=== PATIENT | female | born 1960 | race Caucasian/White ===

== ENCOUNTER 2017-08-18 10:23 | Emergency (ER) | payer OTHER ==
[2017-08-18 14:01] LABS: Urine Blood 2+ (NEG); Urine Glucose NEGATIVE (NEG); Urine Protein TRACE (NEG)
--- NOTE | 2017-08-18 14:28 | EDPHYS ---
Physician Documentation [facility] Name: Stefanie Capellan Age: 56 yrs Sex: Female : 1960 Arrival Date: 08/18/2017 Time: 10:25 Bed 23 Private MD: ED Physician Stephan Harvey HPI: 08/18 14:24 This 56 yrs old Female presents to ER via Ambulatory with complaints of dania Urinary Problem, Upper Respiratory, Nausea/Vomiting. 14:24 The patient presents to the emergency department with nausea, vomiting, abdominal pain, dania of the suprapubic area. Onset: The symptoms/episode began/occurred 2 day(s) ago. Possible causes: unknown. The symptoms are aggravated by nothing. The symptoms are alleviated by nothing. Associated signs and symptoms: Pertinent positives:. Severity of symptoms: At their worst the symptoms were mild moderate in the emergency department the symptoms have improved moderately. The patient has experienced similar episodes in the past, a few times. Historical: - Allergies: 11:21 Codeine; sv 11:21 Latex, Natural Rubber; sv 11:21 Morphine; sv 11:21 PENICILLINS; sv 11:21 Prozac; sv 11:21 Sulfa (Sulfonamide Antibiotics); sv - PSHx: 11:21 None; sv - Immunization history:: Adult Immunizations up to date. - Social history:: Smoking status: Patient/guardian denies using tobacco. - Ebola Screening: : No symptoms or risks identified at this time. - Family history:: not pertinent. ROS: 14:24 Constitutional: Negative for fever, chills, and weight loss, Eyes: Negative for injury, dania pain, redness, and discharge, ENT: Negative for injury, pain, and discharge, Neck: Negative for injury, pain, and swelling, Cardiovascular: Negative for chest pain, palpitations, and edema, Abdomen/GI: Negative for abdominal pain, nausea, vomiting, diarrhea, and constipation, Back: Negative for injury and pain, MS/Extremity: Negative for injury and deformity, Skin: Negative for injury, rash, and discoloration, Neuro: Negative for headache, weakness, numbness, tingling, and seizure. 14:24 Respiratory: Positive for cough. 14:24 Abdomen/GI: Positive for nausea, vomiting, and diarrhea. 14:24 : Positive for urinary frequency, small amounts, burning with urination, difficulty urinating. Exam: 14:24 Constitutional: This is a well developed, well nourished patient who is awake, alert, dania and in no acute distress. Head/Face: Normocephalic, atraumatic. Eyes: Pupils equal round and reactive to light, extra-ocular motions intact. Lids and lashes normal. Conjunctiva and sclera are non-icteric and not injected. Cornea within normal limits. Periorbital areas with no swelling, redness, or edema. ENT: Nares patent. No nasal discharge, no septal abnormalities noted. Tympanic membranes are normal and external auditory canals are clear. Oropharynx with no redness, swelling, or masses, exudates, or evidence of obstruction, uvula midline. Mucous membranes moist. Neck: Trachea midline, no thyromegaly or masses palpated, and no cervical lymphadenopathy. Supple, full range of motion without nuchal rigidity, or vertebral point tenderness. No Meningismus. Chest/axilla: Normal chest wall appearance and motion. Nontender with no deformity. No lesions are appreciated. Cardiovascular: Regular rate and rhythm with a normal S1 and S2. No gallops, murmurs, or rubs. Normal PMI, no JVD. No pulse deficits. Respiratory: Lungs have equal breath sounds bilaterally, clear to auscultation and percussion. No rales, rhonchi or wheezes noted. No increased work of breathing, no retractions or nasal flaring. Back: No spinal tenderness. No costovertebral tenderness. Full range of motion. Female : Normal external genitalia. Skin: Warm, dry with normal turgor. Normal color with no rashes, no lesions, and no evidence of cellulitis. 14:24 Abdomen/GI: Inspection: abdomen appears normal, Bowel sounds: normal, Palpation: mild abdominal tenderness, in the suprapubic area. Vital Signs: 11:21 BP 130 / 71; Pulse 94; Resp 18; Temp 98.6(O); Pulse Ox 100% ; Weight 70.76 kg; Height 5 sv ft. 6 in. (167.64 cm); Pain 8/10; 13:33 BP 109 / 63; Pulse 79; Resp 18; Pulse Ox 97% on R/A; tw2 14:35 BP 110 / 72; Pulse 88; Resp 17; Pulse Ox 100% on R/A; tw2 11:21 Body Mass Index 25.18 (70.76 kg, 167.64 cm) MDM: 12:46 Patient medically screened. [facility] 14:24 Data reviewed: vital signs, nurses notes, lab test result(s). [facility] 08/18 13:28 Order name: Urine Culture 08/18 13:30 Order name: Urine Dipstick--Ancillary (enter results); Complete Time: 14:23 08/18 13:28 Order name: Urine Dipstick-Ancillary (obtain specimen); Complete Time: 13:28 Administered Medications: 14:34 Drug: LevOfloxacin 500 mg Route: PO; tw2 14:36 Follow up: Response: No adverse reaction tw2 Disposition: 08/18/17 14:28 Discharged to Home. Impression: Acute upper respiratory infection, unspecified, Dysuria - / UTI. - Condition is Stable. - Discharge Instructions: Dysuria, Upper Respiratory Infection, Adult, Cool Mist Vaporizers, Upper Respiratory Infection, Adult, [id number], Cough, Adult. - Prescriptions for Levaquin 500 mg Oral Tablet - take 1 tablet by ORAL route once daily for 7 days; 7 tablet. - Medication Reconciliation Form, Thank You Letter, Antibiotic Education, Prescription Opioid Use, Work release form form. - Follow up: Private Physician; When: 2 - 3 days; Reason: Recheck today's complaints, Continuance of care, Re-evaluation by your physician. - Problem is new. - Symptoms have improved. Signatures: Dispatcher [employer] Chayo Cruz RN RN Stephan Harvey MD MD cha Smirch, Shelby, RN RN Tennille Davis RN RN tw2 Corrections: (The following items were deleted from the chart) 14:36 14:28 08/18/2017 14:28 Discharged to Home. Impression: Acute upper respiratory tw2 infection, unspecified; Dysuria - / UTI. Condition is Stable. Forms are Medication Reconciliation Form, Thank You Letter, Antibiotic Education, Prescription Opioid Use. Follow up: Private Physician; When: 2 - 3 days; Reason: Recheck today's complaints, Continuance of care, Re-evaluation by your physician. Problem is new. Symptoms have improved. [facility]
--- NOTE | 2017-08-18 14:28 | ER ---
Nurse's Notes [facility] Name: Stefanie Capellan Age: 56 yrs Sex: Female : 1960 Arrival Date: 08/18/2017 Time: 10:25 Bed 23 Private MD: Diagnosis: Acute upper respiratory infection, unspecified;Dysuria-/ UTI Presentation: 08/18 11:20 Presenting complaint: Patient states: head congestion, dental issues, sneezing, abd sv cramping, dizziness, headache, urinary symptoms. Transition of care: patient was not received from another setting of care. Onset of symptoms was July 2017. Care prior to arrival: None. 11:20 Method Of Arrival: Ambulatory sv 11:20 Acuity: RAMIN 3 sv 13:36 Risk Assessment: Do you want to hurt yourself or someone else? Patient reports no tw2 desire to harm self or others. Initial Sepsis Screen: Does the patient meet any 2 criteria? No. Patient's initial sepsis screen is negative. Does the patient have a suspected source of infection? No. Patient's initial sepsis screen is negative. Historical: - Allergies: 11:21 Codeine; sv 11:21 Latex, Natural Rubber; sv 11:21 Morphine; sv 11:21 PENICILLINS; sv 11:21 Prozac; sv 11:21 Sulfa (Sulfonamide Antibiotics); sv - PSHx: 11:21 None; sv - Immunization history:: Adult Immunizations up to date. - Social history:: Smoking status: Patient/guardian denies using tobacco. - Ebola Screening: : No symptoms or risks identified at this time. - Family history:: not pertinent. Screenin:35 Abuse screen: Denies threats or abuse. Nutritional screening: No deficits noted. tw2 Tuberculosis screening: No symptoms or risk factors identified. Fall Risk None identified. Assessment: 12:30 General: Appears in no apparent distress. Behavior is calm, cooperative, appropriate tw2 for age. Pain: Complains of pain in "headache and my sinuses". Neuro: Level of Consciousness is awake, alert, obeys commands, Oriented to person, place, time, situation. Cardiovascular: Denies chest pain, shortness of breath, Heart tones S1 S2 Capillary refill < 3 seconds Patient's skin is warm and dry. Respiratory: Airway is patent Respiratory effort is even, unlabored, Respiratory pattern is regular, symmetrical, Breath sounds are clear bilaterally. GI: No signs and/or symptoms were reported involving the gastrointestinal system. Abdomen is round non-distended, Bowel sounds present X 4 quads. : No signs and/or symptoms were reported regarding the genitourinary system. EENT: Reports nasal congestion and headache. Derm: Skin is intact, is healthy with good turgor, Skin temperature is warm. Musculoskeletal: Range of motion: intact in all extremities. 13:33 Reassessment: Patient appears in no apparent distress at this time. No changes from tw2 previously documented assessment. Patient and/or family updated on plan of care and expected duration. Pain level reassessed. Patient is alert, oriented x 3, equal unlabored respirations, skin warm/dry/pink. 14:35 Reassessment: Patient appears in no apparent distress at this time. No changes from tw2 previously documented assessment. Patient and/or family updated on plan of care and expected duration. Pain level reassessed. Patient is alert, oriented x 3, equal unlabored respirations, skin warm/dry/pink. Vital Signs: 11:21 BP 130 / 71; Pulse 94; Resp 18; Temp 98.6(O); Pulse Ox 100% ; Weight 70.76 kg; Height 5 sv ft. 6 in. (167.64 cm); Pain 8/10; 13:33 BP 109 / 63; Pulse 79; Resp 18; Pulse Ox 97% on R/A; tw2 14:35 BP 110 / 72; Pulse 88; Resp 17; Pulse Ox 100% on R/A; tw2 11:21 Body Mass Index 25.18 (70.76 kg, 167.64 cm) sv ED Course: 10:25 Patient arrived in ED. as 11:21 Triage completed. sv 11:23 Arm band placed on right wrist. Patient placed in waiting room, Patient notified of sv wait time. 12:23 Tennille Davis RN is Primary Nurse. tw2 12:46 Stephan Harvey MD is Attending Physician. [facility] 13:36 Bed in low position. Call light in reach. Pulse ox on. NIBP on. Warm blanket given. tw2 13:59 Urine Culture Sent. tw2 14:35 No provider procedures requiring assistance completed. Patient did not have IV access tw2 during this emergency room visit. Administered Medications: 14:34 Drug: LevOfloxacin 500 mg Route: PO; tw2 14:36 Follow up: Response: No adverse reaction tw2 Outcome: 14:28 Discharge ordered by . dania 14:35 Discharged to home ambulatory. tw2 14:35 Condition: stable 14:35 Discharge instructions given to patient, Instructed on discharge instructions, follow up and referral plans. medication usage, Demonstrated understanding of instructions, follow-up care, medications, Prescriptions given X 1. 14:36 Patient left the ED. tw2 Addendum: 08/21/2017 15:34 Addendum: Culture Results: Positive urine culture. Bacteria is resistant to, has i w intermediate sensitivity, or is not tested against prescribed antibiotics. Report given to NETTIE for further evaluation and then to wire rope sling maker for follow up with patient. Phone call Attempt #1 pt still having pain with urination Prescription called-in to pharmacy of choice. Macrobid 100 mg PO BID X 10 days, Qty 20, no refills. Signatures: Chayo Escudero RN RN Stephan Sarmiento MD MD cha Martinez, Amelia as Williams, Irene, RN RN iw Wise, Tara, RN RN tw2
[2017-08-18] MEDS ORDERED: levoFLOXacin 500 MG TAB ONE (14:35)
== END 2017-08-18 14:36 | disposition home or self-care (01) ==
LOC: ER 10:23
DX: J06.9 Acute upper respiratory infection, unspecified (principal); Z88.5 Allergy status to narcotic agent; Z88.0 Allergy status to penicillin; Z88.2 Allergy status to sulfonamides; Z88.8 Allergy status to other drugs, medicaments and biological substances; Z91.040 Latex allergy status; N39.0 Urinary tract infection, site not specified; R30.0 Dysuria
CPT/HCPCS: 81003; 87077; 87086; 87088; 87186; 99284

== ENCOUNTER 2018-04-30 09:36 | Emergency (ER) | payer OTHER ==
[2018-04-30] MEDS ORDERED: ALBUTEROL 2.5 MG/3 ML NEB SOL ONE (11:17)
[2018-04-30] MEDS ORDERED: ACETAMINOPHEN 500 MG TAB ONE (11:18)
[2018-04-30 11:31] LABS: Urine Bacteria 20-50 /HPF (<20); Urine Culture Reflex Order REFLEXED; Urine Mucus 2+ /HPF (NONE SEEN); Urine RBC 20-50 /HPF (NONE SEEN)
--- NOTE | 2018-04-30 11:34 | RAD REPORT ---
EXAM DESCRIPTION: RAD - Chest Pa And Lat (2 Views) - 04/30/2018 11:23 am CLINICAL HISTORY: COUGH Chest pain. COMPARISON: Chest Pa And Lat (2 Views) dated 09/08/2015; Chest Single View dated 05/29/2015; CHEST PA A ND LAT 2 VIEW dated 03/04/2015; CHEST PA AND LAT 2 VIEW dated 01/31/2011 FINDINGS: The lungs are clear. The heart is normal in size. No displaced fractures. IMPRESSION: No acute or concerning finding suspected.
[2018-04-30 11:58] LABS: Absolute Monocytes 0.8 K/uL (0.1-1.3); Absolute Neutrophil 8.3 K/uL (1.8-8.0); Basophils % 0.7 % (0-1.3); Eosinophils % 3.4 % (0-4.4); Lymphocytes % 23.7 % (15.3-44.8); MPV 8.5 fL (7.6-11.3); Monocytes % 6.1 % (3.3-12.3); RBC Red Blood Cell Count 4.41 M/uL (3.86-4.86)
[2018-04-30 12:07] LABS: BUN Blood Urea Nitrogen 11 mg/dL (7-18); Bicarbonate 29 mmol/L (21-32); Glucose Level 94 mg/dL (74-106); Potassium 3.7 mmol/L (3.5-5.1); Sodium Level 145 mmol/L (136-145)
[2018-04-30 12:15] LABS: Urine Blood 2+ (NEG); Urine Glucose NEGATIVE (NEG); Urine Protein NEGATIVE (NEG); Urine Specific Gravity 1.015 (1.005-1.030)
--- NOTE | 2018-04-30 15:13 | EDPHYS ---
Physician Documentation [facility] Name: Stefanie Capellan Age: 57 yrs Sex: Female : 1960 Arrival Date: 04/30/2018 Time: 09:40 Bed 25 Private MD: ED Physician Kelvin Stroud HPI: 04/30 17:36 This 57 yrs old Female presents to ER via Ambulatory with complaints of Cold wa Symptoms, Urinary Problem. 17:36 The patient presents with vaginal discharge, that is a moderate amount of malodorous wa yellow discharge. Onset: The symptoms/episode began/occurred 2 month(s) ago. Modifying factors: The symptoms are alleviated by nothing, the symptoms are aggravated by nothing. Associated signs and symptoms: Pertinent positives: vaginal discharge, Pertinent negatives: dysuria, fever, hematuria, urinary frequency, vomiting. Severity of symptoms: At their worst the symptoms were moderate, in the emergency department the symptoms are actually worse, moderately. The patient is not sexually active. The patient has not experienced similar symptoms in the past. The patient has not recently seen a physician. Historical: - Allergies: 09:59 Codeine; hj 09:59 Latex, Natural Rubber; hj 09:59 Morphine; hj 09:59 PENICILLINS; hj 09:59 Prozac; hj 09:59 Sulfa (Sulfonamide Antibiotics); hj - Home Meds: 09:59 None [Active]; hj - PMHx: 09:59 Hypertension; hj - PSHx: 09:59 None; hj - Immunization history:: Adult Immunizations up to date. - Social history:: Smoking status: Patient/guardian denies using tobacco, Patient/guardian denies using alcohol. - Ebola Screening: : Patient negative for fever greater than or equal to 101.5 degrees Fahrenheit, and additional compatible Ebola Virus Disease symptoms Patient denies exposure to infectious person Patient denies travel to an Ebola-affected area in the 21 days before illness onset. - Family history:: not pertinent. - Hospitalizations: : No recent hospitalization is reported. ROS: 17:40 Positive for urinary symptoms, vaginal discharge, Negative for pelvic pain. wa 17:40 Constitutional: Negative for fever, chills, and weight loss, Eyes: Negative for injury, pain, redness, and discharge, Neck: Negative for injury, pain, and swelling, Cardiovascular: Negative for chest pain, palpitations, and edema, Respiratory: Negative for shortness of breath, cough, wheezing, and pleuritic chest pain, Abdomen/GI: Negative for abdominal pain, nausea, vomiting, diarrhea, and constipation, Back: Negative for injury and pain, MS/Extremity: Negative for injury and deformity, Skin: Negative for injury, rash, and discoloration, Neuro: Negative for headache, weakness, numbness, tingling, and seizure, Psych: Negative for depression, anxiety, suicide ideation, homicidal ideation, and hallucinations. 17:40 ENT: Positive for sinus congestion, left facial pain. 17:40 : Positive for vaginal discharge. 17:40 All other systems are negative. Exam: 17:41 Constitutional: This is a well developed, well nourished patient who is awake, alert, wa and in no acute distress. Head/Face: Normocephalic, atraumatic. Eyes: Pupils equal round and reactive to light, extra-ocular motions intact. Lids and lashes normal. Conjunctiva and sclera are non-icteric and not injected. Cornea within normal limits. Periorbital areas with no swelling, redness, or edema. Neck: Trachea midline, no thyromegaly or masses palpated, and no cervical lymphadenopathy. Supple, full range of motion without nuchal rigidity, or vertebral point tenderness. No Meningismus. Chest/axilla: Normal chest wall appearance and motion. Nontender with no deformity. No lesions are appreciated. Cardiovascular: Regular rate and rhythm with a normal S1 and S2. No gallops, murmurs, or rubs. Normal PMI, no JVD. No pulse deficits. Respiratory: Lungs have equal breath sounds bilaterally, clear to auscultation and percussion. No rales, rhonchi or wheezes noted. No increased work of breathing, no retractions or nasal flaring. Abdomen/GI: Soft, non-tender, with normal bowel sounds. No distension or tympany. No guarding or rebound. No evidence of tenderness throughout. Back: No spinal tenderness. No costovertebral tenderness. Full range of motion. Skin: Warm, dry with normal turgor. Normal color with no rashes, no lesions, and no evidence of cellulitis. MS/ Extremity: Pulses equal, no cyanosis. Neurovascular intact. Full, normal range of motion. Neuro: Awake and alert, GCS 15, oriented to person, place, time, and situation. Cranial nerves II-XII grossly intact. Motor strength 5/5 in all extremities. Sensory grossly intact. Cerebellar exam normal. Normal gait. Psych: Awake, alert, with orientation to person, place and time. Behavior, mood, and affect are within normal limits. 17:41 ENT: TM's: are normal, noted L frontal and maxillary sinus tenderness. 17:42 : CVA tenderness, is absent, Pelvic Exam: External exam: is normal, Speculum exam: wa yellowish discharge on vag vault. friable cervix. Vital Signs: 10:00 BP 142 / 84; Pulse 85; Resp 18; Temp 97.4(O); Pulse Ox 100% on R/A; Weight 61.23 kg; Height 5 ft. 6 in. (167.64 cm); Pain 8/10; 11:45 BP 147 / 71; Pulse 83; Resp 18; Pulse Ox 100% on Nebulizer Mask; aj1 12:45 BP 142 / 75; Pulse 82; Resp 18; Pulse Ox 99% ; aj1 13:45 BP 145 / 88; Pulse 90; Resp 20; Pulse Ox 97% on R/A; aj1 10:00 Body Mass Index 21.79 (61.23 kg, 167.64 cm) MDM: 10:38 Patient medically screened. ny 17:43 Differential diagnosis: cervicitis, pelvic inflammatory disease, urinary tract wa infection, vaginosis. 17:44 Data reviewed: vital signs, nurses notes. Test interpretation: by ED physician or ny midlevel provider: UA noted for UTI. wet prep negative. GC/Chlam pending. Response to treatment: the patient's symptoms have mildly improved after treatment. 04/30 10:03 Order name: Urine Microscopic Only; Complete Time: 14:53 04/30 10:32 Order name: Urine Dipstick--Ancillary (enter results); Complete Time: 14:53 04/30 11:03 Order name: Wet Prep; Complete Time: 14:53 ny 04/30 11:03 Order name: GC (GONORR/CHLAMYDIA) Probe ny 04/30 11:03 Order name: CBC with Diff; Complete Time: 14:53 ny 04/30 11:03 Order name: BMP; Complete Time: 14:53 ny 04/30 10:03 Order name: Urine Dipstick-Ancillary (obtain specimen); Complete Time: 10:33 04/30 11:03 Order name: Pelvic Exam Setup; Complete Time: 11:45 ny 04/30 11:04 Order name: Chest Pa And Lat (2 Views) XRAY; Complete Time: 11:50 ny 04/30 11:32 Order name: Urine Culture [facility] 04/30 12:06 Order name: Labs - recollect needed; Complete Time: 12:58 bd Administered Medications: 11:10 Drug: Tylenol 1000 mg Route: PO; aj1 15:33 Follow up: Response: No adverse reaction aj1 11:36 Drug: Albuterol 2.5 mg Route: Inhalation; aj1 15:33 Follow up: Response: No adverse reaction aj1 15:33 Drug: LevaQUIN 750 mg Route: PO; aj1 15:33 Follow up: Response: No adverse reaction aj1 Disposition: 04/30/18 15:11 Discharged to Home. Impression: Acute UTI, Vaginal Discharge, Chronic Sinusitis. - Condition is Stable. - Discharge Instructions: Urinary Tract Infection, Adult, Kgfz-[id number], Vaginitis, Qznf-[id number]. - Prescriptions for Cipro 500 mg Oral Tablet - take 1 tablet by ORAL route every 12 hours for 7 days; 14 tablet. Zofran 4 mg Oral Tablet - take 1 tablet by ORAL route every 12 hours As needed; 20 tablet. Levaquin 500 mg Oral Tablet - take 1 tablet by ORAL route once daily for 7 days; 7 tablet. - Work release form, Medication Reconciliation Form, Thank You Letter, Antibiotic Education, Prescription Opioid Use form. - Follow up: Ruben Tinoco DO; When: 2 - 3 days; Reason: Recheck today's complaints. - Problem is new. - Symptoms have improved. - Notes: tqke antibiotics as prescribed. see your doctor for check up within 2-3 days Signatures: Dispatcher [employer] [facility] Riri Pererya Angela, RN RN aj1 Jarrett Santamaria RN RN hj Kelvin Stroud MD MD wa Corrections: (The following items were deleted from the chart) 15:35 15:11 04/30/2018 15:11 Discharged to Home. Impression: Acute UTI; Vaginal Discharge; aj1 Chronic Sinusitis. Condition is Stable. Forms are Medication Reconciliation Form, Thank You Letter, Antibiotic Education, Prescription Opioid Use. Follow up: Ruben Tinoco; When: 2 - 3 days; Reason: Recheck today's complaints. Problem is new. Symptoms have improved. wa
--- NOTE | 2018-04-30 15:13 | ER ---
Nurse's Notes [facility] Name: Stefanie Capellan Age: 57 yrs Sex: Female : 1960 Arrival Date: 04/30/2018 Time: 09:40 Bed 25 Private MD: Diagnosis: Acute UTI;Vaginal Discharge;Chronic Sinusitis Presentation: 04/30 09:56 Presenting complaint: Patient states: i have bad vaginal discharge like a yeast hj infection for like a 3 or 4 months; now i feel like i have urine infection too; reports abdominal pain; reports sinus congestion and headache;. Transition of care: patient was not received from another setting of care. Onset of symptoms was April 30, 2018. Risk Assessment: Do you want to hurt yourself or someone else? Patient reports no desire to harm self or others. Initial Sepsis Screen: Does the patient meet any 2 criteria? No. Patient's initial sepsis screen is negative. Does the patient have a suspected source of infection? No. Patient's initial sepsis screen is negative. Care prior to arrival: None. 09:56 Method Of Arrival: Ambulatory 09:56 Acuity: RAMIN 4 hj Triage Assessment: 10:00 General: Appears in no apparent distress. uncomfortable, Behavior is calm, cooperative, hj appropriate for age. Pain: Complains of pain in head, abdomen. Historical: - Allergies: 09:59 Codeine; hj 09:59 Latex, Natural Rubber; hj 09:59 Morphine; hj 09:59 PENICILLINS; hj 09:59 Prozac; hj 09:59 Sulfa (Sulfonamide Antibiotics); hj - Home Meds: 09:59 None [Active]; hj - PMHx: 09:59 Hypertension; - PSHx: 09:59 None; hj - Immunization history:: Adult Immunizations up to date. - Social history:: Smoking status: Patient/guardian denies using tobacco, Patient/guardian denies using alcohol. - Ebola Screening: : Patient negative for fever greater than or equal to 101.5 degrees Fahrenheit, and additional compatible Ebola Virus Disease symptoms Patient denies exposure to infectious person Patient denies travel to an Ebola-affected area in the 21 days before illness onset. - Family history:: not pertinent. - Hospitalizations: : No recent hospitalization is reported. Screenin:00 Abuse screen: Denies threats or abuse. Denies injuries from another. Nutritional hj screening: No deficits noted. Tuberculosis screening: No symptoms or risk factors identified. Fall Risk None identified. Assessment: 10:31 General: Appears in no apparent distress. comfortable, Behavior is calm, cooperative, aj1 appropriate for age. Pain: Complains of pain in body aches. Neuro: Level of Consciousness is awake, alert, obeys commands, Oriented to person, place, time, situation, Gait is steady, Speech is normal, Facial symmetry appears normal. Cardiovascular: Patient's skin is warm and dry. Respiratory: Airway is patent Respiratory effort is even, unlabored, Respiratory pattern is regular, symmetrical. GI: No signs and/or symptoms were reported involving the gastrointestinal system. : Reports burning with urination. EENT: Reports nasal congestion nasal discharge. Derm: No signs and/or symptoms reported regarding the dermatologic system. Skin is pink, warm \T\ dry. normal. Musculoskeletal: No signs and/or symptoms reported regarding the musculoskeletal system. Circulation, motion, and sensation intact. 11:45 Reassessment: Patient appears in no apparent distress at this time. No changes from aj1 previously documented assessment. Patient and/or family updated on plan of care and expected duration. Pain level reassessed. Patient is alert, oriented x 3, equal unlabored respirations, skin warm/dry/pink. 12:30 Reassessment: Patient appears in no apparent distress at this time. No changes from aj1 previously documented assessment. Patient and/or family updated on plan of care and expected duration. Pain level reassessed. Patient is alert, oriented x 3, equal unlabored respirations, skin warm/dry/pink. 13:31 Reassessment: Patient appears in no apparent distress at this time. No changes from aj1 previously documented assessment. Patient and/or family updated on plan of care and expected duration. Pain level reassessed. Patient is alert, oriented x 3, equal unlabored respirations, skin warm/dry/pink. 14:30 Reassessment: Patient appears in no apparent distress at this time. No changes from aj1 previously documented assessment. Patient and/or family updated on plan of care and expected duration. Pain level reassessed. Patient is alert, oriented x 3, equal unlabored respirations, skin warm/dry/pink. 15:34 Reassessment: Patient appears in no apparent distress at this time. No changes from aj1 previously documented assessment. Patient and/or family updated on plan of care and expected duration. Pain level reassessed. Patient is alert, oriented x 3, equal unlabored respirations, skin warm/dry/pink. Vital Signs: 10:00 BP 142 / 84; Pulse 85; Resp 18; Temp 97.4(O); Pulse Ox 100% on R/A; Weight 61.23 kg; hj Height 5 ft. 6 in. (167.64 cm); Pain 8/10; 11:45 BP 147 / 71; Pulse 83; Resp 18; Pulse Ox 100% on Nebulizer Mask; aj1 12:45 BP 142 / 75; Pulse 82; Resp 18; Pulse Ox 99% ; aj1 13:45 BP 145 / 88; Pulse 90; Resp 20; Pulse Ox 97% on R/A; aj1 10:00 Body Mass Index 21.79 (61.23 kg, 167.64 cm) ED Course: 09:40 Patient arrived in ED. as 09:58 Triage completed. hj 10:00 Arm band placed on left wrist. hj 10:00 Patient has correct armband on for positive identification. Bed in low position. Call light in reach. Side rails up X 1. 10:31 Geetha Ochoa, RN is Primary Nurse. aj1 10:31 No provider procedures requiring assistance completed. aj1 10:31 Urine collected: clean catch specimen, clear. aj1 10:38 Kelvin Stroud MD is Attending Physician. wa 11:21 Chest Pa And Lat (2 Views) XRAY In Process Unspecified. EDMS 11:55 Initial lab(s) drawn, by me, sent to lab. aj1 12:01 Assist provider with pelvic exam: Set up pelvic tray. Performed by Kelvin Stroud MD aj1 Specimens sent to lab. 15:11 Ruben Tinoco DO is Referral Physician. wa 15:34 Patient did not have IV access during this emergency room visit. aj1 Administered Medications: 11:10 Drug: Tylenol 1000 mg Route: PO; aj1 15:33 Follow up: Response: No adverse reaction aj1 11:36 Drug: Albuterol 2.5 mg Route: Inhalation; aj1 15:33 Follow up: Response: No adverse reaction aj1 15:33 Drug: LevaQUIN 750 mg Route: PO; aj1 15:33 Follow up: Response: No adverse reaction aj1 Outcome: 15:11 Discharge ordered by . wa 15:34 Discharged to home ambulatory. aj1 15:34 Condition: good 15:34 Discharge instructions given to patient, Instructed on discharge instructions, follow up and referral plans. medication usage, Demonstrated understanding of instructions, follow-up care, medications, Prescriptions given X 3. 15:35 Patient left the ED. aj1 Signatures: Dispatcher [employer] EDGeetha Bo RN RN aj Sada James Henry, RN RN Kelvin Stroud MD MD wa Corrections: (The following items were deleted from the chart) 10:02 09:56 Presenting complaint: Patient states: i have bad vaginal discharge like a yeast hj infection for like a 3 or 4 months; now i feel like i have urine infection too; reports abdominal pain; hj 10:02 10:00 Pulse 85bpm; Resp 18bpm; Pulse Ox 100% RA; Temp 97.4F Oral; 61.23 kg; Height 5 hj ft. 6 in.; BMI: 21.7; Pain 8/10; hj
[2018-04-30] MEDS ORDERED: levoFLOXacin 750 MG TAB ONE (15:35)
[2018-05-02 21:24] LABS: C.trachomatis RNA,TMA Not Detected (Not Detected)
== END 2018-04-30 15:35 | disposition home or self-care (01) ==
LOC: ER 09:36
DX: N39.0 Urinary tract infection, site not specified (principal); J32.9 Chronic sinusitis, unspecified; I10 Essential (primary) hypertension; Z88.5 Allergy status to narcotic agent; Z88.0 Allergy status to penicillin; Z88.2 Allergy status to sulfonamides; Z88.8 Allergy status to other drugs, medicaments and biological substances; Z91.040 Latex allergy status
CPT/HCPCS: 36415; 71046; 80048; 81003; 81015; 85025; 87086; 87088; 87210; 87490; 87590; 99284

== ENCOUNTER 2018-06-17 11:33 | Emergency (ER) | payer OTHER ==
[2018-06-17 13:09] LABS: Urine Blood 1+ (NEG); Urine Glucose NEGATIVE (NEG); Urine Protein NEGATIVE (NEG); Urine Specific Gravity 1.015 (1.005-1.030); Urine pH 7.5 (5.0-7.0)
[2018-06-17 13:49] LABS: Urine Bacteria <20 /HPF (<20)
[2018-06-17 13:50] LABS: Urine Culture Reflex Order NOT NEEDED
--- NOTE | 2018-06-17 14:01 | EDPHYS ---
Physician Documentation [facility] Name: Stefanie Capellan Age: 57 yrs Sex: Female : 1960 Arrival Date: 06/17/2018 Time: 11:37 Bed 24 Private MD: ED Physician Willy Rodríguez HPI: 06/17 13:55 This 57 yrs old Female presents to ER via Ambulatory with complaints of kb Urinary Problem, Rash, Sinus Congestion. 13:56 The patient's rash thought to be caused by insect bites. The rash is located on the kb right leg and left leg. The rash can be described as erythematous. Onset: The symptoms/episode began/occurred 3 day(s) ago. Associated signs and symptoms: Pertinent positives: itching. Severity of symptoms: At their worst the symptoms were moderate in the emergency department the symptoms are unchanged. The patient has not experienced similar symptoms in the past. The patient has not recently seen a physician. Pt reports a rash to bilateral legs that she thinks might be bed bugs. States she has been staying at a hotel and just moved to a different room when the spots started. Reports itching. Also reports chronic sinusitis and two months of dysuria and discharge. . Historical: - Allergies: 12:11 Codeine; rb1 12:11 Morphine; rb1 12:11 Latex, Natural Rubber; rb1 12:11 PENICILLINS; rb1 12:11 Prozac; rb1 12:11 Sulfa (Sulfonamide Antibiotics); rb1 - PMHx: 12:11 Hypertension; Diabetes - NIDDM; rb1 - PSHx: 12:11 None; rb1 - Immunization history:: Adult Immunizations up to date. - Social history:: Smoking status: Patient/guardian denies using tobacco. ROS: 13:53 Constitutional: Negative for fever, chills, and weight loss, ENT: Negative for injury, kb pain, and discharge, Neck: Negative for injury, pain, and swelling, Cardiovascular: Negative for chest pain, palpitations, and edema, Respiratory: Negative for shortness of breath, cough, wheezing, and pleuritic chest pain, Abdomen/GI: Negative for abdominal pain, nausea, vomiting, diarrhea, and constipation, MS/Extremity: Negative for injury and deformity, Neuro: Negative for headache, weakness, numbness, tingling, and seizure. 13:53 : Positive for burning with urination, foul smelling urine. 13:53 Skin: Positive for rash. Exam: 13:53 Constitutional: This is a well developed, well nourished patient who is awake, alert, kb and in no acute distress. Head/Face: Normocephalic, atraumatic. Chest/axilla: Normal chest wall appearance and motion. Nontender with no deformity. No lesions are appreciated. Cardiovascular: Regular rate and rhythm with a normal S1 and S2. No gallops, murmurs, or rubs. Normal PMI, no JVD. No pulse deficits. Respiratory: Lungs have equal breath sounds bilaterally, clear to auscultation and percussion. No rales, rhonchi or wheezes noted. No increased work of breathing, no retractions or nasal flaring. Abdomen/GI: Soft, non-tender, with normal bowel sounds. No distension or tympany. No guarding or rebound. No evidence of tenderness throughout. Back: No spinal tenderness. No costovertebral tenderness. Full range of motion. MS/ Extremity: Pulses equal, no cyanosis. Neurovascular intact. Full, normal range of motion. Neuro: Awake and alert, GCS 15, oriented to person, place, time, and situation. Cranial nerves II-XII grossly intact. Motor strength 5/5 in all extremities. Sensory grossly intact. Cerebellar exam normal. Normal gait. 13:53 Skin: rash a mild rash is noted, rash can be described as erythematous, on the right leg and left leg. Vital Signs: 12:11 BP 154 / 82; Pulse 95; Resp 17; Temp 98.4(O); Pulse Ox 99% on R/A; Weight 65.77 kg; rb1 Height 5 ft. 6 in. (167.64 cm); Pain 4/10; 12:11 Body Mass Index 23.40 (65.77 kg, 167.64 cm) rb1 MDM: 13:13 Patient medically screened. kb 13:52 Data reviewed: vital signs, nurses notes. Data interpreted: Pulse oximetry: on room air kb is 99 %. Interpretation: normal. Counseling: I had a detailed discussion with the patient and/or guardian regarding: the historical points, exam findings, and any diagnostic results supporting the discharge/admit diagnosis, lab results, the need for outpatient follow up, a family practitioner, to return to the emergency department if symptoms worsen or persist or if there are any questions or concerns that arise at home. 06/17 12:31 Order name: Urine Microscopic Only; Complete Time: 13:52 hb 06/17 12:43 Order name: Urine Dipstick--Ancillary (enter results); Complete Time: 13:13 bd 06/17 13:18 Order name: Urine Culture aj Administered Medications: No medications were administered Disposition: 06/17/18 14:00 Discharged to Home. Impression: Urinary tract infection, site not specified, Bitten or stung by nonvenomous insect and other nonvenomous arthropods. - Condition is Stable. - Discharge Instructions: Insect Bite, [id number], Urinary Tract Infection, Adult, [id number]. - Prescriptions for Macrobid 100 mg Oral Capsule - take 1 capsule by ORAL route every 12 hours for 7 days; 14 capsule. - Medication Reconciliation Form, Thank You Letter, Antibiotic Education, Prescription Opioid Use, Work release form form. - Follow up: Emergency Department; When: As needed; Reason: Worsening of condition. Follow up: Private Physician; When: 2 - 3 days; Reason: Recheck today's complaints, Continuance of care, Re-evaluation by your physician. Addendum: 06/19/2018 07:04 Co-signature as Attending Physician, Willy Rodríguez MD. r n Signatures: Dispatcher [employer] EDVania Sawyer, BULLDOZER OPERATOR-C BULLDOZER OPERATOR-Ckb Leigh Peña RN RN aj Nieto, Roman, MD MD rn Smirch, Shelby, RN RN ss Barber, Rebecca, RN RN rb1 Corrections: (The following items were deleted from the chart) 06/17 14:19 14:00 06/17/2018 14:00 Discharged to Home. Impression: Urinary tract infection, site ss not specified; Bitten or stung by nonvenomous insect and other nonvenomous arthropods. Condition is Stable. Forms are Medication Reconciliation Form, Thank You Letter, Antibiotic Education, Prescription Opioid Use. Follow up: Emergency Department; When: As needed; Reason: Worsening of condition. Follow up: Private Physician; When: 2 - 3 days; Reason: Recheck today's complaints, Continuance of care, Re-evaluation by your physician. kb
--- NOTE | 2018-06-17 14:01 | ER ---
Nurse's Notes [facility] Name: Stefanie Capellan Age: 57 yrs Sex: Female : 1960 Arrival Date: 06/17/2018 Time: 11:37 Bed 24 Private MD: Diagnosis: Urinary tract infection, site not specified;Bitten or stung by nonvenomous insect and other nonvenomous arthropods Presentation: 06/17 12:07 Presenting complaint: Patient states: Rash on legs, sinus congestion, and urinary rb1 problem. Started a couple months ago. Rash x couple days. Transition of care: patient was not received from another setting of care. Onset of symptoms is unknown. Risk Assessment: Do you want to hurt yourself or someone else? Patient reports no desire to harm self or others. Initial Sepsis Screen: Does the patient meet any 2 criteria? No. Patient's initial sepsis screen is negative. Does the patient have a suspected source of infection? No. Patient's initial sepsis screen is negative. 12:07 Method Of Arrival: Ambulatory rb1 12:07 Acuity: RAMIN 4 rb1 Triage Assessment: 12:11 General: Appears in no apparent distress. comfortable, Behavior is calm, cooperative, rb1 Denies fever. Pain: Complains of pain in headache Pain currently is 4 out of 10 on a pain scale. EENT: Reports nasal congestion. Neuro: Level of Consciousness is awake, alert, obeys commands, Oriented to person, place, time, situation. Cardiovascular: Capillary refill < 3 seconds is brisk in bilateral fingers. Respiratory: Airway is patent Respiratory effort is even, unlabored, Respiratory pattern is regular, symmetrical. Respiratory: Reports cough that is productive, green sputum. : Reports burning with urination, since unknown. Derm: Skin is pink, warm \\T\\ dry. Historical: - Allergies: 12:11 Codeine; rb1 12:11 Morphine; rb1 12:11 Latex, Natural Rubber; rb1 12:11 PENICILLINS; rb1 12:11 Prozac; rb1 12:11 Sulfa (Sulfonamide Antibiotics); rb1 - PMHx: 12:11 Hypertension; Diabetes - NIDDM; rb1 - PSHx: 12:11 None; rb1 - Immunization history:: Adult Immunizations up to date. - Social history:: Smoking status: Patient/guardian denies using tobacco. Screenin:13 Abuse screen: Denies threats or abuse. Denies injuries from another. Nutritional aj screening: No deficits noted. Tuberculosis screening: No symptoms or risk factors identified. Fall Risk None identified. Assessment: 13:13 Reassessment: Patient stated, "I think I may have been bitten by bedbugs. I am staying at the [facility] and it is older, I just switched room and woke up with bites all over me. I didn't check the mattress but that's what I think it may be." Patient noted to have small red spots all over legs, trunk, and chest. General: Appears in no apparent distress. comfortable, Behavior is calm, cooperative, appropriate for age. General: Appears in no apparent distress. comfortable, Behavior is calm, cooperative, appropriate for age. Neuro: Level of Consciousness is awake, alert, obeys commands, Oriented to person, place, time, situation, Appropriate for age. Respiratory: Airway is patent Respiratory effort is even, unlabored, Respiratory pattern is regular, symmetrical. Derm: Skin is intact, is healthy with good turgor, Skin is pink, warm \\T\\ dry. normal. 13:13 EENT: Reports nasal congestion nasal discharge. aj Vital Signs: 12:11 BP 154 / 82; Pulse 95; Resp 17; Temp 98.4(O); Pulse Ox 99% on R/A; Weight 65.77 kg; rb1 Height 5 ft. 6 in. (167.64 cm); Pain 4/10; 12:11 Body Mass Index 23.40 (65.77 kg, 167.64 cm) rb1 ED Course: 11:37 Patient arrived in ED. mr 12:10 Triage completed. rb1 12:11 Arm band placed on left wrist. rb1 12:43 Leigh Peña, YVONNE is Primary Nurse. aj 13:13 Vania Sparks FNP-C is PHCP. kb 13:13 Willy Rodríguez MD is Attending Physician. kb 13:13 Patient has correct armband on for positive identification. aj 13:13 No provider procedures requiring assistance completed. aj 14:18 Patient did not have IV access during this emergency room visit. ss Administered Medications: No medications were administered Outcome: 14:00 Discharge ordered by MD. kb 14:18 Discharged to home ambulatory. ss 14:18 Condition: good 14:18 Discharge instructions given to patient, family, Instructed on discharge instructions, follow up and referral plans. medication usage, Demonstrated understanding of instructions, follow-up care, medications. 14:19 Patient left the ED. ss Signatures: Vania Sparks, CIVIL ENGINEERING TECHNICIAN-C CIVIL ENGINEERING TECHNICIAN-Leigh Lara, RN Dyan Mcmillan mr Hermila Diane RN RN ss Alejandra De La Rosa RN RN rb1
== END 2018-06-17 14:19 | disposition home or self-care (01) ==
LOC: ER 11:33
DX: S80.862A Insect bite (nonvenomous), left lower leg, initial encounter (principal); S80.861A Insect bite (nonvenomous), right lower leg, initial encounter; N39.0 Urinary tract infection, site not specified; I10 Essential (primary) hypertension; E11.9 Type 2 diabetes mellitus without complications; Z88.5 Allergy status to narcotic agent; Z88.2 Allergy status to sulfonamides; Z88.8 Allergy status to other drugs, medicaments and biological substances; Z91.040 Latex allergy status
CPT/HCPCS: 81003; 81015; 87086; 87088; 99281

== ENCOUNTER 2019-03-02 08:58 | Emergency (ER) | payer OTHER ==
[2019-03-02] MEDS ORDERED: IBUPROFEN 200 MG TAB PO ONE (09:26)
[2019-03-02] MEDS ORDERED: IBUPROFEN 400 MG TAB ONE (09:26)
--- NOTE | 2019-03-02 10:12 | EDPHYS ---
Physician Documentation [facility] Name: Stefanie Capellan Age: 58 yrs Sex: Female : 1960 Arrival Date: 03/02/2019 Time: 09:02 Bed 18 Private MD: ED Physician Trey Garcia HPI: 03/02 09:14 This 58 yrs old Female presents to ER via Ambulatory with complaints of kdr Swollen Glands, Fever, Gum Pain. 09:14 The patient has been feeling poorly for the last 24-48 hours. General malaise, kdr subjective fever, cough and congestion. She also has very poor dentition and now has an anterior tooth with a sharp edge that is abrading her buccal surface. . Onset: The symptoms/episode began/occurred yesterday. Severity of symptoms: At their worst the symptoms were mild in the emergency department the symptoms are unchanged. The patient has not experienced similar symptoms in the past. The patient has not recently seen a physician. Historical: - Allergies: 09:17 Codeine; ph 09:17 Latex, Natural Rubber; ph 09:17 Morphine; ph 09:17 PENICILLINS; ph 09:17 Prozac; ph 09:17 Sulfa (Sulfonamide Antibiotics); ph - PMHx: 09:17 Diabetes - NIDDM; Hypertension; ph - PSHx: 09:17 None; ph - Immunization history:: Adult Immunizations unknown. - Coronavirus screen:: The patient has NOT traveled to [place], [place], or [place] in the past 14 days. The patient has NOT had contact with known/suspected case of Coronavirus?. - Social history:: Smoking status: Patient denies any tobacco usage or history of. - Ebola Screening: : No symptoms or risks identified at this time. ROS: 09:14 Constitutional: Negative for fever, chills, and weight loss, Eyes: Negative for injury, kdr pain, redness, and discharge, Neck: Negative for injury, pain, and swelling, Cardiovascular: Negative for chest pain, palpitations, and edema, Abdomen/GI: Negative for abdominal pain, nausea, vomiting, diarrhea, and constipation, Back: Negative for injury and pain, : Negative for injury, bleeding, discharge, and swelling, MS/Extremity: Negative for injury and deformity, Skin: Negative for injury, rash, and discoloration, Neuro: Negative for headache, weakness, numbness, tingling, and seizure activity. Psych: Negative for depression, anxiety, suicide ideation, homicidal ideation, and hallucinations, Allergy/Immunology: Negative for hives, rash, and allergies, Endocrine: Negative for neck swelling, polydipsia, polyuria, polyphagia, and marked weight changes, Hematologic/Lymphatic: Negative for swollen nodes, abnormal bleeding, and unusual bruising. 09:14 Respiratory: Positive for cough, with no reported sputum, Negative for dyspnea on exertion, hemoptysis, orthopnea, pleurisy, shortness of breath, sputum production, wheezing. Exam: 09:14 Constitutional: This is a well developed, well nourished patient who is awake, alert, kdr and in no acute distress. Head/Face: Normocephalic, atraumatic. Eyes: Pupils equal round and reactive to light, extra-ocular motions intact. Lids and lashes normal. Conjunctiva and sclera are non-icteric and not injected. Cornea within normal limits. Periorbital areas with no swelling, redness, or edema. Neck: Trachea midline, no thyromegaly or masses palpated, and no cervical lymphadenopathy. Supple, full range of motion without nuchal rigidity, or vertebral point tenderness. No Meningismus. Chest/axilla: Normal chest wall appearance and motion. Nontender with no deformity. No lesions are appreciated. Cardiovascular: Regular rate and rhythm with a normal S1 and S2. No gallops, murmurs, or rubs. Normal PMI, no JVD. No pulse deficits. Respiratory: Lungs have equal breath sounds bilaterally, clear to auscultation and percussion. No rales, rhonchi or wheezes noted. No increased work of breathing, no retractions or nasal flaring. Abdomen/GI: Soft, non-tender, with normal bowel sounds. No distension or tympany. No guarding or rebound. No evidence of tenderness throughout. Back: No spinal tenderness. No costovertebral tenderness. Full range of motion. Skin: Warm, dry with normal turgor. Normal color with no rashes, no lesions, and no evidence of cellulitis. MS/ Extremity: Pulses equal, no cyanosis. Neurovascular intact. Full, normal range of motion. Neuro: Awake and alert, GCS 15, oriented to person, place, time, and situation. Cranial nerves II-XII grossly intact. Motor strength 5/5 in all extremities. Sensory grossly intact. Cerebellar exam normal. Normal gait. Psych: Awake, alert, with orientation to person, place and time. Behavior, mood, and affect are within normal limits. 09:14 ENT: Mouth: Gums: reddened, swollen, The patient has extremely poor dentition and her teeth are nearly all in an advanced state of decline. Vital Signs: 09:16 BP 132 / 90; Pulse 82; Resp 18; Temp 99.2; Pulse Ox 98% on R/A; Weight 65.77 kg; ph 10:00 BP 118 / 67; Pulse 84; Resp 17; Pulse Ox 96% on R/A; rb1 10:49 BP 120 / 70; Pulse 78; Resp 16; Temp 98.9(O); Pulse Ox 96% on R/A; rb1 MDM: 09:14 Data reviewed: vital signs, nurses notes, lab test result(s). Counseling: I had a kdr detailed discussion with the patient and/or guardian regarding: the historical points, exam findings, and any diagnostic results supporting the discharge/admit diagnosis, lab results, radiology results, the need for outpatient follow up. 10:11 Patient medically screened. kdr 03/02 09:13 Order name: Flu; Complete Time: 10:04 kdr Administered Medications: 09:25 Drug: Ibuprofen 600 mg Route: PO; ph 10:20 Follow up: Response: No adverse reaction; Temperature is decreased rb1 Disposition: 03/02/19 10:11 Discharged to Home. Impression: Viral infection, unspecified, Viral infection of unspecified site, Dental caries. - Condition is Stable. - Discharge Instructions: Dental Pain, Ibuprofen Dosage Chart, Pediatric, Dental Pain, [id number], Viral Respiratory Infection, [id number]. - Prescriptions for Tamiflu 75 mg Oral Capsule - take 1 tablet by ORAL route every 12 hours for 5 days; 10 tablet. - Medication Reconciliation Form, Thank You Letter form. - Follow up: Private Physician; When: 2 - 3 days; Reason: If symptoms return, Further diagnostic work-up, Recheck today's complaints, Continuance of care, Re-evaluation by your physician. - Problem is new. - Symptoms have improved. Signatures: Dispatcher [employer] EDTrey Mukherjee MD MD kdr Chelsey Barrera RN RN ph Alejandra De La Rosa RN RN rb1 Corrections: (The following items were deleted from the chart) 10:50 10:11 03/02/2019 10:11 Discharged to Home. Impression: Viral infection, unspecified; rb1 Viral infection of unspecified site; Dental caries. Condition is Stable. Forms are Medication Reconciliation Form, Thank You Letter, Antibiotic Education, Prescription Opioid Use. Follow up: Private Physician; When: 2 - 3 days; Reason: If symptoms return, Further diagnostic work-up, Recheck today's complaints, Continuance of care, Re-evaluation by your physician. Problem is new. Symptoms have improved. kdr
--- NOTE | 2019-03-02 10:12 | ER ---
Nurse's Notes [facility] Name: Stefanie Capellan Age: 58 yrs Sex: Female : 1960 Arrival Date: 03/02/2019 Time: 09:02 Bed 18 Private MD: Diagnosis: Viral infection, unspecified;Viral infection of unspecified site;Dental caries Presentation: 03/02 09:11 Presenting complaint: Patient states: Swollen/inflamed gums, fever, chills, body aches, ph fatigue and nausea. Transition of care: patient was not received from another setting of care. Onset of symptoms was March 02, 2019. Risk Assessment: Do you want to hurt yourself or someone else? Patient reports no desire to harm self or others. Initial Sepsis Screen: Does the patient meet any 2 criteria? No. Patient's initial sepsis screen is negative. Does the patient have a suspected source of infection? No. Patient's initial sepsis screen is negative. 09:11 Method Of Arrival: Ambulatory ph 09:11 Acuity: RAMIN 4 ph 09:17 Care prior to arrival: None. ph Historical: - Allergies: 09:17 Codeine; ph 09:17 Latex, Natural Rubber; ph 09:17 Morphine; ph 09:17 PENICILLINS; ph 09:17 Prozac; ph 09:17 Sulfa (Sulfonamide Antibiotics); ph - PMHx: 09:17 Diabetes - NIDDM; Hypertension; ph - PSHx: 09:17 None; ph - Immunization history:: Adult Immunizations unknown. - Coronavirus screen:: The patient has NOT traveled to [place], [place], or [place] in the past 14 days. The patient has NOT had contact with known/suspected case of Coronavirus?. - Social history:: Smoking status: Patient denies any tobacco usage or history of. - Ebola Screening: : No symptoms or risks identified at this time. Screenin:17 Abuse screen: Denies threats or abuse. Denies injuries from another. Nutritional ph screening: No deficits noted. Tuberculosis screening: No symptoms or risk factors identified. Fall Risk None identified. Assessment: 09:25 General: Appears in no apparent distress. comfortable, well groomed, Behavior is calm, ph cooperative, appropriate for age, Reports chills for fever for. Pain: Complains of pain in mouth and neck and body aches. Neuro: Level of Consciousness is awake, alert, obeys commands, Oriented to person, place, time, situation. Cardiovascular: Capillary refill < 3 seconds in bilateral fingers Patient's skin is warm and dry. Respiratory: Airway is patent Respiratory effort is even, unlabored, Respiratory pattern is regular, symmetrical. GI: Reports nausea, Patient currently denies abdominal pain, diarrhea, vomiting. EENT: Oral mucosa is moist. Poor dentition noted. Derm: Skin is intact, Skin is pink, warm \T\ dry. Musculoskeletal: Circulation, motion, and sensation intact. Range of motion: intact in all extremities. 10:25 Reassessment: Patient appears in no apparent distress at this time. No changes from rb1 previously documented assessment. Vital Signs: 09:16 BP 132 / 90; Pulse 82; Resp 18; Temp 99.2; Pulse Ox 98% on R/A; Weight 65.77 kg; ph 10:00 BP 118 / 67; Pulse 84; Resp 17; Pulse Ox 96% on R/A; rb1 10:49 BP 120 / 70; Pulse 78; Resp 16; Temp 98.9(O); Pulse Ox 96% on R/A; rb1 ED Course: 09:02 Patient arrived in ED. as 09:05 Trey Garcia MD is Attending Physician. kdr 09:05 Chelsey Barrera, RN is Primary Nurse. ph 09:13 Triage completed. ph 09:17 Arm band placed on Patient placed in an exam room. ph 09:18 Patient has correct armband on for positive identification. Bed in low position. Call ph light in reach. Door closed. Noise minimized. Warm blanket given. 09:27 No provider procedures requiring assistance completed. Flu and/or RSV swab sent to lab. ph Patient did not have IV access during this emergency room visit. Administered Medications: 09:25 Drug: Ibuprofen 600 mg Route: PO; ph 10:20 Follow up: Response: No adverse reaction; Temperature is decreased rb1 Outcome: 10:11 Discharge ordered by . kdr 10:49 Discharged to home ambulatory. rb1 10:49 Condition: stable 10:49 Discharge instructions given to patient, Instructed on discharge instructions, follow up and referral plans. medication usage, Demonstrated understanding of instructions, follow-up care, medications, Prescriptions given X 1. 10:50 Patient left the ED. rb1 Signatures: Rittger, MD MD vidhya Yang Amelia as Hall, Patricia, RN RN ph Alejandra De La Rosa RN RN rb1
[2019-03-02 10:56] VITALS: O2SAT 96
[2019-03-02 10:57] VITALS: BP 120/70; TEMP 98.9
== END 2019-03-02 10:50 | disposition home or self-care (01) ==
LOC: ER 08:58
DX: B34.9 Viral infection, unspecified (principal); K02.9 Dental caries, unspecified; Z88.6 Allergy status to analgesic agent; Z88.0 Allergy status to penicillin; Z91.040 Latex allergy status; Z88.2 Allergy status to sulfonamides
CPT/HCPCS: 87804; 99283

== ENCOUNTER 2019-03-06 14:13 | Emergency (ER) | payer OTHER ==
--- NOTE | 2019-03-06 16:01 | RAD REPORT ---
EXAM DESCRIPTION: RAD - Chest Pa And Lat (2 Views) - 03/06/2019 3:36 pm CLINICAL HISTORY: Cough;Congestion COMPARISON: Chest Pa And Lat (2 Views) dated 04/30/2018; Chest Pa And Lat (2 Views) dated 09/08/2015 TECHNIQUE: Frontal and lateral views of the chest were obtained. FINDINGS: The lungs are clear of a peripheral mass or consolidation. Chronic interstitial lung disea se is present not substantially different from comparison studies. Heart size is normal and central vasculature is within normal limits. No pleural effusion or pneumothorax seen. No acute bony findi ng noted. No aortic abnormality. IMPRESSION: Chronic interstitial lung pattern similar to comparison studies.
--- NOTE | 2019-03-06 16:08 | EDPHYS ---
Physician Documentation [facility] Name: Stefanie Capellan Age: 58 yrs Sex: Female : 1960 Arrival Date: 03/06/2019 Time: 14:14 Bed 13 Private MD: ED Physician Willy Rodríguez HPI: 03/06 16:10 This 58 yrs old Female presents to ER via Ambulatory with complaints of Flu kb Symptoms. 16:10 The patient or guardian reports cough, that is intermittent, described as moderate, kb with no sputum, flu symptoms. Onset: The symptoms/episode began/occurred 5 day(s) ago. Severity of symptoms: At their worst the symptoms were moderate, in the emergency department the symptoms are unchanged. Modifying factors: The symptoms are alleviated by nothing, the symptoms are aggravated by nothing. Associated signs and symptoms: Pertinent positives: sore throat. The patient has not experienced similar symptoms in the past. The patient has been recently seen by a physician:. Pt reports she was here and tested positive for flu on Sunday. Has been taking tamiflu, but symptoms have not gotten better. Historical: - Allergies: 14:39 Codeine; ca1 14:39 Latex, Natural Rubber; ca1 14:39 Morphine; ca1 14:39 PENICILLINS; ca1 14:39 Prozac; ca1 14:39 Sulfa (Sulfonamide Antibiotics); ca1 - PMHx: 14:39 Diabetes - NIDDM; Hypertension; ca1 - PSHx: 14:39 None; ca1 - Immunization history:: Adult Immunizations not up to date, Flu vaccine is not up to date. - Coronavirus screen:: The patient has NOT traveled to [place], [place], or [place] in the past 14 days. The patient has NOT had contact with known/suspected case of Coronavirus?. - Social history:: Smoking status: Patient denies any tobacco usage or history of. - Ebola Screening: : Patient negative for fever greater than or equal to 101.5 degrees Fahrenheit, and additional compatible Ebola Virus Disease symptoms Patient denies exposure to infectious person Patient denies travel to an Ebola-affected area in the 21 days before illness onset No symptoms or risks identified at this time. ROS: 16:10 Neck: Negative for injury, pain, and swelling, Cardiovascular: Negative for chest pain, kb palpitations, and edema, Abdomen/GI: Negative for abdominal pain, nausea, vomiting, diarrhea, and constipation, Back: Negative for injury and pain, MS/Extremity: Negative for injury and deformity, Skin: Negative for injury, rash, and discoloration, Neuro: Negative for headache, weakness, numbness, tingling, and seizure. 16:10 Constitutional: Positive for chills, fatigue, malaise. 16:10 ENT: Positive for sinus congestion, sinus pain. 16:10 Respiratory: Positive for cough. Exam: 16:09 Constitutional: This is a well developed, well nourished patient who is awake, alert, kb and in no acute distress. Head/Face: Normocephalic, atraumatic. ENT: Nares patent. No nasal discharge, no septal abnormalities noted. Tympanic membranes are normal and external auditory canals are clear. Oropharynx with no redness, swelling, or masses, exudates, or evidence of obstruction, uvula midline. Mucous membranes moist. Neck: Trachea midline, no thyromegaly or masses palpated, and no cervical lymphadenopathy. Supple, full range of motion without nuchal rigidity, or vertebral point tenderness. No Meningismus. Chest/axilla: Normal chest wall appearance and motion. Nontender with no deformity. No lesions are appreciated. Cardiovascular: Regular rate and rhythm with a normal S1 and S2. No gallops, murmurs, or rubs. Normal PMI, no JVD. No pulse deficits. Respiratory: Lungs have equal breath sounds bilaterally, clear to auscultation and percussion. No rales, rhonchi or wheezes noted. No increased work of breathing, no retractions or nasal flaring. Abdomen/GI: Soft, non-tender, with normal bowel sounds. No distension or tympany. No guarding or rebound. No evidence of tenderness throughout. Skin: Warm, dry with normal turgor. Normal color with no rashes, no lesions, and no evidence of cellulitis. MS/ Extremity: Pulses equal, no cyanosis. Neurovascular intact. Full, normal range of motion. Neuro: Awake and alert, GCS 15, oriented to person, place, time, and situation. Cranial nerves II-XII grossly intact. Motor strength 5/5 in all extremities. Sensory grossly intact. Cerebellar exam normal. Normal gait. Vital Signs: 14:39 BP 150 / 104; Pulse 87; Resp 17 S; Temp 98.6(O); Pulse Ox 98% on R/A; Weight 66.22 kg ca1 (R); Height 5 ft. 6 in. (167.64 cm) (R); 15:51 BP 149 / 90; Pulse 81; Resp 17; Pulse Ox 100% on R/A; tw2 16:13 BP 139 / 84; Pulse 76; Resp 17; Pulse Ox 97% on R/A; tw2 14:39 Body Mass Index 23.56 (66.22 kg, 167.64 cm) ca1 MDM: 14:44 Patient medically screened. kb 16:04 Data reviewed: vital signs, nurses notes. Data interpreted: Pulse oximetry: on room air kb is 100 %. Interpretation: normal. Counseling: I had a detailed discussion with the patient and/or guardian regarding: the historical points, exam findings, and any diagnostic results supporting the discharge/admit diagnosis, lab results, radiology results, the need for outpatient follow up, a dentist, a family practitioner, to return to the emergency department if symptoms worsen or persist or if there are any questions or concerns that arise at home. 16:11 Differential Diagnosis: Bronchitis Influenza Upper Respiratory Infection Sinusitis kb Pneumonia. Data reviewed: old medical records, tested negative for flu during last ER visit lab test result(s), radiologic studies. Test interpretation: by ED physician or midlevel provider: plain radiologic studies. 03/06 15:08 Order name: Flu; Complete Time: 15:43 kb 03/06 15:08 Order name: Strep; Complete Time: 15:43 kb 03/06 15:08 Order name: Chest Pa And Lat (2 Views) XRAY; Complete Time: 16:11 kb 03/06 15:39 Order name: Throat Culture EDMS Administered Medications: No medications were administered Disposition: 17:09 Co-signature as Attending Physician, Willy Rodríguze MD. rn Disposition: 03/06/19 16:07 Discharged to Home. Impression: Acute sinusitis. - Condition is Stable. - Discharge Instructions: Sinusitis, Adult, [id number]. - Medication Reconciliation Form, Thank You Letter, Antibiotic Education, Prescription Opioid Use, Work release form form. - Follow up: Emergency Department; When: As needed; Reason: Worsening of condition. Follow up: Private Physician; When: 2 - 3 days; Reason: Recheck today's complaints, Continuance of care, Re-evaluation by your physician. Signatures: Dispatcher [employer] EDVania Sawyer, TRUCK MANAGER-C TRUCK MANAGER-Ckb Willy Rodríguez MD MD rn Wise, Tara, RN RN tw2 Reyna Bautista RN RN ca1 Corrections: (The following items were deleted from the chart) 16:14 16:07 03/06/2019 16:07 Discharged to Home. Impression: Acute sinusitis. Condition is tw2 Stable. Forms are Work release form, Medication Reconciliation Form, Thank You Letter, Antibiotic Education, Prescription Opioid Use. Follow up: Emergency Department; When: As needed; Reason: Worsening of condition. Follow up: Private Physician; When: 2 - 3 days; Reason: Recheck today's complaints, Continuance of care, Re-evaluation by your physician. kb
--- NOTE | 2019-03-06 16:08 | ER ---
Nurse's Notes [facility] Name: Stefanie Capellan Age: 58 yrs Sex: Female : 1960 Arrival Date: 03/06/2019 Time: 14:14 Bed 13 Private MD: Diagnosis: Acute sinusitis Presentation: 03/06 14:36 Presenting complaint: Patient states: I was here Sunday and diagnosed with the flu and ca1 was prescribed with Tamiflu. But I am not feeling better. I got more sneezing, congestion and dizziness. Transition of care: patient was not received from another setting of care. Onset of symptoms was March 06, 2019. Risk Assessment: Do you want to hurt yourself or someone else? Patient reports no desire to harm self or others. Initial Sepsis Screen: Does the patient meet any 2 criteria? No. Patient's initial sepsis screen is negative. Does the patient have a suspected source of infection? No. Patient's initial sepsis screen is negative. Care prior to arrival: None. 14:36 Method Of Arrival: Ambulatory ca1 14:36 Acuity: RAMIN 3 ca1 Historical: - Allergies: 14:39 Codeine; ca1 14:39 Latex, Natural Rubber; ca1 14:39 Morphine; ca1 14:39 PENICILLINS; ca1 14:39 Prozac; ca1 14:39 Sulfa (Sulfonamide Antibiotics); ca1 - PMHx: 14:39 Diabetes - NIDDM; Hypertension; ca1 - PSHx: 14:39 None; ca1 - Immunization history:: Adult Immunizations not up to date, Flu vaccine is not up to date. - Coronavirus screen:: The patient has NOT traveled to [place], [place], or [place] in the past 14 days. The patient has NOT had contact with known/suspected case of Coronavirus?. - Social history:: Smoking status: Patient denies any tobacco usage or history of. - Ebola Screening: : Patient negative for fever greater than or equal to 101.5 degrees Fahrenheit, and additional compatible Ebola Virus Disease symptoms Patient denies exposure to infectious person Patient denies travel to an Ebola-affected area in the 21 days before illness onset No symptoms or risks identified at this time. Screenin:41 Abuse screen: Denies threats or abuse. Nutritional screening: No deficits noted. tw2 Tuberculosis screening: No symptoms or risk factors identified. Fall Risk None identified. Assessment: 14:45 General: Appears in no apparent distress. Behavior is calm, cooperative, appropriate tw2 for age. Pain: Denies pain. Neuro: Level of Consciousness is awake, alert, obeys commands, Oriented to person, place, time, situation. Cardiovascular: Heart tones S1 S2 Patient's skin is warm and dry. Respiratory: Reports cough that is dry, hacking, Airway is patent Respiratory effort is even, unlabored, Respiratory pattern is regular, symmetrical, Breath sounds are clear bilaterally. GI: No signs and/or symptoms were reported involving the gastrointestinal system. Abdomen is flat, Bowel sounds present X 4 quads. : No signs and/or symptoms were reported regarding the genitourinary system. EENT: Reports nasal congestion nasal discharge. Derm: No signs and/or symptoms reported regarding the dermatologic system. Musculoskeletal: Range of motion: intact in all extremities. 15:46 Reassessment: Patient appears in no apparent distress at this time. No changes from tw2 previously documented assessment. Patient and/or family updated on plan of care and expected duration. Pain level reassessed. Patient is alert, oriented x 3, equal unlabored respirations, skin warm/dry/pink. Vital Signs: 14:39 BP 150 / 104; Pulse 87; Resp 17 S; Temp 98.6(O); Pulse Ox 98% on R/A; Weight 66.22 kg ca1 (R); Height 5 ft. 6 in. (167.64 cm) (R); 15:51 BP 149 / 90; Pulse 81; Resp 17; Pulse Ox 100% on R/A; tw2 16:13 BP 139 / 84; Pulse 76; Resp 17; Pulse Ox 97% on R/A; tw2 14:39 Body Mass Index 23.56 (66.22 kg, 167.64 cm) ca1 ED Course: 14:14 Patient arrived in ED. as 14:23 [facility]C [facility] kb 14:23 Willy Rodríguez MD is Attending Physician. kb 14:38 Triage completed. ca1 14:39 Arm band placed on right wrist. ca1 14:41 Tennille Davis, YVONNE is Primary Nurse. tw2 14:41 Bed in low position. Call light in reach. tw2 15:16 Strep Sent. rb1 15:17 Flu Sent. rb1 15:36 Chest Pa And Lat (2 Views) XRAY In Process Unspecified. EDMS 16:13 No provider procedures requiring assistance completed. Patient did not have IV access tw2 during this emergency room visit. Administered Medications: No medications were administered Outcome: 16:07 Discharge ordered by . ivania 16:13 Discharged to home ambulatory. tw2 16:13 Condition: stable 16:13 Discharge instructions given to patient, Instructed on discharge instructions, follow up and referral plans. Demonstrated understanding of instructions, follow-up care. 16:14 Patient left the ED. tw2 Signatures: Dispatcher [employer] EDMS Vania Sparks, DRAWER HARDWARE WORKER-C DRAWER HARDWARE WORKER-Sada Guerrier Rebecca, RN RN rb1 Tennille Davis RN RN tw2 Reyna Bautista RN RN ca1
[2019-03-06 20:08] VITALS: TEMP 98.6
[2019-03-06 20:11] VITALS: BP 139/84; O2SAT 97
== END 2019-03-06 16:14 | disposition home or self-care (01) ==
LOC: ER 14:13
DX: J01.90 Acute sinusitis, unspecified (principal); Z88.6 Allergy status to analgesic agent; Z88.0 Allergy status to penicillin; Z91.040 Latex allergy status; Z88.2 Allergy status to sulfonamides
CPT/HCPCS: 71046; 87070; 87081; 87804; 99283

== ENCOUNTER 2020-02-25 19:28 | Emergency (ER) | payer OTHER ==
[2020-02-25] MEDS ORDERED: AZITHROMYCIN 250 MG TAB ONE (22:52)
[2020-02-25] MEDS ORDERED: ACETAMINOPHEN 325 MG TABLET ONE (22:52)
[2020-02-25] MEDS ORDERED: CEFTRIAXONE 1000 MG/VIAL ONE (22:53)
[2020-02-25] MEDS ORDERED: predniSONE 20 MG TAB ONE (22:53)
[2020-02-25 22:56] LABS: SARS-COV-2 RT PCR NEGATIVE (NEGATIVE)
--- NOTE | 2020-02-25 23:24 | EDPHYS ---
Physician Documentation [facility] Name: Stefanie Capellan Age: 59 yrs Sex: Female : 1960 Arrival Date: 02/25/2020 Time: 19:34 Bed 26 Private MD: ZAFAR Physician Stephan Harvey HPI: 02/24 22:12 This 59 yrs old Female presents to ER via Ambulatory with complaints of Sinus dania Congestion. 22:12 The patient or guardian reports cough, difficulty breathing, flu symptoms, arthralgias, dania low-grade fever. Onset: The symptoms/episode began/occurred 2 day(s) ago. Severity of symptoms: At their worst the symptoms were mild, moderate, in the emergency department the symptoms are unchanged. Modifying factors: The symptoms are alleviated by nothing. Associated signs and symptoms: The patient has no apparent associated signs or symptoms. The patient has not experienced similar symptoms in the past. Historical: - Allergies: 19:40 Codeine; ll1 19:40 Latex, Natural Rubber; ll1 19:40 Morphine; ll1 19:40 PENICILLINS; ll1 19:40 Prozac; ll1 19:40 Sulfa (Sulfonamide Antibiotics); ll1 - PMHx: 19:40 Diabetes - NIDDM; Hypertension; ll1 - PSHx: 19:40 None; ll1 - Immunization history:: Flu vaccine is not up to date. - Social history:: Smoking status: Patient denies any tobacco usage or history of. Patient/guardian denies using tobacco, the patient reports quitting approximately 21 years ago. - Family history:: not pertinent. ROS: 22:12 Eyes: Negative for injury, pain, redness, and discharge, ENT: Negative for injury, dania pain, and discharge, Neck: Negative for injury, pain, and swelling, Cardiovascular: Negative for chest pain, palpitations, and edema, Abdomen/GI: Negative for abdominal pain, nausea, vomiting, diarrhea, and constipation, Back: Negative for injury and pain, : Negative for injury, bleeding, discharge, and swelling, MS/Extremity: Negative for injury and deformity, Skin: Negative for injury, rash, and discoloration, Neuro: Negative for headache, weakness, numbness, tingling, and seizure, Psych: Negative for depression, anxiety, suicide ideation, homicidal ideation, and hallucinations, Allergy/Immunology: Negative for hives, rash, and allergies, Endocrine: Negative for neck swelling, polydipsia, polyuria, polyphagia, and marked weight changes, Hematologic/Lymphatic: Negative for swollen nodes, abnormal bleeding, and unusual bruising. 22:12 Constitutional: Positive for body aches, chills, fatigue, fever. 22:12 Respiratory: Positive for cough, with green sputum. Exam: 22:12 Constitutional: This is a well developed, well nourished patient who is awake, alert, dania and in no acute distress. Head/Face: Normocephalic, atraumatic. Eyes: Pupils equal round and reactive to light, extra-ocular motions intact. Lids and lashes normal. Conjunctiva and sclera are non-icteric and not injected. Cornea within normal limits. Periorbital areas with no swelling, redness, or edema. ENT: Nares patent. No nasal discharge, no septal abnormalities noted. Tympanic membranes are normal and external auditory canals are clear. Oropharynx with no redness, swelling, or masses, exudates, or evidence of obstruction, uvula midline. Mucous membranes moist. Neck: Trachea midline, no thyromegaly or masses palpated, and no cervical lymphadenopathy. Supple, full range of motion without nuchal rigidity, or vertebral point tenderness. No Meningismus. Chest/axilla: Normal chest wall appearance and motion. Nontender with no deformity. No lesions are appreciated. Cardiovascular: Regular rate and rhythm with a normal S1 and S2. No gallops, murmurs, or rubs. Normal PMI, no JVD. No pulse deficits. Abdomen/GI: Soft, non-tender, with normal bowel sounds. No distension or tympany. No guarding or rebound. No evidence of tenderness throughout. Back: No spinal tenderness. No costovertebral tenderness. Full range of motion. Female : Normal external genitalia. Skin: Warm, dry with normal turgor. Normal color with no rashes, no lesions, and no evidence of cellulitis. MS/ Extremity: Pulses equal, no cyanosis. Neurovascular intact. Full, normal range of motion. Neuro: Awake and alert, GCS 15, oriented to person, place, time, and situation. Cranial nerves II-XII grossly intact. Motor strength 5/5 in all extremities. Sensory grossly intact. Cerebellar exam normal. Normal gait. Psych: Awake, alert, with orientation to person, place and time. Behavior, mood, and affect are within normal limits. 22:12 Respiratory: mild respiratory distress is noted, Respirations: normal, no acute changes, labored breathing, is not present, Breath sounds: decreased breath sounds, are not appreciated, rhonchi, that are mild, are scattered, Respiratory rate: 17 22:46 Musculoskeletal/extremity: DVT Exam: No signs of deep vein thrombosis. no pain, no dania swelling, no tenderness, negative Homans' sign noted on exam, no appreciated bluish discoloration, no erythema, no increased warmth. Vital Signs: 19:40 BP 152 / 98; Pulse 85; Resp 17; Temp 99.3; Pulse Ox 98% ; Weight 69.4 kg; Height 5 ft. ll1 5 in. (165.10 cm); Pain 6/10; 22:00 BP 133 / 78; Pulse 74; Resp 18; Pulse Ox 100% on R/A; Pain 4/10; fu 22:14 BP 156 / 94; Pulse 83; Resp 18; Pulse Ox 100% on R/A; Pain 5/10; fu 23:00 BP 135 / 87; Pulse 71; Resp 18; Temp 98.5(O); Pulse Ox 100% on R/A; Pain 0/10; fu 19:40 Body Mass Index 25.46 (69.40 kg, 165.10 cm) ll1 MDM: 21:30 Patient medically screened. [facility] 22:17 Differential Diagnosis: Bronchitis Influenza Upper Respiratory Infection Sinusitis dania Viral Syndrome Pneumonia. Data reviewed: vital signs, nurses notes, lab test result(s), radiologic studies, plain films. Data interpreted: color television console monitor: rate is 85 beats/min, rhythm is regular, Pulse oximetry: on room air is 98 %. Interpretation: normal. Test interpretation: by ED physician or midlevel provider: plain radiologic studies. Counseling: I had a detailed discussion with the patient and/or guardian regarding: the historical points, exam findings, and any diagnostic results supporting the discharge/admit diagnosis, lab results, radiology results, the need for outpatient follow up, for definitive care, a family practitioner, a char filter operator helper. 02/24 21:32 Order name: Chest Single View XRAY [facility] 02/24 22:57 Order name: COVID-19/FLU A+B; Complete Time: 23:23 EDMS Administered Medications: 22:51 Drug: Rocephin (cefTRIAXone) 1 grams Route: IM; Site: right gluteus; fu 23:12 Follow up: Response: No adverse reaction fu :51 Drug: Zithromax 500 mg Route: PO; fu :51 Follow up: Response: No adverse reaction fu :51 Drug: predniSONE 60 mg Route: PO; fu 23:51 Follow up: Response: No adverse reaction fu :51 Drug: Tylenol 650 mg Route: PO; fu 23:12 Follow up: Response: Pain is decreased fu Disposition: 02/25/20 23:23 Discharged to Home. Impression: Bronchitis, not specified as acute or chronic, Chronic obstructive pulmonary disease, unspecified, Type 2 diabetes mellitus, Fever, unspecified. - Condition is Stable. - Discharge Instructions: Acute Bronchitis, Adult, Chronic Bronchitis, Fever, Adult, Upper Respiratory Infection, Adult, Chronic Obstructive Pulmonary Disease Exacerbation, Upper Respiratory Infection, Adult, [id number], Cough, Adult, Qxjw-[id number], Cough, Adult. - Prescriptions for Prednisone 20 mg Oral Tablet - take 2 tablet by ORAL route once daily for 5 days; 10 tablet. Albuterol Sulfate 90 mcg/actuation - inhale 1-2 puff by INHALATION route every 4-6 hours; 1 Inhaler. Zithromax 500 mg Oral Tablet - take 1 tablet by ORAL route once daily for 4 days; 4 tablet. - Medication Reconciliation Form, Thank You Letter, Antibiotic Education, Prescription Opioid Use, Work release form form. - Follow up: Private Physician; When: 2 - 3 days; Reason: Recheck today's complaints, Continuance of care, Re-evaluation by your physician. Follow up: Neil Lindsey; When: 2 - 3 days; Reason: Recheck today's complaints, Re-evaluation by your physician. - Problem is new. - Symptoms have improved. Signatures: Dispatcher [employer] EDMS Stephan Harvey MD MD cha Umadhay, Felix, RN RN Jayde Langston RN RN ll1 Corrections: (The following items were deleted from the chart) 21:45 21:32 Influenza Screen (A \T\ B)+BA.LAB.BRZ ordered. EDMS EDMS 21:45 21:32 CORONAVIRUS+MR.LAB.BRZ ordered. EDMS EDMS 02/25 00:18 02/24 23:23 02/25/2020 23:23 Discharged to Home. Impression: Bronchitis, not specified fu as acute or chronic; Chronic obstructive pulmonary disease, unspecified; Type 2 diabetes mellitus; Fever, unspecified. Condition is Stable. Discharge Instructions: Acute Bronchitis, Adult, Chronic Bronchitis, Upper Respiratory Infection, Adult, Chronic Obstructive Pulmonary Disease Exacerbation, Upper Respiratory Infection, Adult, Pxab-qi-[id number], Cough, Adult, Wbls-vb-Pitr, Cough, Adult, Fever, Adult. Prescriptions for Prednisone 20 mg Oral Tablet - take 2 tablet by ORAL route once daily for 5 days; 10 tablet, Albuterol Sulfate 90 mcg/actuation - inhale 1-2 puff by INHALATION route every 4-6 hours; 1 Inhaler, Zithromax 500 mg Oral Tablet - take 1 tablet by ORAL route once daily for 4 days; 4 tablet. and Forms are Medication Reconciliation Form, Thank You Letter, Antibiotic Education, Prescription Opioid Use. Follow up: Private Physician; When: 2 - 3 days; Reason: Recheck today's complaints, Continuance of care, Re-evaluation by your physician. Follow up: Neil Lindsey; When: 2 - 3 days; Reason: Recheck today's complaints, Re-evaluation by your physician. Problem is new. Symptoms have improved. dania
--- NOTE | 2020-02-25 23:24 | ER ---
Nurse's Notes [facility] Name: Stefanie Capellan Age: 59 yrs Sex: Female : 1960 Arrival Date: 02/25/2020 Time: 19:34 Bed 26 Private MD: Diagnosis: Bronchitis, not specified as acute or chronic;Chronic obstructive pulmonary disease, unspecified;Type 2 diabetes mellitus;Fever, unspecified Presentation: 02/24 19:40 Chief complaint: Patient states: Congestion with green thick sputum, sneezing, LAM for 2 ll1 weeks. No fever. Coronavirus screen: Client denies travel out of the [place] in the last 14 days. congestion, fatigue, headache, Client presents with at least one sign or symptom that may indicate coronavirus-19. Standard/surgical mask placed on the client. Ebola Screen: Patient denies travel to an Ebola-affected area in the 21 days before illness onset. Initial Sepsis Screen: Does the patient meet any 2 criteria? No. Patient's initial sepsis screen is negative. Does the patient have a suspected source of infection? Yes: Other: congestion. r/o sinus infection. Risk Assessment: Do you want to hurt yourself or someone else? Patient reports no desire to harm self or others. Onset of symptoms was February 12, 2020. 19:40 Method Of Arrival: Ambulatory ll1 19:40 Acuity: RAMIN 3 ll1 Historical: - Allergies: 19:40 Codeine; ll1 19:40 Latex, Natural Rubber; ll1 19:40 Morphine; ll1 19:40 PENICILLINS; ll1 19:40 Prozac; ll1 19:40 Sulfa (Sulfonamide Antibiotics); ll1 - PMHx: 19:40 Diabetes - NIDDM; Hypertension; ll1 - PSHx: 19:40 None; ll1 - Immunization history:: Flu vaccine is not up to date. - Social history:: Smoking status: Patient denies any tobacco usage or history of. Patient/guardian denies using tobacco, the patient reports quitting approximately 21 years ago. - Family history:: not pertinent. Screenin:15 Abuse screen: Denies threats or abuse. Nutritional screening: No deficits noted. fu Tuberculosis screening: No symptoms or risk factors identified. Fall Risk None identified. Assessment: 21:40 General: Appears in no apparent distress. comfortable, Behavior is calm, cooperative, fu appropriate for age, Reports fatigue for 2 weeks. Pain: Complains of pain in headache Pain does not radiate. Pain currently is 6 out of 10 on a pain scale. Quality of pain is described as aching, Pain began 1 week ago. Neuro: Level of Consciousness is awake, alert, obeys commands, Oriented to person, place, time, situation, Structural Architect are equal bilaterally Moves all extremities. Gait is steady, Speech is normal, Facial symmetry appears normal. Cardiovascular: Denies chest pain, nausea, vomiting. Respiratory: Reports sneezing, was coughing with thick greenish secretions. GI: Patient currently denies abdominal pain, diarrhea, nausea, vomiting. EENT: Reports nasal congestion since 2 weeks ago. Derm: No signs and/or symptoms reported regarding the dermatologic system. Musculoskeletal: No signs and/or symptoms reported regarding the musculoskeletal system. 22:30 Reassessment: Patient appears in no apparent distress at this time. Patient and/or fu family updated on plan of care and expected duration. Pain level reassessed. Patient is alert, oriented x 3, equal unlabored respirations, skin warm/dry/pink. 02/25 00:00 Reassessment: Patient appears in no apparent distress at this time. Patient and/or fu family updated on plan of care and expected duration. Pain level reassessed. Patient is alert, oriented x 3, equal unlabored respirations, skin warm/dry/pink. Vital Signs: 02/24 19:40 BP 152 / 98; Pulse 85; Resp 17; Temp 99.3; Pulse Ox 98% ; Weight 69.4 kg; Height 5 ft. ll1 5 in. (165.10 cm); Pain 6/10; 22:00 BP 133 / 78; Pulse 74; Resp 18; Pulse Ox 100% on R/A; Pain 4/10; fu 22:14 BP 156 / 94; Pulse 83; Resp 18; Pulse Ox 100% on R/A; Pain 5/10; fu 23:00 BP 135 / 87; Pulse 71; Resp 18; Temp 98.5(O); Pulse Ox 100% on R/A; Pain 0/10; fu 19:40 Body Mass Index 25.46 (69.40 kg, 165.10 cm) ll1 ED Course: 19:34 Patient arrived in ED. mr 19:39 Arm band placed on. ll1 19:42 Triage completed. ll1 21:30 Stephan Harvey MD is Attending Physician. [facility] 21:38 COVID swab sent to lab. Flu and/or RSV swab sent to lab. jp3 21:38 Patient maintains SpO2 saturation greater than 95% on room air. jp3 21:42 Landon Cazares, RN is Primary Nurse. fu 21:48 Bed in low position. Call light in reach. Side rails up X 1. Verbal reassurance given. jp3 Pulse ox on. NIBP on. 21:57 Chest Single View XRAY In Process Unspecified. EDMA 23:15 No provider procedures requiring assistance completed. fu 23:17 Diet: Patient given snack. Patient given water. Tolerated well. fu 23:23 Neil Lindsey MD is Referral Physician. [facility] 23:55 Patient did not have IV access during this emergency room visit. fu Administered Medications: 22:51 Drug: Rocephin (cefTRIAXone) 1 grams Route: IM; Site: right gluteus; fu 23:12 Follow up: Response: No adverse reaction fu 22:51 Drug: Zithromax 500 mg Route: PO; fu 23:51 Follow up: Response: No adverse reaction fu 22:51 Drug: predniSONE 60 mg Route: PO; fu 23:51 Follow up: Response: No adverse reaction fu 22:51 Drug: Tylenol 650 mg Route: PO; fu 23:12 Follow up: Response: Pain is decreased fu Outcome: 23:23 Discharge ordered by . [facility] 23:54 Discharged to home ambulatory. fu 23:54 Condition: stable 23:54 Discharge instructions given to patient, Instructed on discharge instructions, follow up and referral plans. Demonstrated understanding of instructions, follow-up care, Prescriptions given X 3. 02/25 00:18 Patient left the ED. fu Signatures: Dispatcher [employer] EDMA Stephan Harvey MD MD cha Rivera, Mary mr Landon Cazares, RN Alexandre Gallego 3 Jayde Llamas RN RN ll1
[2020-02-26 00:33] VITALS: O2SAT 100
[2020-02-26 00:36] VITALS: BP 135/87; TEMP 98.5
--- NOTE | 2020-02-26 07:56 | RAD REPORT ---
EXAM DESCRIPTION: RAD - Chest Single View - 02/25/2020 9:56 pm CLINICAL HISTORY: COUGH, congestion, hypertension COMPARISON: July 2019 TECHNIQUE: AP portable chest image was obtained 02/25/2020 9:56 pm . FINDINGS: Chronic interstitial pattern is similar to comparison. Lung volumes are low. No failure, m ass or infiltrate seen. Heart and vasculature are normal. No measurable pleural effusion and no pneum othorax. No acute bony abnormality seen. No acute aortic findings suspected. IMPRESSION: Chronic interstitial pattern without acute cardiopulmonary finding. No significant change from comparison study.
== END 2020-02-26 00:18 | disposition home or self-care (01) ==
LOC: ER 19:28
DX: J40 Bronchitis, not specified as acute or chronic (principal); J44.9 Chronic obstructive pulmonary disease, unspecified; Z20.822 Contact with and (suspected) exposure to COVID-19; E11.9 Type 2 diabetes mellitus without complications; I10 Essential (primary) hypertension; Z88.0 Allergy status to penicillin; Z88.2 Allergy status to sulfonamides; Z88.5 Allergy status to narcotic agent; Z91.040 Latex allergy status; Z91.048 Other nonmedicinal substance allergy status
CPT/HCPCS: 0240U; 71045; 96372; 99284; J7512

== ENCOUNTER 2020-03-30 12:33 | Emergency (ER) | payer OTHER ==
--- NOTE | 2020-03-30 14:22 | RAD REPORT ---
EXAM DESCRIPTION: RAD - Knee Right 3 View - 03/30/2020 1:55 pm CLINICAL HISTORY: PAIN COMPARISON: Knee Right 3 View dated 03/29/2015 FINDINGS: No fracture, dislocation or periosteal reaction.No joint effusion seen. Slight narrowing o f the medial compartment noted. No foreign body or other soft tissue abnormality. IMPRESSION: Negative right knee for acute bone or joint finding. Patient has mild degenerative change not substantially different from 2016. Clinical concerns for internal derangement or occult bony injury could be further assessed with MR im aging.
--- NOTE | 2020-03-30 14:23 | RAD REPORT ---
EXAM DESCRIPTION: Shoulder Right 2 View - 03/30/2020 1:55 pm CLINICAL HISTORY: PAIN COMPARISON: <Comparisons> TECHNIQUE: Internal and external rotation views of the right shoulder were obtained. FINDINGS: There is no fracture or dislocation. No significant degenerative change at the AC joint. The patient has significant lateral downward tilting of the acromion and narrowed acromial humeral rain int space. This can be seen with shoulder impingement as well as possibly indicating chronic rotator cuff tear. No pathologic bone process. No suspicious soft tissue finding. IMPRESSION: No acute right shoulder joint or bone abnormality. Lateral downward tilting of the acromion can result in shoulder impingement the narrowed joint space could indicate chronic rotator cuff tear.
--- NOTE | 2020-03-30 14:42 | EDPHYS ---
Physician Documentation [facility] Name: Stefanie Capellan Age: 59 yrs Sex: Female : 1960 Arrival Date: 03/30/2020 Time: 12:36 Bed 5 Private MD: ZAFAR Physician Stephan Harvey HPI: 03/30 14:32 This 59 yrs old Female presents to ER via Ambulatory with complaints of Fall pm1 Injury, Knee Pain. 14:32 Details of fall: The patient fell from an upright position, while standing. Onset: The pm1 symptoms/episode began/occurred 3 day(s) ago. Associated injuries: The patient sustained right knee, painful injury, anterior aspect of right shoulder. Severity of symptoms: in the emergency department the symptoms improvement to right shoulder but pain unchanged to right knee. The patient has not experienced similar symptoms in the past. The patient has not recently seen a physician. Patient lost her balance on Sunday and then she fell on her right shoulder and right knee. Pain improved to right shoulder, is able to move it without much pain at all but has occasional crepitus. Right knee pain is unchanged and has been using a knee brace. Pain with weight bearing and bending. Historical: - Allergies: 12:46 Codeine; hb 12:46 Latex, Natural Rubber; hb 12:46 Morphine; hb 12:46 PENICILLINS; hb 12:46 Prozac; hb 12:46 Sulfa (Sulfonamide Antibiotics); hb 12:46 Codeine; ll1 12:46 Latex, Natural Rubber; ll1 12:46 Morphine; ll1 12:46 PENICILLINS; ll1 12:46 Prozac; ll1 12:46 Sulfa (Sulfonamide Antibiotics); ll1 - PMHx: 12:46 Diabetes - NIDDM; Hypertension; hb 12:46 Hypertension; Diabetes - NIDDM; COPD; Asthma; ll1 - PSHx: 12:46 None; hb 12:46 None; ll1 - Immunization history:: Adult Immunizations not up to date, Flu vaccine is not up to date. - Social history:: Smoking status: Patient/guardian denies using tobacco, the patient reports quitting approximately 22 years ago, Smoking status: Patient denies any tobacco usage or history of. ROS: 14:32 Constitutional: Negative for fever, chills, and weight loss, Neck: Negative for injury, pm1 pain, and swelling, Cardiovascular: Negative for chest pain, palpitations, and edema, Respiratory: Negative for shortness of breath, cough, wheezing, and pleuritic chest pain, Back: Negative for injury and pain. 14:32 Skin: Negative for injury, rash, and discoloration, Neuro: Negative for headache, weakness, numbness, tingling, and seizure. 14:32 MS/extremity: Positive for pain, of the anterior aspect of right shoulder and right knee. Exam: 14:32 Constitutional: This is a well developed, well nourished patient who is awake, alert, pm1 and in no acute distress. Head/Face: Normocephalic, atraumatic. Neck: Trachea midline, no thyromegaly or masses palpated, and no cervical lymphadenopathy. Supple, full range of motion without nuchal rigidity, or vertebral point tenderness. No Meningismus. Vital Signs: 12:44 BP 155 / 89; Pulse 82; Resp 17; Temp 98.9; Pulse Ox 99% ; Weight 71.67 kg; Height 5 ft. ll1 5 in. (165.10 cm); Pain 6/10; 15:00 BP 146 / 86; Pulse 80; Resp 16; Pulse Ox 99% on R/A; hb 12:44 Body Mass Index 26.29 (71.67 kg, 165.10 cm) ll1 MDM: 13:07 Patient medically screened. pm1 14:38 Data reviewed: vital signs. Counseling: I had a detailed discussion with the patient pm1 and/or guardian regarding: the historical points, exam findings, and any diagnostic results supporting the discharge/admit diagnosis, radiology results, the need for outpatient follow up, for definitive care, a orthopedic surgeon, MRI, to return to the emergency department if symptoms worsen or persist or if there are any questions or concerns that arise at home. 03/30 13:08 Order name: Knee Right 3 View XRAY; Complete Time: 14:32 pm1 03/30 13:15 Order name: Shoulder Right (2 View) XRAY; Complete Time: 14:32 pm1 03/30 14:34 Order name: Knee Immobilizer; Complete Time: 15:46 pm1 03/30 14:38 Order name: Misc. Order: walker; Complete Time: 15:46 pm1 Administered Medications: No medications were administered Disposition: 03/31 07:56 Co-signature as Attending Physician, Stephan Harvey MD I agree with the assessment and dania plan of care. Disposition: 03/30/20 14:41 Discharged to Home. Impression: Unspecified internal derangement of right knee, Pain in right shoulder. - Condition is Stable. - Discharge Instructions: Knee Immobilizer, Shoulder Pain, How to Use a Walker, Knee Pain. - Work release form, Medication Reconciliation Form, Thank You Letter, Antibiotic Education, Prescription Opioid Use form. - Follow up: Emergency Department; When: As needed; Reason: Worsening of condition. Follow up: Private Physician; When: 2 - 3 days; Reason: Recheck today's complaints, Continuance of care, Re-evaluation by your physician. - Problem is new. - Symptoms have improved. Signatures: Dispatcher [employer] EDStephan Lopez MD MD cha Marinas, Patrick, SUBWAY REPAIR SUPERVISOR SUBWAY REPAIR SUPERVISOR pm1 Key Riddle RN RN Jayde Llamas RN RN ll1 Corrections: (The following items were deleted from the chart) 03/30 15:58 14:41 03/30/2020 14:41 Discharged to Home. Impression: Unspecified internal derangement hb of right knee; Pain in right shoulder. Condition is Stable. Forms are Medication Reconciliation Form, Thank You Letter, Antibiotic Education, Prescription Opioid Use. Follow up: Emergency Department; When: As needed; Reason: Worsening of condition. Follow up: Private Physician; When: 2 - 3 days; Reason: Recheck today's complaints, Continuance of care, Re-evaluation by your physician. Problem is new. Symptoms have improved. pm1
--- NOTE | 2020-03-30 14:42 | ER ---
Nurse's Notes [facility] Name: Stefanie Capellan Age: 59 yrs Sex: Female : 1960 Arrival Date: 03/30/2020 Time: 12:36 Bed 5 Private MD: Diagnosis: Unspecified internal derangement of right knee;Pain in right shoulder Presentation: 03/30 12:44 Chief complaint: Patient states: Lost her balance Sunday night and fell onto her R arm ll1 and R knee. No LOC. R knee pain since, brace on. Coronavirus screen: Client denies travel out of the [place] in the last 14 days. At this time, the client does not indicate any symptoms associated with coronavirus-19. Ebola Screen: Patient denies travel to an Ebola-affected area in the 21 days before illness onset. Initial Sepsis Screen: Does the patient meet any 2 criteria? No. Patient's initial sepsis screen is negative. Does the patient have a suspected source of infection? Yes: Bone or joint infection. Risk Assessment: Do you want to hurt yourself or someone else? Patient reports no desire to harm self or others. Onset of symptoms was March 28, 2020. 12:44 Method Of Arrival: Ambulatory ll1 12:44 Acuity: RAMIN 4 ll1 Historical: - Allergies: 12:46 Codeine; hb 12:46 Latex, Natural Rubber; hb 12:46 Morphine; hb 12:46 PENICILLINS; hb 12:46 Prozac; hb 12:46 Sulfa (Sulfonamide Antibiotics); hb 12:46 Codeine; ll1 12:46 Latex, Natural Rubber; ll1 12:46 Morphine; ll1 12:46 PENICILLINS; ll1 12:46 Prozac; ll1 12:46 Sulfa (Sulfonamide Antibiotics); ll1 - PMHx: 12:46 Diabetes - NIDDM; Hypertension; hb 12:46 Hypertension; Diabetes - NIDDM; COPD; Asthma; ll1 - PSHx: 12:46 None; hb 12:46 None; ll1 - Immunization history:: Adult Immunizations not up to date, Flu vaccine is not up to date. - Social history:: Smoking status: Patient/guardian denies using tobacco, the patient reports quitting approximately 22 years ago, Smoking status: Patient denies any tobacco usage or history of. Screenin:46 Abuse screen: Denies threats or abuse. Denies injuries from another. Nutritional hb screening: No deficits noted. Tuberculosis screening: No symptoms or risk factors identified. Fall Risk None identified. Assessment: 12:55 General: Appears in no apparent distress. Behavior is calm, cooperative. Pain: Pain hb currently is 6 out of 10 on a pain scale. Neuro: Level of Consciousness is awake, alert, obeys commands, Oriented to person, place, time, situation. Cardiovascular: Capillary refill < 3 seconds Patient's skin is warm and dry. Respiratory: Respiratory effort is even, unlabored, Respiratory pattern is regular, symmetrical. GI: No signs and/or symptoms were reported involving the gastrointestinal system. : No signs and/or symptoms were reported regarding the genitourinary system. EENT: No signs and/or symptoms were reported regarding the EENT system. Derm: Skin is pink, warm \T\ dry. Musculoskeletal: Reports right knee pain. 13:45 Reassessment: Patient appears in no apparent distress at this time. Patient and/or hb family updated on plan of care and expected duration. Pain level reassessed. Patient is alert, oriented x 3, equal unlabored respirations, skin warm/dry/pink. Vital Signs: 12:44 BP 155 / 89; Pulse 82; Resp 17; Temp 98.9; Pulse Ox 99% ; Weight 71.67 kg; Height 5 ft. ll1 5 in. (165.10 cm); Pain 6/10; 15:00 BP 146 / 86; Pulse 80; Resp 16; Pulse Ox 99% on R/A; hb 12:44 Body Mass Index 26.29 (71.67 kg, 165.10 cm) ll1 ED Course: 12:36 Patient arrived in ED. mr 12:45 Key Riddle, YVONNE is Primary Nurse. hb 12:45 Arm band placed on. hb 12:46 Triage completed. ll1 12:47 Patient placed in an exam room, on a stretcher. ll1 13:07 Jay Kingsley NP is PHCP. pm1 13:07 Stephan Harvey MD is Attending Physician. pm1 13:30 Patient has correct armband on for positive identification. Bed in low position. Call hb light in reach. Side rails up X 1. 13:55 Knee Right 3 View XRAY In Process Unspecified. EDMS 13:55 Shoulder Right (2 View) XRAY In Process Unspecified. EDMS 15:44 Knee immobilizer applied on right knee. mt 15:44 Walker given to patient; training done. mt 15:57 No provider procedures requiring assistance completed. Patient did not have IV access hb during this emergency room visit. Administered Medications: No medications were administered Outcome: 14:41 Discharge ordered by MD. pm1 15:57 Discharged to home ambulatory. 15:57 Condition: stable 15:57 Discharge instructions given to patient, Instructed on discharge instructions, follow up and referral plans. medication usage, Demonstrated understanding of instructions, follow-up care, medications. 15:58 Patient left the ED. Signatures: Dispatcher [employer] EDVT Leonardo Dyan SanchoJay, MICHAEL FURNACE WORKER pm1 Key Riddle, RN RN Celi Serrano mt, Lynsay, RN RN ll1
[2020-03-30 16:06] VITALS: TEMP 98.9; O2SAT 99
[2020-03-30 16:07] VITALS: BP 146/86
== END 2020-03-30 15:58 | disposition home or self-care (01) ==
LOC: ER 12:33
DX: M23.91 Unspecified internal derangement of right knee (principal); M25.511 Pain in right shoulder; W18.30XA Fall on same level, unspecified, initial encounter; Y93.9 Activity, unspecified; Y92.9 Unspecified place or not applicable; Z88.0 Allergy status to penicillin; Z88.2 Allergy status to sulfonamides; Z88.5 Allergy status to narcotic agent; Z91.040 Latex allergy status; Z91.048 Other nonmedicinal substance allergy status
CPT/HCPCS: 99283

== ENCOUNTER 2020-06-12 14:21 | Emergency (ER) | payer OTHER ==
--- NOTE | 2020-06-12 15:28 | RAD REPORT ---
EXAM DESCRIPTION: RAD - Chest Single View - 06/12/2020 3:17 pm CLINICAL HISTORY: COUGH Chest pain. COMPARISON: Chest Single View dated 02/25/2020; Chest Pa And Lat (2 Views) dated 07/16/2019; Chest Pa And Lat (2 Views) dated 03/06/2019; Chest Pa And Lat (2 Views) dated 04/30/2018 FINDINGS: Portable technique limits examination quality. The lungs are grossly clear. The heart is normal in size. No displaced fractures. IMPRESSION: No acute intrathoracic process suspected.
--- NOTE | 2020-06-12 15:30 | RAD REPORT ---
EXAM DESCRIPTION: CT - Head Brain Wo Cont - 06/12/2020 3:24 pm CLINICAL HISTORY: DIZZINESS Headache, drowsiness COMPARISON: Head Brain Wo Cont dated 05/30/2015 TECHNIQUE: All CT scans are performed using dose optimization technique as appropriate and may inclu de automated exposure control or mA/KV adjustment according to patient size. FINDINGS: No intracranial hemorrhage, hydrocephalus or extra-axial fluid collection.Mild brain atrop hy.No areas of brain edema or evidence of midline shift. Air-fluid level in the right maxillary sinus may indicate sinusitis. The calvarium is intact. IMPRESSION: No acute intracranial abnormality. Right maxillary sinusitis is possible.
[2020-06-12] MEDS ORDERED: NA CHLORIDE 0.9% 500 ML ONE (15:41)
[2020-06-12] MEDS ORDERED: NA CHLORIDE 0.9% 1,000 ML ONE (15:41)
[2020-06-12] MEDS ORDERED: MECLIZINE HCL 12.5 MG TAB ONE (15:41)
[2020-06-12 16:18] LABS: Urine Blood 2+ (Negative); Urine Glucose Negative (Negative); Urine Protein Negative (Negative); Urine pH 5.5 (5.0-7.0)
[2020-06-12 16:23] LABS: Absolute Lymphocytes (CBC) 2.1 K/uL (0.7-4.9); Basophils % 1.2 % (0-1.3); Hematocrit 42.1 % (36.0-45.0); Lymphocytes % 20.5 % (15.3-44.8); MPV 8.4 fL (7.6-11.3); RBC Red Blood Cell Count 4.64 M/uL (3.86-4.86)
[2020-06-12] MEDS ORDERED: CEFTRIAXONE/SWI 1gm 1 GM/10 ML SYR ONE (16:24)
[2020-06-12 16:34] LABS: Protime INR 0.97
[2020-06-12 16:47] LABS: ALT/SGPT 34 U/L (12-78); AST/SGOT 21 U/L (15-37); Albumin 4.1 g/dL (3.4-5.0); Alkaline Phosphatase 67 U/L (45-117); BUN Blood Urea Nitrogen 7 mg/dL (7-18); Bicarbonate 28 mmol/L (21-32); Bilirubin Direct 0.1 mg/dL (0-0.2); Bilirubin Total 0.4 mg/dL (0.2-1.0); Glucose Level 91 mg/dL (74-106); NT PRO-BNP 92 pg/mL (<125); Potassium 3.5 mmol/L (3.5-5.1); Protein, Total 8.1 g/dL (6.4-8.2); Sodium Level 142 mmol/L (136-145); Troponin (Emerg Dept Use Only) < 0.02 ng/mL (0.0-0.045)
--- NOTE | 2020-06-12 17:07 | RAD REPORT ---
EXAM DESCRIPTION: US - CP - 06/12/2020 3:59 pm CLINICAL HISTORY: DIZZINESS Headache, drowsiness COMPARISON: Thyroid Para Parotid Gland dated 07/24/2019 TECHNIQUE: Real-time sonographic evaluation of both carotid systems was performed. Doppler interroga tion was performed with waveform tracing bilaterally. FINDINGS: Normal high resistance waveforms are noted in both external carotid arteries. The common c arotid arteries and internal carotid arteries show normal low resistance waveforms. No significant plaque formation is seen. Peak systolic and end diastolic velocity values and the ICA/ CCA ratios are in the non-hemodynamically significant range. Antegrade flow seen in both vertebral arteries. IMPRESSION: No significant atherosclerotic changes noted. No evidence of a hemodynamically significant stenosis.
--- NOTE | 2020-06-12 17:17 | RAD REPORT ---
EXAM DESCRIPTION: CT - Chest For Pe Angio - 06/12/2020 5:03 pm CLINICAL HISTORY: Chest pain. DYSPNEA COMPARISON: No comparisons TECHNIQUE: CT angiogram of the pulmonary arteries was performed with MIP. All CT scans are performed using dose optimization technique as appropriate and may include automated exposure control or mA/KV adjustment according to patient size. FINDINGS: No evidence of pulmonary thromboembolism. No acute aortic finding demonstrated. Mild interstitial opacities are present bilaterally suggesting mild interstitial pulmonary edema. No significant pericardial or pleural fluid. No concerning bony finding. Small hiatal hernia. IMPRESSION: No evidence of pulmonary thromboembolism. Mild interstitial pulmonary edema.
--- NOTE | 2020-06-12 17:29 | ER ---
Nurse's Notes [facility] Name: Stefanie Capellan Age: 59 yrs Sex: Female : 1960 Arrival Date: 06/12/2020 Time: 14:28 Bed 20 Private MD: Diagnosis: Dizziness and giddiness;Type 2 diabetes mellitus;Essential (primary) hypertension;Acute maxillary sinusitis;Urinary tract infection, site not specified Presentation: 06/12 14:32 Chief complaint: Patient states: Diagnosed with COVID 3 weeks ago, been feeling dizzy jl7 since then. Suppose to return to work but need a negative COVID test to return. Coronavirus screen: At this time, the client does not indicate any symptoms associated with coronavirus-19. Client reports previous positive COVID test result. Date of collection: May 26, 2020. Ebola Screen: No symptoms or risks identified at this time. Initial Sepsis Screen: Does the patient meet any 2 criteria? No. Patient's initial sepsis screen is negative. Does the patient have a suspected source of infection? No. Patient's initial sepsis screen is negative. Risk Assessment: Do you want to hurt yourself or someone else? Patient reports no desire to harm self or others. Onset of symptoms was May 26, 2020. Care prior to arrival: None. 14:32 Method Of Arrival: Ambulatory [facility] 14:32 Acuity: RAMIN 4 jl7 Triage Assessment: 14:37 General: Appears in no apparent distress. uncomfortable, Behavior is cooperative, jl7 anxious. Pain: Denies pain. Historical: - Allergies: 14:37 Codeine; jl7 14:37 Latex, Natural Rubber; jl7 14:37 Morphine; jl7 14:37 PENICILLINS; jl7 14:37 Prozac; jl7 14:37 Sulfa (Sulfonamide Antibiotics); jl7 - PMHx: 14:37 Asthma; COPD; Diabetes - NIDDM; Hypertension; jl7 - PSHx: 14:37 None; jl7 - Immunization history:: Adult Immunizations up to date. - Social history:: Smoking status: Patient denies any tobacco usage or history of. - Family history:: not pertinent. Screenin:45 Abuse screen: Denies threats or abuse. Denies injuries from another. Nutritional bp screening: No deficits noted. Tuberculosis screening: No symptoms or risk factors identified. Fall Risk None identified. Assessment: 14:45 General: Appears in no apparent distress. comfortable, Behavior is cooperative, bp appropriate for age, anxious. Pain: Denies pain. Neuro: Reports dizziness. Cardiovascular: No deficits noted. Respiratory: No deficits noted. GI: No signs and/or symptoms were reported involving the gastrointestinal system. : No signs and/or symptoms were reported regarding the genitourinary system. EENT: No deficits noted. Derm: No deficits noted. Musculoskeletal: No deficits noted. 16:00 Reassessment: Patient appears in no apparent distress at this time. Patient and/or bp family updated on plan of care and expected duration. Pain level reassessed. Patient is alert, oriented x 3, equal unlabored respirations, skin warm/dry/pink. Neuro: Level of Consciousness is awake, alert, obeys commands, Oriented to Appropriate for age Gait is steady. 17:30 Reassessment: D/C ON HOLD FOR U/S DOPPLER. bp 17:52 Reassessment: U/S AT B/S. bp Vital Signs: 14:32 BP 148 / 99; Pulse 110; Resp 17; Temp 97.9; Pulse Ox 99% ; Weight 72.57 kg; Height 5 jl7 ft. 5 in. (165.10 cm); 16:00 BP 144 / 85; Pulse 77; Resp 16; Pulse Ox 99% ; bp 17:00 BP 151 / 85; Pulse 75; Resp 17; Pulse Ox 99% ; bp 18:24 BP 144 / 75; Pulse 85; Resp 16; Pulse Ox 99% ; bp 14:32 Body Mass Index 26.63 (72.57 kg, 165.10 cm) jl7 ED Course: 14:28 Patient arrived in ED. cl3 14:37 Triage completed. jl7 14:37 Arm band placed on right wrist. jl7 14:40 Stephan Harvey MD is Attending Physician. [facility] 14:45 Patient has correct armband on for positive identification. Bed in low position. Call bp light in reach. Side rails up X2. 14:53 Morro Panda, YVONNE is Primary Nurse. bp 15:17 XRAY Chest (1 view) In Process Unspecified. EDMS 15:24 CT Head Brain wo Cont In Process Unspecified. EDMS 15:50 Inserted saline lock: 20 gauge in right antecubital area, using aseptic technique. bp Blood collected. 15:59 US Carotid Artery Bilateral In Process Unspecified. EDMS 17:03 CT Chest For PE Angio In Process Unspecified. EDMS 17:29 Markel Fontenot MD is Referral Physician. [facility] 17:29 Vince Love MD is Referral Physician. [facility] 17:43 Urine Culture Sent. bp 18:25 No provider procedures requiring assistance completed. IV discontinued, intact, bp bleeding controlled, No redness/swelling at site. Pressure dressing applied. 18:26 US Extremity Venous W Compression Horacio In Process Unspecified. EDMS Administered Medications: 16:10 Drug: NS 0.9% 500 ml Route: IV; Rate: bolus; Site: right antecubital; bp 18:26 Follow up: IV Status: Completed infusion; IV Intake: 500ml bp 16:10 Drug: NS 0.9% 1000 ml Route: IV; Rate: 125 ml/hr; Site: right antecubital; bp 18:26 Follow up: IV Status: Completed infusion; IV Intake: 250ml bp 16:10 Drug: Meclizine 25 mg Route: PO; bp 18:24 Follow up: Response: No adverse reaction bp 16:10 Drug: Rocephin (cefTRIAXone) 1 grams Route: IV; Rate: per protocol; Site: right bp antecubital; 18:26 Follow up: IV Status: Completed infusion bp Intake: 18:26 IV: 250ml; Total: 250ml. bp 18:26 IV: 500ml; Total: 750ml. bp Outcome: 17:29 Discharge ordered by . dania 18:25 Discharged to home ambulatory. bp 18:25 Condition: stable 18:25 Discharge instructions given to patient, Instructed on discharge instructions, follow up and referral plans. medication usage, Demonstrated understanding of instructions, follow-up care, medications, Prescriptions given X 3. 18:27 Patient left the ED. bp Signatures: Dispatcher [employer] EDMS Stephan Harvey MD MD cha Leal, Jahala RN RN jl7 Morro Panda RN RN Venice Garcia cl3
--- NOTE | 2020-06-12 17:29 | EDPHYS ---
Physician Documentation [facility] Name: Stefanie Capellan Age: 59 yrs Sex: Female : 1960 Arrival Date: 06/12/2020 Time: 14:28 Bed 20 Private MD: ZAFAR Physician Stephan Harvey HPI: 06/12 14:50 This 59 yrs old Female presents to ER via Ambulatory with complaints of dania Dizziness. 14:50 The patient presents with dizziness, sense of spinning. Onset: The symptoms/episode dania began/occurred 2 day(s) ago. Context: occurred at home, occurred while the patient was light activity, throughout the day. Modifying factors: The symptoms are alleviated by nothing, the symptoms are aggravated by nothing. Associated signs and symptoms: The patient has no apparent associated signs or symptoms. Severity of symptoms: At their worst the symptoms were mild moderate in the emergency department the symptoms are unchanged. Patient's baseline: Neuro:. Historical: - Allergies: 14:37 Codeine; jl7 14:37 Latex, Natural Rubber; jl7 14:37 Morphine; jl7 14:37 PENICILLINS; jl7 14:37 Prozac; jl7 14:37 Sulfa (Sulfonamide Antibiotics); jl7 - PMHx: 14:37 Asthma; COPD; Diabetes - NIDDM; Hypertension; jl7 - PSHx: 14:37 None; jl7 - Immunization history:: Adult Immunizations up to date. - Social history:: Smoking status: Patient denies any tobacco usage or history of. - Family history:: not pertinent. ROS: 14:50 Constitutional: Negative for fever, chills, and weight loss, Eyes: Negative for injury, dania pain, redness, and discharge, ENT: Negative for injury, pain, and discharge, Neck: Negative for injury, pain, and swelling, Cardiovascular: Negative for chest pain, palpitations, and edema, Respiratory: Negative for shortness of breath, cough, wheezing, and pleuritic chest pain, Abdomen/GI: Negative for abdominal pain, nausea, vomiting, diarrhea, and constipation, Back: Negative for injury and pain, : Negative for injury, bleeding, discharge, and swelling, MS/Extremity: Negative for injury and deformity, Skin: Negative for injury, rash, and discoloration, Psych: Negative for depression, anxiety, suicide ideation, homicidal ideation, and hallucinations, Allergy/Immunology: Negative for hives, rash, and allergies, Endocrine: Negative for neck swelling, polydipsia, polyuria, polyphagia, and marked weight changes, Hematologic/Lymphatic: Negative for swollen nodes, abnormal bleeding, and unusual bruising. 14:50 Neuro: Positive for dizziness, weakness. Exam: 14:50 Constitutional: This is a well developed, well nourished patient who is awake, alert, dania and in no acute distress. Head/Face: Normocephalic, atraumatic. Eyes: Pupils equal round and reactive to light, extra-ocular motions intact. Lids and lashes normal. Conjunctiva and sclera are non-icteric and not injected. Cornea within normal limits. Periorbital areas with no swelling, redness, or edema. ENT: Nares patent. No nasal discharge, no septal abnormalities noted. Tympanic membranes are normal and external auditory canals are clear. Oropharynx with no redness, swelling, or masses, exudates, or evidence of obstruction, uvula midline. Mucous membranes moist. Neck: Trachea midline, no thyromegaly or masses palpated, and no cervical lymphadenopathy. Supple, full range of motion without nuchal rigidity, or vertebral point tenderness. No Meningismus. Chest/axilla: Normal chest wall appearance and motion. Nontender with no deformity. No lesions are appreciated. Cardiovascular: Regular rate and rhythm with a normal S1 and S2. No gallops, murmurs, or rubs. Normal PMI, no JVD. No pulse deficits. Respiratory: Lungs have equal breath sounds bilaterally, clear to auscultation and percussion. No rales, rhonchi or wheezes noted. No increased work of breathing, no retractions or nasal flaring. Abdomen/GI: Soft, non-tender, with normal bowel sounds. No distension or tympany. No guarding or rebound. No evidence of tenderness throughout. Back: No spinal tenderness. No costovertebral tenderness. Full range of motion. Skin: Warm, dry with normal turgor. Normal color with no rashes, no lesions, and no evidence of cellulitis. MS/ Extremity: Pulses equal, no cyanosis. Neurovascular intact. Full, normal range of motion. Neuro: Awake and alert, GCS 15, oriented to person, place, time, and situation. Cranial nerves II-XII grossly intact. Motor strength 5/5 in all extremities. Sensory grossly intact. Cerebellar exam normal. Normal gait. Psych: Awake, alert, with orientation to person, place and time. Behavior, mood, and affect are within normal limits. 15:56 ECG was reviewed by the Attending Physician. [facility] Vital Signs: 14:32 BP 148 / 99; Pulse 110; Resp 17; Temp 97.9; Pulse Ox 99% ; Weight 72.57 kg; Height 5 jl7 ft. 5 in. (165.10 cm); 16:00 BP 144 / 85; Pulse 77; Resp 16; Pulse Ox 99% ; bp 17:00 BP 151 / 85; Pulse 75; Resp 17; Pulse Ox 99% ; bp 18:24 BP 144 / 75; Pulse 85; Resp 16; Pulse Ox 99% ; bp 14:32 Body Mass Index 26.63 (72.57 kg, 165.10 cm) jl7 MDM: 14:40 Patient medically screened. dania 14:54 Differential diagnosis: cardiac arrhythmia, CVA, generalized weakness, idiopathic dania dizziness, near-syncope, sepsis, syncope, TIA. Data reviewed: vital signs, nurses notes, lab test result(s), EKG, radiologic studies, CT scan, doppler, plain films. Data interpreted: quality assurance monitor final: rate is 110 beats/min, rhythm is regular, Pulse oximetry: on room air is 99 %. Test interpretation: by ED physician or midlevel provider: ECG, plain radiologic studies. Counseling: I had a detailed discussion with the patient and/or guardian regarding: the historical points, exam findings, and any diagnostic results supporting the discharge/admit diagnosis, lab results, radiology results. 06/12 14:50 Order name: Basic Metabolic Panel; Complete Time: 17:26 [facility] 06/12 14:50 Order name: CBC with Diff; Complete Time: 16:39 [facility] 06/12 14:50 Order name: LFT's; Complete Time: 17:26 [facility] 06/12 14:50 Order name: Magnesium; Complete Time: 17:26 [facility] 06/12 14:50 Order name: NT PRO-BNP; Complete Time: 17:26 [facility] 06/12 14:50 Order name: PT-INR; Complete Time: 16:39 [facility] 06/12 14:50 Order name: Troponin (emerg Dept Use Only); Complete Time: 17:26 [facility] 06/12 14:50 Order name: XRAY Chest (1 view); Complete Time: 15:49 [facility] 06/12 14:50 Order name: D-Dimer; Complete Time: 16:39 [facility] 06/12 16:18 Order name: Urine Dipstick-Ancillary; Complete Time: 16:20 [facility] 06/12 16:19 Order name: Urine Culture [facility] 06/12 16:20 Order name: Urine Culture [facility] 06/12 16:56 Order name: SARS-COV-2 RT PCR; Complete Time: 17:26 [facility] 06/12 14:50 Order name: EKG; Complete Time: 14:51 [facility] 06/12 14:50 Order name: Cardiac monitoring; Complete Time: 16:11 [facility] 06/12 14:50 Order name: EKG - Nurse/Tech; Complete Time: 14:58 [facility] 06/12 14:50 Order name: IV Saline Lock; Complete Time: 16:26 [facility] 06/12 14:50 Order name: Labs collected and sent; Complete Time: 16:26 [facility] 06/12 14:50 Order name: O2 Per Protocol; Complete Time: 14:58 [facility] 06/12 14:50 Order name: O2 Sat Monitoring; Complete Time: 14:57 [facility] 06/12 14:50 Order name: Urine Dipstick-Ancillary (obtain specimen); Complete Time: 16:25 [facility] 06/12 14:50 Order name: CT Head Brain wo Cont; Complete Time: 15:49 [facility] 06/12 14:50 Order name: US Carotid Artery Bilateral; Complete Time: 17:26 [facility] 06/12 16:40 Order name: US Extremity Venous W Compression Horacio [facility] 06/12 16:40 Order name: CT Chest For PE Angio; Complete Time: 17:26 [facility] EC:56 Rate is 91 beats/min. Rhythm is regular. QRS [place] is Normal. WA interval is normal. QRS dania interval is normal. QT interval is normal. No Q waves. T waves are Normal. No ST changes noted. Clinical impression: Normal ECG and No evidence of ischemia. Interpreted by me. Reviewed by me. Administered Medications: 16:10 Drug: NS 0.9% 500 ml Route: IV; Rate: bolus; Site: right antecubital; bp 18:26 Follow up: IV Status: Completed infusion; IV Intake: 500ml bp 16:10 Drug: NS 0.9% 1000 ml Route: IV; Rate: 125 ml/hr; Site: right antecubital; bp 18:26 Follow up: IV Status: Completed infusion; IV Intake: 250ml bp 16:10 Drug: Meclizine 25 mg Route: PO; bp 18:24 Follow up: Response: No adverse reaction bp 16:10 Drug: Rocephin (cefTRIAXone) 1 grams Route: IV; Rate: per protocol; Site: right bp antecubital; 18:26 Follow up: IV Status: Completed infusion bp Disposition: 06/12/20 17:29 Discharged to Home. Impression: Dizziness and giddiness, Type 2 diabetes mellitus, Essential (primary) hypertension, Acute maxillary sinusitis, Urinary tract infection, site not specified. - Condition is Stable. - Discharge Instructions: Dizziness, Hypertension, Urinary Tract Infection, Adult, Vertigo, Hypertension, Rcis-ji-[id number], Aspirin and Your Heart, Dizziness, Lite-vx-[id number], Managing Your Hypertension, Type 2 Diabetes Mellitus, Self Care, Adult, Uset-jv-Lhcv. - Prescriptions for Meclizine 25 mg Oral Tablet - take 1 tablet by ORAL route every 8 hours As needed; 30 tablet. Zofran 4 mg Oral Tablet - take 1 tablet by ORAL route every 12 hours As needed; 20 tablet. Keflex 500 mg Oral Capsule - take 1 capsule by ORAL route every 8 hours for 7 days; 21 capsule. - Medication Reconciliation Form, Thank You Letter, Antibiotic Education, Prescription Opioid Use, Work release form form. - Follow up: Private Physician; When: 2 - 3 days; Reason: Recheck today's complaints, Continuance of care, Re-evaluation by your physician. Follow up: Markel Fontenot; When: 2 - 3 days; Reason: Recheck today's complaints, Continuance of care, Re-evaluation by your physician. Follow up: Vince Love; When: 2 - 3 days; Reason: Recheck today's complaints, Re-evaluation by your physician. - Problem is new. - Symptoms have improved. Signatures: Dispatcher [employer] Stephan Jay MD MD cha Leal, Jahala, RN RN jl7 Morro Panda, YVONNE RN bp Corrections: (The following items were deleted from the chart) 16:08 15:02 CORONAVIRUS+MR.LAB.BRZ ordered. [facility] 18:27 17:29 06/12/2020 17:29 Discharged to Home. Impression: Dizziness and giddiness; Type 2 bp diabetes mellitus; Essential (primary) hypertension; Acute maxillary sinusitis; Urinary tract infection, site not specified. Condition is Stable. Discharge Instructions: Dizziness, Hypertension, Vertigo, Hypertension, Ydba-du-Mslj, Aspirin and Your Heart, Dizziness, Wmdz-xq-Mroh, Managing Your Hypertension, Type 2 Diabetes Mellitus, Self Care, Adult, Izrs-dh-Qqri, Urinary Tract Infection, Adult. Prescriptions for Meclizine 25 mg Oral Tablet - take 1 tablet by ORAL route every 8 hours As needed; 30 tablet, Zofran 4 mg Oral Tablet - take 1 tablet by ORAL route every 12 hours As needed; 20 tablet, Keflex 500 mg Oral Capsule - take 1 capsule by ORAL route every 8 hours for 7 days; 21 capsule. and Forms are Medication Reconciliation Form, Thank You Letter, Antibiotic Education, Prescription Opioid Use. Follow up: Private Physician; When: 2 - 3 days; Reason: Recheck today's complaints, Continuance of care, Re-evaluation by your physician. Follow up: Markel Fontenot; When: 2 - 3 days; Reason: Recheck today's complaints, Continuance of care, Re-evaluation by your physician. Follow up: Vince Love; When: 2 - 3 days; Reason: Recheck today's complaints, Re-evaluation by your physician. Problem is new. Symptoms have improved. dania
[2020-06-12 18:32] VITALS: TEMP 97.9; O2SAT 99
[2020-06-12 18:37] VITALS: BP 144/75
--- NOTE | 2020-06-12 18:41 | RAD REPORT ---
EXAM DESCRIPTION: US - Extrem Venous W Compress Horacio - 06/12/2020 6:26 pm CLINICAL HISTORY: Pain;Swelling Bilateral leg edema and swelling. COMPARISON: No comparisons TECHNIQUE: Real-time sonographic interrogation of the left and right lower extremity deep venous sys tems was performed. FINDINGS: Normal compressibility, flow augmentation, phasic flow and spontaneous flow is identified in both the left and right lower extremity deep venous systems. IMPRESSION: No sonographic evidence of left or right lower extremity deep venous thrombosis.
--- NOTE | 2020-06-13 12:13 | EKG ---
Test Date: 2020-06-12 Test Time: 15:00:12 Tank Cooper: FOX MEASUREMENT RESULTS: Intervals: Rate: 91 MO: 160 QRSD: 110 QT: 380 QTc: 467 Crawford: P: 70 MO: 160 QRS: 57 T: 58 INTERPRETIVE STATEMENTS: Normal sinus rhythm Normal ECG Compared to ECG 05/29/2015 20:44:00 No significant changes Electronically Signed On 06-13-20 12:11:55 CDT by Vince Love
== END 2020-06-12 18:27 | disposition home or self-care (01) ==
LOC: ER 14:21
DX: R42 Dizziness and giddiness (principal); J01.00 Acute maxillary sinusitis, unspecified; E11.9 Type 2 diabetes mellitus without complications; I10 Essential (primary) hypertension; Z20.822 Contact with and (suspected) exposure to COVID-19; J44.9 Chronic obstructive pulmonary disease, unspecified
CPT/HCPCS: 96365; 93005; 87088; 85025; 87086; 80048; 36415; 83735; 85610; 85379; 80076; 81003; 84484; 83880; 70450; 71275; 71045; 93880; 93970; 99284; 96366; U0003; Q9967; J0696; J7040; J7030

== ENCOUNTER 2020-10-13 21:20 | Emergency (ER) | payer OTHER ==
[2020-10-13 22:46] LABS: Urine Blood 2+ (Negative); Urine Glucose Negative (Negative); Urine Protein Negative (Negative)
--- NOTE | 2020-10-14 00:17 | EDPHYS ---
Physician Documentation [facility] Name: Stefanie Capellan Age: 59 yrs Sex: Female : 1960 Arrival Date: 10/13/2020 Time: 21:22 Bed 7 Private MD: ED Physician Willy Rodríguez HPI: 10/13 22:34 This 59 yrs old Female presents to ER via Ambulatory with complaints of jr8 Weakness, Dizziness, Nausea. 22:34 This is a 59-year-old female patient who presented emergency room with complaints of jr8 general fatigue feeling, mild nausea, dizziness. 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 Wanted to make sure she is not having Covid again.. 23:05 The patient has experienced a previous episode. The patient has not recently seen a [facility] physician. Historical: - Immunization history:: Adult Immunizations up to date, Client reports having NOT received the Covid vaccine. - Social history:: Smoking status: Patient denies any tobacco usage or history of. ROS: 23:05 Eyes: Negative for injury, pain, redness, and discharge, ENT: Negative for injury, jr8 pain, and discharge, Neck: Negative for injury, pain, and swelling, Cardiovascular: Negative for chest pain, palpitations, and edema, Respiratory: Negative for shortness of breath, cough, wheezing, and pleuritic chest pain, Back: Negative for injury and pain, MS/Extremity: Negative for injury and deformity, Skin: Negative for injury, rash, and discoloration. 23:05 Constitutional: Positive for fatigue. 23:05 Abdomen/GI: Positive for nausea, Negative for abdominal pain, vomiting, diarrhea, abdominal distension, hematemesis, black/tarry stool, rectal bleeding. 23:05 Neuro: Positive for dizziness. Exam: 23:05 Constitutional: This is a well developed, well nourished patient who is awake, alert, jr8 and in no acute distress. Eyes: Pupils equal round and reactive to light, extra-ocular motions intact. Lids and lashes normal. Conjunctiva and sclera are non-icteric and not injected. Cornea within normal limits. Periorbital areas with no swelling, redness, or edema. ENT: Nares patent. No nasal discharge, no septal abnormalities noted. Tympanic membranes are normal and external auditory canals are clear. Oropharynx with no redness, swelling, or masses, exudates, or evidence of obstruction, uvula midline. Mucous membranes moist. Neck: Trachea midline, no thyromegaly or masses palpated, and no cervical lymphadenopathy. Supple, full range of motion without nuchal rigidity, or vertebral point tenderness. No Meningismus. Cardiovascular: Regular rate and rhythm with a normal S1 and S2. No gallops, murmurs, or rubs. Normal PMI, no JVD. No pulse deficits. Respiratory: Lungs have equal breath sounds bilaterally, clear to auscultation and percussion. No rales, rhonchi or wheezes noted. No increased work of breathing, no retractions or nasal flaring. Abdomen/GI: Soft, non-tender, with normal bowel sounds. No distension or tympany. No guarding or rebound. No evidence of tenderness throughout. Back: No spinal tenderness. No costovertebral tenderness. Full range of motion. Skin: Warm, dry with normal turgor. Normal color with no rashes, no lesions, and no evidence of cellulitis. MS/ Extremity: Pulses equal, no cyanosis. Neurovascular intact. Full, normal range of motion. Neuro: Awake and alert, GCS 15, oriented to person, place, time, and situation. Cranial nerves II-XII grossly intact. Motor strength 5/5 in all extremities. Sensory grossly intact. Cerebellar exam normal. Normal gait. Vital Signs: 22:05 BP 158 / 92; Pulse 80; Resp 22; Temp 98.6; Pulse Ox 100% on R/A; Weight 71.67 kg; wg Height 5 ft. 5 in. (165.10 cm); Pain 0/10; 10/14 00:25 BP 140 / 88; Pulse 78; Resp 20; Temp 98.8; Pulse Ox 100% on R/A; Pain 0/10; kc4 10/13 22:05 Body Mass Index 26.29 (71.67 kg, 165.10 cm) wg MDM: 10/13 23:07 Patient medically screened. jr8 10/14 00:16 Data reviewed: vital signs, nurses notes, lab test result(s), and as a result, I will jr8 discharge patient. Data interpreted: Pulse oximetry: on room air is 100 %. Interpretation: normal. Counseling: I had a detailed discussion with the patient and/or guardian regarding: the historical points, exam findings, and any diagnostic results supporting the discharge/admit diagnosis, lab results, the need for outpatient follow up, a family practitioner, to return to the emergency department if symptoms worsen or persist or if there are any questions or concerns that arise at home. 10/13 22:45 Order name: Urine Dipstick-Ancillary; Complete Time: 23:07 EDMS 10/13 22:52 Order name: Urine Microscopic Only; Complete Time: 01:30 mw2 10/14 00:16 Order name: SARS-COV-2 RT PCR; Complete Time: 00:17 EDMS Administered Medications: No medications were administered Disposition: 01:30 Co-signature as Attending Physician, Willy Rodríguez MD I agree with the assessment and rn plan of care. Attestation: The patient's history, exam findings, diagnostics, and a summary of any interventions or procedures was reviewed in detail with John GIRON. Disposition Summary: 10/14/20 00:16 Discharge Ordered Location: Home jr Problem: new jr8 Symptoms: have improved jr8 Condition: Stable jr8 Diagnosis - SARS-associated coronavirus as the cause of diseases classified elsewhere jr8 Followup: jr8 - With: Private Physician - When: 7 - 10 days - Reason: Recheck today's complaints, Continuance of care, Re-evaluation by your physician Discharge Instructions: - Discharge Summary Sheet jr8 - COVID-19 jr8 - 10 Things You Can Do to Manage Your COVID-19 Symptoms at Home - [facility] jr8 - COVID-19: Quarantine vs. Isolation - CDC jr8 - Prevent the Spread of COVID-19 if You Are Sick - CDC jr8 Forms: - Medication Reconciliation Form jr8 - Thank You Letter jr8 - Antibiotic Education jr8 - Prescription Opioid Use jr8 Signatures: Dispatcher [employer] EDPR Willy Rodríguez MD MD rn Roszak, Josh, PA PA jr8 Debbie Carney kc4 Corrections: (The following items were deleted from the chart) 10/13 22:22 22:17 CORONAVIRUS+ ordered. EDPR EDMS 23:06 22:34 This is a 59-year-old female patient who presented emergency room with complaints jr8 of general fatigue feeling, mild nausea, dizziness. Stated that she has been. jr8 10/14 00: PMHx: Hypertension; kc4 kc4 : PMHx: Diabetes - NIDDM; kc4 kc4 PMHx: COPD; kc4 kc4 PMHx: Asthma; kc4 kc4
--- NOTE | 2020-10-14 00:17 | ER ---
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 Pt states she has felt fatigued, occasional nausea and hasn't felt well for a little over a week. Pt states she hasn't been febrile. States she had a headache yesterday. States she takes Vitc, zinc, ASA, motrin 400, tylenol and multivit. Pt A\T\Ox4 and in no apparent distress. Pt very talkative and appears anxious about exposure to possible covid. Coronavirus screen: Vaccine status: Patient reports being unvaccinated. Client denies travel out of the [place] in the last 14 days. Client presents with at least one sign or symptom that may indicate coronavirus-19. Standard/surgical mask placed on the client. Client reports previous positive COVID test result. Date of collection: May 2020. Ebola Screen: Patient negative for fever greater than or equal to 101.5 degrees Fahrenheit, and additional compatible Ebola Virus Disease symptoms Patient denies exposure to infectious person. Patient denies travel to an Ebola-affected area in the 21 days before illness onset. No symptoms or risks identified at this time. Initial Sepsis Screen: Does the patient meet any 2 criteria? No. Patient's initial sepsis screen is negative. Does the patient have a suspected source of infection? No. Patient's initial sepsis screen is negative. Risk Assessment: Do you want to hurt yourself or someone else? Patient reports no desire to harm self or others. Onset of symptoms was October 06, 2020. Care prior to arrival: Medication(s) given: Motrin, 800 mg, Tylenol, 1000 mg. 22:05 Method Of Arrival: Ambulatory wg 22:05 Acuity: RAMIN 4 wg Triage Assessment: 22:13 The onset of the patients symptoms was October 06, 2020 at 12:00. General: Appears wg uncomfortable, well groomed, well developed, well nourished, Behavior is cooperative, anxious. Pain: Denies pain. EENT: No deficits noted. Neuro: Reports weakness fatigue for past week. Cardiovascular: No deficits noted. Respiratory: No deficits noted. GI: No deficits noted. : No deficits noted. Derm: No deficits noted. Musculoskeletal: No deficits noted. Historical: - Immunization history:: Adult Immunizations up to date, Client reports having NOT received the Covid vaccine. - Social history:: Smoking status: Patient denies any tobacco usage or history of. Screenin/09 00:26 Abuse screen: Denies threats or abuse. Nutritional screening: No deficits noted. kc4 Tuberculosis screening: No symptoms or risk factors identified. Never had TB. Possible symptoms: None Risk factors: None. Fall Risk None identified. No fall in past 12 months (0 pts). No secondary diagnosis (0 pts). No IV (0 pts). Ambulatory Aid- None/Bed Rest/Nurse Assist (0 pts). Gait- Normal/Bed Rest/Wheelchair (0 pts) Mental Status- Oriented to own ability (0 pts). Total Kerr Fall Scale indicates No Risk (0-24 pts). Vital Signs: 10/13 22:05 BP 158 / 92; Pulse 80; Resp 22; Temp 98.6; Pulse Ox 100% on R/A; Weight 71.67 kg; wg Height 5 ft. 5 in. (165.10 cm); Pain 0/10; 10/14 00:25 BP 140 / 88; Pulse 78; Resp 20; Temp 98.8; Pulse Ox 100% on R/A; Pain 0/10; kc4 10/13 22:05 Body Mass Index 26.29 (71.67 kg, 165.10 cm) ED Course: 10/13 21:22 Patient arrived in ED. bp1 22:12 Triage completed. wg 22:12 Arm band placed on left wrist. wg 22:33 John Damon PA is PHCP. jr8 22:33 Willy Rodríguez MD is Attending Physician. jr8 23:42 Jemma Helm, YVONNE is Primary Nurse. ea 10/14 00:27 No provider procedures requiring assistance completed. Patient did not have IV access kc4 during this emergency room visit. 00:29 Patient has correct armband on for positive identification. Call light in reach. Side kc4 rails up X 1. Administered Medications: No medications were administered Outcome: 00:16 Discharge ordered by . ashley 00:27 Discharged to home ambulatory. kc4 00:27 Condition: stable 00:27 Discharge instructions given to patient, Instructed on discharge instructions, follow up and referral plans. medication usage. 00:29 Patient left the ED. kc4 Signatures: John Damon PA PA jr8 Antunez, Elena, RN RN ea Paniauga, Brittany bp1 Gamba, Liam, RN wg Chuman, Kourtney kc4 Corrections: (The following items were deleted from the chart) 00:29 00:29 PMHx: Hypertension; kc4 kc4 00:29 00:29 PMHx: Diabetes - NIDDM; kc4 kc4 00:29 00:29 PMHx: COPD; kc4 kc4 00:29 00:29 PMHx: Asthma; kc4 kc4
[2020-10-14 00:34] LABS: Urine Bacteria <20 /HPF (<20); Urine RBC <5 /HPF (NONE SEEN)
[2020-10-14 00:35] VITALS: O2SAT 100
[2020-10-14 00:36] VITALS: BP 140/88; TEMP 98.8
== END 2020-10-14 00:29 | disposition home or self-care (01) ==
LOC: ER 21:20
DX: U07.1 COVID-19 (principal)
CPT/HCPCS: 87088; 87086; 99281; U0003; 81003; 81015

== ENCOUNTER 2020-10-19 21:19 | Emergency (ER) | payer OTHER ==
[2020-10-19 22:26] LABS: Absolute Lymphocytes (CBC) 3.2 K/uL (0.7-4.9); Basophils % 0.4 % (0-1.3); Hematocrit 42.5 % (36.0-45.0); Lymphocytes % 34.4 % (15.3-44.8)
[2020-10-19 22:38] LABS: Albumin 4.1 g/dL (3.4-5.0); Bilirubin Total 0.3 mg/dL (0.2-1.0); Potassium 3.6 mmol/L (3.5-5.1); Protein, Total 8.3 g/dL (6.4-8.2)
[2020-10-19] MEDS ORDERED: NA CHLORIDE 0.9% 1,000 ML ONE (22:38)
[2020-10-19] MEDS ORDERED: MECLIZINE HCL 12.5 MG TAB ONE (22:54)
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
[2020-10-19 23:58] VITALS: TEMP 97.2
[2020-10-20 00:23] VITALS: BP 155/85; O2SAT 98
--- NOTE | 2020-10-20 08:15 | EKG ---
Test Date: 2020-10-19 Test Time: 22:16:16 [employer]ire Building Supervisor: GILDA MEASUREMENT RESULTS: Intervals: Rate: 85 [place]: 166 QRSD: 106 QT: 390 QTc: 464 [place]: P: 45 [place]: 166 QRS: -9 T: 49 INTERPRETIVE STATEMENTS: Normal sinus rhythm Normal ECG Compared to ECG 06/12/2020 15:00:12 No significant changes Electronically Signed On 10-20-20 08:14:09 CDT by Vince Love
== END 2020-10-19 23:52 | disposition home or self-care (01) ==
LOC: ER 21:19
DX: U07.1 COVID-19 (principal); H81.10 Benign paroxysmal vertigo, unspecified ear; I10 Essential (primary) hypertension; Z88.0 Allergy status to penicillin
CPT/HCPCS: 93005; 85025; 36415; 80053; 96360; 99284; J7030

== ENCOUNTER 2020-12-02 16:17 | Emergency (ER) | payer OTHER ==
--- NOTE | 2020-12-02 17:38 | EDPHYS ---
Physician Documentation [facility] Name: Stefanie Capellan Age: 60 yrs Sex: Female : 1960 Arrival Date: 12/02/2020 Time: 16:19 Bed 9 Private MD: ED Physician Willy Rodríguez HPI: 12/02 17:33 This 60 yrs old Female presents to ER via Ambulatory with complaints of Back rn Pain. 17:34 The patient presents with pain that is acute. The symptoms are located in the right mid rn back and right low back. Onset: The symptoms/episode began/occurred. 17:34 Onset: The symptoms/episode began/occurred today. The pain does not radiate. Associated rn signs and symptoms: Pertinent positives: none Pertinent negatives: abdominal pain, chest pain, fever, hematuria, incontinence, nausea, numbness, tingling, urinary retention, vomiting, weakness. Modifying factors: The patient symptoms are alleviated by remaining still, the patient symptoms are aggravated by bending. Severity of symptoms: At their worst the symptoms were mild, in the emergency department the symptoms are unchanged. The patient has experienced similar episodes in the past. The patient has not recently seen a physician. Patient reports intermittent back pain with sciatica. Today was closing a window and bent over when felt a strain or pulling sensation to right lower back. Patient is ambulatory and says pain is mild. Does not radiate down the leg. No bowel or bladder issues. No direct trauma or fall. States identical to previous back pain episodes. Historical: - Allergies: 16:37 PENICILLINS; ch5 - Home Meds: 16:37 Vitamin A Oral [Active]; tylenol [Active]; ch5 - PMHx: 16:37 Anxiety; Bipolar disorder; headache; Hypertensive disorder; Kidney stone; Schizophrenia;ch5 - Immunization history:: Adult Immunizations up to date, Client reports having NOT received the Covid vaccine. - Social history:: Smoking status: Patient/guardian denies using tobacco, the patient reports quitting approximately 20 years ago. - Family history:: not pertinent. - Hospitalizations: : No recent hospitalization is reported. ROS: 17:34 Constitutional: Negative for fever, chills, and weight loss, Eyes: Negative for injury, rn pain, redness, and discharge, Neck: Negative for injury, pain, and swelling, Cardiovascular: Negative for chest pain, palpitations, and edema, Respiratory: Negative for shortness of breath, cough, wheezing, and pleuritic chest pain, Abdomen/GI: Negative for abdominal pain, nausea, vomiting, diarrhea, and constipation, Back: Positive for strain and back pain : Negative for injury, bleeding, discharge, and swelling, MS/Extremity: Negative for injury and deformity, Skin: Negative for injury, rash, and discoloration, Neuro: Negative for headache, weakness, numbness, tingling, and seizure. Exam: 17:34 Constitutional: This is a well developed, well nourished patient who is awake, alert, rn and in no acute distress. Head/Face: Normocephalic, atraumatic. Cardiovascular: Regular rate and rhythm. No pulse deficits. Respiratory: No increased work of breathing, no retractions or nasal flaring. Abdomen/GI: Soft, nontender Back: No spinal tenderness full range of motion. Skin: Warm, dry MS/ Extremity: Pulses equal, no cyanosis. Neuro: Awake and alert, GCS 15, oriented to person, place, time, and situation. Cranial nerves II-XII grossly intact. Motor strength 5/5 in all extremities. Sensory grossly intact. Cerebellar exam normal. Normal gait. Vital Signs: 16:35 BP 145 / 88; Pulse 90; Resp 18; Temp 97.6; Pulse Ox 99% ; Weight 70.31 kg; Height 5 ft. ch5 6 in. (167.64 cm); Pain 6/10; 17:14 BP 136 / 84; Pulse 86; Resp 18; Pulse Ox 99% on R/A; Pain 7/10; ld1 16:35 Body Mass Index 25.02 (70.31 kg, 167.64 cm) ch5 MDM: 17:21 Patient medically screened. rn 17:34 Differential diagnosis: arthritis, chronic back pain, sprain, Back strain. Data rn reviewed: vital signs, nurses notes, and as a result, I will discharge patient. Counseling: I had a detailed discussion with the patient and/or guardian regarding: the historical points, exam findings, and any diagnostic results supporting the discharge/admit diagnosis, the need for outpatient follow up, to return to the emergency department if symptoms worsen or persist or if there are any questions or concerns that arise at home. Special discussion: I discussed with the patient/guardian in detail that at this point there is no indication for admission to the hospital. It is understood, however, that if the symptoms persist or worsen the patient needs to return immediately for re-evaluation. Based on the history and exam findings, there is no indication for further emergent testing or inpatient evaluation. I discussed with the patient/guardian the need to see the back specialist for further evaluation of the symptoms. ED course: No indications for emergent imaging. Will DC home with muscle relaxers and conservative treatment with heat and stretching and [id number] anti-inflammatories.. Administered Medications: No medications were administered Disposition Summary: 12/02/20 17:38 Discharge Ordered Location: Home rn Problem: new rn Symptoms: have improved rn Condition: Stable rn Diagnosis - Strain of muscle, fascia and tendon of lower back rn Followup: rn - With: Private Physician - When: As needed - Reason: Recheck today's complaints, Re-evaluation by your physician Discharge Instructions: - Discharge Summary Sheet rn - Low Back Sprain or Strain Rehab-SportsMed rn Forms: - Medication Reconciliation Form rn - Thank You Letter rn - Antibiotic web development intern - Prescription Opioid Use rn Prescriptions: - Cyclobenzaprine 10 mg Oral Tablet - take 1 tablet by ORAL route every 8 hours As needed; 15 tablet; Refills: 0, rn Product Selection Permitted Signatures: Willy Rodríguez MD MD rn Heath, Christopher, RN RN ch5
--- NOTE | 2020-12-02 17:38 | ER ---
Nurse's Notes [facility] Name: Stefanie Capellan Age: 60 yrs Sex: Female : 1960 Arrival Date: 12/02/2020 Time: 16:19 Bed 9 Private MD: Diagnosis: Strain of muscle, fascia and tendon of lower back Presentation: 12/02 16:35 Chief complaint: Patient states: Bent over in strange position to open window. [place] pop ch5 in right side of back. Coronavirus screen: Vaccine status: Patient reports being unvaccinated. Client denies travel out of the [place] in the last 14 days. At this time, the client does not indicate any symptoms associated with coronavirus-19. Ebola Screen: Patient negative for fever greater than or equal to 101.5 degrees Fahrenheit, and additional compatible Ebola Virus Disease symptoms Patient denies exposure to infectious person. Patient denies travel to an Ebola-affected area in the 21 days before illness onset. No symptoms or risks identified at this time. Initial Sepsis Screen: Does the patient meet any 2 criteria? No. Patient's initial sepsis screen is negative. Does the patient have a suspected source of infection? No. Patient's initial sepsis screen is negative. Risk Assessment: Do you want to hurt yourself or someone else?. Onset of symptoms was December 02, 2020 at 14:45. 16:35 Method Of Arrival: Ambulatory 5 16:35 Acuity: RAMIN 4 ch5 Triage Assessment: 16:37 General: Appears in no apparent distress. Behavior is calm, cooperative. Pain: ch5 Complains of pain in back. Historical: - Allergies: 16:37 PENICILLINS; ch5 - Home Meds: 16:37 Vitamin A Oral [Active]; tylenol [Active]; ch5 - PMHx: 16:37 Anxiety; Bipolar disorder; headache; Hypertensive disorder; Kidney stone; Schizophrenia;ch5 - Immunization history:: Adult Immunizations up to date, Client reports having NOT received the Covid vaccine. - Social history:: Smoking status: Patient/guardian denies using tobacco, the patient reports quitting approximately 20 years ago. - Family history:: not pertinent. - Hospitalizations: : No recent hospitalization is reported. Screenin:00 Abuse screen: Denies threats or abuse. Denies injuries from another. Nutritional ch5 screening: No deficits noted. Tuberculosis screening: No symptoms or risk factors identified. Fall Risk None identified. Assessment: 17:00 Reassessment: No changes from previously documented assessment. Neuro: No deficits ch5 noted. 17:14 General: Appears in no apparent distress. uncomfortable, Behavior is calm, cooperative, ld1 appropriate for age. Pain: Complains of pain in posterior aspect of right lateral abdomen and anterior aspect of right lateral abdomen Pain does not radiate. Pain currently is 7 out of 10 on a pain scale. Quality of pain is described as Pt reports a "pulling" pain. She was working today and felt a pop in her right abdominal section. Pain began 4 hours ago. Is intermittent. Neuro: Level of Consciousness is awake, alert, obeys commands, Oriented to person, place, time, situation, Appropriate for age. Cardiovascular: Capillary refill < 3 seconds Patient's skin is warm and dry. Respiratory: Airway is patent Respiratory effort is even, unlabored, Respiratory pattern is regular, symmetrical. GI: Abdomen is flat, non-distended. : No signs and/or symptoms were reported regarding the genitourinary system. EENT: No signs and/or symptoms were reported regarding the EENT system. Derm: No signs and/or symptoms reported regarding the dermatologic system. Musculoskeletal: Reports pain in posterior aspect of right lateral abdomen and anterior aspect of right lateral abdomen. Vital Signs: 16:35 BP 145 / 88; Pulse 90; Resp 18; Temp 97.6; Pulse Ox 99% ; Weight 70.31 kg; Height 5 ft. ch5 6 in. (167.64 cm); Pain 6/10; 17:14 BP 136 / 84; Pulse 86; Resp 18; Pulse Ox 99% on R/A; Pain 7/10; ld1 16:35 Body Mass Index 25.02 (70.31 kg, 167.64 cm) ch5 ED Course: 16:19 Patient arrived in ED. ds1 16:37 Triage completed. ch5 16:37 Arm band placed on left wrist. ch5 17:00 Patient has correct armband on for positive identification. Bed in low position. Call 5 light in reach. 17:00 No provider procedures requiring assistance completed. ch5 17:11 oLu Hatfield RN is Primary Nurse. ld1 17:21 Willy Rodríguez MD is Attending Physician. rn 17:42 Patient did not have IV access during this emergency room visit. ld1 Administered Medications: No medications were administered Outcome: 17:38 Discharge ordered by . rn 17:42 Discharged to home ambulatory. ld1 17:42 Condition: stable 17:42 Discharge instructions given to patient, Instructed on discharge instructions, follow up and referral plans. medication usage, Demonstrated understanding of instructions, follow-up care, medications, Prescriptions given X 1. 17:42 Patient left the ED. ld1 Signatures: Roxy Pagan ds1 Willy Rodríguez MD MD rn Lou Hatfield RN RN ld1 Marcelo Ann RN RN ch5
[2020-12-02 18:06] VITALS: TEMP 97.6; O2SAT 99
[2020-12-02 18:07] VITALS: BP 136/84
== END 2020-12-02 17:42 | disposition home or self-care (01) ==
LOC: ER 16:17
DX: S39.012A Strain of muscle, fascia and tendon of lower back, initial encounter (principal); I10 Essential (primary) hypertension; Z88.0 Allergy status to penicillin
CPT/HCPCS: 99282

== ENCOUNTER 2020-12-06 14:50 | Emergency (ER) | payer OTHER ==
[2020-12-06 15:48] LABS: Urine Blood 1+ (Negative); Urine Glucose Negative (Negative); Urine Protein Negative (Negative)
[2020-12-06 16:09] LABS: Absolute Lymphocytes (CBC) 2.5 K/uL (0.7-4.9); Basophils % 0.8 % (0-1.3); Hematocrit 41.2 % (36.0-45.0); Lymphocytes % 31.2 % (15.3-44.8); MPV 7.6 fL (7.6-11.3); RBC Red Blood Cell Count 4.51 M/uL (3.86-4.86)
[2020-12-06 16:24] LABS: Urine Bacteria <20 /HPF (<20); Urine Mucus 1+ /HPF (NONE SEEN)
--- NOTE | 2020-12-06 16:26 | RAD REPORT ---
EXAM DESCRIPTION: CTStone Protocol - 12/06/2020 4:04 pm CLINICAL HISTORY: FLANK PAIN COMPARISON: Stone Protocol dated 11/03/2019 TECHNIQUE: CT of the abdomen and pelvis was performed. All CT scans are performed using dose optimization technique as appropriate and may include automated exposure control or mA/KV adjustment according to patient size. FINDINGS: Lower chest: Circumferential thickened distal esophagus. Small hiatal hernia. Liver: No acute abnormality or suspicious lesions. Biliary: No biliary ductal dilatation. Stomach: No significant focal abnormality. Duodenum: No significant focal abnormality. Pancreas: No significant abnormality. Spleen: No significant abnormality. Adrenal: No suspicious lesions. Kidney/ureter: 5 mm stone in the right distal ureter. No hydronephrosis. Multiple left renal calculi noted. No left ureteral calculi identified. Retroperitoneum: No retroperitoneal adenopathy. Vascular: No aneurysm. Bowel: No significant focal abnormality. Diverticulosis without diverticulitis. Peritoneum: No ascites or free air. Bladder: Grossly unremarkable. Reproductive: No adnexal masses. Bones: No acute fracture. Other: n/a IMPRESSION: 5 mm stone in the right distal ureter without hydronephrosis.
[2020-12-06 16:27] LABS: BUN Blood Urea Nitrogen 14 mg/dL (7-18); Bicarbonate 29 mmol/L (21-32); Glucose Level 102 mg/dL (74-106); Sodium Level 142 mmol/L (136-145)
[2020-12-06] MEDS ORDERED: KETOROLAC 30 MG/ML INJ ONE (17:12)
[2020-12-06] MEDS ORDERED: LIDOCAINE 4% PATCH ONE (17:13)
--- NOTE | 2020-12-06 17:14 | ER ---
Nurse's Notes [facility] Name: Stefanie Capellan Age: 60 yrs Sex: Female : 1960 Arrival Date: 12/06/2020 Time: 14:53 Bed 10 Private MD: Diagnosis: Calculus of ureter-right Presentation: 12/06 15:12 Chief complaint: Patient states: Seen here in ED on 12/02/20 and was diagnosed vg1 with muscle strain on the right side of back. Today pt states pain medication is not working and cant get comfortable. States with every movement she feels a pull on right side. Coronavirus screen: Vaccine status: Patient reports being unvaccinated. Client denies travel out of the [place] in the last 14 days. Ebola Screen: Patient negative for fever greater than or equal to 101.5 degrees Fahrenheit, and additional compatible Ebola Virus Disease symptoms. Initial Sepsis Screen: Does the patient meet any 2 criteria? No. Patient's initial sepsis screen is negative. Does the patient have a suspected source of infection? No. Patient's initial sepsis screen is negative. Risk Assessment: Do you want to hurt yourself or someone else? Patient reports no desire to harm self or others. Onset of symptoms was December 02, 2020. 15:12 Method Of Arrival: Ambulatory vg1 15:12 Acuity: RAMIN 4 vg1 Triage Assessment: 15:19 General: Appears in no apparent distress. uncomfortable, Behavior is calm, cooperative. vg1 Pain: Complains of pain in back. Historical: - Allergies: 15:18 PENICILLINS; vg1 15:19 Sulfa (Sulfonamide Antibiotics); vg1 15:19 Latex, Natural Rubber; vg1 15:19 Morphine; vg1 15:19 Codeine; vg1 15:19 Prozac; vg1 - Home Meds: 15:18 Tylenol [Active]; vitamin A Oral [Active]; vg1 15:19 Vitamin D Oral [Active]; Zinc Sulfate Oral [Active]; vg1 - PMHx: 15:18 Anxiety; Bipolar disorder; headache; Hypertensive disorder; Kidney stone; Schizophrenia;vg1 - Immunization history:: Adult Immunizations up to date, Client reports having NOT received the Covid vaccine. - Social history:: Smoking status: Patient denies any tobacco usage or history of. Screenin:29 Abuse screen: Denies threats or abuse. Nutritional screening: No deficits noted. as6 Tuberculosis screening: No symptoms or risk factors identified. Fall Risk None identified. Assessment: 15:20 General: Appears in no apparent distress. comfortable, Behavior is calm, cooperative. as6 Pain: Complains of pain in right flank. Neuro: Level of Consciousness is awake, alert, obeys commands, Oriented to person, place, time, situation. Cardiovascular: Capillary refill < 3 seconds Patient's skin is warm and dry. Respiratory: Airway is patent Respiratory effort is even, unlabored, Respiratory pattern is regular, symmetrical. : Denies burning with urination. Musculoskeletal:. Vital Signs: 15:12 BP 157 / 86; Pulse 80; Resp 16; Temp 98.2(O); Pulse Ox 99% ; Weight 70.76 kg; Height 5 vg1 ft. 6 in. (167.64 cm); Pain 8/10; 18:33 BP 167 / 85; Pulse 84; Resp 18 S; Pulse Ox 98% on R/A; as6 15:12 Body Mass Index 25.18 (70.76 kg, 167.64 cm) vg1 ED Course: 14:53 Patient arrived in ED. mr 15:18 Triage completed. vg1 15:19 Arm band placed on. vg1 15:22 Stephan Lama PA is PHCP. cp 15:22 Stephan Harvey MD is Attending Physician. cp 15:45 Inserted saline lock: 20 gauge in right antecubital area, using aseptic technique. as6 Blood collected. 16:03 CT Stone Protocol In Process Unspecified. EDMS 16:30 Bed in low position. Call light in reach. Side rails up X 1. Pulse ox on. NIBP on. as6 17:13 Kurtis Moulton MD is Referral Physician. cp 18:33 No provider procedures requiring assistance completed. IV discontinued, intact, as6 bleeding controlled, No redness/swelling at site. Pressure dressing applied. Administered Medications: 16:15 Drug: Lidoderm Patch 5 % (700 mg/patch) 1 patches Route: Topical; Site: abdomen; as6 16:40 Follow up: Response: No adverse reaction; Pain is decreased as6 16:15 Drug: Ketorolac 15 mg Route: IVP; Site: right antecubital; as6 16:40 Follow up: Response: No adverse reaction; Pain is decreased as6 17:12 Drug: Magnesium Sulfate 1 grams Route: IVPB; Infused Over: 1 hrs; Site: right as6 antecubital; 18:00 Follow up: Response: No adverse reaction; IV Status: Completed infusion; IV Intake: as6 100ml 17:12 Drug: Flomax (tamsulosin) 0.4 mg Route: PO; as6 17:30 Follow up: Response: No adverse reaction as6 17:12 Drug: Cipro (ciprofloxacin) 500 mg Route: PO; as6 17:30 Follow up: Response: No adverse reaction as6 Intake: 18:00 IV: 100ml; Total: 100ml. as6 Outcome: 17:13 Discharge ordered by MD. cp 18:34 Discharged to home ambulatory. as6 18:34 Condition: stable 18:34 Discharge instructions given to patient, Instructed on discharge instructions, follow up and referral plans. medication usage, Demonstrated understanding of instructions, follow-up care, medications, Prescriptions given X 4. 18:37 Patient left the ED. as6 Signatures: Dispatcher [employer] RANDAL PattersonDyan munson Corey, MACK PA Martha Muñoz, RN RN vg1 Mahesh Alba, YVONNE RN as6 Corrections: (The following items were deleted from the chart) 15:19 15:12 Pulse 80bpm; Resp 16bpm; Pulse Ox 99%; Temp 98.2F Oral; 70.76 kg; Height 5 ft. 6 vg1 in.; BMI: 25.1; Pain 8/10; vg1
--- NOTE | 2020-12-06 17:14 | EDPHYS ---
Physician Documentation [facility] Name: Stefanie Capellan Age: 60 yrs Sex: Female : 1960 Arrival Date: 12/06/2020 Time: 14:53 Bed 10 Private MD: ZAFAR Physician Stephan Harvey HPI: 12/06 15:30 This 60 yrs old Female presents to ER via Ambulatory with complaints of Flank cp Pain. 15:30 The patient complains of pain in the right flank. The pain radiates to the abdomen. cp Onset: The symptoms/episode began/occurred 4 day(s) ago. Associated signs and symptoms: Pertinent negatives: diarrhea, fever, pain radiating to the lower extremities, vomiting. Severity of pain: in the emergency department the pain is unchanged despite home interventions. 15:30 Patient returns to the ER after being seen last week on 12/02 with continued complaints cp of right flank and right lower back pain. At that visit she reported the pain started when she was at work bent over to close a window and felt a pulling sensation to the right flank area started having pain. Patient continues to deny any radiation of pain down the leg any numbness or tingling, denies any incontinence and denies any rash to the area. Patient reports she has been taking the anti-inflammatories and muscle relaxers without relief. Historical: - Allergies: 15:18 PENICILLINS; vg1 15:19 Sulfa (Sulfonamide Antibiotics); vg1 15:19 Latex, Natural Rubber; vg1 15:19 Morphine; vg1 15:19 Codeine; vg1 15:19 Prozac; vg1 - Home Meds: 15:18 Tylenol [Active]; vitamin A Oral [Active]; vg1 15:19 Vitamin D Oral [Active]; Zinc Sulfate Oral [Active]; vg1 - PMHx: 15:18 Anxiety; Bipolar disorder; headache; Hypertensive disorder; Kidney stone; Schizophrenia;vg1 - Immunization history:: Adult Immunizations up to date, Client reports having NOT received the Covid vaccine. - Social history:: Smoking status: Patient denies any tobacco usage or history of. ROS: 15:35 Back: Positive for flank pain, on the right. cp 15:35 Constitutional: Negative for body aches, chills, fever, poor PO intake. cp 15:35 Cardiovascular: Negative for chest pain, palpitations. 15:35 Eyes: Negative for injury, pain, redness, and discharge. cp 15:35 ENT: Negative for ear pain, sore throat, difficulty swallowing, difficulty handling secretions. 15:35 Respiratory: Negative for cough, shortness of breath, wheezing. 15:35 Abdomen/GI: Negative for nausea, vomiting, and diarrhea, constipation. 15:35 : Positive for flank pain, of the right flank, Negative for urinary symptoms. 15:35 Skin: Negative for cellulitis, rash. 15:35 Neuro: Negative for altered mental status, headache, weakness. 15:35 All other systems are negative. Exam: 15:40 Constitutional: The patient appears in no acute distress, alert, awake, non-toxic, well cp developed, well nourished. 15:40 Head/Face: Normocephalic, atraumatic. cp 15:40 Eyes: Periorbital structures: appear normal, Conjunctiva: normal, no exudate, no injection, Sclera: no appreciated abnormality, Lids and lashes: appear normal, bilaterally. 15:40 ENT: External ear(s): are unremarkable, Nose: is normal, Mouth: Lips: moist, Oral mucosa: pink and intact, moist, Posterior pharynx: Airway: no evidence of obstruction, patent. 15:40 Chest/axilla: Inspection: normal. 15:40 Cardiovascular: Rate: normal, Rhythm: regular. 15:40 Respiratory: the patient does not display signs of respiratory distress, Respirations: normal, no use of accessory muscles, no retractions, labored breathing, is not present, Breath sounds: are clear throughout, no decreased breath sounds, no stridor, no wheezing. 15:40 Abdomen/GI: Inspection: abdomen appears normal, Bowel sounds: active, all quadrants, cp Palpation: soft, in all quadrants, mild abdominal tenderness, in the posterior aspect of right lateral abdomen, anterior aspect of right lateral abdomen and right lower quadrant, rebound tenderness, is not appreciated, involuntary guarding, is not appreciated. 15:40 Skin: cellulitis, is not appreciated, no rash present. 15:40 Neuro: Motor: moves all fours, strength is normal, Sensation: is normal, Gait: is steady, Deep tendon reflexes are 2+ (normal) in the right patellar, right Achilles, left patellar and left Achilles. Vital Signs: 15:12 BP 157 / 86; Pulse 80; Resp 16; Temp 98.2(O); Pulse Ox 99% ; Weight 70.76 kg; Height 5 vg1 ft. 6 in. (167.64 cm); Pain 8/10; 18:33 BP 167 / 85; Pulse 84; Resp 18 S; Pulse Ox 98% on R/A; as6 15:12 Body Mass Index 25.18 (70.76 kg, 167.64 cm) vg1 MDM: 15:22 Patient medically screened. dania 17:00 Differential diagnosis: nephrolithiasis, pyelonephritis, UTI, cellulitis, herpes cp zoster, muscle strain. 17:13 Data reviewed: vital signs, nurses notes, lab test result(s), radiologic studies, CT cp scan. 17:13 Counseling: I had a detailed discussion with the patient and/or guardian regarding: the cp historical points, exam findings, and any diagnostic results supporting the discharge/admit diagnosis, lab results, radiology results, to return to the emergency department if symptoms worsen or persist or if there are any questions or concerns that arise at home. Response to treatment: the patient's symptoms have markedly improved after treatment, and as a result, I will discharge patient. 12/06 15:22 Order name: Urine Microscopic Only; Complete Time: 16:30 cp 12/06 15:43 Order name: CBC with Diff; Complete Time: 16:30 cp 12/06 15:43 Order name: CT Stone Protocol; Complete Time: 16:30 cp 12/06 15:43 Order name: BMP; Complete Time: 16:30 cp 12/06 15:48 Order name: Urine Dipstick-Ancillary; Complete Time: 16:30 EDMS 12/06 16:26 Order name: Urine Culture EDCA 12/06 15:22 Order name: Urine Dipstick-Ancillary (obtain specimen); Complete Time: 15:49 cp 12/06 15:43 Order name: IV; Complete Time: 16:04 cp Administered Medications: 16:15 Drug: Lidoderm Patch 5 % (700 mg/patch) 1 patches Route: Topical; Site: abdomen; as6 16:40 Follow up: Response: No adverse reaction; Pain is decreased as6 16:15 Drug: Ketorolac 15 mg Route: IVP; Site: right antecubital; as6 16:40 Follow up: Response: No adverse reaction; Pain is decreased as6 17:12 Drug: Magnesium Sulfate 1 grams Route: IVPB; Infused Over: 1 hrs; Site: right as6 antecubital; 18:00 Follow up: Response: No adverse reaction; IV Status: Completed infusion; IV Intake: as6 100ml 17:12 Drug: Flomax (tamsulosin) 0.4 mg Route: PO; as6 17:30 Follow up: Response: No adverse reaction as6 17:12 Drug: Cipro (ciprofloxacin) 500 mg Route: PO; as6 17:30 Follow up: Response: No adverse reaction as6 Disposition: 12/07 11:38 Co-signature as Attending Physician, Stephan Harvey MD I agree with the assessment and dania plan of care. Disposition Summary: 12/06/20 17:13 Discharge Ordered Location: Home cp Problem: new cp Symptoms: have improved cp Condition: Stable cp Diagnosis - Calculus of ureter - right cp Followup: cp - With: Kurtis Moulton MD - When: 2 - 3 days - Reason: Recheck today's complaints Discharge Instructions: - Discharge Summary Sheet cp - Kidney Stones cp - Renal Colic cp Forms: - Medication Reconciliation Form cp - Thank You Letter cp - Antibiotic Education cp - Prescription Opioid Use cp Prescriptions: - Flomax 0.4 mg Oral capsule - take 1 capsule by ORAL route once daily 1/2 hour following the same meal each cp day; 5 capsule; Refills: 0, Product Selection Permitted - Zofran 4 mg Oral Tablet - take 1 tablet by ORAL route every 12 hours As needed; 20 tablet; Refills: 0, cp Product Selection Permitted - Cipro 500 mg Oral Tablet - take 1 tablet by ORAL route every 12 hours for 7 days; 14 tablet; Refills: 0, cp Product Selection Permitted - Tylenol-Codeine #3 300 mg-30 mg Oral - take 2 tablet by ORAL route every 6-8 hours; 20 tablet; Refills: 0, Product cp Selection Permitted Signatures: Dispatcher [employer] Stephan Jay MD MD cha Page, Corey, PA PA cp Garcia, Victoria, RN RN vg1 Mahesh Alba RN RN as6
[2020-12-06] MEDS ORDERED: TAMSULOSIN 0.4 MG SR CAP ONE (17:53)
[2020-12-06] MEDS ORDERED: CIPROFLOXACIN HCL 500 MG TAB ONE (17:53)
[2020-12-06] MEDS ORDERED: MAGNESIUM SULFATE 1 gm IVPB 1 GM/100 ML BAG IV ONE (17:54)
[2020-12-06 18:43] VITALS: TEMP 98.2
[2020-12-06 18:45] VITALS: BP 167/85; O2SAT 98
== END 2020-12-06 18:37 | disposition home or self-care (01) ==
LOC: ER 14:50
DX: N20.1 Calculus of ureter (principal); I10 Essential (primary) hypertension; Z87.442 Personal history of urinary calculi; Z88.0 Allergy status to penicillin; Z88.2 Allergy status to sulfonamides; Z88.5 Allergy status to narcotic agent; Z88.8 Allergy status to other drugs, medicaments and biological substances; Z91.040 Latex allergy status; Z91.048 Other nonmedicinal substance allergy status
CPT/HCPCS: 96365; 87088; 85025; 87086; 80048; 36415; 76377; 74176; 96375; 99284; J3475; 81003; 81015

== ENCOUNTER 2021-05-23 16:46 | Emergency (ER) | payer OTHER ==
--- OUTSIDE RECORDS SUMMARY | 2021-05-23 16:52 | XMS REPORT | Continuity of Care Document ---
:1960 Author Organization [facility] t Address [address] [place] [address] Care Team Providers Name Role Phone LILO Attending Clinician Unavailable Payers Payer Name Policy Type Policy Number Effective Date Expiration Date S vipul [place] [id number] 2011 00:00:00 [facility] [id number] 2017 MEDICAID 00:00:00 MEDICARE PART A \T\ [id number] 1998 B 00:00:00 Problems This patient has no known problems. Allergies, Adverse Reactions, Alerts Allergy Allergy Status Severity Reaction(s) Onset Inactive Treating Comm ents Source Name Type Date Date Clinician FLUOXETI DRUG Active Swelling 2017- Univer s [place] HCL INGREDI 4-22 ity of 00:00: [address] Branch SULFA Drug Active N/V 2017-0 Univers (SULFONA Class 4-22 ity of MIDE 00:00: [place] [facility]) Branch BEE DRUG Active Anaphylaxis Unive rs STING / INGREDI 4-22 ity of VENOM 00:00: [address] Branch CODEINE DRUG Active Hallucinates 2017-0 Uni vers INGREDI 4-22 ity of 00:00: [address] LATEX DRUG Active Hives 2017- Univers INGREDI 4-22 ity of 00:00: [address] MORPHINE DRUG Active Hallucinates 2017-0 Un mi INGREDI 4-22 ity of 00:00: [address] Medications This patient has no known medications. Procedures This patient has no known procedures. Encounters Start End Encounter Admission Attending Care Care Encounter Source Date/Time Date/Time Type Type Clinicians Facility Department ID 2020-10-23 2020-10-23 Outpatient R LILO MEANGELIKA [facility] [id number] [facility] 11:30:00 11:30:00 NETTA white [facility] Results This patient has no known results.
[2021-05-23 18:01] LABS: Urine Blood 3+ (Negative); Urine Glucose Negative (Negative); Urine Protein Trace (Negative); Urine Specific Gravity 1.025 (1.005-1.030)
[2021-05-23 18:02] LABS: Absolute Lymphocytes (CBC) 1.8 K/uL (0.7-4.9); Hematocrit 39.6 % (36.0-45.0); Lymphocytes % 13.9 % (15.3-44.8); MPV 7.6 fL (7.6-11.3); RBC Red Blood Cell Count 4.35 M/uL (3.86-4.86)
[2021-05-23] MEDS ORDERED: ONDANSETRON 4 MG/2 ML VIAL ONE (18:09)
[2021-05-23] MEDS ORDERED: FAMOTIDINE 20 MG/2 ML VIAL IV ONE (18:09)
[2021-05-23] MEDS ORDERED: NA CHLORIDE 0.9% 1,000 ML ONE (18:09)
[2021-05-23 18:18] LABS: Albumin 3.7 g/dL (3.4-5.0); Bilirubin Total 0.5 mg/dL (0.2-1.0); Potassium 3.7 mmol/L (3.5-5.1); Protein, Total 7.9 g/dL (6.4-8.2)
--- NOTE | 2021-05-23 18:27 | ER ---
Nurse's Notes [facility] Name: Stefanie Capellan Age: 60 yrs Sex: Female : 1960 Arrival Date: 05/23/2021 Time: 16:52 Bed 23 Private MD: Diagnosis: Nausea with vomiting, unspecified;UTI/ Urinary tract infection, site not specified Presentation: 05/23 17:20 Chief complaint: Patient states: Diarrhea, nausea, and dizziness for a 2 days. Stubbed ph L great toe 2 weeks ago on filing cabinet. Denies fever. Coronavirus screen: Vaccine status: Patient reports receiving the 2nd dose of the covid vaccine. Ebola Screen: No symptoms or risks identified at this time. Initial Sepsis Screen: Does the patient meet any 2 criteria? No. Patient's initial sepsis screen is negative. Does the patient have a suspected source of infection? No. Patient's initial sepsis screen is negative. Risk Assessment: Do you want to hurt yourself or someone else? Patient reports no desire to harm self or others. Onset of symptoms was May 23, 2021. 17:20 Method Of Arrival: Ambulatory ph 17:20 Acuity: RAMIN 3 ph Triage Assessment: 17:24 General: Appears in no apparent distress. Behavior is calm, cooperative, appropriate ph for age. Pain: Denies pain. Neuro: Reports dizziness. GI: Reports diarrhea, nausea. Derm: Skin is intact, is healthy with good turgor, Skin is pink, warm \T\ dry. Historical: - Allergies: 17:24 Codeine; ph 17:24 Latex, Natural Rubber; ph 17:24 Morphine; ph 17:24 PENICILLINS; ph 17:24 Prozac; ph 17:24 Sulfa (Sulfonamide Antibiotics); ph - PMHx: 17:24 Anxiety; Bipolar disorder; headache; Hypertensive disorder; Schizophrenia; Kidney stone;ph - Immunization history:: Adult Immunizations unknown. - Social history:: Smoking status: Smoking status: Patient denies any tobacco usage or history of. Screenin:15 Abuse screen: Denies threats or abuse. Denies injuries from another. Nutritional ld1 screening: No deficits noted. Tuberculosis screening: No symptoms or risk factors identified. Fall Risk None identified. Assessment: 19:15 General: Appears in no apparent distress. comfortable, Behavior is calm, cooperative, ld1 appropriate for age. 19:15 Pain: Denies pain. Neuro: Level of Consciousness is awake, alert, obeys commands, ld1 Oriented to person, place, time, situation. Cardiovascular: Capillary refill < 3 seconds Patient's skin is warm and dry. Respiratory: Airway is patent Respiratory effort is even, unlabored. GI: Abdomen is flat, non-distended. : No signs and/or symptoms were reported regarding the genitourinary system. EENT: No signs and/or symptoms were reported regarding the EENT system. Derm: No signs and/or symptoms reported regarding the dermatologic system. Musculoskeletal: No signs and/or symptoms reported regarding the musculoskeletal system. Vital Signs: 17:20 BP 108 / 70; Pulse 109; Resp 18; Temp 97.8; Pulse Ox 98% on R/A; ph 19:15 BP 115 / 72; Pulse 106; Resp 18; Pulse Ox 99% on R/A; ld1 ED Course: 16:52 Patient arrived in ED. mr 17:04 Raul Zhu DO is Attending Physician. ms3 17:23 Triage completed. ph 17:24 Arm band placed on Patient placed in waiting room, Patient notified of wait time. ph 18:01 Inserted saline lock: 20 gauge in left antecubital area, using aseptic technique. Blood mb7 collected. 18:02 CBC with Diff Sent. mb7 18:02 CMP Sent. mb7 18:02 Lipase Sent. mb7 18:03 Lou Hatfield, YVONNE is Primary Nurse. ld1 18:25 Khris Green MD is Referral Physician. ms3 19:15 Patient has correct armband on for positive identification. Placed in gown. Bed in low ld1 position. Call light in reach. Side rails up X2. monitoring manager on. Pulse ox on. NIBP on. Door closed. Noise minimized. Warm blanket given. 19:15 No provider procedures requiring assistance completed. IV discontinued, intact, ld1 bleeding controlled, No redness/swelling at site. Administered Medications: 18:10 Drug: NS 0.9% 1000 ml Route: IV; Rate: 1 bolus; Site: right antecubital; ld1 18:10 Drug: Pepcid (famotidine) 20 mg Route: IVP; Site: right antecubital; ld1 18:10 Drug: Zofran (Ondansetron) 4 mg Route: IVP; Site: right antecubital; ld1 Outcome: 18:26 Discharge ordered by . ms3 19:15 Discharged to home ambulatory. ld1 19:15 Condition: stable 19:15 Discharge instructions given to patient, family, Instructed on discharge instructions, follow up and referral plans. medication usage, Demonstrated understanding of instructions, follow-up care, medications, Prescriptions given X 2. 20:08 Patient left the ED. ld1 Signatures: Dyan Patterson Patricia, RN RN Raul Zhu DO DO ms3 Lou Hatfield RN RN ld1 Dyan Jeffers 7
--- NOTE | 2021-05-23 18:27 | EDPHYS ---
Physician Documentation [facility] Name: Stefanie Capellan Age: 60 yrs Sex: Female : 1960 Arrival Date: 05/23/2021 Time: 16:52 Bed 23 Private MD: ED Physician Raul Zhu HPI: 05/23 17:34 This 60 yrs old Female presents to ER via Ambulatory with complaints of Dizziness, ms3 Diarrhea, Nausea, Toe Injury. 17:34 The patient presents with dizziness. Onset: The symptoms/episode began/occurred 2 ms3 day(s) ago. Modifying factors: The symptoms are alleviated by nothing, the symptoms are aggravated by nothing. Associated signs and symptoms: Pertinent positives: nausea, vomiting. Severity of symptoms: At their worst the symptoms were moderate. 17:40 60-year-old female presents for vomiting and diarrhea that has been ongoing for 2 days. ms3 Patient states she has had 2 episodes of emesis today. Patient notes she has also had fatigue and not sleeping well. Patient noted her urine to be a dark nair color. Patient notes she also stubbed her left small toe 2 weeks ago. Patient denies pain at this time. Patient denies alleviating or inciting factors.. Historical: - Allergies: 17:24 Codeine; ph 17:24 Latex, Natural Rubber; ph 17:24 Morphine; ph 17:24 PENICILLINS; ph 17:24 Prozac; ph 17:24 Sulfa (Sulfonamide Antibiotics); ph - PMHx: 17:24 Anxiety; Bipolar disorder; headache; Hypertensive disorder; Schizophrenia; Kidney stone;ph - Immunization history:: Adult Immunizations unknown. - Social history:: Smoking status: Smoking status: Patient denies any tobacco usage or history of. ROS: 17:40 Constitutional: Negative for fever, and chills. Neck: Negative for injury, pain, and ms3 swelling, Cardiovascular: Negative for chest pain, and palpitations. Respiratory: Negative for shortness of breath, cough, wheezing, and pleuritic chest pain, Skin: Negative for injury, rash, and discoloration, Neuro: Negative for headache, weakness, numbness, tingling. 17:40 Abdomen/GI: Positive for nausea, vomiting, and diarrhea. 17:40 MS/extremity: Positive for Left small toe pain. 17:40 All other systems are negative. Exam: 17:40 Constitutional: This is a well developed, well nourished patient who is awake, alert, ms3 and in no acute distress. Head/Face: Normocephalic, atraumatic. Neck: Trachea midline, no cervical lymphadenopathy. Supple, full range of motion without nuchal rigidity, or vertebral point tenderness. No Meningismus. Chest/axilla: Normal chest wall appearance and motion. Nontender with no deformity. Abdomen/GI: Soft, non-tender, with normal bowel sounds. No distension or tympany. No guarding or rebound. No evidence of tenderness throughout. Skin: Warm, dry with normal turgor. Normal color with no rashes, no lesions, and no evidence of cellulitis. Neuro: Awake and alert, GCS 15, oriented to person, place, time, and situation. Cranial nerves II-XII grossly intact. Motor strength 5/5 in all extremities. Sensory grossly intact. Cerebellar exam normal. Normal gait. Psych: Awake, alert, with orientation to person, place and time. Behavior, mood, and affect are within normal limits. 17:40 Cardiovascular: Rate: tachycardic, Rhythm: regular, Pulses: no pulse deficits are appreciated, Heart sounds: normal. 17:40 Musculoskeletal/extremity: Left small toe with swelling and TTP. Vital Signs: 17:20 BP 108 / 70; Pulse 109; Resp 18; Temp 97.8; Pulse Ox 98% on R/A; ph 19:15 BP 115 / 72; Pulse 106; Resp 18; Pulse Ox 99% on R/A; ld1 MDM: 17:40 Differential diagnosis: Gastroenteritis vs L small toe fracture vs Dehydration. ms3 18:14 Patient medically screened. ms3 18:26 Data reviewed: vital signs, nurses notes, lab test result(s). Data interpreted: Pulse ms3 oximetry: on room air is 99 %. Interpretation: normal. ED course: Discussed PE findings and labs with patient. Patient to follow up with her PMD as discussed. All questions answered. Return precautions given to include worsening symptoms, or any other concerns. On re-evaluation patient's symptoms improved, nad, non-toxic, ambulatory in ED, speaking full sentences.. 05/23 17:34 Order name: CBC with Diff; Complete Time: 18:14 ms3 05/23 17:34 Order name: CMP; Complete Time: 18:23 ms3 05/23 17:34 Order name: Lipase; Complete Time: 18:23 ms3 05/23 18:01 Order name: Urine Dipstick-Ancillary; Complete Time: 18:14 EDMS 05/23 17:34 Order name: IV Saline Lock; Complete Time: 18:02 ms3 05/23 17:34 Order name: Labs collected and sent; Complete Time: 18:02 ms3 05/23 17:34 Order name: Urine Dipstick-Ancillary (obtain specimen); Complete Time: 18:02 ms3 Administered Medications: 18:10 Drug: NS 0.9% 1000 ml Route: IV; Rate: 1 bolus; Site: right antecubital; ld1 18:10 Drug: Pepcid (famotidine) 20 mg Route: IVP; Site: right antecubital; ld1 18:10 Drug: Zofran (Ondansetron) 4 mg Route: IVP; Site: right antecubital; ld1 Disposition Summary: 05/23/21 18:26 Discharge Ordered Location: Home ms3 Condition: Stable ms3 Diagnosis - Nausea with vomiting, unspecified ms3 - UTI/ Urinary tract infection, site not specified ms3 Followup: ms3 - With: Khris Green MD - When: 2 - 3 days - Reason: Recheck today's complaints Discharge Instructions: - Discharge Summary Sheet ms3 - Nausea and Vomiting, Adult ms3 - Urinary Tract Infection, Adult ms3 Forms: - Medication Reconciliation Form ms3 - Thank You Letter ms3 - Antibiotic Education ms3 - Prescription Opioid Use ms3 - Work release form ld1 Prescriptions: - Zofran 4 mg Oral Tablet - take 1 tablet by ORAL route every 12 hours As needed; 20 tablet; Refills: 0, ms3 Product Selection Permitted - cefpodoxime 200 mg Oral Tablet - take 1 tablet by ORAL route every 12 hours with food; 14 tablet; Refills: 0, ms3 Product Selection Permitted Signatures: Dispatcher [employer] Chelsey Ovalle RN RN Raul Bain DO DO ms3 Lou Hatfield RN RN ld1
[2021-05-24 01:52] VITALS: TEMP 97.8
[2021-05-24 01:54] VITALS: BP 115/72; O2SAT 99
== END 2021-05-23 20:08 | disposition home or self-care (01) ==
LOC: ER 16:46
DX: N39.0 Urinary tract infection, site not specified (principal); R19.7 Diarrhea, unspecified; I10 Essential (primary) hypertension; F31.9 Bipolar disorder, unspecified; Z88.0 Allergy status to penicillin; Z88.2 Allergy status to sulfonamides; Z88.5 Allergy status to narcotic agent; Z88.8 Allergy status to other drugs, medicaments and biological substances; Z91.040 Latex allergy status; Z91.048 Other nonmedicinal substance allergy status
CPT/HCPCS: 85025; 36415; 81003; 83690; 80053; 96375; 96374; 99284; J7030; J2405; J3490

== ENCOUNTER 2021-05-25 08:27 | Emergency (ER) | payer OTHER ==
--- OUTSIDE RECORDS SUMMARY | 2021-05-25 08:30 | XMS REPORT | Continuity of Care Document ---
:1960 Author Organization [facility] t Address [address] [place] [address] Care Team Providers Name Role Phone LILO Attending Clinician Unavailable Payers Payer Name Policy Type Policy Number Effective Date Expiration Date S vipul [place]ICAID [place] [id number] 2011 00:00:00 [facility] [id number] 2017 MEDICAID 00:00:00 MEDICARE PART A \T\ [id number] 1998 B 00:00:00 Problems This patient has no known problems. Allergies, Adverse Reactions, Alerts Allergy Allergy Status Severity Reaction(s) Onset Inactive Treating Comm ents Source Name Type Date Date Clinician FLUOXETI DRUG Active Swelling 2017- Univer s NE HCL INGREDI 4-22 ity of 00:00: [address] Branch SULFA Drug Active N/V 0 Univers (SULFONA Class 4-22 ity of MIDE 00:00: [place] ANTIBIOT Medical [facility]) Branch BEE DRUG Active Anaphylaxis Unive rs STING / INGREDI 4-22 ity of VENOM 00:00: [address] Branch CODEINE DRUG Active Hallucinates 2017- Uni vers INGREDI 4-22 ity of 00:00: [address] LATEX DRUG Active Hives 2017- Univers INGREDI 4-22 ity of 00:00: [address] MORPHINE DRUG Active Hallucinates 2017-0 Un mi INGREDI 4-22 ity of 00:00: [address] Medications This patient has no known medications. Procedures This patient has no known procedures. Encounters Start End Encounter Admission Attending Care Care Encounter Source Date/Time Date/Time Type Type Clinicians Facility Department ID 2020-10-23 2020-10-23 Outpatient R LILO MIANGELIKA [facility] [id number] Univers 11:30:00 11:30:00 NETTA white [facility] Results This patient has no known results.
--- NOTE | 2021-05-25 09:28 | ER ---
Nurse's Notes [facility] Name: Stefanie Capellan Age: 60 yrs Sex: Female : 1960 Arrival Date: 05/25/2021 Time: 08:29 Bed 12 Private MD: Diagnosis: Dental caries, unspecified;Dental root caries;Acute gingivitis;Gingival enlargement Presentation: 05/25 09:22 Acuity: RAMIN 4 iw 09:22 Chief complaint: Patient states: broken front teeth, red swollen gums. Coronavirus iw screen: At this time, the client does not indicate any symptoms associated with coronavirus-19. Ebola Screen: Patient negative for fever greater than or equal to 101.5 degrees Fahrenheit, and additional compatible Ebola Virus Disease symptoms Patient denies exposure to infectious person. Patient denies travel to an Ebola-affected area in the 21 days before illness onset. No symptoms or risks identified at this time. Initial Sepsis Screen: Does the patient meet any 2 criteria? No. Patient's initial sepsis screen is negative. Does the patient have a suspected source of infection? No. Patient's initial sepsis screen is negative. Risk Assessment: Do you want to hurt yourself or someone else? Patient reports no desire to harm self or others. Onset of symptoms was May 25, 2021. 09:22 Method Of Arrival: Ambulatory iw Triage Assessment: 10:18 General: Appears in no apparent distress. uncomfortable, Behavior is calm, cooperative, ab2 appropriate for age. Historical: - Allergies: 09:21 Codeine; iw 09:21 Latex, Natural Rubber; iw 09:21 Morphine; iw 09:21 PENICILLINS; iw 09:21 Prozac; iw 09:21 Sulfa (Sulfonamide Antibiotics); iw - PMHx: 09:21 Anxiety; Bipolar disorder; headache; Hypertensive disorder; Kidney stone; Schizophrenia;iw - Immunization history:: Adult Immunizations unknown. - Family history:: not pertinent. - Social history:: Smoking status: unknown. Screenin:18 Abuse screen: Denies threats or abuse. Denies injuries from another. Nutritional ab2 screening: No deficits noted. Tuberculosis screening: No symptoms or risk factors identified. Fall Risk None identified. Assessment: 10:18 Pain: Complains of pain in mouth. Neuro: Level of Consciousness is awake, alert, obeys ab2 commands, Oriented to person, place, time, situation, Appropriate for age. EENT: Reports pain in mouth. Vital Signs: 09: BP 148 / 86; Pulse 76; Resp 16; Temp 98.0; Pulse Ox 98% on R/A; Weight 71.21 kg; Height em1 5 ft. 5 in. (165.10 cm); Pain 7/10; 09:27 Body Mass Index 26.13 (71.21 kg, 165.10 cm) em1 ED Course: 08: Patient arrived in ED. am2 09:19 Stephan Harvey MD is Attending Physician. [facility] 09:22 Triage completed. iw 09:27 Austin Hwang DDS is Referral Physician. dania 09:34 Diane Ospina, RN is Primary Nurse. iw 10:19 Arm band placed on right wrist. ab2 10:19 Patient has correct armband on for positive identification. Call light in reach. ab2 10:19 No provider procedures requiring assistance completed. Patient did not have IV access ab2 during this emergency room visit. Administered Medications: 09:56 Drug: Clindamycin 600 mg Route: IM; Site: left gluteus; ab2 10:19 Follow up: Response: No adverse reaction ab2 09:56 Drug: Clindamycin 300 mg Route: PO; ab2 10:19 Follow up: Response: No adverse reaction ab2 09:56 Drug: Motrin (ibuprofen) 600 mg Route: PO; ab2 10:19 Follow up: Response: No adverse reaction ab2 Outcome: : Discharge ordered by . dania 10:19 Discharged to home ambulatory. ab2 10:19 Condition: good 10:19 Discharge instructions given to patient, Instructed on discharge instructions, follow up and referral plans. medication usage, Demonstrated understanding of instructions, follow-up care, medications, Prescriptions given X 2. 10:20 Patient left the ED. ab2 Signatures: Stephan Harvey MD MD cha Williams, Irene, RN RN Dillon James em1 Leigh Ureña am2 Abdullahi Muñoz ab2
--- NOTE | 2021-05-25 09:28 | EDPHYS ---
Physician Documentation [facility] Name: Stefanie Capellan Age: 60 yrs Sex: Female : 1960 Arrival Date: 05/25/2021 Time: 08:29 Bed 12 Private MD: ZAFAR Physician Stephan Harvey HPI: 05/25 09:23 This 60 yrs old Female presents to ER via Unassigned with complaints of dania Toothache, Abscess. 09:23 The patient presents with broken tooth/teeth, pain, redness, swelling. The problem is dania located in the frenulum and gums. Onset: The symptoms/episode began/occurred 3 day(s) ago. Duration: The symptoms are continuous, and are steadily getting worse. Modifying factors: The symptoms are alleviated by nothing, the symptoms are aggravated by chewing. Associated signs and symptoms: The patient has no apparent associated signs or symptoms. Severity of symptoms: At their worst the symptoms were moderate. The patient has experienced similar episodes in the past, multiple times. Historical: - Allergies: 09:21 Codeine; iw 09:21 Latex, Natural Rubber; iw 09:21 Morphine; iw 09:21 PENICILLINS; iw 09:21 Prozac; iw 09:21 Sulfa (Sulfonamide Antibiotics); iw - PMHx: 09:21 Anxiety; Bipolar disorder; headache; Hypertensive disorder; Kidney stone; Schizophrenia;iw - Immunization history:: Adult Immunizations unknown. - Family history:: not pertinent. - Social history:: Smoking status: unknown. ROS: 09:23 Constitutional: Negative for fever, chills, and weight loss, Eyes: Negative for injury, dania pain, redness, and discharge, Neck: Negative for injury, pain, and swelling, Cardiovascular: Negative for chest pain, palpitations, and edema, Respiratory: Negative for shortness of breath, cough, wheezing, and pleuritic chest pain, Abdomen/GI: Negative for abdominal pain, nausea, vomiting, diarrhea, and constipation, Back: Negative for injury and pain, : Negative for injury, bleeding, discharge, and swelling, MS/Extremity: Negative for injury and deformity, Skin: Negative for injury, rash, and discoloration, Neuro: Negative for headache, weakness, numbness, tingling, and seizure, Psych: Negative for depression, anxiety, suicide ideation, homicidal ideation, and hallucinations, Allergy/Immunology: Negative for hives, rash, and allergies, Endocrine: Negative for neck swelling, polydipsia, polyuria, polyphagia, and marked weight changes, Hematologic/Lymphatic: Negative for swollen nodes, abnormal bleeding, and unusual bruising. 09:23 ENT: Positive for dental pain, Gum pain Exam: 09:23 Constitutional: This is a well developed, well nourished patient who is awake, alert, dania and in no acute distress. Head/Face: Normocephalic, atraumatic. Eyes: Pupils equal round and reactive to light, extra-ocular motions intact. Lids and lashes normal. Conjunctiva and sclera are non-icteric and not injected. Cornea within normal limits. Periorbital areas with no swelling, redness, or edema. Neck: Trachea midline, no thyromegaly or masses palpated, and no cervical lymphadenopathy. Supple, full range of motion without nuchal rigidity, or vertebral point tenderness. No Meningismus. Chest/axilla: Normal chest wall appearance and motion. Nontender with no deformity. No lesions are appreciated. Cardiovascular: Regular rate and rhythm with a normal S1 and S2. No gallops, murmurs, or rubs. Normal PMI, no JVD. No pulse deficits. Respiratory: Lungs have equal breath sounds bilaterally, clear to auscultation and percussion. No rales, rhonchi or wheezes noted. No increased work of breathing, no retractions or nasal flaring. Abdomen/GI: Soft, non-tender, with normal bowel sounds. No distension or tympany. No guarding or rebound. No evidence of tenderness throughout. Back: No spinal tenderness. No costovertebral tenderness. Full range of motion. Skin: Warm, dry with normal turgor. Normal color with no rashes, no lesions, and no evidence of cellulitis. MS/ Extremity: Pulses equal, no cyanosis. Neurovascular intact. Full, normal range of motion. Neuro: Awake and alert, GCS 15, oriented to person, place, time, and situation. Cranial nerves II-XII grossly intact. Motor strength 5/5 in all extremities. Sensory grossly intact. Cerebellar exam normal. Normal gait. Psych: Awake, alert, with orientation to person, place and time. Behavior, mood, and affect are within normal limits. 09:23 ENT: Mouth: Oral mucosa: moist, Gums: noted to have cellulitis, reddened, swollen, on the frenulum and gums, Dental exam: dental caries, that is moderate, diffusely, fractured teeth are noted, specifically the upper right cuspid (#6), upper right lateral incisor (#7), upper right central Incisor (#8), upper left central incisor (#9), upper left lateral incisor (#10) and upper left cuspid (#11), missing teeth, diffusely. Vital Signs: 09:27 BP 148 / 86; Pulse 76; Resp 16; Temp 98.0; Pulse Ox 98% on R/A; Weight 71.21 kg; Height em1 5 ft. 5 in. (165.10 cm); Pain 08/14; 09:27 Body Mass Index 26.13 (71.21 kg, 165.10 cm) em1 MDM: 09:19 Patient medically screened. dania 09:25 Differential diagnosis: dental caries, gingivitis, dental abscess, gingivostomatitis. dania Data reviewed: vital signs, nurses notes. 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 rate is 68 beats/min, rhythm is regular, Pulse oximetry: on room air. Counseling: I had a detailed discussion with the patient and/or guardian regarding: the historical points, exam findings, and any diagnostic results supporting the discharge/admit diagnosis, lab results, radiology results, the need for outpatient follow up, for definitive care, a dentist, an oral maxilofacial specialist. Administered Medications: 09:56 Drug: Clindamycin 600 mg Route: IM; Site: left gluteus; ab2 10:19 Follow up: Response: No adverse reaction ab2 09:56 Drug: Clindamycin 300 mg Route: PO; ab2 10:19 Follow up: Response: No adverse reaction ab2 09:56 Drug: Motrin (ibuprofen) 600 mg Route: PO; ab2 10:19 Follow up: Response: No adverse reaction ab2 Disposition Summary: 05/25/21 09:27 Discharge Ordered Location: Home dania Problem: new dania Symptoms: have improved dania Condition: Stable dania Diagnosis - Dental caries, unspecified dania - Dental root caries dania - Acute gingivitis dania - Gingival enlargement dania Followup: dania - With: Private Physician - When: 2 - 3 days - Reason: Recheck today's complaints, Continuance of care, Re-evaluation by your physician Followup: [facility] - With: Austin Hwang DDS - When: 2 - 3 days - Reason: Recheck today's complaints, Re-evaluation by your physician Discharge Instructions: - Discharge Summary Sheet dania - Dental Caries, Adult dania - Dental Pain dania - Gingivitis dania - Dental Pain, [id number] dania - Gingivitis, [id number] dania - Diet and Dental Disease dania - Dental Caries, Adult, [id number] [facility] Forms: - Medication Reconciliation Form [facility] - Thank You Letter [facility] - Antibiotic Education dania - Prescription Opioid Use [facility] - Work release form ab2 Prescriptions: - Clindamycin HCl 300 mg Oral Capsule - take 1 capsule by ORAL route every 6 hours for 10 days; 30 capsule; Refills: 0, [facility] Product Selection Permitted - Ibuprofen 600 mg Oral Tablet - take 1 tablet by ORAL route every 6 hours As needed take with food; 30 tablet; [facility] Refills: 0, Product Selection Permitted Signatures: Stephan Harvey MD MD cha Williams, Irene, RN RN Abdullahi Marion ab2
[2021-05-25] MEDS ORDERED: IBUPROFEN 200 MG TAB PO ONE (09:50)
[2021-05-25] MEDS ORDERED: CLINDAMYCIN IV 150 MG/ML (4 mL) VIAL ONE (09:51)
[2021-05-25 14:07] VITALS: BP 148/86; TEMP 98; O2SAT 98
== END 2021-05-25 10:20 | disposition home or self-care (01) ==
LOC: ER 08:27
DX: K02.9 Dental caries, unspecified (principal); K02.7 Dental root caries; K05.00 Acute gingivitis, plaque induced; K06.1 Gingival enlargement; Z88.6 Allergy status to analgesic agent; Z88.0 Allergy status to penicillin; Z91.040 Latex allergy status; Z88.2 Allergy status to sulfonamides; Z88.8 Allergy status to other drugs, medicaments and biological substances; F41.8 Other specified anxiety disorders; I10 Essential (primary) hypertension; F20.9 Schizophrenia, unspecified
CPT/HCPCS: 96372; 99283; S0077

== ENCOUNTER 2021-11-01 15:12 | Emergency (ER) | payer OTHER ==
[2021-11-01 16:10] LABS: Urine Blood 2+ (Negative); Urine Glucose Negative (Negative); Urine Protein Negative (Negative); Urine Specific Gravity 1.025 (1.005-1.030)
--- OUTSIDE RECORDS SUMMARY | 2021-11-01 16:46 | XMS REPORT | Continuity of Care Document ---
:1960 Author Organization [facility] t Address [address] [place] [address] [address] [place] [address] Care Team Providers Name Role Phone PCP, PATIENT DOES NOT HAVE A Primary Care Physician Unavaila ble Only, Adc Test Attending Clinician Unavailable Mj Chou MD Attending Clinician MJ CHOU Attending Clinician Unavailable NETTA NAGY Attending Clinician Unavailable Payers Payer Name Policy Type Policy Number Effective Date Expiration Date S vipul [place]ICAID [place] [id number] 2011 00:00:00 [facility] [id number] 2017 MEDICAID 00:00:00 MEDICARE PART A \T\ [id number] 1998 B 00:00:00 Problems This patient has no known problems. Allergies, Adverse Reactions, Alerts Allergy Allergy Status Severity Reaction(s) Onset Inactive Treating Comm ents Source Name Type Date Date Clinician LATEX DRUG Active Hives Univers INGREDI 05-27 ity of 00:00: [address] MORPHINE DRUG Active Hallucinates Un mi INGREDI 05-27 ity of 00:00: [address] FLUOXETI DRUG Active Swelling Univer s NE HCL INGREDI 05-27 ity of 00:00: [place] 00 Medical Branch SULFA Drug Active N/V 2018-0 Univers (SULFONA Class 4-22 ity of MIDE 00:00: [place] ANTIBIOT 00 Medical ICS) Branch Bee Propensi Active Anaphylaxis 0 Uni vers Sting / ty to 4-22 ity of [place] adverse 00:00: [place] reaction 00 Medical s Branch Codeine Propensi Active Hallucinatio 2018-0 U nivers ty to ns 4-22 ity of adverse 00:00: [place] reaction 00 Medical s Branch Latex Propensi Active Hives 2018-0 Univers ty to 4-22 ity of adverse 00:00: [place] reaction 00 Medical s Branch Morphine Propensi Active Hallucinatio 2018-0 Univers ty to ns 4-22 ity of adverse 00:00: [place] reaction Medical s Branch Fluoxeti Propensi Active Swelling 2017-0 Univ ers ne Hcl ty to 4-22 ity of adverse 00:00: [place] reaction 00 Medical s Branch Sulfa Propensi Active Nausea 0 Univers (Sulfona ty to and/or 4-22 ity of mide adverse Vomiting 00:00: [place] Antibiot reaction 00 Medica l ics) s Branch BEE DRUG Active Anaphylaxis 0 Unive rs STING / INGREDI 4-22 ity of VENOM 00:00: [place] 00 Medical Branch CODEINE DRUG Active Hallucinates 0 Uni vers INGREDI 4-22 ity of 00:00: [place] 00 Medical Branch Social History Social Habit Start Date Stop Date Quantity Comments Source Sex Assigned At [birth year] [facility] 00:00:00 00:00:00 Medical Branch Smoking Status Start Date Stop Date Source Unknown if ever smoked [facility] Medical [place] Medications Ordered Filled Start Stop Current Ordering Indication Dosage Frequency Signature Comments Components Source Medication Medication Date Date Medication? Clinician (SIG) Name Name sod Yes 1{bottl Use 1 Univers chlor-bicar 4-22 e} Bottle in ity of b-squeez 00:00: each [place] bottle 00 nostril 2 Medical (NEILMED (two) Branch SINUS RINSE times COMPLETE) daily. Use pkdv in hot shower 1 hour before bedtime fluticasone Yes 2{spray Use 2 Un mi (FLONASE) 05-27 } Sprays in ity o f 50 00:00: each [place] mcg/actuati 00 nostril Medic al on nasal daily. Branch spray loratadine 2018-0 Yes 10mg Take 1 Unive rs 10 mg 4-22 tablet by ity of tablet 00:00: mouth 00 daily. Medical Branch benzonatate 2018-0 Yes 100mg Take 1 Uni vers 100 mg 4-22 capsule by ity of capsule 00:00: mouth 3 00 (three) Medical times Branch daily as needed for Cough. DO NOT CHEW! Procedures Procedure Date / Time Performed Performing Clinician Sour e COVID-19 (ID NOW 2021-08-02 18:22:00 Mj Chou [facility] RAPID TESTING) Medical Branch Encounters Start End Encounter Admission Attending Care Care Encounter Source Date/Time Date/Time Type Type Clinicians Facility Department ID 2021-08-02 2021-08-02 Laboratory Only, Adc Test [facility] [id number] Univers 13:00:00 13:15:00 Only Mj Chou RENFREW [id number] [facility] [id number] [facility] [id number] [place] [address] Branch 2021-08-02 2021-08-02 Outpatient R [facility] [id number] Univers 13:00:00 13:00:00 [id number] [facility] 2021-08-02 2021-08-02 [facility] [id number] Univers 13:00:00 13:00:00 MJ [facility] 2020-10-23 2020-10-23 Outpatient R LILO [facility] [id number] Univers 11:30:00 11:30:00 NETTA white [facility] Results This patient has no known results.
--- NOTE | 2021-11-01 17:44 | ER ---
Nurse's Notes [facility] Name: Stefanie Capellan Age: 60 yrs Sex: Female : 1960 Arrival Date: 11/01/2021 Time: 15:15 Bed DIS3 Private MD: Diagnosis: UTI/ Urinary tract infection, site not specified Presentation: 11/01 15:23 Chief complaint: Patient states: Yesterday I woke up with body aches, diarrhea, ear aa5 pain, and swollen glands. I took a home covid test and it was negative. Coronavirus screen: Client presents with at least one sign or symptom that may indicate coronavirus-19. Ebola Screen: No symptoms or risks identified at this time. Initial Sepsis Screen: Does the patient meet any 2 criteria? No. Patient's initial sepsis screen is negative. Does the patient have a suspected source of infection? No. Patient's initial sepsis screen is negative. Risk Assessment: Do you want to hurt yourself or someone else? Patient reports no desire to harm self or others. Onset of symptoms is unknown. 15:23 Method Of Arrival: Ambulatory aa5 15:23 Acuity: RAMIN 3 aa5 Triage Assessment: 15:25 General: Appears in no apparent distress. uncomfortable, Behavior is calm, cooperative, aa5 appropriate for age. Pain: Complains of pain in abdomen. EENT: Reports nasal congestion pain in right ear and left ear. Neuro: No deficits noted. Cardiovascular: No deficits noted. Respiratory: Denies cough, shortness of breath. GI: Reports diarrhea. : Reports urinary frequency. Derm: No deficits noted. No signs and/or symptoms reported regarding the dermatologic system. Musculoskeletal: No deficits noted. No signs and/or symptoms reported regarding the musculoskeletal system. Historical: - Allergies: 15:25 Codeine; aa5 15:25 Latex, Natural Rubber; aa5 15:25 Morphine; aa5 15:25 PENICILLINS; aa5 15:25 Prozac; aa5 15:25 Sulfa (Sulfonamide Antibiotics); aa5 - Home Meds: 15:25 Zinc Sulfate Oral [Active]; Vitamin D Oral [Active]; vitamin A Oral [Active]; Tylenol aa5 [Active]; - PMHx: 15:25 Schizophrenia; Kidney stone; Hypertensive disorder; headache; Bipolar disorder; Anxiety;aa5 - Immunization history:: Adult Immunizations up to date, Client reports receiving the 2nd dose of the Covid vaccine, Client reports receiving the 1st dose of the Covid vaccine. - Social history:: Smoking status: Patient denies any tobacco usage or history of. Vital Signs: 15:23 BP 180 / 85; Pulse 89; Resp 16; Temp 99.8(TE); Pulse Ox 98% on R/A; Weight 70.76 kg aa5 (R); Height 5 ft. 6 in. (167.64 cm); Pain 6/10; 15:23 Body Mass Index 25.18 (70.76 kg, 167.64 cm) aa5 ED Course: 15:15 Patient arrived in ED. mr 15:25 Triage completed. aa5 15:25 Arm band placed on left wrist. aa5 15:34 COVID swab sent to lab. Flu and/or RSV swab sent to lab. aa5 16:09 Urine collected: clean catch specimen, clear. iw 17:04 Stephan Harvey MD is Attending Physician. [facility] 17:17 Jay Kingsley NP is PHCP. pm1 17:17 Stephan Harvey MD is Attending Physician. pm1 17:39 Diane Ospina, YVONNE is Primary Nurse. iw Administered Medications: No medications were administered Outcome: 17:43 Discharge ordered by . pm1 18:16 Patient left the ED. iw Signatures: Stephan Harvey MD MD cha Rivera, Mary mr Diane Ospina, YVONNE RUSSELL Kimberly Hodges RN RN aa Jay Kingsley NP DIRECTOR ATHLETIC pm1
--- NOTE | 2021-11-01 17:44 | EDPHYS ---
Physician Documentation [facility] Name: Stefanie Capellan Age: 60 yrs Sex: Female : 1960 Arrival Date: 11/01/2021 Time: 15:15 Bed DIS3 Private MD: ED Physician Stephan Harvey HPI: 11/01 17:17 This 60 yrs old Female presents to ER via Ambulatory with complaints of Body aches, pm1 Urinary Problem. 17:17 The patient presents with urinary symptoms, dysuria, foul odor. Onset: The pm1 symptoms/episode began/occurred 2 week(s) ago. Modifying factors: The symptoms are alleviated by nothing, the symptoms are aggravated by urinating. Associated signs and symptoms: Pertinent positives: diarrhea, Pertinent negatives: fever, nausea, vomiting. Severity of symptoms: in the emergency department the symptoms are actually worse. The patient has experienced similar episodes in the past, multiple times. The patient has not recently seen a physician. Historical: - Allergies: 15:25 Codeine; aa5 15:25 Latex, Natural Rubber; aa5 15:25 Morphine; aa5 15:25 PENICILLINS; aa5 15:25 Prozac; aa5 15:25 Sulfa (Sulfonamide Antibiotics); aa5 - Home Meds: 15:25 Zinc Sulfate Oral [Active]; Vitamin D Oral [Active]; vitamin A Oral [Active]; Tylenol aa5 [Active]; - PMHx: 15:25 Schizophrenia; Kidney stone; Hypertensive disorder; headache; Bipolar disorder; Anxiety;aa5 - Immunization history:: Adult Immunizations up to date, Client reports receiving the 2nd dose of the Covid vaccine, Client reports receiving the 1st dose of the Covid vaccine. - Social history:: Smoking status: Patient denies any tobacco usage or history of. ROS: 17:17 Positive for urinary symptoms, foul smelling urine. pm1 17:17 Constitutional: Negative for fever, chills, and weight loss, Cardiovascular: Negative for chest pain, palpitations, and edema, Respiratory: Negative for shortness of breath, cough, wheezing, and pleuritic chest pain, Abdomen/GI: Negative for abdominal pain, nausea, vomiting, diarrhea, and constipation, Back: Negative for injury and pain, MS/Extremity: Negative for injury and deformity, Skin: Negative for injury, rash, and discoloration. 17:17 Neuro: Negative for headache, weakness, numbness, tingling, and seizure. 17:17 All other systems are negative. Exam: 17:17 Constitutional: This is a well developed, well nourished patient who is awake, alert, pm1 and in no acute distress. Head/Face: Normocephalic, atraumatic. 17:17 Skin: Warm, dry with normal turgor. Normal color with no rashes, no lesions, and no evidence of cellulitis. MS/ Extremity: Pulses equal, no cyanosis. Neurovascular intact. Full, normal range of motion. 17:17 Cardiovascular: Exam negative for acute changes, Rate: normal, Rhythm: regular, Pulses: no pulse deficits are appreciated. 17:17 Respiratory: Exam negative for acute changes, respiratory distress, shortness of breath. 17:17 Abdomen/GI: Exam negative for acute changes, Inspection: abdomen appears normal, Palpation: abdomen is soft and non-tender, in all quadrants. 17:17 Back: Exam negative for acute changes, CVA tenderness, is absent, vertebral tenderness, is not appreciated. 17:17 Neuro: Exam negative for acute changes, Orientation: is normal, Mentation: is normal, Motor: is normal, moves all fours. Vital Signs: 15:23 BP 180 / 85; Pulse 89; Resp 16; Temp 99.8(TE); Pulse Ox 98% on R/A; Weight 70.76 kg aa5 (R); Height 5 ft. 6 in. (167.64 cm); Pain 6/10; 15:23 Body Mass Index 25.18 (70.76 kg, 167.64 cm) aa5 MDM: 17:04 Patient medically screened. [facility] 17:41 Data reviewed: vital signs. Data interpreted: Pulse oximetry: on room air is 98 %. pm1 Interpretation: normal. Counseling: I had a detailed discussion with the patient and/or guardian regarding: the historical points, exam findings, and any diagnostic results supporting the discharge/admit diagnosis, lab results, the need for outpatient follow up, to return to the emergency department if symptoms worsen or persist or if there are any questions or concerns that arise at home. 11/01 15:27 Order name: Flu; Complete Time: 17:17 aa5 11/01 15:28 Order name: SARS-COV-2 RT PCR (Document "Date of Onset" if Symptomatic); Complete Time: aa5 17:17 11/01 16:03 Order name: Urine Dipstick-Ancillary (obtain specimen); Complete Time: 16:09 11/01 16:10 Order name: Urine Dipstick-Ancillary; Complete Time: 17:17 [facility] 11/01 17:42 Order name: Urine Microscopic Only pm1 Administered Medications: No medications were administered Disposition Summary: 11/01/21 17:43 Discharge Ordered Location: Home pm1 Problem: new pm1 Symptoms: have improved pm1 Condition: Stable pm1 Diagnosis - UTI/ Urinary tract infection, site not specified pm1 Followup: pm1 - With: Emergency Department - When: As needed - Reason: Worsening of condition Followup: pm1 - With: Private Physician - When: 2 - 3 days - Reason: Recheck today's complaints, Continuance of care, Re-evaluation by your physician Discharge Instructions: - Discharge Summary Sheet pm1 - Urinary Tract Infection, Adult pm1 Forms: - Medication Reconciliation Form pm1 - Thank You Letter pm1 - Antibiotic Education pm1 - Prescription Opioid Use pm1 Prescriptions: - Cipro 500 mg Oral Tablet - take 1 tablet by ORAL route every 12 hours for 7 days; 14 tablet; Refills: 0, pm1 Product Selection Permitted - Pyridium 200 mg Oral Tablet - take 1 tablet by ORAL route every 8 hours for 3 days; 9 tablet; Refills: 0, pm1 Product Selection Permitted Signatures: Dispatcher [employer] Stephan Jay MD MD cha Williams, Irene, RN RN iw Kimberly Hodges RN RN aa5 Jay Kingsley NP FACILITY ENVIRONMENTAL TECHNICIAN pm1
[2021-11-01 18:42] LABS: Urine Mucus Slight /HPF (None Seen)
[2021-11-03 21:58] VITALS: BP 180/85; TEMP 99.8; O2SAT 98
== END 2021-11-01 18:16 | disposition home or self-care (01) ==
LOC: ER 15:12
DX: N39.0 Urinary tract infection, site not specified (principal); Z20.822 Contact with and (suspected) exposure to COVID-19
CPT/HCPCS: 87804 ×2; U0003; 81003; 81015; 99282

== ENCOUNTER 2023-01-16 18:58 | Emergency (ER) | payer OTHER ==
--- OUTSIDE RECORDS SUMMARY | 2023-01-16 19:00 | XMS REPORT | Continuity of Care Document ---
Author Name Unknown Address [address] [place] [address] [facility] thconnect Address [address] [place] [address] Care Team Providers Care Is Project Manager Name Role Phone PCP, PATIENT DOES NOT HAVE A Primary Care Physic morgan Unavailable [email or web address] Attending Clinician Unavaila ble Only, Adc Test Attending Clinician Unavailable Mj Chou MD Attending Clinician MJ CHOU Attending Clinician Unavailable NETTA NAGY Attending Clinician Unavailabl e [id number] Admitting Clinician Unavaila ble Payers Payer Name Policy Type Policy Number Effective Date Expirati on Date Source [place]ID [place] [id number] 2011 00:00:00 [facility] MEDICAID [id number] 2017 00:00:00 MEDICARE PART A \T\ B [id number] 1998 00:00:00 Allergies, Adverse Reactions, Alerts Allergy Name Allergy Type Status Severity Reaction(s) Onset Date Inactive Date Treating Clinician Comments Source LATEX DRUG INGREDI Active Hives 05-27 00:00: 00 [facility] MORPHINE DRUG INGREDI Active Hallucinates 05-27 00:00: 00 [facility] FLUOXETI NE HCL DRUG INGREDI Active Swelling 05-27 00:00: 00 [facility] SULFA (SULFONA MIDE ANTIBIOT ICS) Drug Class Active N/V 05-27 00:00: 00 [facility] Bee Sting / Venom Propensi ty to adverse reaction s Active Anaphylaxis 05-27 00:00: 00 [facility] Codeine Propensi ty to adverse reaction s Active Hallucinatio ns 05-27 00:00: 00 [facility] Latex Propensi ty to adverse reaction s Active Hives 05-27 00:00: 00 [facility] Morphine Propensi ty to adverse reaction s Active Hallucinatio ns 05-27 00:00: 00 [facility] Fluoxeti ne Hcl Propensi ty to adverse reaction s Active Swelling 05-27 00:00: 00 [facility] Sulfa (Sulfona mide Antibiot ics) Propensi ty to adverse reaction s Active Nausea and/or Vomiting 05-27 00:00: 00 [facility] BEE STING / VENOM DRUG INGREDI Active Anaphylaxis 05-27 00:00: 00 [facility] CODEINE DRUG INGREDI Active Hallucinates 05-27 00:00: 00 [facility] Social History Social Habit Start Date Stop Date Quantity Comments Source Sex Assigned At 1960 00:00:00 1960 00:00:00 [facility] Smoking Status Start Date Stop Date Source Unknown if ever smoked [facility] Medications Ordered Medication Name Filled Medication Name Start Date Stop Date Current Medication? Ordering Clinician Indication Dosage Frequency Signature (SIG) Comments Components Source sod chlor-bicar b-squeez bottle (NEILMED SINUS RINSE COMPLETE) pkdv 05-27 00:00: 00 Yes 1{bottl e} Use 1 Bottle in each nostril 2 (two) times daily. Use in hot shower 1 hour before bedtime [facility] fluticasone (FLONASE) 50 mcg/actuati on nasal spray 05-27 00:00: 00 Yes 2{spray } Use 2 Sprays in each nostril daily. [facility] loratadine 10 mg tablet 05-27 00:00: 00 Yes 10mg Take 1 tablet by mouth daily. [facility] benzonatate 100 mg capsule 05-27 00:00: 00 Yes 100mg Take 1 capsule by mouth 3 (three) times daily as needed for Cough. DO NOT CHEW! [facility] Procedures Procedure Date / Time Performed Performing Clinicia n Source COVID-19 (ID NOW RAPID TESTING) 2021-08-02 18:22:00 Mj Chou [facility] Encounters Start Date/Time End Date/Time Encounter Type Admission Type Attending [facility] Care Facility Care Department Encounter ID Source 2022-12-05 00:00:00 2022-12-05 00:00:00 Outpatient [email or web address] [facility] [id number] [facility] 2021-08-02 13:00:00 2021-08-02 13:15:00 Laboratory Only Only, Adc Test Mj Chou [facility] [id number] [facility] 2021-08-02 13:00:00 2021-08-02 13:00:00 Outpatient MJ HUMPHREY [facility] [id number] [facility] 2021-08-02 13:00:00 2021-08-02 13:00:00 Outpatient R [facility] [id number] [facility] 2020-10-23 11:30:00 2020-10-23 11:30:00 Outpatient NETTA STRAUSS [facility] [id number] [facility]
[2023-01-16 19:53] LABS: Specific Gravity 1.015 (1.005-1.030); Urine Bacteria None Seen /HPF (<20); Urine Bilirubin NEGATIVE (Negative); Urine Blood 2+ (Negative); Urine Clarity Clear (Clear); Urine Color Light-Yellow (Yellow); Urine Glucose NEGATIVE (Negative); Urine Mucus Slight /HPF (None Seen); Urine Protein NEGATIVE (Negative); Urine RBC 21-50 /HPF (None Seen); Urine Urobilinogen Normal (Normal); Urine pH 7.5 (5.0-7.0)
[2023-01-16 19:59] LABS: Potassium 3.3 mEq/L (3.5-5.1)
--- NOTE | 2023-01-16 20:04 | RAD REPORT ---
EXAM DESCRIPTION: RADChest Single View01/16/2023 7:59 pm CLINICAL HISTORY: COUGH COMPARISON: Chest Single View dated 06/12/2020; Chest Single View dated 02/25/2020; Chest Pa And Lat (2 Views) dated 07/16/2019; Chest Pa And Lat (2 Views) dated 03/06/2019 TECHNIQUE: Portable AP view of the chest. FINDINGS: The lungs are clear. Chronic interstitial changes, suggestive of COPD No pneumothorax or effusion. The cardiomediastinal contours are unremarkable. IMPRESSION: No acute cardiopulmonary process.
[2023-01-16 20:11] LABS: Absolute Lymphocytes (CBC) 1.7 K/uL (0.7-4.9); Hematocrit 42.7 % (36.0-45.0); Lymphocytes % 17.2 % (15.3-44.8); MCV 91.3 fL (80-100); MPV 8.3 fL (7.6-11.3); Platelets 339 thou/uL (152-406); RBC Red Blood Cell Count 4.68 M/uL (3.86-4.86)
--- NOTE | 2023-01-16 20:18 | ER ---
Nurse's Notes [facility] Name: Stefanie Capellan Age: 62 yrs Sex: Female : 1960 Arrival Date: 01/16/2023 Time: 18:58 Bed 13 Private MD: Diagnosis: Acute sinusitis, unspecified Presentation: 01/16 19:02 Chief complaint: Patient states: "I have been feeling yaneli bad". Pt states that she tl4 has had ear pain, vertigo X3-4 weeks. Pt also reports cough. Coronavirus screen: Vaccine status: Patient reports receiving the 2nd dose of the covid vaccine. Client denies travel out of the [place] in the last 14 days. Ebola Screen: Patient denies travel to an Ebola-affected area in the 21 days before illness onset. No symptoms or risks identified at this time. Initial Sepsis Screen: Does the patient meet any 2 criteria? No. Patient's initial sepsis screen is negative. Does the patient have a suspected source of infection?. Risk Assessment: Do you want to hurt yourself or someone else? Patient reports no desire to harm self or others. Onset of symptoms was January 16, 2023. 19:02 Method Of Arrival: Ambulatory tl4 19:02 Acuity: RAMIN 3 tl4 Historical: - Allergies: 19:05 Codeine; tl4 19:05 Latex; tl4 19:05 Morphine; tl4 19:05 PENICILLINS; tl4 19:05 Prozac; tl4 19:05 Sulfa (Sulfonamide Antibiotics); tl4 - PMHx: 19:05 Anxiety; Bipolar disorder; headache; Hypertensive disorder; Kidney stone; Schizophrenia;tl4 - Immunization history:: Adult Immunizations unknown. - Social history:: Smoking status: Patient denies any tobacco usage or history of. Screenin:46 [facility] ED Fall Risk Assessment (Adult) History of falling in the last 3 months, jw7 including since admission No falls in past 3 months (0 pts) Score/Fall Risk Level 0 - 2 = Low Risk Oriented to surroundings, Maintained a safe environment. Abuse screen: Denies threats or abuse. Denies injuries from another. Nutritional screening: No deficits noted. Tuberculosis screening: No symptoms or risk factors identified. Assessment: 19:43 General: Appears in no apparent distress. comfortable, Behavior is calm, cooperative. jw7 Pain: Denies pain. Neuro: Joy Agitation-Sedation Scale (RASS): 0 - Alert and Calm Level of Consciousness is awake, alert, obeys commands, Oriented to person, place, time, situation. Cardiovascular: Capillary refill < 3 seconds Clubbing of nail beds is absent JVD is absent Patient's skin is warm and dry. Respiratory: Airway is patent Trachea midline Respiratory effort is even, unlabored, Respiratory pattern is regular, symmetrical. GI: Abdomen is round non-distended. : No deficits noted. No signs and/or symptoms were reported regarding the genitourinary system. EENT: No deficits noted. No signs and/or symptoms were reported regarding the EENT system. Derm: Skin is intact, is healthy with good turgor, Skin is dry, Skin is normal, Skin temperature is warm. Musculoskeletal: Circulation, motion, and sensation intact. Range of motion: intact in all extremities. 20:30 Reassessment: Patient appears in no apparent distress at this time. No changes from jw7 previously documented assessment. Patient and/or family updated on plan of care and expected duration. Pain level reassessed. Patient is alert, oriented x 3, equal unlabored respirations, skin warm/dry/pink. Vital Signs: 19:02 BP 187 / 109; Pulse 102; Resp 16; Temp 97.7(TE); Pulse Ox 99% ; Weight 81.65 kg; Height tl4 5 ft. 6 in. ; Pain 5/10; 19:46 BP 151 / 83; Pulse 94; Resp 17 S; Pulse Ox 95% on R/A; jw7 20:30 BP 143 / 93; Pulse 92; Resp 16 S; Pulse Ox 95% on R/A; jw7 19:02 Body Mass Index 29.05 (81.65 kg, 167.64 cm) tl4 19:02 Pain Scale: Adult tl4 ED Course: 19:01 Patient arrived in ED. im 19:04 Triage completed. tl4 19:05 Arm band placed on Patient placed in an exam room, on a stretcher. tl4 19:07 aVnia Sparks FNP-C [facility]. kb 19:07 Willy Rodríguez MD is Attending Physician. kb 19:09 Mikayla Trammell RN is Primary Nurse. jw7 19:45 Initial lab(s) drawn, by me, sent to lab. Urine collected: clean catch specimen, clear. jw7 Inserted saline lock: 20 gauge in right antecubital area, using aseptic technique. Blood collected. 19:46 Patient has correct armband on for positive identification. Placed in gown. Bed in low jw7 position. Call light in reach. 19:46 Urinalysis w/ reflexes Sent. jw7 19:46 Basic Metabolic Panel Sent. jw7 19:46 CBC with Diff Sent. jw7 20:01 Chest Single View XRAY In Process Unspecified. EDMS 20:40 Provided Education on: discharge instructions and medication usage. jw7 20:40 No provider procedures requiring assistance completed. IV discontinued, intact, jw7 bleeding controlled, No redness/swelling at site. Pressure dressing applied. Administered Medications: 20:36 Drug: Potassium Chloride PO 20 mEq PO once Route: PO; jw7 20:41 Follow up: Response: No adverse reaction jw7 Medication: 20:41 VIS not applicable for this client. jw7 Outcome: 20:17 Discharge ordered by . kb 20:40 Discharged to home ambulatory, jw7 20:40 Condition: stable 20:40 Discharge instructions given to patient, Instructed on discharge instructions, follow up and referral plans. medication usage, Demonstrated understanding of instructions, follow-up care, medications, Prescriptions given X 1, 20:41 Patient left the ED. jw7 Signatures: Dispatcher [employer] EDVania Sawyer, MANAGER FILTERNehemias MANAGER FILTER-Mikayla Tillman RN RN jw7 Lexy Neri Toni tl4
--- NOTE | 2023-01-16 20:18 | EDPHYS ---
Physician Documentation [facility] Name: Stefanie Capellan Age: 62 yrs Sex: Female : 1960 Arrival Date: 01/16/2023 Time: 18:58 Bed 13 Private MD: ED Physician Willy Rodríguez HPI: 01/16 20:44 This 62 yrs old Female presents to ER via Ambulatory with complaints of Drainage From kb Ear, Dizziness, Flu Symptoms. 20:44 Patient is a 62-year-old female presents for cough, sinus congestion, ear drainage for kb 1 month. States she has had vertigo for years and that has been acting up over the last couple of days.. Historical: - Allergies: 19:05 Codeine; tl4 19:05 Latex; tl4 19:05 Morphine; tl4 19:05 PENICILLINS; tl4 19:05 Prozac; tl4 19:05 Sulfa (Sulfonamide Antibiotics); tl4 - PMHx: 19:05 Anxiety; Bipolar disorder; headache; Hypertensive disorder; Kidney stone; Schizophrenia;tl4 - Immunization history:: Adult Immunizations unknown. - Social history:: Smoking status: Patient denies any tobacco usage or history of. ROS: 20:43 Constitutional: Negative for fever, chills, and weight loss, kb 20:43 ENT: Positive for drainage from ear(s), sinus congestion, sinus pain, 20:43 Respiratory: Positive for cough, 20:43 Neuro: Positive for dizziness, 20:43 All other systems are negative, Exam: 20:43 Constitutional: This is a well developed, well nourished patient who is awake, alert, kb and in no acute distress. Head/Face: Normocephalic, atraumatic. Cardiovascular: Regular rate Respiratory: Respirations even and unlabored. No increased work of breathing. Talking in full sentences Abdomen/GI: Soft, non-tender. No distention Skin: Warm, dry with normal turgor. Normal color. MS/ Extremity: Pulses equal, no cyanosis. Neurovascular intact. Full, normal range of motion. Neuro: Awake and alert, GCS 15, oriented to person, place, time, and situation. Moves all extremities. Normal gait. 20:43 Head/face: Sinus tenderness, that is moderate, is located over the left ethmoid sinus, 20:43 ENT: External ear(s): are unremarkable, Ear canal(s): are normal, TM's: fluid levels, on the left, Examination of the other ear shows no obvious abnormality, Vital Signs: 19:02 BP 187 / 109; Pulse 102; Resp 16; Temp 97.7(TE); Pulse Ox 99% ; Weight 81.65 kg; Height tl4 5 ft. 6 in. ; Pain 5/10; 19:46 BP 151 / 83; Pulse 94; Resp 17 S; Pulse Ox 95% on R/A; jw7 20:30 BP 143 / 93; Pulse 92; Resp 16 S; Pulse Ox 95% on R/A; jw7 19:02 Body Mass Index 29.05 (81.65 kg, 167.64 cm) tl4 19:02 Pain Scale: Adult tl4 MDM: 19:07 Patient medically screened. kb 20:43 Differential diagnosis: otitis media, otitis externa, ruptured TM, foreign body, acute kb otalgia, vertigo, uti, electrolyte imbalance, sinusitis. Data reviewed: vital signs, nurses notes. Counseling: I had a detailed discussion with the patient and/or guardian regarding the historical points, exam findings, and any diagnostic results supporting the discharge/admit diagnosis, lab results, radiology results, the need for outpatient follow up, a family practitioner, to return to the emergency department if symptoms worsen or persist or if there are any questions or concerns that arise at home. 01/16 19:11 Order name: CBC with Diff; Complete Time: 20:17 kb 01/16 19:11 Order name: Basic Metabolic Panel; Complete Time: 20:05 kb 01/16 19:11 Order name: Urinalysis w/ reflexes; Complete Time: 19:53 kb 01/16 19:11 Order name: Chest Single View XRAY; Complete Time: 20:05 kb 01/16 19:11 Order name: IV Start; Complete Time: 19:46 kb Administered Medications: 20:36 Drug: Potassium Chloride PO 20 mEq PO once Route: PO; jw7 20:41 Follow up: Response: No adverse reaction jw7 Disposition Summary: 01/16/23 20:17 Discharge Ordered Notes: Location: Home kb Condition: Stable kb Diagnosis - Acute sinusitis, unspecified kb Followup: kb - With: Emergency Department - When: As needed - Reason: Worsening of condition Followup: kb - With: Private Physician - When: 2 - 3 days - Reason: Recheck today's complaints, Continuance of care, Re-evaluation by your physician Discharge Instructions: - Discharge Summary Sheet kb - Sinusitis, Adult, [id number] kb Forms: - Medication Reconciliation Form kb - Thank You Letter kb - Antibiotic Education kb - Prescription Opioid Use kb - Patient Portal Instructions kb - Leadership Thank You Letter kb - Work release form jw7 Prescriptions: - Doxycycline Hyclate 100 mg Oral Tablet - take 1 tablet ORAL route every 12 hours; 20 tablet; Refills: 0, Product kb Selection Permitted Addendum: 01/19/2023 00:07 Co-signature as Attending Physician, Willy Rodríguez MD I reviewed the patient's care r n provided by the Advanced Practice Provider and agree with the diagnosis and treatment plan. Signatures: Dispatcher [employer] Vania Quiñonez, PEEL OVEN TENDER-C PEEL OVEN TENDER-Ckb Willy Rodríguez MD MD rn WaitsMikayla RN RN jw7 [facility] 4
[2023-01-16] MEDS ORDERED: POTASSIUM CL SA 10 MEQ TAB PO ONE (20:45)
[2023-01-16 21:54] VITALS: TEMP 97.7
[2023-01-16 22:01] VITALS: O2SAT 95
[2023-01-16 22:06] VITALS: BP 143/93
== END 2023-01-16 20:41 | disposition home or self-care (01) ==
LOC: ER 18:58
DX: J01.90 Acute sinusitis, unspecified (principal); I10 Essential (primary) hypertension; Z88.0 Allergy status to penicillin; Z88.2 Allergy status to sulfonamides; Z88.5 Allergy status to narcotic agent; Z91.040 Latex allergy status
CPT/HCPCS: 36415; 71045; 80048; 81001; 85025; 99284

== ENCOUNTER → 2023-01-23 | Emergency (ER) | payer OTHER ==
[~2023-01-23] MED LIST: DIPHENOX/ATROP SULF 1 TAB PO ONE; NA CHLORIDE 0.9% 1,000 ML ONE; ONDANSETRON 4 MG/2 ML VIAL ONE
--- OUTSIDE RECORDS SUMMARY | 2023-01-23 22:03 | XMS REPORT | Continuity of Care Document ---
Author Name Unknown Address [address] [facility] [address] [place] [address] [facility] thconnect Address [address] [facility]. 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 Name Role Phone PCP, PATIENT DOES NOT HAVE A Primary Care Physic morgan Unavailable [email or web address]_S Attending Clinician Unavaila ble Only, Adc Test Attending Clinician Unavailable Mj Chou MD Attending Clinician [phone] MJ CHOU Attending Clinician Unavailable NETTA NAGY Attending Clinician Unavailabl e [email or web address]_S Admitting Clinician Unavaila ble Payers Payer Name Policy Type Policy Number Effective Date Expirati on Date Source [place]ID [place] [id number] 2011 00:00:00 [facility] MEDICAID [id number] 2017 00:00:00 MEDICARE PART A \T\ B [id number] 1998 00:00:00 Allergies, Adverse Reactions, Alerts Allergy Name Allergy Type Status Severity Reaction(s) Onset Date Inactive Date Treating Clinician Comments Source LATEX DRUG INGREDI Active Hives 05-27 00:00: 00 [facility] MORPHINE DRUG INGREDI Active Hallucinates 05-27 00:00: 00 [facility] FLUOXETI NE HCL DRUG INGREDI Active Swelling 05-27 00:00: 00 [facility] SULFA (SULFONA MIDE ANTIBIOT ICS) Drug Class Active N/V 05-27 00:00: 00 [facility] Bee Sting / Venom Propensi ty to adverse reaction s Active Anaphylaxis 05-27 00:00: 00 [facility] Codeine Propensi ty to adverse reaction s Active Hallucinatio ns 05-27 00:00: 00 [facility] Latex Propensi ty to adverse reaction s Active Hives 05-27 00:00: 00 [facility] Morphine Propensi ty to adverse reaction s Active Hallucinatio ns 05-27 00:00: 00 [facility] Fluoxeti ne Hcl Propensi ty to adverse reaction s Active Swelling 05-27 00:00: 00 [facility] Sulfa (Sulfona mide Antibiot ics) Propensi ty to adverse reaction s Active Nausea and/or Vomiting 05-27 00:00: 00 [facility] BEE STING / VENOM DRUG INGREDI Active Anaphylaxis 05-27 00:00: 00 [facility] CODEINE DRUG INGREDI Active Hallucinates 05-27 00:00: 00 [facility] Social History Social Habit Start Date Stop Date Quantity Comments Source Sex Assigned At 1960 00:00:00 1960 00:00:00 [facility] Smoking Status Start Date Stop Date Source Unknown if ever smoked [facility] Medications Ordered Medication Name Filled Medication Name Start Date Stop Date Current Medication? Ordering Clinician Indication Dosage Frequency Signature (SIG) Comments Components Source sod chlor-bicar b-squeez bottle (NEILMED SINUS RINSE COMPLETE) pkdv 05-27 00:00: 00 Yes 1{bottl e} Use 1 Bottle in each nostril 2 (two) times daily. Use in hot shower 1 hour before bedtime [facility] fluticasone (FLONASE) 50 mcg/actuati on nasal spray 05-27 00:00: 00 Yes 2{spray } Use 2 Sprays in each nostril daily. [facility] loratadine 10 mg tablet 05-27 00:00: 00 Yes 10mg Take 1 tablet by mouth daily. [facility] benzonatate 100 mg capsule 05-27 00:00: 00 Yes 100mg Take 1 capsule by mouth 3 (three) times daily as needed for Cough. DO NOT CHEW! [facility] Procedures Procedure Date / Time Performed Performing Clinicia n Source COVID-19 (ID NOW RAPID TESTING) 2021-08-02 18:22:00 Mj Chou [facility] Encounters Start Date/Time End Date/Time Encounter Type Admission Type Attending [facility] Care Facility Care Department Encounter ID Source 2022-12-05 00:00:00 2022-12-05 00:00:00 Outpatient [email or web address] diyala_S [facility] [id number] [facility] 2021-08-02 13:00:00 2021-08-02 13:15:00 Laboratory Only Only, Adc Test Mj Chou [facility] [id number] [facility] 2021-08-02 13:00:00 2021-08-02 13:00:00 Outpatient MJ HUMPHREY [facility] [id number] [facility] 2021-08-02 13:00:00 2021-08-02 13:00:00 Outpatient R [facility] [id number] [facility] 2020-10-23 11:30:00 2020-10-23 11:30:00 Outpatient NETTA STRAUSS [facility] [id number] [facility]
[2023-01-24 00:12] LABS: Calcium Oxalate Crystals- Ur Few /HPF (None Seen); Specific Gravity > 1.030 (1.005-1.030); Urine Bacteria None Seen /HPF (<20); Urine Bilirubin NEGATIVE (Negative); Urine Blood 2+ (Negative); Urine Clarity Turbid (Clear); Urine Color Yellow (Yellow); Urine Glucose NEGATIVE (Negative); Urine Mucus Slight /HPF (None Seen); Urine Protein 1+ (Negative); Urine RBC 21-50 /HPF (None Seen); Urine Urobilinogen Normal (Normal)
[2023-01-24 02:33] LABS: Absolute Lymphocytes (CBC) 2.2 K/uL (0.7-4.9); Hematocrit 43.1 % (36.0-45.0); Lymphocytes % 19.3 % (15.3-44.8); MCV 90.7 fL (80-100); Platelets 247 thou/uL (152-406); RBC Red Blood Cell Count 4.76 M/uL (3.86-4.86)
[2023-01-24 02:45] LABS: Albumin 3.1 g/dL (3.4-5.0); Bilirubin Total 0.3 mg/dL (0.2-1.0); Potassium 3.3 mEq/L (3.5-5.1); Protein, Total 6.8 g/dL (6.4-8.2)
--- NOTE | 2023-01-24 04:29 | EDPHYS ---
Physician Documentation [facility] Name: Stefanie Capellan Age: 62 yrs Sex: Female : 1960 Arrival Date: 01/23/2023 Time: 22:00 Bed 13 Private MD: ED Physician Parag García HPI: 01/23 22:09 This 62 yrs old Female presents to ER via Unassigned with complaints of sp4 Nausea/Vomiting/Diarrhea, General Weakness. 22:11 PMH - Allergies: Codeine; Latex; Morphine; PENICILLINS; Prozac; Sulfa (Sulfonamide sp4 Antibiotics) PMHx: Anxiety; Bipolar disorder; headache; Hypertensive disorder; Kidney stone; Schizophrenia;. 23:42 Family history of anxiety, headaches, bipolar disorder, schizophrenia, kidney stones, sp4 hypertension presents with acute onset of diarrhea starting this morning associated with nausea associated with overall discomfort. Reports generalized weakness as well. Patient took some Imodium at home without much relief.. Historical: - Allergies: 22:28 Codeine; cm10 22:28 Latex; cm10 22:28 Morphine; cm10 22:28 PENICILLINS; cm10 22:28 Prozac; cm10 22:28 Sulfa (Sulfonamide Antibiotics); cm10 - PMHx: 22:28 Anxiety; headache; Bipolar disorder; Kidney stone; Schizophrenia; Hypertensive disorder;cm10 - Immunization history:: Adult Immunizations unknown. - Social history:: Smoking status: Patient denies any tobacco usage or history of. - Family history:: not pertinent. ROS: 23:42 Constitutional: Negative for fever, chills, and weight loss, positive generalized sp4 weakness, positive nausea positive diarrhea 23:42 All other systems are negative, Exam: 23:42 Constitutional: This is a well developed, well nourished patient who is awake, alert, sp4 and in no acute distress. Head/Face: Normocephalic, atraumatic. Eyes: Pupils equal round and reactive to light, extra-ocular motions intact. Lids and lashes normal. Conjunctiva and sclera are not injected. Cornea within normal limits. Periorbital areas with no swelling, redness, or edema. ENT: Nares patent. No nasal discharge, no septal abnormalities noted. Tympanic membranes are normal and external auditory canals are clear. Oropharynx with no redness, swelling, or masses, exudates, or evidence of obstruction, uvula midline. Mucous membranes moist. Neck: Trachea midline, no thyromegaly or masses palpated, and no cervical lymphadenopathy. Supple, full range of motion without nuchal rigidity, or vertebral point tenderness. Chest/axilla: Normal chest wall appearance and motion. Nontender with no deformity. No lesions are appreciated. Cardiovascular: Regular rate and rhythm with a normal S1 and S2. No gallops, murmurs, or rubs. Normal PMI, no JVD. No pulse deficits. Respiratory: Lungs have equal breath sounds bilaterally, clear to auscultation and percussion. No rales, rhonchi or wheezes noted. No increased work of breathing, no retractions or nasal flaring. Abdomen/GI: Soft, non-tender, with normal bowel sounds. No distension or tympany. No guarding or rebound. No evidence of tenderness throughout. Back: No spinal tenderness. No costovertebral tenderness. Skin: Warm, dry with normal turgor. Normal color with no rashes, no lesions, and no evidence of cellulitis. MS/ Extremity: Pulses equal, no cyanosis. Neurovascular intact. Full, normal range of motion. Neuro: Awake and alert, GCS 15, oriented to person, place, time, and situation. Cranial nerves II-XII grossly intact. Motor strength 5/5 in all extremities. Sensory grossly intact. Psych: Awake, alert, with orientation to person, place and time. Behavior, mood, and affect are within normal limits Vital Signs: 22:29 BP 151 / 85; Pulse 97; Resp 18; Temp 98.2; Pulse Ox 100% on R/A; Weight 81.65 kg; cm10 Height 5 ft. 6 in. ; Pain 0/10; 01/24 00:00 BP 126 / 68; Pulse 79; Pulse Ox 97% on R/A; nw1 01:00 BP 118 / 67; Pulse 74; Pulse Ox 97% on R/A; nw 02:51 BP 127 / 86; Pulse 74; Resp 16; Pulse Ox 97% ; nw1 03:35 BP 102 / 62; Pulse 74; Resp 16; Pulse Ox 95% on R/A; nw1 04:30 BP 110 / 68; Pulse 73; Resp 17 S; Pulse Ox 98% on R/A; jw7 01/23 22:29 Body Mass Index 29.05 (81.65 kg, 167.64 cm) cm10 01/23 22:29 Pain Scale: Adult cm10 MDM: 01/23 22:13 Patient medically screened. sp4 01/24 04:32 Differential diagnosis: Nonspecific abd pain, gastritis, viral gastroenteritis, sp4 gastroenteritis. Data reviewed: vital signs, nurses notes, lab test result(s), CBC, electrolytes, hepatic panel. Consideration of Admission/Observation Escalation of care including admission/observation considered. ED course: Patient felt improved after medications. Stable for discharge home. 01/23 22:11 Order name: CBC with Diff; Complete Time: 04:24 sp4 01/23 22:11 Order name: CMP; Complete Time: 04:24 sp4 01/23 22:11 Order name: Lipase; Complete Time: 04:24 sp4 01/23 22:11 Order name: Urinalysis w/ reflexes; Complete Time: 01:24 sp4 01/23 22:12 Order name: Influenza Screen (a \T\ B); Complete Time: 02:14 sp4 01/24 00:24 Order name: Urine Culture EDVT 01/23 22:11 Order name: IV Saline Lock; Complete Time: 00:01 sp4 01/23 22:11 Order name: Labs collected and sent; Complete Time: 23:44 sp4 Administered Medications: 01/23 23:44 Drug: Diphenoxylate-Atropine PO 2 tabs PO once Route: PO; tl4 01/24 00:01 Drug: NS 0.9% IV 1000 ml IV at 1 bolus Per protocol; 1000 mL bolus Route: IV; Rate: 1 cm10 bolus; Site: left forearm; 00:01 Drug: Ondansetron IVP 8 mg IVP once; over 2 minutes Route: IVP; Site: left forearm; cm10 Disposition Summary: 01/24/23 04:29 Discharge Ordered Problem: new sp4 Symptoms: have improved sp4 Condition: Stable sp4 Diagnosis - Other specified noninfective gastroenteritis and colitis sp4 - UTI/ Urinary tract infection, site not specified sp4 - Gastroenteritis, acute diarrhea, acute urinary tract infection sp4 Followup: sp4 - With: Private Physician - When: 7 - 10 days - Reason: Recheck today's complaints Discharge Instructions: - Discharge Summary Sheet sp4 - Clear Liquid Diet, Adult, [id number] sp4 Forms: - Patient Portal Instructions sp4 Prescriptions: - Cephalexin 500 mg Oral Capsule - take 1 capsule ORAL route every 12 hours for 10 days; 20 capsule; Refills: 0, sp4 Product Selection Permitted - Reglan 10 mg Oral tablet - take 1 tablet ORAL route every 6 hours PRN nausea; 30 tablet; Refills: 0, sp4 Product Selection Permitted - Lomotil 2.5-0.025 mg Oral tablet - take 1 tablet ORAL route every 6 hours As needed PRN diarreha; 30 tablet; sp4 Refills: 0, Product Selection Permitted Signatures: Dispatcher [employer] Parag Sanchez MD MD sp4 Kala James RN RN cm10 SaadiaDave pak 4
--- NOTE | 2023-01-24 04:29 | ER ---
Nurse's Notes [facility] Name: Stefanie Capellan Age: 62 yrs Sex: Female : 1960 Arrival Date: 01/23/2023 Time: 22:00 Bed 13 Private MD: Diagnosis: Other specified noninfective gastroenteritis and colitis;UTI/ Urinary tract infection, site not specified;Gastroenteritis, acute diarrhea, acute urinary tract infection Presentation: 01/23 22:29 Chief complaint: Patient states: diarrhea onset last night. Pt also reports that she cm10 vomited once this morning. Pt reports nausea as well. Pt denies fever. Pt reports chills. Coronavirus screen: Vaccine status: Patient reports receiving the 2nd dose of the covid vaccine. Client denies travel out of the [place] in the last 14 days. Ebola Screen: Patient denies travel to an Ebola-affected area in the 21 days before illness onset. No symptoms or risks identified at this time. Initial Sepsis Screen: Does the patient meet any 2 criteria? No. Patient's initial sepsis screen is negative. Does the patient have a suspected source of infection? No. Patient's initial sepsis screen is negative. Risk Assessment: Do you want to hurt yourself or someone else? Patient reports no desire to harm self or others. Onset of symptoms was January 23, 2023. 22:29 Method Of Arrival: Ambulatory cm10 22:29 Acuity: RAMIN 3 cm10 Historical: - Allergies: 22:28 Codeine; cm10 22:28 Latex; cm10 22:28 Morphine; cm10 22:28 PENICILLINS; cm10 22:28 Prozac; cm10 22:28 Sulfa (Sulfonamide Antibiotics); cm10 - PMHx: 22:28 Anxiety; headache; Bipolar disorder; Kidney stone; Schizophrenia; Hypertensive disorder;cm10 - Immunization history:: Adult Immunizations unknown. - Social history:: Smoking status: Patient denies any tobacco usage or history of. - Family history:: not pertinent. Screenin/20 01:35 [facility] ED Fall Risk Assessment (Adult) History of falling in the last 3 months, nw1 including since admission Yes- single mechanical fall (1 pt) Confusion or Disorientation No (0 pts) Intoxicated or Sedated No (0 pts) Impaired Gait Yes (1 pt) Mobility Assist Device Used Yes (1 pt) Altered Elimination No (0 pt) Score/Fall Risk Level 3 or more points = High Risk Oriented to surroundings, Maintained a safe environment, Educated pt \T\ family on fall prevention, incl call for assistance when getting out of bed, Assessed \T\ reinforced patient's understanding of fall precautions, Provided non-skid footwear, Hourly rounding (assess needs \T\ fall precautionary measures) done, Used ambulatory aids as needed (educated on \T\ assisted with). Abuse screen: Denies threats or abuse. Denies injuries from another. Nutritional screening: Has had N/V for 3 or more days. Tuberculosis screening: No symptoms or risk factors identified. Assessment: :26 Reassessment: Pt to room but unable to assess until this time due to acuity. Pt noted nw1 laying in bed. A\T\Ox4. Cooperative. 0 s/s of acute distress noted. Per patient, she has been having diarrhea/n/v and generalized weakness since Sunday01/20/23. Call light at bedside. Pt denies needs/wants at this time. Will continue to monitor. General: Appears in no apparent distress. comfortable, well groomed, Behavior is calm, cooperative, appropriate for age. Pain: Complains of pain in abdomen. Neuro: No deficits noted. Cardiovascular: No deficits noted. Cardiovascular: Denies chest pain, diaphoresis, fatigue, lightheadedness, palpitations, shortness of breath, syncope, Heart tones present Capillary refill < 3 seconds. Respiratory: No deficits noted. Airway is patent Trachea midline Respiratory effort is even, unlabored, Respiratory pattern is regular, symmetrical. GI: Abdomen is obese, Reports diarrhea, nausea, vomiting, since 01/20/23. Derm: No deficits noted. No signs and/or symptoms reported regarding the dermatologic system. Musculoskeletal: Reports weakness in generalized. Vital Signs: 01/23 22:29 BP 151 / 85; Pulse 97; Resp 18; Temp 98.2; Pulse Ox 100% on R/A; Weight 81.65 kg; cm10 Height 5 ft. 6 in. ; Pain 0/10; 01/24 00:00 BP 126 / 68; Pulse 79; Pulse Ox 97% on R/A; nw1 01:00 BP 118 / 67; Pulse 74; Pulse Ox 97% on R/A; nw1 02:51 BP 127 / 86; Pulse 74; Resp 16; Pulse Ox 97% ; nw1 03:35 BP 102 / 62; Pulse 74; Resp 16; Pulse Ox 95% on R/A; nw1 04:30 BP 110 / 68; Pulse 73; Resp 17 S; Pulse Ox 98% on R/A; jw7 01/23 22:29 Body Mass Index 29.05 (81.65 kg, 167.64 cm) cm10 01/23 22:29 Pain Scale: Adult cm10 ED Course: 01/23 22:06 Patient arrived in ED. gm2 22:09 Parag García MD is Attending Physician. sp4 22:32 Triage completed. cm10 22:32 Arm band placed on Patient placed in waiting room. cm10 22:32 Influenza Screen (a \T\ B) Sent. cm10 23:14 Urinalysis w/ reflexes Sent. tl4 23:44 CBC with Diff Sent. tl4 23:44 CMP Sent. tl4 23:44 Lipase Sent. tl4 23:44 Urinalysis w/ reflexes Sent. tl4 01/24 00:01 Inserted saline lock: 20 gauge in left forearm, using aseptic technique. Ultrasound IV. cm10 01:18 Hina Ospina, RN is Primary Nurse. nw1 01:35 Patient has correct armband on for positive identification. Placed in gown. Bed in low nw1 position. Call light in reach. Side rails up X2. Provided Education on: POC. Pulse ox on. NIBP on. 01:35 No provider procedures requiring assistance completed. nw1 05:15 IV discontinued, intact, bleeding controlled, No redness/swelling at site. Pressure nw1 dressing applied. Administered Medications: 01/23 23:44 Drug: Diphenoxylate-Atropine PO 2 tabs PO once Route: PO; tl4 01/24 00:01 Drug: NS 0.9% IV 1000 ml IV at 1 bolus Per protocol; 1000 mL bolus Route: IV; Rate: 1 cm10 bolus; Site: left forearm; 00:01 Drug: Ondansetron IVP 8 mg IVP once; over 2 minutes Route: IVP; Site: left forearm; cm10 Medication: 01:35 VIS not applicable for this client. nw1 Outcome: 04:29 Discharge ordered by . sp4 05:15 Discharged to home ambulatory, nw1 05:15 Condition: stable 05:15 Discharge instructions given to patient, Instructed on discharge instructions, follow up and referral plans. medication usage, Demonstrated understanding of instructions, follow-up care, medications, Prescriptions given X 3, 05:15 Patient left the ED. nw1 Signatures: Mikayla Trammell, RN RN jw7 Parag García MD MD sp4 Kala James RN RN cm10 Taylor Toth 2 Hina Ospina RN RN nw1 Dave Sharif 4
[2023-01-24 07:13] VITALS: TEMP 98.2
[2023-01-24 07:18] VITALS: BP 110/68; O2SAT 98
== END ==
LOC: ER 22:00
DX: K52.89 Other specified noninfective gastroenteritis and colitis (principal); N39.0 Urinary tract infection, site not specified; Z88.0 Allergy status to penicillin; Z88.2 Allergy status to sulfonamides; Z88.5 Allergy status to narcotic agent; Z91.040 Latex allergy status
CPT/HCPCS: 87088; 81001; 87086; 36415; 87804 ×2; J2405; J7030; 96374; 99284

== ENCOUNTER → 2023-03-08 | Emergency (ER) | payer OTHER ==
[~2023-03-08] MED LIST changes: +ACETAMINOPHEN 325 MG TABLET ONE; -DIPHENOX/ATROP SULF 1 TAB PO ONE; +HYDROCODONE/APAP 5/325 MG TAB ONE; +KETOROLAC 30 MG/ML INJ ONE; -ONDANSETRON 4 MG/2 ML VIAL ONE
--- OUTSIDE RECORDS SUMMARY | 2023-03-08 18:22 | XMS REPORT | Continuity of Care Document ---
Author Name Unknown Address [address] [facility] [address] [place] [address] [facility] thconnect Address [address] [facility] 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 Name Role Phone PCP, PATIENT DOES NOT HAVE A Primary Care Physic morgan Unavailable [email or web address]_S Attending Clinician Unavaila ble Only, Adc Test Attending Clinician Unavailable Mj Chou MD Attending Clinician [phone] MJ CHOU Attending Clinician Unavailable NETTA NAGY Attending Clinician Unavailabl e [email or web address]_S Admitting Clinician Unavaila ble Payers Payer Name Policy Type Policy Number Effective Date Expirati on Date Source [place]ICAID OF [place] [id number] 2011 00:00:00 [facility] MEDICAID [id number] 2017 00:00:00 MEDICARE PART A \T\ B [id number] 1998 00:00:00 Allergies, Adverse Reactions, Alerts Allergy Name Allergy Type Status Severity Reaction(s) Onset Date Inactive Date Treating Clinician Comments Source LATEX DRUG INGREDI Active Hives 05-27 00:00: 00 [facility] MORPHINE DRUG INGREDI Active Hallucinates 05-27 00:00: 00 [facility] FLUOXETI NE HCL DRUG INGREDI Active Swelling 05-27 00:00: 00 [facility] SULFA (SULFONA MIDE ANTIBIOT ICS) Drug Class Active N/V 05-27 00:00: 00 [facility] Bee Sting / Venom Propensi ty to adverse reaction s Active Anaphylaxis 05-27 00:00: 00 [facility] Codeine Propensi ty to adverse reaction s Active Hallucinatio ns 05-27 00:00: 00 [facility] Latex Propensi ty to adverse reaction s Active Hives 05-27 00:00: 00 [facility] Morphine Propensi ty to adverse reaction s Active Hallucinatio ns 05-27 00:00: 00 [facility] Fluoxeti ne Hcl Propensi ty to adverse reaction s Active Swelling 05-27 00:00: 00 [facility] Sulfa (Sulfona mide Antibiot ics) Propensi ty to adverse reaction s Active Nausea and/or Vomiting 05-27 00:00: 00 [facility] BEE STING / VENOM DRUG INGREDI Active Anaphylaxis 05-27 00:00: 00 [facility] CODEINE DRUG INGREDI Active Hallucinates 05-27 00:00: 00 [facility] Social History Social Habit Start Date Stop Date Quantity Comments Source Sex Assigned At 1960 00:00:00 1960 00:00:00 [facility] Smoking Status Start Date Stop Date Source Unknown if ever smoked [facility] Medications Ordered Medication Name Filled Medication Name Start Date Stop Date Current Medication? Ordering Clinician Indication Dosage Frequency Signature (SIG) Comments Components Source sod chlor-bicar b-squeez bottle (NEILMED SINUS RINSE COMPLETE) pkdv 05-27 00:00: 00 Yes 1{bottl e} Use 1 Bottle in each nostril 2 (two) times daily. Use in hot shower 1 hour before bedtime [facility] fluticasone (FLONASE) 50 mcg/actuati on nasal spray 05-27 00:00: 00 Yes 2{spray } Use 2 Sprays in each nostril daily. [facility] loratadine 10 mg tablet 05-27 00:00: 00 Yes 10mg Take 1 tablet by mouth daily. [facility] benzonatate 100 mg capsule 05-27 00:00: 00 Yes 100mg Take 1 capsule by mouth 3 (three) times daily as needed for Cough. DO NOT CHEW! [facility] Procedures Procedure Date / Time Performed Performing Clinicia n Source COVID-19 (ID NOW RAPID TESTING) 2021-08-02 18:22:00 Mj Chou [facility] Encounters Start Date/Time End Date/Time Encounter Type Admission Type Attending [facility] Facility Care Department Encounter ID Source 2023-01-30 13:20:02 2023-01-30 13:20:02 Outpatient S[facility] [id number] 2022-12-05 00:00:00 2022-12-05 00:00:00 Outpatient [email or web address] diyala_S [facility] [id number] [facility] 2021-08-02 13:00:00 2021-08-02 13:15:00 Laboratory Only Only, Adc Test Mj Chou [facility] [id number] [facility] 2021-08-02 13:00:00 2021-08-02 13:00:00 Outpatient R [facility] [id number] [facility] 2021-08-02 13:00:00 2021-08-02 13:00:00 Outpatient MJ HUMPHREY [facility] [id number] [facility] 2020-10-23 11:30:00 2020-10-23 11:30:00 Outpatient NETTA STRAUSS [facility] [id number] [facility]
[2023-03-08 19:02] LABS: Hematocrit 40.9 % (36.0-45.0); Lymphocytes % 32.4 % (15.3-44.8); MPV 7.6 fL (7.6-11.3); Platelets 346 thou/uL (152-406)
[2023-03-08 19:07] LABS: Specific Gravity 1.019 (1.005-1.030); Urine Bacteria None Seen /HPF (<20); Urine Bilirubin NEGATIVE (Negative); Urine Blood 3+ (OVER) (Negative); Urine Clarity Turbid (Clear); Urine Color Light-Yellow (Yellow); Urine Glucose NEGATIVE (Negative); Urine Mucus Slight /HPF (None Seen); Urine Protein TRACE (Negative); Urine RBC >50 /HPF (None Seen); Urine Urobilinogen Normal (Normal); Urine pH 5.5 (5.0-7.0)
[2023-03-08 19:30] LABS: Albumin 3.9 g/dL (3.4-5.0); Bilirubin Total 0.4 mg/dL (0.2-1.0); Potassium 3.4 mEq/L (3.5-5.1); Protein, Total 8.1 g/dL (6.4-8.2)
--- NOTE | 2023-03-08 19:45 | RAD REPORT ---
EXAM DESCRIPTION: CT - Stone Protocol - 03/08/2023 6:58 pm CLINICAL HISTORY: ABD PAIN COMPARISON: Stone Protocol dated 12/06/2020; [facility] Protocol dated 11/03/2019 TECHNIQUE: Thin cut axial CT imaging of the abdomen and pelvis was performed without IV contrast. Mu ltiplanar reformats were generated and reviewed. All CT scans are performed using dose optimization technique as appropriate and may include automated exposure control or mA/KV adjustment according to patient size. FINDINGS: No suspicious findings in the lung bases. The liver, spleen, adrenal glands, and pancreas show no suspicious findings. Gallbladder and biliary tree are also without suspicious finding. Symmetric renal contour, without suspicious parenchymal findings within limits of noncontrast techniq ue. No evidence of hydroureteronephrosis. Multiple nonobstructing left renal calculi, largest at the superior pole measuring 6 mm. No dilated bowel loops or bowel wall thickening. Colonic diverticulosis. Appendix is unremarkable. Ut erus is retroverted. No free air, free fluid or inflammatory stranding. No hernia, mass or bulky lymp hadenopathy. The urinary bladder is decompressed limiting evaluation. No suspicious bony findings. IMPRESSION: Nonobstructing left renal calculi, largest measuring 6 mm. No other acute intra-abdominal process. Colonic diverticulosis.
--- NOTE | 2023-03-08 20:09 | EDPHYS ---
Physician Documentation [facility] Name: Stefanie Capellan Age: 62 yrs Sex: Female : 1960 Arrival Date: 03/08/2023 Time: 18:19 Bed 19 Private MD: ED Physician Raul Zhu HPI: 03/08 18:51 This 62 yrs old Female presents to ER via Ambulatory with complaints of Possible Kidney ms3 Stone. 18:51 62-year-old female with past medical history of anxiety, bipolar disorder, headache, ms3 hypertension, kidney stones, schizophrenia presents to the emergency department for 1 week of right upper quadrant/suprapubic pain, hematuria, dysuria. Patient rates her discomfort a 5/10. Patient denies any alleviating or inciting factors. Historical: - Allergies: 18:40 Codeine; db 18:40 Latex; db 18:40 Morphine; db 18:40 PENICILLINS; db 18:40 Sulfa (Sulfonamide Antibiotics); db 18:40 Prozac; db - PMHx: 18:40 Anxiety; Bipolar disorder; headache; Hypertensive disorder; Kidney stone; Schizophrenia;db 18:41 COPD; db - Immunization history:: Adult Immunizations unknown. - Social history:: Smoking status: Patient/guardian denies using tobacco, the patient reports quitting approximately 25 years ago. ROS: 18:51 Constitutional: Negative for fever, and chills. Neck: Negative for injury, pain, and ms3 swelling, Cardiovascular: Negative for chest pain, and palpitations. Respiratory: Negative for shortness of breath, cough, wheezing, and pleuritic chest pain, Abdomen/GI: Negative for abdominal pain, nausea, vomiting, diarrhea, and constipation, 18:51 : Positive for urinary frequency, hematuria, burning with urination, 18:51 All other systems are negative, Exam: 18:51 Constitutional: This is a well developed, well nourished patient who is awake, alert, ms3 and in no acute distress. Head/Face: Normocephalic, atraumatic. Chest/axilla: Normal chest wall appearance and motion. Nontender with no deformity. Cardiovascular: Regular rate and rhythm with a normal S1 and S2. No gallops, murmurs, or rubs. Normal PMI, no JVD. No pulse deficits. Respiratory: Lungs have equal breath sounds bilaterally, clear to auscultation and percussion. No rales, rhonchi or wheezes noted. No increased work of breathing, no retractions or nasal flaring. Abdomen/GI: Soft, non-tender, with normal bowel sounds. No distension or tympany. No guarding or rebound. No evidence of tenderness throughout. Skin: Warm, dry with normal turgor. Normal color with no rashes, no lesions, and no evidence of cellulitis. MS/ Extremity: Pulses equal, no cyanosis. Neurovascular intact. Full, normal range of motion. Vital Signs: 18:37 BP 192 / 112; Pulse 102; Resp 20; Temp 98.3; Pulse Ox 94% ; Weight 77.11 kg; Height 5 db ft. 6 in. ; Pain 5/10; 19:00 BP 139 / 74; Pulse 92; Resp 18; Pulse Ox 96% ; me1 20:00 BP 144 / 77; Pulse 85; Resp 16; Pulse Ox 98% on R/A; me1 18:37 Body Mass Index 27.44 (77.11 kg, 167.64 cm) db 18:37 Pain Scale: Adult db MDM: 18:43 Patient medically screened. sb4 18:51 Differential diagnosis: nephrolithiasis, pyelonephritis, UTI. ms3 20:13 Data reviewed: vital signs, nurses notes, lab test result(s), radiologic studies, and ms3 as a result, I will discharge patient. I considered the following discharge prescriptions or medication management in the emergency department Medications were administered in the Emergency Department. See MAR. Care significantly affected by the following chronic conditions: Hypertension. Counseling: I had a detailed discussion with the patient and/or guardian regarding the historical points, exam findings, and any diagnostic results supporting the discharge/admit diagnosis, lab results, radiology results, the need for outpatient follow up, to return to the emergency department if symptoms worsen or persist or if there are any questions or concerns that arise at home. Response to treatment: the patient's symptoms have markedly improved after treatment, and as a result, I will discharge patient. Special discussion: I discussed with the patient/guardian in detail that at this point there is no indication for admission to the hospital. It is understood, however, that if the symptoms persist or worsen the patient needs to return immediately for re-evaluation. ED course: Discussed labs and CT findings with patient. Patient to follow-up Dr. Moulton in 2 to 3 days. Patient understands and agrees to plan. All questions were answered. Return precautions discussed to include fevers, chills, worsening symptoms, or any other concerns.. 03/08 18:41 Order name: CBC with Diff; Complete Time: 19:38 sb4 03/08 18:41 Order name: CMP; Complete Time: 19:38 sb4 03/08 18:41 Order name: Lipase; Complete Time: 19:38 sb4 03/08 18:41 Order name: Urinalysis w/ reflexes; Complete Time: 19:38 sb4 03/08 18:42 Order name: CT Stone Protocol; Complete Time: 19:50 sb4 03/08 18:41 Order name: IV Saline Lock; Complete Time: 18:51 sb4 03/08 18:41 Order name: Labs collected and sent; Complete Time: 18:51 sb4 Administered Medications: 18:53 Drug: NS 0.9% IV 1000 ml IV at 1 bolus Per protocol; 1000 mL bolus Route: IV; Rate: 1 me1 bolus; Site: right antecubital; 20:30 Follow up: IV Status: Completed infusion me1 19:45 Drug: Ketorolac IVP 10 mg 10 mg IVP once Route: IVP; Site: right antecubital; me1 20:30 Follow up: Response: No adverse reaction; Pain is decreased me1 Disposition Summary: 03/08/23 20:09 Discharge Ordered Notes: Location: Home ms3 Condition: Stable ms3 Diagnosis - Kidney stone ms3 - Essential (primary) hypertension ms3 Followup: ms3 - With: Kurtis Moulton MD - When: 2 - 3 days - Reason: Recheck today's complaints Discharge Instructions: - Discharge Summary Sheet ms3 - Hypertension, Adult ms3 - Kidney Stones, [id number] ms3 - DASH Eating Plan ms3 Forms: - Medication Reconciliation Form ms3 - Thank You Letter ms3 - Antibiotic Education ms3 - Prescription Opioid Use ms3 - Patient Portal Instructions ms3 - Leadership Thank You Letter ms3 - Work release form me1 Prescriptions: - tamsulosin 0.4 mg Oral capsule - take 1 capsule ORAL route every 24 hours; 15 capsule; Refills: 0, Product ms3 Selection Permitted - Ibuprofen 600 mg Oral Tablet - take 1 tablet ORAL route every 6 hours As needed take with food; 30 tablet; ms3 Refills: 0, Product Selection Permitted Signatures: Dispatcher [employer] EDRaul Mcclain, DO ms3 Cherrie Hyde, Joanna Wray RN, PAGerberC PA-C sb4 Verna Christianson RN RN me1
--- NOTE | 2023-03-08 20:09 | ER ---
Nurse's Notes [facility] Name: Stefanie Capellan Age: 62 yrs Sex: Female : 1960 Arrival Date: 03/08/2023 Time: 18:19 Bed 19 Private MD: Diagnosis: Kidney stone;Essential (primary) hypertension Presentation: 03/08 18:37 Chief complaint: Patient states: BLOOD IN URINE WITH CLOTS X 1 WEEK. BURNING WITH db URINATION. Coronavirus screen: Client denies travel out of the [place] in the last 14 days. At this time, the client does not indicate any symptoms associated with coronavirus-19. Ebola Screen: Patient negative for fever greater than or equal to 101.5 degrees Fahrenheit, and additional compatible Ebola Virus Disease symptoms Patient denies exposure to infectious person. Patient denies travel to an Ebola-affected area in the 21 days before illness onset. No symptoms or risks identified at this time. Initial Sepsis Screen: Does the patient meet any 2 criteria? HR > 90 bpm. No. Patient's initial sepsis screen is negative. Does the patient have a suspected source of infection? No. Patient's initial sepsis screen is negative. Risk Assessment: Do you want to hurt yourself or someone else? Patient reports no desire to harm self or others. Onset of symptoms was March 01, 2023. 18:37 Method Of Arrival: Ambulatory db 18:37 Acuity: RAMIN 3 db Triage Assessment: 18:40 General: Appears in no apparent distress. comfortable, Behavior is cooperative, anxious.db 18:41 Pain: Complains of pain in abdomen. Neuro: Level of Consciousness is awake, alert, db obeys commands, Oriented to person, place, time, situation. Respiratory: Airway is patent Respiratory effort is even, unlabored, Respiratory pattern is regular, symmetrical. Historical: - Allergies: 18:40 Codeine; db 18:40 Latex; db 18:40 Morphine; db 18:40 PENICILLINS; db 18:40 Sulfa (Sulfonamide Antibiotics); db 18:40 Prozac; db - PMHx: 18:40 Anxiety; Bipolar disorder; headache; Hypertensive disorder; Kidney stone; Schizophrenia;db 18:41 COPD; db - Immunization history:: Adult Immunizations unknown. - Social history:: Smoking status: Patient/guardian denies using tobacco, the patient reports quitting approximately 25 years ago. Screenin:55 [facility] ED Fall Risk Assessment (Adult) History of falling in the last 3 months, me1 including since admission No falls in past 3 months (0 pts) Confusion or Disorientation No (0 pts) Intoxicated or Sedated No (0 pts) Impaired Gait No (0 pts) Mobility Assist Device Used No (0 pt) Altered Elimination No (0 pt) Score/Fall Risk Level 0 - 2 = Low Risk Maintained a safe environment, Provided non-skid footwear, Hourly rounding (assess needs \T\ fall precautionary measures) done. Abuse screen: Denies threats or abuse. Nutritional screening: No deficits noted. Tuberculosis screening: No symptoms or risk factors identified. Assessment: 18:55 General: Appears uncomfortable, ill, well groomed, well developed, well nourished, me1 Behavior is calm, cooperative, appropriate for age, Reports blood in urine with clots x 1 week. Burning with urination. Pain: Denies pain. Neuro: Level of Consciousness is awake, alert, obeys commands, Oriented to person, place, time, situation, Appropriate for age. Cardiovascular: Capillary refill < 3 seconds Patient's skin is warm and dry. Respiratory: Airway is patent Trachea midline Respiratory effort is even, unlabored, Respiratory pattern is regular, symmetrical. : Reports burning with urination, blood in urine x 1 week. Vital Signs: 18:37 BP 192 / 112; Pulse 102; Resp 20; Temp 98.3; Pulse Ox 94% ; Weight 77.11 kg; Height 5 db ft. 6 in. ; Pain 5/10; 19:00 BP 139 / 74; Pulse 92; Resp 18; Pulse Ox 96% ; me1 20:00 BP 144 / 77; Pulse 85; Resp 16; Pulse Ox 98% on R/A; me1 18:37 Body Mass Index 27.44 (77.11 kg, 167.64 cm) db 18:37 Pain Scale: Adult db ED Course: 18:36 Patient arrived in ED. kj1 18:39 Triage completed. db 18:39 Joanna Walker PA-C is PHCP. sb4 18:39 Raul Zhu DO is Attending Physician. sb4 18:40 Arm band placed on left wrist. Patient placed in an exam room. db 18:45 Verna Christianson, RN is Primary Nurse. me1 18:51 CBC with Diff Sent. mb9 18:51 CMP Sent. mb9 18:51 Lipase Sent. mb9 18:51 Inserted saline lock: 22 gauge in right antecubital area, using aseptic technique. mb9 Blood collected. 18:55 Patient has correct armband on for positive identification. Bed in low position. Call me1 light in reach. Side rails up X 1. Provided Education on: POC. Verbalized understanding. . 18:55 No provider procedures requiring assistance completed. me1 19:00 CT Stone Protocol In Process Unspecified. EDMS 20:08 Kurtis Moulton MD is Referral Physician. ms3 20:29 IV discontinued, intact, bleeding controlled, No redness/swelling at site. Pressure me1 dressing applied. Administered Medications: 18:53 Drug: NS 0.9% IV 1000 ml IV at 1 bolus Per protocol; 1000 mL bolus Route: IV; Rate: 1 me1 bolus; Site: right antecubital; 20:30 Follow up: IV Status: Completed infusion me1 19:45 Drug: Ketorolac IVP 10 mg 10 mg IVP once Route: IVP; Site: right antecubital; me1 20:30 Follow up: Response: No adverse reaction; Pain is decreased me1 Medication: 18:55 VIS not applicable for this client. me1 Outcome: 20:09 Discharge ordered by . ms3 20:29 Discharged to home ambulatory, me1 20:29 Condition: stable 20:29 Discharge instructions given to patient, Instructed on discharge instructions, follow up and referral plans. medication usage, Demonstrated understanding of instructions, follow-up care, medications, Prescriptions given X 2, 20:30 Patient left the ED. me1 Signatures: Dispatcher [employer] EDAL Bella Sparks kj1 Raul Zhu DO DO ms3 Cherrie Hyde, RN RN Joanna Wynne PA-C PA-C sb4 Breneman, Mary Beth RN RN mb9 Verna Christianson, YVONNE RN me1 Corrections: (The following items were deleted from the chart) 18:40 18:37 Chief complaint: Patient states: BLOOD IN URINE WITH CLOTS X 1 WEEK. db db 18:40 18:37 Pulse 102bpm; 77.11 kg; Height 5 ft. 6 in.; BMI: 27.4; db db
[2023-03-08 21:15] VITALS: BP 144/77; TEMP 98.3; O2SAT 98
== END ==
LOC: ER 18:19
DX: N20.0 Calculus of kidney (principal); I10 Essential (primary) hypertension; Z87.442 Personal history of urinary calculi; Z88.0 Allergy status to penicillin; Z88.2 Allergy status to sulfonamides; Z88.5 Allergy status to narcotic agent; Z91.040 Latex allergy status
CPT/HCPCS: 85025; 81001; 36415; 83690; 80053; 76377; 74176; J7030

== ENCOUNTER → 2023-03-19 | Emergency (ER) | payer OTHER ==
--- OUTSIDE RECORDS SUMMARY | 2023-03-19 18:38 | XMS REPORT | Continuity of Care Document ---
Author Name Unknown Address [address] [place] [address] [facility] thconnect Address [address] [place] [address] Care Team Providers Care Glass Beveler Name Role Phone PCP, PATIENT DOES NOT HAVE A Primary Care Physic morgan Unavailable [email or web address] Attending Clinician Unavaila ble Only, Adc Test Attending Clinician Unavailable Mj Chou MD Attending Clinician [phone] MJ CHOU Attending Clinician Unavailable NETTA NAGY Attending Clinician Unavailabl e [email or web address]_S Admitting Clinician Unavaila ble Payers Payer Name Policy Type Policy Number Effective Date Expirati on Date Source [place] [id number] 2011 00:00:00 [facility] MEDICAID [id number] 2017 00:00:00 MEDICARE PART A \T\ B [id number] 1998 00:00:00 Allergies, Adverse Reactions, Alerts Allergy Name Allergy Type Status Severity Reaction(s) Onset Date Inactive Date Treating Clinician Comments Source LATEX DRUG INGREDI Active Hives 05-27 00:00: 00 [facility] MORPHINE DRUG INGREDI Active Hallucinates 05-27 00:00: 00 [facility] FLUOXETI NE HCL DRUG INGREDI Active Swelling 05-27 00:00: 00 [facility] SULFA (SULFONA MIDE ANTIBIOT ICS) Drug Class Active N/V 05-27 00:00: 00 [facility] Bee Sting / Venom Propensi ty to adverse reaction s Active Anaphylaxis 05-27 00:00: 00 [facility] Codeine Propensi ty to adverse reaction s Active Hallucinatio ns 05-27 00:00: 00 [facility] Latex Propensi ty to adverse reaction s Active Hives 05-27 00:00: 00 [facility] Morphine Propensi ty to adverse reaction s Active Hallucinatio ns 05-27 00:00: 00 [facility] Fluoxeti ne Hcl Propensi ty to adverse reaction s Active Swelling 05-27 00:00: 00 [facility] Sulfa (Sulfona mide Antibiot ics) Propensi ty to adverse reaction s Active Nausea and/or Vomiting 05-27 00:00: 00 [facility] BEE STING / VENOM DRUG INGREDI Active Anaphylaxis 05-27 00:00: 00 [facility] CODEINE DRUG INGREDI Active Hallucinates 05-27 00:00: 00 [facility] Social History Social Habit Start Date Stop Date Quantity Comments Source Sex Assigned At 1960 00:00:00 1960 00:[birth year]:00 [facility] Smoking Status Start Date Stop Date [...] in hot shower 1 hour before bedtime [facility] fluticasone (FLONASE) 50 mcg/actuati on nasal spray 05-27 00:00: 00 Yes 2{spray } Use 2 Sprays in each nostril daily. [facility] loratadine 10 mg tablet 05-27 00:00: 00 Yes 10mg Take 1 tablet by mouth daily. [facility] benzonatate 100 mg capsule 05-27 00:00: 00 Yes 100mg Take 1 capsule by mouth 3 (three) times daily as needed for Cough. DO NOT CHEW! [facility] Procedures Procedure Date / Time Performed Performing Clinicia n Source COVID-19 (ID NOW RAPID TESTING) 2021-08-02 18:22:00 Mj Chou [facility] Encounters Start Date/Time End Date/Time Encounter Type Admission Type Attending [facility] Care Department Encounter ID Source 2023-01-30 13:20:02 2023-01-30 13:20:02 Outpatient SFA [facility] [id number] 2022-12-05 00:00:00 2022-12-05 00:00:00 Outpatient [email or web address] [facility] [id number] [facility] 2021-08-02 13:00:00 2021-08-02 13:15:00 Laboratory Only Only, Adc Test Mj Chou [facility] [id number] [facility] 2021-08-02 13:00:00 2021-08-02 13:00:[address] [facility] [id number] [facility] 2021-08-02 13:00:00 2021-08-02 13:00:[address] [facility] [id number] [facility] 2020-10-23 11:30:00 2020-10-23 11:30:[address] [facility] [id number] [facility]
[2023-03-19 20:04] LABS: SARS-CoV-2 Antigen Rapid Res Negative (Negative)
--- NOTE | 2023-03-19 20:51 | ER ---
Nurse's Notes [facility] Name: Stefanie Capellan Age: 62 yrs Sex: Female : 1960 Arrival Date: 03/19/2023 Time: 18:35 Bed IW1 Private MD: Diagnosis: Otitis media, unspecified, right ear;Acute pharyngitis, unspecified;Cough Presentation: 03/19 19:08 Chief complaint: Patient states: Ear pain, neck pain, trouble swallowing, coughing, nj1 congested for 3-4 days. Has been around people that's been sick with flu. Coronavirus screen: Vaccine status: Patient reports receiving the 2nd dose of the covid vaccine. Ebola Screen: Patient denies travel to an Ebola-affected area in the 21 days before illness onset. Initial Sepsis Screen: Does the patient meet any 2 criteria? HR > 90 bpm. No. Patient's initial sepsis screen is negative. Does the patient have a suspected source of infection? No. Patient's initial sepsis screen is negative. Risk Assessment: Do you want to hurt yourself or someone else? Patient reports no desire to harm self or others. Onset of symptoms was March 2023. 19:08 Method Of Arrival: Ambulatory [facility] 19:08 Acuity: RAMIN 4 nj1 Triage Assessment: 22:01 General: Appears in no apparent distress. Behavior is calm, cooperative. Pain: tl4 Complains of pain in throat. EENT: Reports nasal congestion nasal discharge. Neuro: No deficits noted. Denies weakness headache. Cardiovascular: No deficits noted. Denies chest pain, lightheadedness, palpitations. Respiratory: Reports cough that is non-productive, Denies shortness of breath. GI: No deficits noted. No signs and/or symptoms were reported involving the gastrointestinal system. : No deficits noted. No signs and/or symptoms were reported regarding the genitourinary system. Derm: No deficits noted. No signs and/or symptoms reported regarding the dermatologic system. Musculoskeletal: No deficits noted. No signs and/or symptoms reported regarding the musculoskeletal system. Historical: - Allergies: 19:11 Codeine; nj1 19:11 Latex; nj1 19:11 Morphine; nj1 19:11 PENICILLINS; nj1 19:11 Prozac; nj1 19:11 Sulfa (Sulfonamide Antibiotics); nj1 - PMHx: 19:11 Anxiety; Bipolar disorder; COPD; headache; Hypertensive disorder; Kidney stone; nj1 Schizophrenia; - PSHx: 19:11 Lithotripsy; nj1 - Immunization history:: Client reports receiving the 2nd dose of the Covid vaccine. - Social history:: Smoking status: Patient/guardian denies using tobacco, the patient reports quitting approximately 25 years ago. Screenin:03 [facility] ED Fall Risk Assessment (Adult) History of falling in the last 3 months, tl4 including since admission No falls in past 3 months (0 pts) Confusion or Disorientation No (0 pts) Intoxicated or Sedated No (0 pts) Impaired Gait No (0 pts) Mobility Assist Device Used No (0 pt) Altered Elimination No (0 pt) Score/Fall Risk Level 0 - 2 = Low Risk Oriented to surroundings, Maintained a safe environment, Educated pt \T\ family on fall prevention, incl call for assistance when getting out of bed, Assessed \T\ reinforced patient's understanding of fall precautions, Provided non-skid footwear, Hourly rounding (assess needs \T\ fall precautionary measures) done, Used ambulatory aids as needed (educated on \T\ assisted with), Used gait belt as appropriate. Abuse screen: Denies threats or abuse. Denies injuries from another. Nutritional screening: No deficits noted. Tuberculosis screening: No symptoms or risk factors identified. Assessment: 22:02 Reassessment: No changes from previously documented assessment. Patient and/or family tl4 updated on plan of care and expected duration. Pain level reassessed. Patient is alert, oriented x 3, equal unlabored respirations, skin warm/dry/pink. Vital Signs: 19:08 BP 148 / 105; Pulse 102; Resp 18; Temp 97.9; Pulse Ox 96% ; Weight 74.84 kg; Height 5 wy1 ft. 6 in. ; Pain 6/10; 22:03 BP 133 / 86; Pulse 89; Resp 16; Temp 98.1(TE); Pulse Ox 98% on R/A; tl4 19:08 Body Mass Index 26.63 (74.84 kg, 167.64 cm) [facility] 19:08 Pain Scale: Adult [facility] ED Course: 18:38 Patient arrived in ED. im 18:41 Stephan Lama PA is PHCP. cp 18:41 Carter Thakkar MD is Attending Physician. cp 19:11 Triage completed. nj1 19:13 Arm band placed on left wrist. nj1 19:49 Influenza Screen (a \T\ B) Sent. tl4 19:49 Strep Sent. tl4 19:49 SARS RAPID Sent. tl4 22:04 Patient has correct armband on for positive identification. Provided Education on: ed tl4 process. 22:04 No provider procedures requiring assistance completed. Patient did not have IV access tl4 during this emergency room visit. Administered Medications: No medications were administered Medication: 22:03 VIS not applicable for this client. tl4 Outcome: 20:50 Discharge ordered by MD. cp 22:04 Discharged to home ambulatory, tl4 22:04 Condition: stable 22:04 Discharge instructions given to patient, Instructed on discharge instructions, follow up and referral plans. medication usage, Demonstrated understanding of instructions, follow-up care, medications, Prescriptions given X 2, 22:05 Patient left the ED. tl4 Signatures: Stephan Lama PA PA cp Jaco, Norma, RN RN nj1 Lexy Nrei Toni, RN RN tl4
--- NOTE | 2023-03-19 20:51 | EDPHYS ---
Physician Documentation [facility] Name: Stefanie Capellan Age: 62 yrs Sex: Female : 1960 Arrival Date: 03/19/2023 Time: 18:35 Bed IW1 Private MD: ED Physician Carter Thakkar HPI: 03/19 19:25 This 62 yrs old Female presents to ER via Ambulatory with complaints of Flu Symptoms. cp 19:25 The patient presents with pain, that is acute. Onset: The symptoms/episode cp began/occurred 4 day(s) ago. Associated signs and symptoms: Pertinent positives: congestion, sore throat, cough. Severity of symptoms: in the emergency department the symptoms are unchanged despite home interventions. Historical: - Allergies: 19:11 Codeine; nj1 19:11 Latex; nj1 19:11 Morphine; nj1 19:11 PENICILLINS; nj1 19:11 Prozac; nj1 19:11 Sulfa (Sulfonamide Antibiotics); nj1 - PMHx: 19:11 Anxiety; Bipolar disorder; COPD; headache; Hypertensive disorder; Kidney stone; nj1 Schizophrenia; - PSHx: 19:11 Lithotripsy; nj1 - Immunization history:: Client reports receiving the 2nd dose of the Covid vaccine. - Social history:: Smoking status: Patient/guardian denies using tobacco, the patient reports quitting approximately 25 years ago. ROS: 19:30 Constitutional: Negative for chills, fever, poor PO intake, cp 19:30 Eyes: Negative for injury, pain, redness, and discharge, cp 19:30 ENT: Positive for ear pain, sore throat, 19:30 Cardiovascular: Negative for chest pain, 19:30 Respiratory: Positive for cough, "sounds productive", Negative for shortness of breath, wheezing, 19:30 Abdomen/GI: Negative for abdominal pain, vomiting, diarrhea, constipation, 19:30 Skin: Negative for rash, 19:30 Neuro: Negative for altered mental status, headache, weakness, 19:30 All other systems are negative, Exam: 19:33 Constitutional: The patient appears in no acute distress, alert, awake, non-toxic, well cp developed, well nourished, 19:33 Head/Face: Normocephalic, atraumatic. cp 19:33 Eyes: Periorbital structures: appear normal, Conjunctiva: normal, no exudate, no injection, Sclera: no appreciated abnormality, Lids and lashes: appear normal, bilaterally, 19:33 ENT: External ear(s): are unremarkable, Ear canal(s): are normal, clear, TM's: erythema, that is mild, on the right, Nose: nasal drainage, that is minimal, Mouth: Lips: moist, Oral mucosa: moist, Posterior pharynx: Airway: no evidence of obstruction, patent, Tonsils: with erythema, no exudate, Uvula: midline, erythema, that is mild, exudate, is not appreciated, 19:33 Neck: ROM/movement: is normal, is supple, without pain, no range of motions limitations, no meningismus, Lymph nodes: lymphadenopathy is appreciated, anterior cervical nodes, 19:33 Chest/axilla: Inspection: normal, 19:33 Cardiovascular: Rate: tachycardic, Rhythm: regular, 19:33 Respiratory: the patient does not display signs of respiratory distress, Respirations: normal, no use of accessory muscles, no retractions, labored breathing, is not present, Breath sounds: bronchial sounds, are not appreciated, stridor, is not appreciated, + upper airway congestion. 19:33 Abdomen/GI: Exam negative for discomfort, distension, guarding, Inspection: abdomen appears normal, Vital Signs: 19:08 BP 148 / 105; Pulse 102; Resp 18; Temp 97.9; Pulse Ox 96% ; Weight 74.84 kg; Height 5 nj1 ft. 6 in. ; Pain 6/10; 22:03 BP 133 / 86; Pulse 89; Resp 16; Temp 98.1(TE); Pulse Ox 98% on R/A; tl4 19:08 Body Mass Index 26.63 (74.84 kg, 167.64 cm) nj1 19:08 Pain Scale: Adult nj1 MDM: 19:14 Patient medically screened. cp 20:00 Differential diagnosis: otitis media, otitis externa, acute otalgia, cerumen impaction, cp strep throat, influenza, COVID-19. 20:50 Data reviewed: vital signs, nurses notes, lab test result(s). cp 20:50 Care significantly affected by the following chronic conditions: Hypertension. cp Counseling: I had a detailed discussion with the patient and/or guardian regarding the historical points, exam findings, and any diagnostic results supporting the discharge/admit diagnosis, lab results, to return to the emergency department if symptoms worsen or persist or if there are any questions or concerns that arise at home. 03/19 19:19 Order name: SARS RAPID; Complete Time: 20:47 cp 03/19 19:19 Order name: Strep; Complete Time: 20:47 cp 03/19 19:19 Order name: Influenza Screen (a \\T\\ B); Complete Time: 20:47 cp 03/19 20:06 Order name: Throat Culture EDMS Administered Medications: No medications were administered Disposition Summary: 03/19/23 20:50 Discharge Ordered Notes: Location: Home cp Problem: new cp Symptoms: have improved cp Condition: Stable cp Diagnosis - Otitis media, unspecified, right ear cp - Acute pharyngitis, unspecified cp - Cough cp Followup: cp - With: Private Physician - When: 2 - 3 days - Reason: Worsening of condition Discharge Instructions: - Discharge Summary Sheet cp - Otitis Media, Adult cp - Pharyngitis cp - Cough, Adult cp Forms: - Medication Reconciliation Form cp - Thank You Letter cp - Antibiotic Education cp - Prescription Opioid Use cp - Patient Portal Instructions cp - Leadership Thank You Letter cp Prescriptions: - Bromfed DM 2-30-10 mg/5 mL Oral syrup - administer 10 milliliter ORAL route every 6-8 hours; 240 milliliter; Refills: cp 0, Product Selection Permitted - Zithromax Z-Hardeep 250 mg Oral Tablet - take 1 tablet ORAL route as directed for 5 days Day 1 - take two (2) tablets cp one time. Day 2, 3, 4 , 5 take one (1) tablet once daily.; 6 tablet; Refills: 0, Product Selection Permitted Signatures: Dispatcher [employer] EDMS Stephan Lama PA PA cp Nisa Winn, RN RN nj1
[2023-03-19 22:24] VITALS: BP 133/86; TEMP 98.1; O2SAT 98
== END ==
LOC: ER 18:35
DX: H66.91 Otitis media, unspecified, right ear (principal); R05.9 Cough, unspecified; J02.9 Acute pharyngitis, unspecified; Z11.52 Encounter for screening for COVID-19; Z88.0 Allergy status to penicillin; Z88.2 Allergy status to sulfonamides; Z88.5 Allergy status to narcotic agent; Z88.8 Allergy status to other drugs, medicaments and biological substances; Z91.040 Latex allergy status
CPT/HCPCS: 36415; 87070; 87081; 87804; 87811; 99283

== ENCOUNTER 2023-05-11 14:17 | Emergency (ER) | payer OTHER ==
--- OUTSIDE RECORDS SUMMARY | 2023-05-11 14:20 | XMS REPORT | Continuity of Care Document ---
Author Name Unknown Address [address] [place] [address] [facility] thconnect Address [address] [place] [address] Care Team Providers Care Hog Tender Name Role Phone PCP, PATIENT DOES NOT HAVE A Primary Care Physic morgan Unavailable [email or web address] Attending Clinician Unavaila ble Only, Adc Test Attending Clinician Unavailable Mj Chou MD Attending Clinician [phone] MJ CHOU Attending Clinician Unavailable NETTA NAGY Attending Clinician Unavailabl e [email or web address] Admitting Clinician Unavaila ble Payers Payer Name Policy Type Policy Number Effective Date Expirati on Date Source [place]ICAID [place] [id number] 2011 00:00:00 [facility] MEDICAID [id number] 2017 00:00:00 MEDICARE PART A \T\ B [id number] 1998 00:00:00 Allergies, Adverse Reactions, Alerts Allergy Name Allergy Type Status Severity Reaction(s) Onset Date Inactive Date Treating Clinician Comments Source LATEX DRUG INGREDI Active Hives 05-27 00:00: 00 [facility] MORPHINE DRUG INGREDI Active Hallucinates 05-27 00:00: 00 [facility] FLUOXETI NE HCL DRUG INGREDI Active Swelling 05-27 00:00: 00 [facility] SULFA (SULFONA MIDE ANTIBIOT ICS) Drug Class Active N/V 05-27 00:00: 00 [facility] Bee Sting / Venom Propensi ty to adverse reaction s Active Anaphylaxis 05-27 00:00: 00 [facility] Codeine Propensi ty to adverse reaction s Active Hallucinatio ns 05-27 00:00: 00 [facility] Latex Propensi ty to adverse reaction s Active Hives 05-27 00:00: 00 [facility] Morphine Propensi ty to adverse reaction s Active Hallucinatio ns 05-27 00:00: 00 [facility] Fluoxeti ne Hcl Propensi ty to adverse reaction s Active Swelling 05-27 00:00: 00 [facility] Sulfa (Sulfona mide Antibiot ics) Propensi ty to adverse reaction s Active Nausea and/or Vomiting 05-27 00:00: 00 [facility] BEE STING / VENOM DRUG INGREDI Active Anaphylaxis 05-27 00:00: 00 [facility] CODEINE DRUG INGREDI Active Hallucinates 05-27 00:00: 00 [facility] Social History Social Habit Start Date Stop Date Quantity Comments Source Sex Assigned At 1960 00:00:00 1960 00:00:00 [facility] Smoking Status Start Date Stop Date Source Unknown if ever smoked [facility] Medications Ordered Medication Name Filled Medication Name Start Date Stop Date Current Medication? Ordering Clinician Indication Dosage Frequency Signature (SIG) Comments Components Source sod chlor-bicar b-squeez bottle (NEILMED SINUS RINSE COMPLETE) pkdv 05-27 00:00: 00 Yes 1{bottl e} Use 1 Bottle in each nostril 2 (two) times daily. Use in hot shower 1 hour before bedtime [facility] fluticasone (FLONASE) 50 mcg/actuati on nasal spray 05-27 00:00: 00 Yes 2{spray } Use 2 Sprays in each nostril daily. [facility] loratadine 10 mg tablet 05-27 00:00: 00 Yes 10mg Take 1 tablet by mouth daily. [facility] benzonatate 100 mg capsule 05-27 00:00: 00 Yes 100mg Take 1 capsule by mouth 3 (three) times daily as needed for Cough. DO NOT CHEW! [facility] Procedures Procedure Date / Time Performed Performing Clinicia n Source COVID-19 (ID NOW RAPID TESTING) 2021-08-02 18:22:00 Mj Chou [facility] Encounters Start Date/Time End Date/Time Encounter Type Admission Type Attending [facility] Facility Care Department Encounter ID Source 2023-01-30 13:20:02 2023-01-30 13:20:02 Outpatient [facility] [id number] 2022-12-05 00:00:00 2022-12-05 00:00:00 Outpatient [email or web address] [facility] [id number] [facility] 2021-08-02 13:00:00 2021-08-02 13:15:00 Laboratory Only Only, Adc Test Mj Chou [facility] [id number] [facility] 2021-08-02 13:00:00 2021-08-02 13:00:00 Outpatient R [facility] [id number] [facility] 2021-08-02 13:00:00 2021-08-02 13:00:00 Outpatient MJ HUMPHREY [facility] [id number] [facility] 2020-10-23 11:30:00 2020-10-23 11:30:00 Outpatient NETTA STRAUSS [facility] [id number] [facility]
--- NOTE | 2023-05-11 15:31 | RAD REPORT ---
EXAM DESCRIPTION: RAD - Chest Single View - 05/11/2023 3:20 pm CLINICAL HISTORY: COUGH COMPARISON: <Comparisons> FINDINGS: Lines: None. Lungs: No evidence of edema or pneumonia. Pleural: No significant pleural effusions or pneumothorax. Cardiac: The heart size is within normal limits. Mediastinum: Within normal limits. Bones: No acute fractures. Other: None IMPRESSION: No acute cardiopulmonary disease.
[2023-05-11 16:27] LABS: SARS-CoV-2 Antigen CONTROL BLUE LINE VIS/BG OK; SARS-CoV-2 Antigen Rapid Res Negative (Negative)
--- NOTE | 2023-05-11 16:57 | ER ---
Nurse's Notes [facility] Name: Stefanie Capellan Age: 62 yrs Sex: Female : 1960 Arrival Date: 05/11/2023 Time: 14:17 Bed 10 Private MD: Diagnosis: Acute sinusitis, unspecified Presentation: 05/10 14:24 Chief complaint: Patient states: Cough, congestion, sore throat, swollen neck glands, B ll1 ear pain, LAM since Sunday getting worse each day. Coronavirus screen: Client denies travel out of the [place] in the last 14 days. congestion, cough unrelated to allergies, fatigue, fever, headache, Client presents with at least one sign or symptom that may indicate coronavirus-19. Standard/surgical mask placed on the client. Ebola Screen: Patient denies travel to an Ebola-affected area in the 21 days before illness onset. Initial Sepsis Screen: Does the patient meet any 2 criteria? No. Patient's initial sepsis screen is negative. Does the patient have a suspected source of infection? No. Patient's initial sepsis screen is negative. Risk Assessment: Do you want to hurt yourself or someone else? Patient reports no desire to harm self or others. Onset of symptoms was May 09, 2023. 14:24 Method Of Arrival: Ambulatory ll1 14:24 Acuity: RAMIN 4 ll1 Historical: - Allergies: 14:23 Codeine; ll1 14:23 Latex; ll1 14:23 Morphine; ll1 14:23 PENICILLINS; ll1 14:23 Prozac; ll1 14:23 Sulfa (Sulfonamide Antibiotics); ll1 - PMHx: 14:23 Anxiety; Bipolar disorder; COPD; headache; Hypertensive disorder; Kidney stone; ll1 Schizophrenia; - PSHx: 14:23 Lithotripsy; ll1 - Immunization history:: Adult Immunizations up to date. - Infectious Disease History:: Denies. - Social history:: Smoking status: Patient denies any tobacco usage or history of. - Family history:: not pertinent. - Hospitalizations: : No recent hospitalization is reported. Screenin:48 [facility] ED Fall Risk Assessment (Adult) History of falling in the last 3 months, nj1 including since admission No falls in past 3 months (0 pts) Confusion or Disorientation No (0 pts) Intoxicated or Sedated No (0 pts) Impaired Gait No (0 pts) Mobility Assist Device Used No (0 pt) Altered Elimination No (0 pt) Score/Fall Risk Level 0 - 2 = Low Risk Oriented to surroundings, Maintained a safe environment, Hourly rounding (assess needs \T\ fall precautionary measures) done. Abuse screen: Denies threats or abuse. Denies injuries from another. Nutritional screening: No deficits noted. Tuberculosis screening: No symptoms or risk factors identified. Assessment: 15:36 General: Appears in no apparent distress. comfortable, Behavior is calm, cooperative, nj1 appropriate for age. Pain: Complains of pain in right ear, left ear and neck Pain currently is 8 out of 10 on a pain scale. Aggravated by swallowing. Neuro: Level of Consciousness is awake, alert, obeys commands, Oriented to person, place, time, situation. Cardiovascular: Patient's skin is warm and dry. Respiratory: Airway is patent Respiratory effort is even, unlabored. 15:36 EENT: Reports pain in left ear and right ear when swallowing sore throat. nj1 17:36 Reassessment: Patient appears in no apparent distress at this time. Patient is alert, nj1 oriented x 3, equal unlabored respirations, skin warm/dry/pink. Vital Signs: 14:24 BP 178 / 95; Pulse 104; Resp 17; Temp 98.5; Pulse Ox 98% on R/A; Weight 76.2 kg; Height ll1 5 ft. 5 in. ; Pain 7/10; 17:35 BP 166 / 86; Pulse 85; Resp 16; Temp 98.1(TE); Pulse Ox 98% on R/A; nj1 14:24 Body Mass Index 27.96 (76.20 kg, 165.1 cm) ll1 14:24 Pain Scale: Adult ll1 ED Course: 14:19 Patient arrived in ED. mr 14:25 Triage completed. ll1 14:25 Arm band placed on Patient placed in an exam room, on a stretcher. ll1 14:26 Willy Rodríguez MD is Attending Physician. rn 15:21 XRAY Chest (1 view) In Process Unspecified. EDMS 15:32 Nisa Winn, RN is Primary Nurse. nj1 15:36 Patient has correct armband on for positive identification. Bed in low position. Call nj1 light in reach. Provided Education on: call light, fall precautions. 17:37 No provider procedures requiring assistance completed. Patient did not have IV access nj1 during this emergency room visit. Administered Medications: 17:35 Drug: AZITHromycin PO 500 mg PO once Route: PO; nj1 Medication: 17:38 VIS not applicable for this client. nj1 Outcome: 16:57 Discharge ordered by . rn 17:38 Discharged to home ambulatory, nj1 17:38 Condition: stable 17:38 Discharge instructions given to patient, Instructed on discharge instructions, follow up and referral plans. medication usage, Demonstrated understanding of instructions, follow-up care, medications, Prescriptions given X 2, 17:45 Patient left the ED. nj1 Signatures: Dispatcher [employer] EDMS Dyan Patterson, Jason Gomez mr Willy Rodríguez MD MD rn Lewis, Lynsay, RN RN 1 Nisa Winn RN RN nj1 Corrections: (The following items were deleted from the chart) 18:24 17:35 BP 166 / 86; Pulse 85bpm; Resp 16bpm; Pulse Ox 98% RA; nj1 nj1
--- NOTE | 2023-05-11 16:57 | EDPHYS ---
Physician Documentation [facility] Name: Stefanie Capellan Age: 62 yrs Sex: Female : 1960 Arrival Date: 05/11/2023 Time: 14:17 Bed 10 Private MD: ED Physician Willy Rodríguez HPI: 05/10 16:53 This 62 yrs old Female presents to ER via Ambulatory with complaints of Vomiting, rn Dizziness, Ear Pain, Cough. 16:53 The patient or guardian reports cough, flu symptoms, low-grade fever, no appetite. rn Onset: The symptoms/episode began/occurred 2 day(s) ago. Severity of symptoms: At their worst the symptoms were mild, in the emergency department the symptoms are unchanged. Modifying factors: The symptoms are alleviated by nothing, the symptoms are aggravated by nothing. Associated signs and symptoms: Pertinent positives: fever, rhinorrhea, sore throat. The patient has experienced similar episodes in the past. Patient reports 2 days of headache, malaise, runny nose, sinus pressure, congestion, cough. Patient reports around 2 younger family members recently that required antibiotics to get over their infection. Denies shortness of breath. Patient also with COPD.. Historical: - Allergies: 14:23 Codeine; ll1 14:23 Latex; ll1 14:23 Morphine; ll1 14:23 PENICILLINS; ll1 14:23 Prozac; ll1 14:23 Sulfa (Sulfonamide Antibiotics); ll1 - PMHx: 14:23 Anxiety; Bipolar disorder; COPD; headache; Hypertensive disorder; Kidney stone; ll1 Schizophrenia; - PSHx: 14:23 Lithotripsy; ll1 - Immunization history:: Adult Immunizations up to date. - Infectious Disease History:: Denies. - Social history:: Smoking status: Patient denies any tobacco usage or history of. - Family history:: not pertinent. - Hospitalizations: : No recent hospitalization is reported. ROS: 16:53 Constitutional: Positive for subjective fever and chills ENT: Positive for sinus rn pressure and congestion Neck: Negative for injury, pain, and swelling, Cardiovascular: Negative for chest pain, palpitations, and edema, Respiratory: Positive for cough, negative for shortness of breath Abdomen/GI: Positive for nausea negative for abdominal pain MS/Extremity: Negative for injury and deformity, Neuro: Positive for headache Exam: 16:53 Constitutional: This is a well developed, well nourished patient who is awake, alert, rn and in no acute distress. Head/Face: Normocephalic, atraumatic. ENT: Mild pharyngeal erythema, no exudate or stridor Neck: Bilateral tender cervical lymphadenopathy. No meningismus. Cardiovascular: Regular rate and rhythm. No pulse deficits. Respiratory: No increased work of breathing, no retractions or nasal flaring. Abdomen/GI: Soft, non-tender MS/ Extremity: Pulses equal, no cyanosis. Neuro: Awake and alert, GCS 15 Vital Signs: 14:24 BP 178 / 95; Pulse 104; Resp 17; Temp 98.5; Pulse Ox 98% on R/A; Weight 76.2 kg; Height ll1 5 ft. 5 in. ; Pain 7/10; 17:35 BP 166 / 86; Pulse 85; Resp 16; Temp 98.1(TE); Pulse Ox 98% on R/A; nj1 14:24 Body Mass Index 27.96 (76.20 kg, 165.1 cm) ll1 14:24 Pain Scale: Adult ll1 MDM: 14:26 Patient medically screened. rn 16:53 Differential Diagnosis: Bronchitis Influenza Upper Respiratory Infection Sinusitis rn Pharyngitis Viral Syndrome Pneumonia. Data reviewed: vital signs, nurses notes, lab test result(s), radiologic studies, plain films, and as a result, I will discharge patient. Counseling: I had a detailed discussion with the patient and/or guardian regarding the historical points, exam findings, and any diagnostic results supporting the discharge/admit diagnosis, lab results, radiology results, the need for outpatient follow up, to return to the emergency department if symptoms worsen or persist or if there are any questions or concerns that arise at home. Special discussion: I discussed with the patient/guardian in detail that at this point there is no indication for admission to the hospital. It is understood, however, that if the symptoms persist or worsen the patient needs to return immediately for re-evaluation. 05/10 14:38 Order name: SARS RAPID; Complete Time: 16:50 rn 05/10 14:38 Order name: Flu; Complete Time: 16:50 rn 05/10 14:38 Order name: Strep rn 05/10 16:31 Order name: Throat Culture EDPR 05/10 14:38 Order name: XRAY Chest (1 view); Complete Time: 15:39 rn Administered Medications: 17:35 Drug: AZITHromycin PO 500 mg PO once Route: PO; nj1 Disposition Summary: 05/11/23 16:57 Discharge Ordered Notes: Location: Home rn Problem: new rn Symptoms: are unchanged rn Condition: Stable rn Diagnosis - Acute sinusitis, unspecified rn Followup: rn - With: Private Physician - When: As needed - Reason: Recheck today's complaints, Re-evaluation by your physician Discharge Instructions: - Discharge Summary Sheet rn - Sinusitis, Adult rn Forms: - Medication Reconciliation Form rn - Thank You Letter rn - Antibiotic maternal fetal physician - Prescription Opioid Use rn - Patient Portal Instructions rn - Leadership Thank You Letter rn - Work release form nj1 Prescriptions: - ondansetron 4 mg Oral Tablet,disintegrating - take 1 tablet ORAL route every 8 hours As needed; 10 tablet; Refills: 0, rn Product Selection Permitted - Zithromax Z-Hardeep 250 mg Oral Tablet - take 1 tablet ORAL route as directed for 5 days Day 1 - take two (2) tablets rn one time. Day 2, 3, 4 , 5 take one (1) tablet once daily.; 6 tablet; Refills: 0, Product Selection Permitted Signatures: Dispatcher [employer] EDMS Willy Rodríguez MD MD rn Lewis, Lynsay, RN RN ll1 Nisa Winn RN RN nj1 Corrections: (The following items were deleted from the chart) 14:39 14:39 SARS-COV-2 Antigen Rapid+I.LAB.BRZ ordered. EDMS EDMS 14:39 14:39 Influenza Screen (A \T\ B)+BA.LAB.BRZ ordered. EDMS EDMS 14:39 14:39 Group A Streptococcus Rapid Sc+BA.LAB.BRZ ordered. EDMS EDMS
[2023-05-11] MEDS ORDERED: AZITHROMYCIN 250 MG TAB ONE (17:30)
[2023-05-11 19:21] VITALS: BP 166/86; TEMP 98.5; O2SAT 98
== END 2023-05-11 17:45 | disposition home or self-care (01) ==
LOC: ER 14:17
DX: J01.90 Acute sinusitis, unspecified (principal); J44.9 Chronic obstructive pulmonary disease, unspecified; I10 Essential (primary) hypertension; F20.9 Schizophrenia, unspecified; Z11.52 Encounter for screening for COVID-19
CPT/HCPCS: 36415; 71045; 87070; 87081; 87804; 87811; 99283

== ENCOUNTER 2023-05-29 18:35 | Emergency (ER) | payer OTHER ==
--- OUTSIDE RECORDS SUMMARY | 2023-05-29 18:38 | XMS REPORT | Continuity of Care Document ---
Author Name Unknown Address [address] [facility] [address] [place] [address] [facility] thconnect Address [address] [facility] [address] [place] [address] Care Team Providers Care Gusset Edger Name Role Phone PCP, PATIENT DOES NOT HAVE A Primary Care Physic morgan Unavailable [email or web address] Attending Clinician Unavaila ble Only, Adc Test Attending Clinician Unavailable Mj Chou MD Attending Clinician [phone] MJ CHOU Attending Clinician Unavailable NETTA NAGY Attending Clinician Unavailabl e [email or web address]_S Admitting Clinician Unavaila ble Payers Payer Name Policy Type Policy Number Effective Date Expirati on Date Source [place]ID [place] [id number] 2011 00:00:00 [facility] MEDICAID [id number] 2017 00:00:00 MEDICARE PART A \T\ B [id number] 1998 00:00:00 Allergies, Adverse Reactions, Alerts Allergy Name Allergy Type Status Severity Reaction(s) Onset Date Inactive Date Treating Clinician Comments Source LATEX DRUG INGREDI Active Hives 05-27 00:00: 00 [facility] MORPHINE DRUG INGREDI Active Hallucinates 05-27 00:00: 00 [facility] FLUOXETI NE HCL DRUG INGREDI Active Swelling 05-27 00:00: 00 [facility] SULFA (SULFONA MIDE ANTIBIOT ICS) Drug Class Active N/V 05-27 00:00: 00 [facility] Bee Sting / Venom Propensi ty to adverse reaction s Active Anaphylaxis 05-27 00:00: 00 [facility] Codeine Propensi ty to adverse reaction s Active Hallucinatio ns 05-27 00:00: 00 [facility] Latex Propensi ty to adverse reaction s Active Hives 05-27 00:00: 00 [facility] Morphine Propensi ty to adverse reaction s Active Hallucinatio ns 05-27 00:00: 00 [facility] Fluoxeti ne Hcl Propensi ty to adverse reaction s Active Swelling 05-27 00:00: 00 [facility] Sulfa (Sulfona mide Antibiot ics) Propensi ty to adverse reaction s Active Nausea and/or Vomiting 05-27 00:00: 00 [facility] BEE STING / VENOM DRUG INGREDI Active Anaphylaxis 05-27 00:00: 00 [facility] CODEINE DRUG INGREDI Active Hallucinates 05-27 00:00: 00 [facility] Social History Social Habit Start Date Stop Date Quantity Comments Source Sex Assigned At 1960 00:00:00 1960 00:00:00 [facility] Smoking Status Start Date Stop Date Source Unknown if ever smoked [facility] Medications Ordered Medication Name Filled Medication Name Start Date Stop Date Current Medication? Ordering Clinician Indication Dosage Frequency Signature (SIG) Comments Components Source sod chlor-bicar b-squeez bottle (NEILMED SINUS RINSE COMPLETE) pkdv 05-27 00:00: 00 Yes 1{bottl e} Use 1 Bottle in each nostril 2 (two) times daily. Use in hot shower 1 hour before bedtime [facility] fluticasone (FLONASE) 50 mcg/actuati on nasal spray 05-27 00:00: 00 Yes 2{spray } Use 2 Sprays in each nostril daily. [facility] loratadine 10 mg tablet 05-27 00:00: 00 Yes 10mg Take 1 tablet by mouth daily. [facility] benzonatate 100 mg capsule 05-27 00:00: 00 Yes 100mg Take 1 capsule by mouth 3 (three) times daily as needed for Cough. DO NOT CHEW! [facility] Procedures Procedure Date / Time Performed Performing Clinicia n Source COVID-19 (ID NOW RAPID TESTING) 2021-08-02 18:22:00 Mj Chou [facility] Encounters Start Date/Time End Date/Time Encounter Type Admission Type Attending [facility] Facility Care Department Encounter ID Source 2023-01-30 13:20:02 2023-01-30 13:20:02 Outpatient [facility] [id number] 2022-12-05 00:00:00 2022-12-05 00:00:00 Outpatient [email or web address] [email or web address] [facility] [id number] [facility] 2021-08-02 13:00:00 2021-08-02 13:15:00 Laboratory Only Only, Adc Test Mj Chou [facility] [id number] [facility] 2021-08-02 13:00:00 2021-08-02 13:00:00 Outpatient R [facility] [id number] [facility] 2021-08-02 13:00:00 2021-08-02 13:00:00 Outpatient MJ HUMPHREY [facility] [id number] [facility] 2020-10-23 11:30:00 2020-10-23 11:30:00 Outpatient NETTA STRAUSS [facility] [id number] [facility]
[2023-05-29] MEDS ORDERED: ALBUTEROL 2.5 MG/3 ML NEB SOL ONE (19:08)
--- NOTE | 2023-05-29 20:01 | RAD REPORT ---
EXAM DESCRIPTION: Rasta Carballo (2 Views)05/29/2023 7:37 pm CLINICAL HISTORY: Cough COMPARISON: May 19, 2003 FINDINGS: The lungs appear clear of acute infiltrate. The heart is borderline enlarged IMPRESSION: No acute abnormalities displayed
--- NOTE | 2023-05-29 20:47 | EDPHYS ---
Physician Documentation [facility] Name: Stefanie Capellan Age: 62 yrs Sex: Female : 1960 Arrival Date: 05/29/2023 Time: 18:35 Bed 19 Private MD: ED Physician Willy Rodríguez HPI: 05/28 21:00 This 62 yrs old Female presents to ER via Ambulatory with complaints of Cough, kb Congestion. 21:00 Patient is a 62-year-old female who presents for cough that started 3 to 4 weeks ago. kb States has been seen for this same cough and given a round of steroids as well as cough medicine. States she completed all the medication and is still having the cough. Denies fever, shortness of breath or chest pain.. Historical: - Allergies: 18:48 Codeine; ap3 18:48 Latex; ap3 18:48 Morphine; ap3 18:48 PENICILLINS; ap3 18:48 Prozac; ap3 18:48 Sulfa (Sulfonamide Antibiotics); ap3 - PMHx: 18:48 Anxiety; Bipolar disorder; COPD; headache; Hypertensive disorder; Kidney stone; ap3 Schizophrenia; - PSHx: 18:48 Lithotripsy; ap3 - Immunization history:: Client reports receiving the 2nd dose of the Covid vaccine, Flu vaccine is up to date. - Infectious Disease History:: Denies. - Social history:: Smoking status: Patient denies any tobacco usage or history of. ROS: 20:59 Constitutional: As per HPI kb Exam: 20:59 Constitutional: This is a well developed, well nourished patient who is awake, alert, kb and in no acute distress. Head/Face: Normocephalic, atraumatic. ENT: Moist Mucous membranes Cardiovascular: Regular rate Respiratory: Respirations even and unlabored. No increased work of breathing. Talking in full sentences Abdomen/GI: Soft, non-tender. No distention Skin: Warm, dry with normal turgor. Normal color. MS/ Extremity: Pulses equal, no cyanosis. Neurovascular intact. Full, normal range of motion. Neuro: Awake and alert, GCS 15, oriented to person, place, time, and situation. Moves all extremities. Normal gait. Vital Signs: 18:47 BP 180 / 92; Pulse 86; Resp 19; Temp 98.2; Pulse Ox 100% ; Weight 72.57 kg; Height 5 ap3 ft. 5 in. ; 20:30 BP 175 / 86; Pulse 85; Resp 18 S; Pulse Ox 100% on R/A; jw7 18:47 Body Mass Index 26.63 (72.57 kg, 165.1 cm) ap3 MDM: 18:43 Patient medically screened. kb 21:00 Differential Diagnosis: Bronchitis Upper Respiratory Infection Pneumonia Other COPD kb exacerbation. Data reviewed: vital signs, nurses notes. Counseling: I had a detailed discussion with the patient and/or guardian regarding the historical points, exam findings, and any diagnostic results supporting the discharge/admit diagnosis, radiology results, the need for outpatient follow up, a family practitioner, to return to the emergency department if symptoms worsen or persist or if there are any questions or concerns that arise at home. 05/28 18:51 Order name: Chest Pa And Lat (2 Views) XRAY; Complete Time: 20:04 kb Administered Medications: 19:13 Drug: Albuterol Inhalation 2.5 mg Inhalation once Route: Inhalation; jw7 20:45 Follow up: Response: No adverse reaction; Marked relief of symptoms jw7 Disposition Summary: 05/29/23 20:47 Discharge Ordered Notes: Location: Home kb Condition: Stable kb Diagnosis - Cough kb Followup: kb - With: Emergency Department - When: As needed - Reason: Worsening of condition Followup: kb - With: Private Physician - When: 2 - 3 days - Reason: Recheck today's complaints, Continuance of care, Re-evaluation by your physician Discharge Instructions: - Discharge Summary Sheet kb - Cough, Adult, [id number] kb Forms: - Medication Reconciliation Form kb - Antibiotic Education kb - Prescription Opioid Use kb - Patient Portal Instructions kb - Leadership Thank You Letter kb Prescriptions: - Albuterol Sulfate 2.5 mg /3 mL (0.083 %) Inhalation Solution for Nebulization - inhale 1 unit NEBULIZATION route every 8 hours As needed; 1 unit; Refills: 0, kb Product Selection Permitted Signatures: Dispatcher [employer] Vania Quiñonez, Leigh Celeste RN RN ap3 Mikayla Trammell RN RN jw7
--- NOTE | 2023-05-29 20:47 | ER ---
Nurse's Notes [facility] Name: Stefanie Capellan Age: 62 yrs Sex: Female : 1960 Arrival Date: 05/29/2023 Time: 18:35 Bed 19 Private MD: Diagnosis: Cough Presentation: 05/28 18:47 Chief complaint: Patient states: she has been having cough and congestion for approx 3 ap3 weeks. no fevers, no nausea or vomiting. Coronavirus screen: At this time, the client does not indicate any symptoms associated with coronavirus-19. Ebola Screen: No symptoms or risks identified at this time. Initial Sepsis Screen: Does the patient meet any 2 criteria? No. Patient's initial sepsis screen is negative. Does the patient have a suspected source of infection? No. Patient's initial sepsis screen is negative. Risk Assessment: Do you want to hurt yourself or someone else? Patient reports no desire to harm self or others. Onset of symptoms is unknown. 18:47 Method Of Arrival: Ambulatory ap3 18:49 Acuity: RAMIN 3 ap3 Triage Assessment: 18:49 General: Appears in no apparent distress. Behavior is calm, cooperative, appropriate ap3 for age. Pain: Denies pain. Neuro: Level of Consciousness is awake, alert, obeys commands, Oriented to person, place, time, situation. Cardiovascular: Patient's skin is warm and dry. Respiratory: Reports cough that is Airway is patent Respiratory effort is even, unlabored, Respiratory pattern is regular, symmetrical. Historical: - Allergies: 18:48 Codeine; ap3 18:48 Latex; ap3 18:48 Morphine; ap3 18:48 PENICILLINS; ap3 18:48 Prozac; ap3 18:48 Sulfa (Sulfonamide Antibiotics); ap3 - PMHx: 18:48 Anxiety; Bipolar disorder; COPD; headache; Hypertensive disorder; Kidney stone; ap3 Schizophrenia; - PSHx: 18:48 Lithotripsy; ap3 - Immunization history:: Client reports receiving the 2nd dose of the Covid vaccine, Flu vaccine is up to date. - Infectious Disease History:: Denies. - Social history:: Smoking status: Patient denies any tobacco usage or history of. Screenin:49 Abuse screen: Denies threats or abuse. Nutritional screening: No deficits noted. ap3 Tuberculosis screening: No symptoms or risk factors identified. 19:[address] [facility] ED Fall Risk Assessment (Adult) History of falling in the last 3 months, jw7 including since admission No falls in past 3 months (0 pts) Confusion or Disorientation No (0 pts) Intoxicated or Sedated No (0 pts) Impaired Gait No (0 pts) Mobility Assist Device Used No (0 pt) Altered Elimination No (0 pt) Score/Fall Risk Level 0 - 2 = Low Risk Oriented to surroundings, Maintained a safe environment, Educated pt \T\ family on fall prevention, incl call for assistance when getting out of bed. Assessment: 19:10 General: Appears in no apparent distress. comfortable, Behavior is calm, cooperative. jw7 19:10 Pain: Denies pain. Neuro: Joy Agitation-Sedation Scale (RASS): 0 - Alert and Calm jw7 Level of Consciousness is awake, alert, obeys commands, Oriented to person, place, time, situation. Cardiovascular: Heart tones S1 S2 present Capillary refill < 3 seconds Clubbing of nail beds is absent JVD is absent Patient's skin is warm and dry. Respiratory: Airway is patent Trachea midline Respiratory effort is even, unlabored, Respiratory pattern is regular, symmetrical, Breath sounds are clear. GI: No deficits noted. No signs and/or symptoms were reported involving the gastrointestinal system. : No deficits noted. No signs and/or symptoms were reported regarding the genitourinary system. EENT: No deficits noted. No signs and/or symptoms were reported regarding the EENT system. Derm: Skin is intact, is healthy with good turgor, Skin is dry, Skin is normal, Skin temperature is warm. Musculoskeletal: Circulation, motion, and sensation intact. Range of motion: intact in all extremities. 20:10 Reassessment: Patient appears in no apparent distress at this time. Patient and/or jw7 family updated on plan of care and expected duration. Pain level reassessed. Patient is alert, oriented x 3, equal unlabored respirations, skin warm/dry/pink. Patient states feeling better. Patient states symptoms have improved. 21:00 Reassessment: Patient appears in no apparent distress at this time. No changes from jw7 previously documented assessment. Patient and/or family updated on plan of care and expected duration. Pain level reassessed. Patient is alert, oriented x 3, equal unlabored respirations, skin warm/dry/pink. Vital Signs: 18:47 BP 180 / 92; Pulse 86; Resp 19; Temp 98.2; Pulse Ox 100% ; Weight 72.57 kg; Height 5 ap3 ft. 5 in. ; 20:30 BP 175 / 86; Pulse 85; Resp 18 S; Pulse Ox 100% on R/A; jw7 18:47 Body Mass Index 26.63 (72.57 kg, 165.1 cm) ap3 ED Course: 18:38 Patient arrived in ED. rg4 18:42 [facility] Sparks [facility]C [facility] kb 18:42 Willy Rodríguez MD is Attending Physician. kb 18:48 Triage completed. ap3 18:49 Arm band placed on left wrist. ap3 19:05 Mikayla Trammell RN is Primary Nurse. jw7 19:10 Patient has correct armband on for positive identification. Bed in low position. Call jw7 light in reach. 19:10 Provided Education on: Use of Call Light. jw7 19:38 Chest Pa And Lat (2 Views) XRAY In Process Unspecified. EDMS 21:00 No provider procedures requiring assistance completed. jw7 21:00 Patient did not have IV access during this emergency room visit. jw7 Administered Medications: 19:13 Drug: Albuterol Inhalation 2.5 mg Inhalation once Route: Inhalation; jw7 20:45 Follow up: Response: No adverse reaction; Marked relief of symptoms jw7 Medication: 21:07 VIS not applicable for this client. jw7 Outcome: 20:47 Discharge ordered by . kb 21:00 Discharged to home ambulatory, jw7 21:00 Condition: stable 21:00 Discharge instructions given to patient, Instructed on discharge instructions, follow up and referral plans. medication usage, Demonstrated understanding of instructions, follow-up care, medications, Prescriptions given X 1, 21:00 Patient left the ED. jw7 Signatures: Dispatcher [employer] EDAL Vania Sparks FNP-C FNP-Sondra Porras rg4 Leigh Estrada RN RN ap3 Mikayla Trammell RN RN jw7 Corrections: (The following items were deleted from the chart) 18:49 18:47 Acuity: RAMIN 4 ap3 ap3 21:08 21:08 Patient left the ED. jw7 jw7
[2023-05-29 21:32] VITALS: BP 175/86; TEMP 98.2; O2SAT 100
== END 2023-05-29 21:08 | disposition home or self-care (01) ==
LOC: ER 18:35
DX: R05.9 Cough, unspecified (principal); I10 Essential (primary) hypertension; F20.9 Schizophrenia, unspecified; Z88.0 Allergy status to penicillin; Z88.2 Allergy status to sulfonamides; Z88.5 Allergy status to narcotic agent; Z91.040 Latex allergy status
CPT/HCPCS: 71046; 99284; J7613

== ENCOUNTER 2023-12-10 16:12 | Emergency (ER) | payer OTHER ==
--- OUTSIDE RECORDS SUMMARY | 2023-12-10 16:15 | XMS REPORT | Continuity of Care Document ---
Author Name Unknown Address [address] [facility] [address] [place] [address] [facility] thconnect Address [address] [facility] [address] [place] [address] Care Team Providers Care Crystal Attacher Name Role Phone PCP, PATIENT DOES NOT HAVE A Primary Care Physic morgan Unavailable BEVERLY HERNANDEZ Attending Clinician Unav ailable BEVERLY HERNANDEZ Attending Clinician Unav Beverly Guzman MD Attending Clinician + PHILIPPE_GCBZW_Sahra_S Attending Clinician Unavaila ble Only, Adc Test Attending Clinician Unavailable Mj Chou MD Attending Clinician [phone] MJ CHOU Attending Clinician Unavailable NETTA NAGY Attending Clinician Unavailabl e BEVERLY HERNANDEZ Admitting Clinician Unav ailable PHILIPPE_GCBZW_Kaavril_S Admitting Clinician Unavaila ble Payers Payer Name Policy Type Policy Number Effective Date Expirati on Date Source [facility] DUAL COMP HMO D SNP [id number] 2023 00:00:00 [place] [id number] 2023 00:00:00 [facility] MEDICAID [id number] 2017 00:00:00 MEDICARE PART A \T\ B [id number] 1998 00:00:00 Allergies, Adverse Reactions, Alerts Allergy Name Allergy Type Status Severity Reaction(s) Onset Date Inactive Date Treating Clinician Comments Source PENICILL IN DRUG INGREDI Active Hallucinates 09-24 00:00: 00 [facility] Penicill in Propensi ty to adverse reaction s Active Hallucinatio ns 09-24 00:00: 00 [facility] LATEX DRUG INGREDI Active Hives 05-27 00:00: 00 [facility] MORPHINE DRUG INGREDI Active Hallucinates 05-27 00:00: 00 [facility] FLUOXETI NE HCL DRUG INGREDI Active Swelling 05-27 00:00: 00 [facility] SULFA (SULFONA MIDE ANTIBIOT ICS) Drug Class Active N/V 05-27 00:00: 00 [facility] Bee Sting / Venom Propensi ty to adverse reaction s Active Anaphylaxis 05-27 00:00: 00 [facility] Codeine Propensi ty to adverse reaction s Active Hallucinatio ns 05-27 00:00: 00 [facility] Latex Propensi ty to adverse reaction s Active Hives 05-27 00:00: 00 [facility] Morphine Propensi ty to adverse reaction s Active Hallucinatio ns 05-27 00:00: 00 [facility] Fluoxeti ne Hcl Propensi ty to adverse reaction s Active Swelling 05-27 00:00: 00 [facility] Sulfa (Sulfona mide Antibiot ics) Propensi ty to adverse reaction s Active Nausea and/or Vomiting 05-27 00:00: 00 [facility] BEE STING / VENOM DRUG INGREDI Active Anaphylaxis 05-27 00:00: 00 [facility] CODEINE DRUG INGREDI Active Hallucinates 05-27 00:00: 00 [facility] Social History Social Habit Start Date Stop Date Quantity Comments Source [facility] 1960 [facility]00 1960 00:00:00 [facility] Smoking Status Start Date Stop Date Source Tobacco smoking consumption unknown [facility] Medications Ordered Medication Name Filled Medication Name Start Date Stop Date Current Medication? Ordering Clinician Indication Dosage Frequency Signature (SIG) Comments Components Source ketorolac (TORADOL) injection 15 mg 09-25 02:15: 00 09-25 01:33 :00 No 15mg 15 mg, Slow IV Push, ONCE, 1 dose, On Sun09/25/23 at 2115, Routine [facility] cefTRIAXone (ROCEPHIN) 1,000 mg in NaCl 0.9% (NS) 100 mL MINI-BAG 09-24 23:45: 00 09-25 00:15 :00 No 1000mg 1,000 mg, IV Piggyback, ONCE, 1 dose, On Sun09/25/23 at 1845, Administer over 30 Minutes, 100 mL, Reason for Anti-Infec tive: Documented Infection, Documented Infection Site: Urine, Duration of Therapy: Once (ED) [facility] iopamidol (ISOVUE 370-500 mL) injection 86 mL 09-24 23:00: 00 09-24 23:00 :00 No [id number] 86mL 86 mL, Intravenou s, ONCE, 1 dose, On Sun09/25/23 at 1800, Routine [facility] ketorolac 10 mg tablet 09-24 00:00: 00 Yes [id number] 10mg Take 1 tablet by mouth every 6 (six) hours as needed for Pain (scale 4-6). [facility] tamsulosin 0.4 mg 24 hr capsule 09-24 00:00: 00 Yes [id number] .4mg Take 1 capsule by mouth at bedtime. [facility] ondansetron 4 mg disintegrat ing tablet 09-24 00:00: 00 Yes [id number] 4mg Take 1 tablet by mouth every 8 (eight) hours as needed for Nausea and Vomiting (N/V). [facility] cefdinir 300 mg capsule 09-24 00:00: 00 10-05 04:59 :00 Yes [id number] 300mg Take 1 capsule by mouth every 12 (twelve) hours for 10 days. [facility] sod chlor-bicar b-squeez bottle (NEILMED SINUS RINSE COMPLETE) [facility] 05-27 00:00: 00 Yes 1{bottl e} Use 1 Bottle in each nostril 2 (two) times daily. Use in hot shower 1 hour before bedtime [facility] fluticasone (FLONASE) 50 mcg/actuati on nasal spray 05-27 00:00: 00 Yes 2{spray } Use 2 Sprays in each nostril daily. [facility] loratadine 10 mg tablet 05-27 00:00: 00 Yes 10mg Take 1 tablet by mouth daily. [facility] benzonatate 100 mg capsule 05-27 00:00: 00 Yes 100mg Take 1 capsule by mouth 3 (three) times daily as needed for Cough. DO NOT CHEW! [facility] sod chlor-bicar b-squeez bottle (NEILMED SINUS RINSE COMPLETE) [facility] 05-27 00:00: 00 Yes 1{bottl e} Use 1 Bottle in each nostril 2 (two) times daily. Use in hot shower 1 hour before bedtime [facility] Vital Signs Vital Name Observation Time Observation Value Comments S ource Heart rate 2023-09-26 02:39:56 81 /min [facility] Body temperature 2023-09-26 02:39:56 37.22 Ne [facility] Respiratory rate 2023-09-26 02:39:56 19 /min [facility] Oxygen saturation in Arterial blood by Pulse oximetry 2023-09-26 02:39:56 96 /min [facility] Systolic blood pressure 2023-09-26 02:00:00 141 mm[Hg] [facility] Diastolic blood pressure 2023-09-26 02:00:00 80 mm[Hg] [facility] Body height 2023-09-25 20:36:00 167.6 cm [facility] Body weight 2023-09-25 20:36:00 74.844 kg [facility] BMI 2023-09-25 20:36:00 26.63 kg/m2 [facility] Procedures Procedure Date / Time Performed Performing Clinicia n Source CT ABDOMEN PELVIS W CONTRAST 2023-09-25 22:01:27 Beverly Hernandez [facility] LIPASE 2023-09-25 20:58:00 Beverly Hernandez [facility] TROPONIN I 2023-09-25 20:58:00 Beverly Hernandez [facility] COMP. METABOLIC PANEL (15015) 2023-09-25 20:58:00 Beverly Hernandez [facility] CBC WITH DIFF 2023-09-25 20:58:00 Beverly Hernandez [facility] URINALYSIS 2023-09-25 20:58:00 Beverly Hernandez [facility] N-TERMINAL PRO-BNP 2023-09-25 20:58:00 Beverly Morales [facility] COVID-19 (ID NOW RAPID TESTING) 2021-08-02 18:22:00 Mj Chou [facility] Encounters Start Date/Time End Date/Time Encounter Type Admission Type Attending [facility] Care Facility Care Department Encounter ID Source 2023-10-04 14:00:00 2023-10-04 14:00:00 Outpatient R [facility] [id number] [facility] 2023-09-25 15:38:00 2023-09-25 21:53:00 Emergency X BEVERLY HERNANDEZ ERIN OHANGELIKA ERT [id number] [facility] 2023-09-25 15:38:00 2023-09-25 21:53:00 Emergency Beverly Hernandez OHANGELIKA AT [facility] [id number] [facility] 2023-01-30 13:20:02 2023-01-30 13:20:02 Outpatient SFA SFA [id number] 2022-12-05 00:00:00 2022-12-05 00:00:00 Outpatient GC_GCBZW_Ka diyala_S [facility] [id number] [facility] 2021-08-02 13:00:00 2021-08-02 13:15:00 Laboratory Only Only, Adc Test Mj Chou [facility] [id number] [facility] 2021-08-02 13:00:00 2021-08-02 13:00:00 Outpatient R [facility] [id number] [facility] 2021-08-02 13:00:00 2021-08-02 13:00:00 Outpatient R MJ CHOU [facility] [id number] [facility] 2020-10-23 11:30:00 2020-10-23 11:30:00 Outpatient R NETTA NAGY [facility] [id number] [facility] Results Test Description Test Time Test Comments Results Result Comments Source CT ABDOMEN PELVIS W CONTRAST 23:18:20 CT ABDOMEN PELVIS W CONTRAST Indication: Flank pain, kidney stone suspected ? Comparison: None. RL: Ordering Clinician: BEVERLY HERNANDEZ Technique: Axial CT images of the abdomen and pelvis were performed with ivcontrast. Sagittal and coronal reformats were created. Dose reductiontechniques were used (ALARA). Technical Quality: Adequate Discussion:Lines/Device s: None. Chest/Vessels: No acute abnormalities within the lung bases. ?The aorta isacutely normal. 4 cm fat-containing left mid diaphragm hernia. 2 cm slidinghiatal hernia. Organs: No acute liver pathology. ?No gallbladder abnormalities. ?Theportal vein is patent. ?Ill-defined area of low density in the pancreatichead extending 1.5 x 1.5 cm difficult to determine whether this is fattychanges versus lesion. Pancreatic protocol MRI with contrast is considered. No splenic masses. ?The adrenal glands are normal. : Nonobstructing left renal stones up to 5 mm. No hydronephrosis. ?Thebladder is normal. ?Focal cystic change within the uterine fundus over anarea measuring 2.8 x 2.0 x 3.6 cm is nonspecific. Pelvic sonography couldbe considered. GI: Diverticulosis without acute diverticulitis. ?No small bowelobstruction. ?Normal appendix. Misc.: Subcentimeter lymph nodes are below size criteria. ?No free air orfree fluid. Skeleton: No acute osseous pathology. [facility] [id number] 21:53:14* Test Item Value Reference Range Interpretation Comme nts TROPONIN I (test code = 5842956374) 0.003 ng/mL <=0.034 VY (test code = VY) Reference (Normal) Range (defined by the 99th percentile reference limit): <= 0.034 ng/mL Note: Cardiac troponin begins to rise 3-4 hours after the onset of ischemia. Repeat in 4-6 hours if the sample was drawn within 3-4 hours of the onset of the symptom and found normal. Diagnosis of myocardial injury is made with acute changes in cTn concentrations with at least one serial sample above the 99th percentile upper reference limit (URL), taken together with the patient's clinical presentation. Biotin has been reported to cause a negative bias, interpret results relative to patient's use of biotin. Lab Interpretation (test code = 53166-1) Normal [facility]Terminal [id number] 21:50:34* Test Item Value Reference Range Interpretation Comme nts NT-proBNP (test code = 65015-8) 68 pg/mL <=125 Lab Interpretation (test cod e = 94720-3) Normal [facility]2024-08-20 21:41:32* Test Item Value Reference Range Interpretation Comme nts LIPASE (test code = 3500042536) 73 U/L 0-220 Lab Interpretation (test cod e = 77064-6) Normal [facility] CenterCb with [id number] 21:38:52* Test Item Value Reference Range Interpretation Comme nts WBC (test code = 6690-2) 6.79 4.30-11.10 RBC (test code = 789-8) 4.52 3.93-5.25 HGB (test code = 718-7) 14.1 g/dL 11.6-15.0 HCT (test code = 4544-3) 41.5 % 35.7-45.2 MCV (test code = 787-2) 91.8 fL 80.6-95.5 MCH (test code = 785-6) 31.2 pg 25.9-32.8 MCHC (test code = 786-4) 34.0 g/dL 31.6-35.1 RDW-SD (test code = 20515-6) 42.4 fL 39.0-49.9 RDW-CV (test code = 788-0) 12.7 % 12.0-15.5 PLT (test code = 777-3) 337 166-358 MPV (test code = 27239-2) 10.0 fL 9.5-12.9 NRBC/100 WBC (test code = 5716809717) 0.0 0.0-10.0 NRBC x10^3 (test code = 0791705321) See_Comment [Automated me ssage] The system which generated this result transmitted reference range: 10*3/?L. The reference range was not used to interpret this result as normal/abnormal. GRAN MAT (NEUT) % (test code = 770-8) 52.3 % IMM GRAN % (test code = 6995994834) 0.10 % LYMPH % (test code = 736-9) 36.4 % MONO % (test code = 5905-5) 8.4 % EOS % (test code = 713-8) 2.4 % BASO % (test code = 706-2) 0.4 % GRAN MAT x10^3(ANC) (test code = 0109268201) 3.55 10*3/uL 1.88-7.09 IMM GRAN x10^3 (test code = 4162834945) 0.00-0.06 LYMPH x10^3 (test code = 731-0) 2.47 10*3/uL 1.32-3.29 MONO x10^3 (test code = 742-7) 0.57 10*3/uL 0.33-0.92 EOS x10^3 (test code = 711-2) 0.16 10*3/uL 0.03-0.39 BASO x10^3 (test code = 704-7) 0.03 10*3/uL 0.01-0.07 [facility] Notes Date/Time Note Provider Source 2023-09-25 21:44:24 Pt given printed and verbal discharge instructions regarding UTI, Hematuria, Kidney stone, Prescriptions provided Discussed ibuprofen and to take with food to avoid GI distress. Discussed antibiotic therapy and to take until all completed unless adverse reaction occurs - if occurs, discontinue medication and follow up with pcp/seek medical attention Pt verbalized understanding of instructions, pt awake alert oriented, resp reg unlabored, skin w/d, color appropriate for race, moves all ext well,pt encouraged to follow up with pcp Advised to seek medical attention for new/prolonged/worsening of symptoms, No adverse reaction to meds given in ER noted upon discharge PIV d'cd, dressing to site, catheter in tact. Awake, alert oriented, resp reg unlabored, skin w/d, pt leaving amb with steady gait, in no apparent distress, Joseph Peña RN [facility] 2023-09-25 18:52:40 Nurse Report Report given to Joseph RUSSELL. Chief complaint, assessment findings, infusion verify and orders reviewed. Mare Walters RN Mare Walters RN [facility] 2023-09-25 15:34:51 Patient reports since Eveline having right sided abdominal pain after eating and dizziness intermittently, worse over past two days. Also wants checked for kidney problems or UTI. [facility]
[2023-12-10 17:33] LABS: SARS-CoV-2 Antigen CONTROL BLUE LINE VIS/BG OK; SARS-CoV-2 Antigen Rapid Res Negative (Negative)
[2023-12-10 18:05] LABS: Specific Gravity 1.027 (1.005-1.030); Sqamous Epithelial <5 /HPF (None Seen); Urine Bacteria <20 /HPF (<20); Urine Bilirubin NEGATIVE (Negative); Urine Blood 2+ (Negative); Urine Clarity Turbid (Clear); Urine Color Yellow (Yellow); Urine Crystals Unidentified Few /HPF (None Seen); Urine Culture Reflex Order NOT NEEDED; Urine Glucose NEGATIVE (Negative); Urine Ketones NEGATIVE (Negative); Urine Microscopic Reflex YN ORDER UMIC; Urine Mucus Slight /HPF (None Seen); Urine Nitrite NEGATIVE (Negative); Urine Protein TRACE (Negative); Urine RBC 21-50 /HPF (None Seen); Urine Urobilinogen Normal (Normal); Urine WBC <5 /HPF (<5); Urine pH 5.5 (5.0-7.0)
--- NOTE | 2023-12-10 18:40 | RAD REPORT ---
Procedure: Chest Single View HISTORY: Chest pain COMPARISON: May 2023 FINDINGS: The lungs appear clear of acute infiltrate. No significant pleural effusion noted. The heart is normal size. IMPRESSION: No acute abnormality is displayed.
[2023-12-10 19:28] LABS: Absolute Basophils 0.2 K/uL (0-0.5); Absolute Eosinophils 0.3 K/uL (0-0.5); Absolute Lymphocytes (CBC) 3.9 K/uL (0.7-4.9); Absolute Monocytes 0.8 K/uL (0.1-1.3); Absolute Neutrophil 6.6 K/uL (1.8-8.0); Basophils % 1.3 % (0-1.3); Eosinophils % 2.2 % (0-4.4); Hematocrit 42.8 % (36.0-45.0); Hemoglobin 14.4 g/dL (12.0-15.0); Lymphocytes % 33.4 % (15.3-44.8); MCH 30.4 pg (27.0-35.0); MCHC 33.6 g/dL (32.0-36.0); MCV 90.4 fL (80-100); MPV 7.6 fL (7.6-11.3); Monocytes % 7.2 % (3.3-12.3); Neutrophils % 55.9 % (41.7-73.7); Nucleated Red Blood Cells % 0.1 % (0-0); Platelets 362 thou/uL (152-406); RBC Red Blood Cell Count 4.74 M/uL (3.86-4.86); Red Cell Distribution Width 13.7 % (12.1-15.2)
[2023-12-10 19:30] LABS: PT Prothrombin Time 11.4 SECONDS (9.4-12.5); Protime INR 1.02
[2023-12-10] MEDS ORDERED: NA CHLORIDE 0.9% 1,000 ML ONE (19:30)
[2023-12-10 19:51] LABS: ALT/SGPT 28 U/L (13-56); Alkaline Phosphatase 94 U/L (45-117); Anion Gap 8.6 mEq/L (5.0-15.0); BUN Blood Urea Nitrogen 11 mg/dL (7-18); Bicarbonate 26 mEq/L (21-32); Bilirubin Total 0.3 mg/dL (0.2-1.0); Globulin 4.1 g/dL (2.3-3.5); Glomerular Filtration Rate 100 ml/min (=/>90); Glucose Level 86 mg/dL (74-106); NT PRO-BNP 88 pg/mL (<125); Protein, Total 8.1 g/dL (6.4-8.2); Sodium Level 143 mEq/L (136-145); Troponin High Sensitivity 3.3 pg/mL (<58.9)
[2023-12-10 19:55] LABS: AST/SGOT 26 U/L (15-37); Bilirubin Direct < 0.2 mg/dL (0-0.2); Bilirubin Indirect, Calculated 0.1 mg/dL (0.2-0.8); Magnesium 2.2 mg/dL (1.6-2.4); Potassium 3.6 mEq/L (3.5-5.1)
--- NOTE | 2023-12-10 20:04 | EDPHYS ---
Physician Documentation [facility] Name: Stefanie Capellan Age: 63 yrs Sex: Female : 1960 Arrival Date: 12/10/2023 Time: 16:12 Bed 10 Private MD: ZAFAR Physician Stephan Harvey HPI: 12/09 18:47 This 63 yrs old Female presents to ER via Ambulatory with complaints of Dizziness - Not sb4 feeling well. 18:47 Flulike symptoms with associated dizziness x 3 days. States her son has similar sb4 symptoms. Has been taking allergy medicine without significant relief in symptoms. Denies any fever, shortness of breath, chest pain. Additionally endorses a history of vertigo. Historical: - Allergies: 16:36 Codeine; aa5 16:36 Latex; aa5 16:36 Morphine; aa5 16:36 Prozac; aa5 16:36 PENICILLINS; aa5 16:36 Sulfa (Sulfonamide Antibiotics); aa5 - PMHx: 16:36 Anxiety; Bipolar disorder; COPD; headache; Hypertensive disorder; Kidney stone; aa5 Schizophrenia; Asthma; - PSHx: 16:36 Lithotripsy; aa5 - Immunization history:: Flu vaccine is not up to date. - Infectious Disease History:: Denies. - Social history:: Smoking status: Patient denies any tobacco usage or history of. ROS: 18:47 Cardiovascular: Negative for chest pain, palpitations, and edema, sb4 18:47 Constitutional: Positive for malaise, 18:47 ENT: Positive for hoarseness, nasal discharge, sinus congestion, sore throat, 18:47 Neuro: Positive for dizziness, 18:47 All other systems are negative, Exam: 18:47 Constitutional: This is a well developed, well nourished patient who is awake, alert, sb4 and in no acute distress. Head/Face: Normocephalic, atraumatic. Eyes: Extra-ocular motions intact. Periorbital areas with no swelling, redness, or edema. Cardiovascular: Regular rate and rhythm with a normal S1 and S2. Respiratory: No increased work of breathing, no retractions or nasal flaring. Abdomen/GI: Soft, non-tender, no distension. Skin: Warm, dry with normal turgor. Normal color with no rashes, no lesions, and no evidence of cellulitis. 18:47 Head/face: Sinus tenderness, that is mild, Vital Signs: 16:34 BP 149 / 84; Pulse 94; Resp 18 S; Temp 98.6(O); Pulse Ox 99% on R/A; Weight 74.84 kg aa5 (R); Height 5 ft. 6 in. (R); 16:34 Body Mass Index 26.63 (74.84 kg, 167.64 cm) aa5 MDM: 16:50 Medical Screening Exam initiated sb4 18:47 Data reviewed: vital signs, nurses notes, lab test result(s), EKG, radiologic studies, sb4 and as a result, I will discharge patient. Counseling: I had a detailed discussion with the patient and/or guardian regarding the historical points, exam findings, and any diagnostic results supporting the discharge/admit diagnosis, lab results, radiology results, to return to the emergency department if symptoms worsen or persist or if there are any questions or concerns that arise at home. 12/09 16:38 Order name: Flu; Complete Time: 17:50 aa5 12/09 16:38 Order name: SARS RAPID; Complete Time: 17:33 aa5 12/09 16:38 Order name: Urinalysis w/ reflexes; Complete Time: 18:06 aa5 12/09 17:25 Order name: Basic Metabolic Panel; Complete Time: 19:55 sb4 12/09 17:25 Order name: CBC with Diff; Complete Time: 19:33 sb4 12/09 17:25 Order name: LFT's; Complete Time: 19:55 sb4 12/09 17:25 Order name: Magnesium; Complete Time: 19:55 sb4 12/09 17:25 Order name: NT PRO-BNP; Complete Time: 19:55 sb4 12/09 17:25 Order name: PT-INR; Complete Time: 19:33 sb4 12/09 17:25 Order name: Troponin HS; Complete Time: 19:55 sb4 12/09 17:25 Order name: XRAY Chest (1 view); Complete Time: 18:47 sb4 12/09 17:25 Order name: EKG; Complete Time: 17:25 sb4 12/09 17:25 Order name: Cardiac monitoring; Complete Time: 19:21 sb4 12/09 17:25 Order name: EKG - Nurse/Tech; Complete Time: 19:59 sb4 12/09 17:25 Order name: IV Saline Lock; Complete Time: 19:21 sb4 12/09 17:25 Order name: Labs collected and sent; Complete Time: 19:21 sb4 12/09 17:25 Order name: O2 Per Protocol; Complete Time: 19:21 sb4 12/09 17:25 Order name: O2 Sat Monitoring; Complete Time: 19:21 sb4 EC:59 Rate is 80 beats/min. Rhythm is regular, Normal Sinus Rhythm. CO interval is normal at sb4 164 msec. QRS interval is normal at 108 msec. QT interval is normal at 396 msec. No Q waves. T waves are Normal. No ST changes noted. Clinical impression: No evidence of ischemia. Interpreted by me. Reviewed by me. Administered Medications: 19:59 Drug: NS 0.9% IV 1000 ml IV at 1 bolus Per protocol; to be given as a bolus over 60 iw minutes Route: IV; Rate: 1 bolus; Site: right hand; Disposition Summary: 12/10/23 20:04 Discharge Ordered Notes: Location: Home sb4 Problem: new sb4 Symptoms: have improved sb4 Condition: Stable sb4 Diagnosis - Acute sinusitis, unspecified sb4 Followup: sb4 - With: Private Physician - When: 1 week - Reason: Recheck today's complaints, Re-evaluation by your physician Discharge Instructions: - Discharge Summary Sheet sb4 - Sinusitis, Adult, [id number] sb4 Forms: - Antibiotic Education sb4 - Patient Portal Instructions sb4 - Leadership Thank You Letter sb4 - Work release form vk Prescriptions: - Doxycycline Hyclate 100 mg Oral Tablet - take 1 tablet ORAL route every 12 hours; 20 tablet; Refills: 0, Product sb4 Selection Permitted - Prednisone 20 mg Oral Tablet - take 2 tablets ORAL route once daily for 5 days; 10 tablet; Refills: 0, Product sb4 Selection Permitted Signatures: Dispatcher [employer] Diane Morales RN RN iw Calderon, Audri, RN RN [email or web address] Joanna Walker PA-C PA-C sb4 Corrections: (The following items were deleted from the chart) 16:37 16:36 Immunization history: Adult Immunizations up to date, freda barba 16:38 16:38 Influenza Screen (A \T\ B)+BA.LAB.BRZ ordered. EDMS EDMS 16:38 16:38 SARS-COV-2 Antigen Rapid+I.LAB.BRZ ordered. EDMS EDMS 1638 16:38 Urinalysis+U.LAB.BRZ ordered. EDMS EDMS
--- NOTE | 2023-12-10 20:04 | ER ---
Nurse's Notes [facility] Name: Stefanie Capellan Age: 63 yrs Sex: Female : 1960 Arrival Date: 12/10/2023 Time: 16:12 Bed 10 Private MD: Diagnosis: Acute sinusitis, unspecified Presentation: 12/09 16:34 Chief complaint: Patient states: fatigue since Sunday and "feeling faint" at work aa5 today. Pt states "I haven't been able to sleep good for about 2 weeks now". Coronavirus screen: fatigue. Ebola Screen: Patient denies travel to an Ebola-affected area in the 21 days before illness onset. Initial Sepsis Screen: Does the patient meet any 2 criteria? HR > 90 bpm. Does the patient have a suspected source of infection? No. Patient's initial sepsis screen is negative. Risk Assessment: Do you want to hurt yourself or someone else? Patient reports no desire to harm self or others. Onset of symptoms was December 07, 2023. 16:34 Method Of Arrival: Ambulatory aa5 16:34 Acuity: RAMIN 3 aa5 Historical: - Allergies: 16:36 Codeine; aa5 16:36 Latex; aa5 16:36 Morphine; aa5 16:36 Prozac; aa5 16:36 PENICILLINS; aa5 16:36 Sulfa (Sulfonamide Antibiotics); aa5 - PMHx: 16:36 Anxiety; Bipolar disorder; COPD; headache; Hypertensive disorder; Kidney stone; aa5 Schizophrenia; Asthma; - PSHx: 16:36 Lithotripsy; aa5 - Immunization history:: Flu vaccine is not up to date. - Infectious Disease History:: Denies. - Social history:: Smoking status: Patient denies any tobacco usage or history of. Vital Signs: 16:34 BP 149 / 84; Pulse 94; Resp 18 S; Temp 98.6(O); Pulse Ox 99% on R/A; Weight 74.84 kg aa5 (R); Height 5 ft. 6 in. (R); 16:34 Body Mass Index 26.63 (74.84 kg, 167.64 cm) aa5 ED Course: 16:17 Patient arrived in ED. ra3 16:34 Arm band placed on. aa5 16:36 Triage completed. aa5 16:50 Joanna Walker PA-C is PHCP. sb4 16:50 Stephan Harvey MD is Attending Physician. sb4 18:26 XRAY Chest (1 view) In Process Unspecified. EDMS 18:52 Diane Ospina, RN is Primary Nurse. iw 19:21 Inserted saline lock: 24 gauge in right hand, using aseptic technique. Blood collected. iw Flushed with 10 mL NS. Administered Medications: 19:59 Drug: NS 0.9% IV 1000 ml IV at 1 bolus Per protocol; to be given as a bolus over 60 iw minutes Route: IV; Rate: 1 bolus; Site: right hand; Outcome: 20:04 Discharge ordered by . sb4 20:23 Patient left the ED. iw Signatures: Dispatcher [employer] EDPR Diane Ospina, RN RN iw Kimberly Hodges RN RN aa5 Joanna Walker PA-C PA-C sb4 Mariola Cisse ra3 Corrections: (The following items were deleted from the chart) 16:37 16:36 Immunization history: Adult Immunizations up to date, freda barba
[2023-12-10 21:58] VITALS: BP 149/84; TEMP 98.6; O2SAT 99
--- NOTE | 2023-12-11 12:17 | EKG ---
Test Date: 2023-12-10 Test Time: 19:55:01 Corrugated Fastener Driver: TRISTIAN MEASUREMENT RESULTS: Intervals: Rate: 80 WV: 164 QRSD: 108 QT: 396 QTc: 456 Jackson: P: 36 WV: 164 QRS: 9 T: 46 INTERPRETIVE STATEMENTS: Normal sinus rhythm Incomplete right bundle branch block Borderline ECG Compared to ECG 10/19/2020 22:16:16 Incomplete right bundle-branch block now present Electronically Signed On 12-11-23 12:16:06 SPEEDER TENDER by Adan Hurtado
== END 2023-12-10 20:23 | disposition home or self-care (01) ==
LOC: ER 16:12
DX: J01.90 Acute sinusitis, unspecified (principal); I10 Essential (primary) hypertension; J44.9 Chronic obstructive pulmonary disease, unspecified; Z11.52 Encounter for screening for COVID-19
CPT/HCPCS: 93005; 85025; 81001; 80048; 36415; 83735; 85610; 80076; 84484; 83880; 87804 ×2; 71045; 87811; J7030; 99284

== ENCOUNTER 2024-01-07 15:49 | Emergency (ER) | payer OTHER ==
--- OUTSIDE RECORDS SUMMARY | 2024-01-07 15:52 | XMS REPORT | Continuity of Care Document ---
Author Name Unknown Address [address] [facility] [place]. [address] [place] [address] [facility] thconnect Address [address] [facility] [place]. [address] [place] [address] Care Team Providers Care Water Vessel Captain Name Role Phone PCP, PATIENT DOES NOT HAVE A Primary Care Physic morgan Unavailable BEVERLY HERNANDEZ Attending Clinician Unav ailable BEVERLY HERNANDEZ Attending Clinician Unav ailBeverly Barton MD Attending Clinician + PHILIPPE_GCBZW_Sahra_S Attending Clinician Unavaila ble Only, Adc Test Attending Clinician Unavailable Mj Chou MD Attending Clinician [phone] MJ CHOU Attending Clinician Unavailable NETTA NAGY Attending Clinician Unavailabl e BEVERLY HERNANDEZ Admitting Clinician Unav ailable PHILIPPE_GCBZW_Bhavania_S Admitting Clinician Unavaila ble Payers Payer Name Policy Type Policy Number Effective Date Expirati on Date Source [facility] D[facility] COMP HMO D SNP [id number] 2023 00:00:00 [place] [id number] 2023 00:00:00 [facility] MEDICAID [id number] 2017 00:00:00 MEDICARE PART A \T\ B [id number] 1998 00:00:00 Allergies, Adverse Reactions, Alerts Allergy Name Allergy Type Status Severity Reaction(s) Onset Date Inactive Date Treating Clinician Comments Source PENICILL IN DRUG INGREDI Active Hallucinates 09-24 00:00: 00 [facility] Penicill in Propensi ty to adverse reaction s Active Hallucinatio ns 09-24 00:00: 00 [facility] LATEX DRUG INGREDI Active Hives 05-27 00:00: 00 [facility] MORPHINE DRUG INGREDI Active Hallucinates 05-27 00:00: 00 [facility] FLUOXETI NE HCL DRUG INGREDI Active Swelling 05-27 00:00: 00 [facility] SULFA (SULFONA MIDE ANTIBIOT ICS) Drug Class Active N/V 05-27 00:00: 00 [facility] Bee Sting / Venom Propensi ty to adverse reaction s Active Anaphylaxis 05-27 00:00: 00 [facility] Codeine Propensi ty to adverse reaction s Active Hallucinatio ns 05-27 00:00: 00 [facility] Latex Propensi ty to adverse reaction s Active Hives 05-27 00:00: 00 [facility] Morphine Propensi ty to adverse reaction s Active Hallucinatio ns 05-27 00:00: 00 [facility] Fluoxeti ne Hcl Propensi ty to adverse reaction s Active Swelling 05-27 00:00: 00 [facility] Sulfa (Sulfona mide Antibiot ics) Propensi ty to adverse reaction s Active Nausea and/or Vomiting 05-27 00:00: 00 [facility] BEE STING / VENOM DRUG INGREDI Active Anaphylaxis 05-27 00:00: 00 [facility] CODEINE DRUG INGREDI Active Hallucinates 05-27 00:00: 00 [facility] Social History Social Habit Start Date Stop Date Quantity Comments [facility] 1960 [facility] 1960 00:00:00 [facility] Smoking Status Start Date Stop Date Source Tobacco smoking consumption unknown [facility] Medications Ordered Medication Name Filled Medication Name Start Date Stop Date Current Medication? Ordering Clinician Indication Dosage Frequency Signature (SIG) Comments Components Source ketorolac (TORADOL) injection 15 mg 09-25 02:15: 00 09-25 01:33 :00 No 15mg 15 mg, Slow IV Push, ONCE, 1 dose, On Sun09/25/23 at 2115, Routine [facility] cefTRIAXone (ROCEPHIN) 1,000 mg in NaCl 0.9% (NS) 100 mL MINI-BAG 09-24 23:45: 00 09-25 00:15 :00 No 1000mg 1,000 mg, IV Piggyback, ONCE, 1 dose, On Sun09/25/23 at 1845, Administer over 30 Minutes, 100 mL, Reason for Anti-Infec tive: Documented Infection, Documented Infection Site: Urine, Duration of Therapy: Once (ED) [facility] iopamidol (ISOVUE 370-500 mL) injection 86 mL 09-24 23:00: 00 09-24 23:00 :00 No [id number] 86mL 86 mL, Intravenou s, ONCE, 1 dose, On Sun09/25/23 at 1800, Routine [facility] ketorolac 10 mg tablet 09-24 00:00: 00 Yes [id number] 10mg Take 1 tablet by mouth every 6 (six) hours as needed for Pain (scale 4-6). [facility] tamsulosin 0.4 mg 24 hr capsule 09-24 00:00: 00 Yes [id number] .4mg Take 1 capsule by mouth at bedtime. [facility] ondansetron 4 mg disintegrat ing tablet 09-24 00:00: 00 Yes [id number] 4mg Take 1 tablet by mouth every 8 (eight) hours as needed for Nausea and Vomiting (N/V). [facility] cefdinir 300 mg capsule 09-24 00:00: 00 10-05 04:59 :00 No [id number] 300mg Take 1 capsule by mouth every 12 (twelve) hours for 10 days. [facility] sod chlor-bicar b-squeez bottle (NEILMED SINUS RINSE COMPLETE) [facility] 05-27 00:00: 00 Yes 1{bottl e} Use 1 Bottle in each nostril 2 (two) times daily. Use in hot shower 1 hour before bedtime [facility] fluticasone (FLONASE) 50 mcg/actuati on nasal spray 05-27 00:00: 00 Yes 2{spray } Use 2 Sprays in each nostril daily. [facility] loratadine 10 mg tablet 05-27 00:00: 00 Yes 10mg Take 1 tablet by mouth daily. [facility] benzonatate 100 mg capsule 05-27 00:00: 00 Yes 100mg Take 1 capsule by mouth 3 (three) times daily as needed for Cough. DO NOT CHEW! [facility] sod chlor-bicar b-squeez bottle (NEILMED SINUS RINSE COMPLETE) [facility] 05-27 00:00: 00 Yes 1{bottl e} Use 1 Bottle in each nostril 2 (two) times daily. Use in hot shower 1 hour before bedtime [facility] Vital Signs Vital Name Observation Time Observation Value Comments S vipul Heart rate 2023-09-26 02:39:56 81 /min [facility] Body temperature 2023-09-26 02:39:56 37.22 Ne [facility] Respiratory rate 2023-09-26 02:39:56 19 /min [facility] Oxygen saturation in Arterial blood by Pulse oximetry 2023-09-26 02:39:56 96 /min [facility] Systolic blood pressure 2023-09-26 02:00:00 141 mm[Hg] [facility] Diastolic blood pressure 2023-09-26 02:00:00 80 mm[Hg] [facility] Body height 2023-09-25 20:36:00 167.6 cm [facility] Body weight 2023-09-25 20:36:00 74.844 kg [facility] BMI 2023-09-25 20:36:00 26.63 kg/m2 [facility] Procedures Procedure Date / Time Performed Performing Clinicia n Source CT ABDOMEN PELVIS W CONTRAST 2023-09-25 22:01:27 Beverly Hernandez [facility] LIPASE 2023-09-25 20:58:00 Beverly Hernandez [facility] TROPONIN I 2023-09-25 20:58:00 Beverly Hernandez [facility] COMP. METABOLIC PANEL ([id number]) 2023-09-25 20:58:00 Beverly Hernandez [facility] CBC WITH DIFF 2023-09-25 20:58:00 Beverly Hernandez [facility] URINALYSIS 2023-09-25 20:58:00 Beverly Hernandez [facility] N-TERMINAL PRO-BNP 2023-09-25 20:58:00 Beverly Morales [facility] COVID-19 (ID NOW RAPID TESTING) 2021-08-02 18:22:00 Mj Chou [facility] Encounters Start Date/Time End Date/Time Encounter Type Admission Type Attending [facility] Care Facility Care Department Encounter ID Source 2023-10-04 14:00:00 2023-10-04 14:00:00 Outpatient R [facility] [id number] [facility] 2023-09-25 15:38:00 2023-09-25 21:53:00 Emergency X BEVERLY HERNANDEZ ERIN [facility] [id number] [facility] 2023-09-25 15:38:00 2023-09-25 21:53:00 Emergency Beverly Hernandez [facility] [id number] [facility] 2023-01-30 13:20:02 2023-01-30 13:20:02 Outpatient SFA SFA [id number] 2022-12-05 00:00:00 2022-12-05 00:00:00 Outpatient [facility]GCBZW[facility]Ka [facility]yala[facility] [id number] [facility] 2021-08-02 13:00:00 2021-08-02 13:15:00 Laboratory Only Only, Adc Test Mj Chou [facility] [id number] [facility] 2021-08-02 13:00:00 2021-08-02 13:00:00 Outpatient R [facility] [id number] [facility] 2021-08-02 13:00:00 2021-08-02 13:00:00 Outpatient R MJ CHOU [facility] [id number] [facility] 2020-10-23 11:30:00 2020-10-23 11:30:00 Outpatient R NETTA NAGY [facility] [id number] [facility] Results Test Description Test Time Test Comments [...] orfree fluid. Skeleton: No acute osseous pathology. [id number] 21:53:14* Test Item Value Reference Range Interpretation Comme nts TROPONIN I (test code = 8600935469) 0.003 ng/mL <=0.034 VY (test code = [...] of biotin. Lab Interpretation (test code = 48961-4) Normal [facility] [id number] 21:50:34* Test Item Value Reference Range Interpretation Comme nts NT-proBNP (test code = 75176-6) 68 pg/mL <=125 Lab Interpretation (test cod e = 14728-4) Normal [facility]2024-[facility] 21:41:32* Test Item Value Reference Range Interpretation Comme nts LIPASE (test code = 8117425092) 73 U/L 0-220 Lab Interpretation (test cod e = 47526-3) Normal [facility] with [id number] 21:38:52* Test Item Value Reference Range Interpretation [...] 34.0 g/dL 31.6-35.1 RDW-SD (test code = 10604-3) 42.4 fL 39.0-49.9 RDW-CV (test code = 788-0) 12.7 % 12.0-15.5 PLT (test code = 777-3) 337 166-358 MPV (test code = 18829-6) 10.0 fL 9.5-12.9 NRBC/100 WBC (test code = 9271700469) 0.0 0.0-10.0 NRBC x10^3 (test code = 6183220083) See_Comment [Automated me ssage] The system which generated this result transmitted reference range: 10*3/?L. The reference range was not used to interpret this result as normal/abnormal. GRAN MAT (NEUT) % (test code = 770-8) 52.3 % IMM GRAN % (test code = 0918605748) 0.10 % LYMPH % (test code = 736-9) 36.4 % MONO % (test code = 5905-5) 8.4 % EOS % (test code = 713-8) 2.4 % BASO % (test code = 706-2) 0.4 % GRAN MAT x10^3(ANC) (test code = 8830116062) 3.55 10*3/uL 1.88-7.09 IMM GRAN x10^3 (test code = 9029667097) 0.00-0.06 LYMPH x10^3 (test code = 731-0) 2.47 10*3/uL 1.32-3.29 MONO x10^3 (test code = 742-7) 0.57 10*3/uL 0.33-0.92 EOS x10^3 (test code = 711-2) 0.16 10*3/uL 0.03-0.39 BASO x10^3 (test code = 704-7) 0.03 10*3/uL 0.01-0.07 [facility] Notes Date/Time Note Provider Source 2023-09-25 21:44:24 [...] in no apparent distress, Joseph Peña RN [facility] 2023-09-25 18:52:40 Nurse Report Report given to Joseph RUSSELL. Chief complaint, assessment findings, infusion verify and orders reviewed. Mare Walters RN Mare Walters RN [facility] 2023-09-25 15:34:51 Patient reports since Eveline having right sided abdominal pain after eating and dizziness intermittently, worse over past two days. Also wants checked for kidney problems or UTI. [facility]
[2024-01-07 17:57] LABS: SARS-CoV-2 Antigen CONTROL BLUE LINE VIS/BG OK
[2024-01-07 17:58] LABS: SARS-CoV-2 Antigen Rapid Res Negative (Negative)
--- NOTE | 2024-01-07 19:40 | RAD REPORT ---
EXAMINATION: TWO VIEW CHEST XR CLINICAL INDICATION: Female, 63 years old. [facility] MAIN Congestion;Cough Bed Name: 4 TECHNIQUE: 2 view radiographs of the chest were performed. COMPARISON: 12/10/2023 FINDINGS: The lungs are well inflated and clear. No pneumothorax or sizable effusion. The heart is normal in si ze. Mediastinal contours are unremarkable. IMPRESSION: No acute or significant abnormalities.
--- NOTE | 2024-01-07 20:02 | ER ---
Nurse's Notes [facility] Name: Stefanie Capellan Age: 63 yrs Sex: Female : 1960 Arrival Date: 01/07/2024 Time: 15:49 Bed IW2 Private MD: Diagnosis: Acute upper respiratory infection, unspecified Presentation: 01/06 16:37 Chief complaint: Patient states: cough, body aches, headache, congestion, ear pain, and aa5 fatigue x 5 days ago. Coronavirus screen: congestion, cough unrelated to allergies, fatigue. Ebola Screen: Patient denies travel to an Ebola-affected area in the 21 days before illness onset. Initial Sepsis Screen: Does the patient meet any 2 criteria? No. Patient's initial sepsis screen is negative. Does the patient have a suspected source of infection? No. Patient's initial sepsis screen is negative. Risk Assessment: Do you want to hurt yourself or someone else? Patient reports no desire to harm self or others. Onset of symptoms was December 2023. 16:37 Method Of Arrival: Ambulatory aa5 16:37 Acuity: RAMIN 4 aa5 Triage Assessment: 19:56 General: Appears in no apparent distress. comfortable, Behavior is calm, cooperative. cm10 Pain: Denies pain. EENT: No deficits noted. Reports pain when swallowing. Neuro: No deficits noted. Level of Consciousness is awake, alert, obeys commands, Oriented to person, place, time, situation, Appropriate for age. Cardiovascular: No deficits noted. Patient's skin is warm and dry. Respiratory: No deficits noted. Airway is patent Respiratory effort is even, unlabored, Respiratory pattern is regular, symmetrical. Historical: - Allergies: 16:37 Codeine; aa5 16:37 Latex; aa5 16:37 Morphine; aa5 16:37 PENICILLINS; aa5 16:37 Prozac; aa5 16:37 Sulfa (Sulfonamide Antibiotics); aa5 - PMHx: 16:37 Anxiety; Asthma; Bipolar disorder; COPD; headache; Hypertensive disorder; Kidney stone; aa5 Schizophrenia; - PSHx: 16:37 Lithotripsy; aa5 - Immunization history:: Adult Immunizations unknown. - Infectious Disease History:: Denies. - Social history:: Smoking status: Patient denies any tobacco usage or history of. Screenin:[address] [facility] ED Fall Risk Assessment (Adult) History of falling in the last 3 months, cm10 including since admission No falls in past 3 months (0 pts) Confusion or Disorientation No (0 pts) Intoxicated or Sedated No (0 pts) Impaired Gait No (0 pts) Mobility Assist Device Used No (0 pt) Altered Elimination No (0 pt) Score/Fall Risk Level 0 - 2 = Low Risk Oriented to surroundings, Maintained a safe environment, Hourly rounding (assess needs \T\ fall precautionary measures) done. Abuse screen: Denies threats or abuse. Denies injuries from another. Nutritional screening: No deficits noted. Tuberculosis screening: No symptoms or risk factors identified. Vital Signs: 16:37 BP 156 / 97; Pulse 90; Resp 19 S; Temp 98.1(O); Pulse Ox 98% on R/A; Weight 72.57 kg aa5 (R); Height 5 ft. 6 in. (R); 19:59 BP 169 / 88; Pulse 95; Resp 16; Pulse Ox 98% ; cm10 16:37 Body Mass Index 25.82 (72.57 kg, 167.64 cm) aa5 ED Course: 15:52 Patient arrived in ED. ra3 15:52 Joanna Walker PA-C is PHCP. sb4 15:52 Raul Zhu DO is Attending Physician. sb4 16:37 Arm band placed on. aa5 16:38 Triage completed. aa5 17:35 Strep Sent. bc6 17:35 Flu Sent. bc6 17:35 SARS RAPID Sent. bc6 17:35 COVID swab sent to lab. Flu and/or RSV swab sent to lab. Strep swab sent to lab. bc6 18:34 Chest Pa And Lat (2 Views) XRAY In Process Unspecified. EDMS 19:57 Patient has correct armband on for positive identification. Provided Education on: ER cm10 process and procedures. 19:59 No provider procedures requiring assistance completed. Patient did not have IV access cm10 during this emergency room visit. Administered Medications: No medications were administered Medication: 19:56 VIS not applicable for this client. cm10 Outcome: 20:02 Discharge ordered by . sb4 20:07 Discharged to home ambulatory, cm10 20:07 Condition: good 20:07 Discharge instructions given to patient, Instructed on discharge instructions, follow up and referral plans. medication usage, Demonstrated understanding of instructions, follow-up care, medications, Prescriptions given X 2, 20:07 Patient left the ED. cm10 Signatures: Dispatcher [employer] EDKimberly Dang, RN RN Joanna Koroma, KEISHA PANehemias sb4 Yoli Lopez Clarissa, RN RN cm10 Mariola Cisse 3
--- NOTE | 2024-01-07 20:02 | EDPHYS ---
Physician Documentation [facility] Name: Stefanie Capellan Age: 63 yrs Sex: Female : 1960 Arrival Date: 01/07/2024 Time: 15:49 Bed IW2 Private MD: ED Physician Raul Zhu HPI: 01/06 19:30 This 63 yrs old Female presents to ER via Ambulatory with complaints of Cold Symptoms. sb4 20:30 Patient reports cough, congestion, enlarged lymph nodes, ear pain for 5 days now. sb4 States that she has a family member sick with RSV and thinks that she might have it as well. Denies any chest pain or shortness of breath. Denies any GI symptoms. Has been taking lrkq-pub-mfkkujv medications without significant relief in symptoms. Historical: - Allergies: 16:37 Codeine; aa5 16:37 Latex; aa5 16:37 Morphine; aa5 16:37 PENICILLINS; aa5 16:37 Prozac; aa5 16:37 Sulfa (Sulfonamide Antibiotics); aa5 - PMHx: 16:37 Anxiety; Asthma; Bipolar disorder; COPD; headache; Hypertensive disorder; Kidney stone; aa5 Schizophrenia; - PSHx: 16:37 Lithotripsy; aa5 - Immunization history:: Adult Immunizations unknown. - Infectious Disease History:: Denies. - Social history:: Smoking status: Patient denies any tobacco usage or history of. ROS: 20:30 Constitutional: Negative for fever, chills, and weight loss, sb4 20:30 ENT: Positive for ear pain, sore throat, 20:30 ENT: Positive for sinus congestion, 20:30 Respiratory: Positive for cough, 20:30 All other systems are negative, Exam: 20:30 Constitutional: This is a well developed, well nourished patient who is awake, alert, sb4 and in no acute distress. Head/Face: Normocephalic, atraumatic. Eyes: Extra-ocular motions intact. Periorbital areas with no swelling, redness, or edema. ENT: Mucous membranes moist. Cardiovascular: Regular rate and rhythm with a normal S1 and S2. Respiratory: No increased work of breathing, no retractions or nasal flaring. Abdomen/GI: Soft, non-tender, no distension. Skin: Warm, dry with normal turgor. Normal color with no rashes, no lesions, and no evidence of cellulitis. 20:30 ENT: TM's: are normal, Nose: is normal, Mouth: is normal, Posterior pharynx: is normal, Vital Signs: 16:37 BP 156 / 97; Pulse 90; Resp 19 S; Temp 98.1(O); Pulse Ox 98% on R/A; Weight 72.57 kg aa5 (R); Height 5 ft. 6 in. (R); 19:59 BP 169 / 88; Pulse 95; Resp 16; Pulse Ox 98% ; cm10 16:37 Body Mass Index 25.82 (72.57 kg, 167.64 cm) aa5 MDM: 16:33 Medical Screening Exam initiated sb4 20:31 Data reviewed: vital signs, nurses notes, lab test result(s), radiologic studies, and sb4 as a result, I will discharge patient. Counseling: I had a detailed discussion with the patient and/or guardian regarding the historical points, exam findings, and any diagnostic results supporting the discharge/admit diagnosis, lab results, radiology results, the need for outpatient follow up, for definitive care, to return to the emergency department if symptoms worsen or persist or if there are any questions or concerns that arise at home. 01/06 16:53 Order name: SARS RAPID; Complete Time: 18:05 sb4 01/06 16:53 Order name: Flu; Complete Time: 18:07 sb4 01/06 16:53 Order name: Strep sb4 01/06 18:01 Order name: Throat Culture EDMS 01/06 18:08 Order name: Chest Pa And Lat (2 Views) XRAY; Complete Time: 19:46 sb4 Administered Medications: No medications were administered Disposition: 19:43 I was immediately available on-site in the Emergency Department for consultation in the ms3 care of the patient. Disposition Summary: 01/07/24 20:02 Discharge Ordered Notes: Location: Home sb4 Problem: new sb4 Symptoms: are unchanged sb4 Condition: Stable sb4 Diagnosis - Acute upper respiratory infection, unspecified sb4 Followup: sb4 - With: Emergency Department - When: As needed - Reason: Trouble breathing, Worsening of condition Discharge Instructions: - Upper Respiratory Infection, Adult, Alfc-jv-Tjln sb4 - Discharge Summary Sheet cm10 Forms: - Patient Portal Instructions sb4 - Leadership Thank You Letter sb4 - Work release form cm10 Prescriptions: - Tessalon Perles 100 mg Oral Capsule - take 1 capsule ORAL route every 8 hours As needed; 15 capsule; Refills: 0, sb4 Product Selection Permitted - Prednisone 20 mg Oral Tablet - take 1 tablet ORAL route every 12 hours for 5 days; 10 tablet; Refills: 0, sb4 Product Selection Permitted Signatures: Dispatcher [employer] Kimberly Hansen RN RN aa5 Raul Zhu DO DO ms3 Joanna Walker, PANehemias PANehemias sb4
[2024-01-07 22:30] VITALS: TEMP 98.1; O2SAT 98
[2024-01-07 22:31] VITALS: BP 169/88
== END 2024-01-07 20:07 | disposition home or self-care (01) ==
LOC: ER 15:49
DX: J06.9 Acute upper respiratory infection, unspecified (principal); Z11.52 Encounter for screening for COVID-19
CPT/HCPCS: 36415; 71046; 87070; 87081; 87804; 87811; 99283

== ENCOUNTER 2024-02-01 15:02 | Emergency (ER) | payer OTHER ==
--- OUTSIDE RECORDS SUMMARY | 2024-02-01 15:05 | XMS REPORT | Continuity of Care Document ---
Author Name Unknown Address [address] [place] [address] [place] [address] thconnect Address [address] [place] [address] [address] [place] [address] Care Team Providers Care Instructor Tap Dancing Name Role Phone [email or web address]_Kadiyala_S Attending Clinician Unavaila ble [email or web address]_Kadiyala_S Admitting Clinician Unavaila ble Encounters Start Date/Time End Date/Time Encounter Type Admission Type Attending Clinicians Care Facility Care Department Encounter ID Source 2022-12-05 00:00:00 2022-12-05 00:00:00 Outpatient [email or web address]_Ka diyala_S [facility] [id number] [facility]
[2024-02-01] MEDS ORDERED: dexAMETHasone 10 MG/ML VIAL ONE (15:47)
[2024-02-01] MEDS ORDERED: METOCLOPRAMIDE 5 MG TAB ONE (15:48)
[2024-02-01] MEDS ORDERED: AZITHROMYCIN 250 MG TAB ONE (15:48)
--- NOTE | 2024-02-01 16:25 | RAD REPORT ---
EXAMINATION: ONE VIEW CHEST XR CLINICAL INDICATION: Female, 63 years old.,COPD TECHNIQUE: Frontal chest projection is submitted. Examination is limited by patient positioning and t echnique. COMPARISON: 01/07/2024 FINDINGS: The lungs are somewhat hypoinflated, which limits evaluation, otherwise clear. No pneumothorax or si zable effusion. The heart is normal in size. Mediastinal contours are unremarkable. IMPRESSION: No acute intrathoracic abnormalities.
[2024-02-01 16:30] LABS: SARS-CoV-2 Antigen CONTROL BLUE LINE VIS/BG OK; SARS-CoV-2 Antigen Rapid Res Negative (Negative)
--- NOTE | 2024-02-01 16:43 | EDPHYS ---
Physician Documentation [facility] Name: Stefanie Capellan Age: 63 yrs Sex: Female : 1960 Arrival Date: 02/01/2024 Time: 15:02 Bed 12 Private MD: ED Physician Carter Thakkar HPI: 01/31 15:23 This 63 yrs old Female presents to ER via Ambulatory with complaints of Flu ec2 Symptoms. 15:23 Patient arrives today for evaluation of upper respiratory symptoms. Patient reports she ec2 been having cough and cold symptoms ongoing for several days along with headache. Reports adequate p.o. intake. No vomiting, no diarrhea, does complain of a headache as well as some nausea. History of COPD. Reports that she has been using her an albuterol nebulizer at home with some improvement in symptoms.. Historical: - Allergies: 15:17 Codeine; db 15:17 Latex; db 15:17 Morphine; db 15:17 PENICILLINS; db 15:17 Prozac; db 15:17 Sulfa (Sulfonamide Antibiotics); db - PMHx: 15:17 Anxiety; Asthma; COPD; Bipolar disorder; Hypertensive disorder; Schizophrenia; Kidney db stone; headache; - PSHx: 15:17 Lithotripsy; db - Immunization history:: Adult Immunizations unknown. - Infectious Disease History:: Denies. - Social history:: Smoking status: . ROS: 15:23 Constitutional: as per hpi ec2 Exam: 15:23 Constitutional: GEN: NAD Head: atraumatic Eyes: EOMI Ears: External ears are ec2 normal. CV: regular rate LUNGS: no respiratory distress, no wheezes or rales or rhonchi ABD: non-distended SKIN: no evidence of rashes MSK: no evidence of trauma Vital Signs: 15:15 BP 175 / 105; Pulse 95; Resp 16; Temp 98.3; Pulse Ox 94% ; Weight 72.12 kg; Height 5 db ft. 6 in. ; 16:30 BP 172 / 88; Pulse 88; Resp 16; Pulse Ox 95% ; db 15:15 Body Mass Index 25.66 (72.12 kg, 167.64 cm) db MDM: 15:16 Medical Screening Exam initiated ec2 15:23 Data reviewed: vital signs, nurses notes. ED course: Patient arrives today for upper ec2 respiratory symptoms in setting of history of COPD. Examination yields a reassuring cardiopulmonary examination. Will obtain chest x-ray, viral swabs and treat with steroids and azithromycin. Suspect viral infection, COPD exacerbation. Doubt pneumonia given lack of focal lung sounds. Additionally patient without any significant systemic symptoms to indicate obtaining lab work, patient appears well-hydrated and otherwise in no acute respiratory distress.. 01/31 15:22 Order name: Influenza Screen (a \T\ B); Complete Time: 16:42 ec2 01/31 15:22 Order name: SARS RAPID; Complete Time: 16:35 ec2 01/31 15:22 Order name: CXR XRAY; Complete Time: 16:27 ec2 Administered Medications: 15:54 Drug: AZITHromycin PO 500 mg PO once Route: PO; db 17:01 Follow up: Response: No adverse reaction db 15:54 Drug: MetoCLOPramide PO 10 mg PO once Route: PO; db 17:01 Follow up: Response: No adverse reaction db 15:54 Drug: Dexamethasone IM 10 mg IM once Route: IM; Site: right deltoid; db 17:01 Follow up: Response: No adverse reaction db Disposition Summary: 02/01/24 16:42 Discharge Ordered Notes: Location: Home ec2 Condition: Stable ec2 Diagnosis - COPD/ Chronic obstructive pulmonary disease with (acute) exacerbation ec2 Followup: ec2 - With: Private Physician - When: - Reason: Re-evaluation by your physician Discharge Instructions: - Discharge Summary Sheet ec2 - Chronic Obstructive Pulmonary Disease Exacerbation ec2 Forms: - Medication Reconciliation Form ec2 - Antibiotic Education ec2 - Prescription Opioid Use ec2 - Patient Portal Instructions ec2 - Leadership Thank You Letter ec2 Prescriptions: - Tessalon Perles 100 mg Oral Capsule - take 1 capsule ORAL route every 8 hours As needed; 15 capsule; Refills: 0, ec2 Product Selection Permitted - Zithromax Z-Hardeep 250 mg Oral Tablet - take 1 tablet ORAL route as directed for 5 days Day 1 - take two (2) tablets ec2 one time. Day 2, 3, 4 , 5 take one (1) tablet once daily.; 6 tablet; Refills: 0, Product Selection Permitted - Prednisone 20 mg Oral Tablet - take 2 tablets ORAL route once daily for 5 days; 10 tablet; Refills: 0, Product ec2 Selection Permitted Signatures: Dispatcher [employer] Gustavo Colmenareselle, RN RN db Caretr Thakkar MD MD ec2 Corrections: (The following items were deleted from the chart) : 15: Influenza Screen (A \T\ B)+BA.LAB.BRZ ordered. EDMS EDMS 15: SARS-COV-2 Antigen Rapid+I.LAB.BRZ ordered. EDMS EDMS : 15:23 Chest Single View+RAD.RAD.BRZ ordered. EDMS EDMS
--- NOTE | 2024-02-01 16:43 | ER ---
Nurse's Notes [facility] Name: Stefanie Capellan Age: 63 yrs Sex: Female : 1960 Arrival Date: 02/01/2024 Time: 15:02 Bed 12 Private MD: Diagnosis: COPD/ Chronic obstructive pulmonary disease with (acute) exacerbation Presentation: 01/31 15:15 Chief complaint: Patient states: COUGH, CONGESTION, NAUSEA, EAR STUFFY X 3 DAYS. db Coronavirus screen: Client denies travel out of the [place] in the last 14 days. At this time, the client does not indicate any symptoms associated with coronavirus-19. Ebola Screen: Patient negative for fever greater than or equal to 101.5 degrees Fahrenheit, and additional compatible Ebola Virus Disease symptoms Patient denies exposure to infectious person. Patient denies travel to an Ebola-affected area in the 21 days before illness onset. No symptoms or risks identified at this time. Initial Sepsis Screen: Does the patient meet any 2 criteria? No. Patient's initial sepsis screen is negative. Does the patient have a suspected source of infection? No. Patient's initial sepsis screen is negative. Risk Assessment: Do you want to hurt yourself or someone else? Patient reports no desire to harm self or others. Onset of symptoms was January 29, 2024. 15:15 Method Of Arrival: Ambulatory db 15:15 Acuity: RAMIN 3 db Triage Assessment: 15:18 General: Appears in no apparent distress. comfortable, Behavior is calm, cooperative. db Pain: Denies pain. EENT: Reports nasal congestion. Neuro: Level of Consciousness is awake, alert, obeys commands, Oriented to person, place, time, situation. Respiratory: Airway is patent Respiratory effort is even, unlabored, Respiratory pattern is regular, symmetrical. Historical: - Allergies: 15:17 Codeine; db 15:17 Latex; db 15:17 Morphine; db 15:17 PENICILLINS; db 15:17 Prozac; db 15:17 Sulfa (Sulfonamide Antibiotics); db - PMHx: 15:17 Anxiety; Asthma; COPD; Bipolar disorder; Hypertensive disorder; Schizophrenia; Kidney db stone; headache; - PSHx: 15:17 Lithotripsy; db - Immunization history:: Adult Immunizations unknown. - Infectious Disease History:: Denies. - Social history:: Smoking status: . Screenin:57 [facility] Fall Risk Assessment (Adult) History of falling in the last 3 months, db including since admission No falls in past 3 months (0 pts) Confusion or Disorientation No (0 pts) Intoxicated or Sedated No (0 pts) Impaired Gait No (0 pts) Mobility Assist Device Used No (0 pt) Altered Elimination No (0 pt) Score/Fall Risk Level 0 - 2 = Low Risk Oriented to surroundings, Maintained a safe environment. Abuse screen: Denies threats or abuse. Denies injuries from another. Nutritional screening: No deficits noted. Tuberculosis screening: No symptoms or risk factors identified. Assessment: 16:55 Reassessment: Patient appears in no apparent distress at this time. Patient and/or db family updated on plan of care and expected duration. Pain level reassessed. Patient is alert, oriented x 3, equal unlabored respirations, skin warm/dry/pink. General: Appears in no apparent distress. comfortable, Behavior is calm, cooperative. Neuro: Level of Consciousness is awake, alert, obeys commands, Oriented to person, place, time, situation, Speech is normal. Respiratory: Airway is patent Respiratory effort is even, unlabored, Respiratory pattern is regular, symmetrical. Vital Signs: 15:15 BP 175 / 105; Pulse 95; Resp 16; Temp 98.3; Pulse Ox 94% ; Weight 72.12 kg; Height 5 db ft. 6 in. ; 16:30 BP 172 / 88; Pulse 88; Resp 16; Pulse Ox 95% ; db 15:15 Body Mass Index 25.66 (72.12 kg, 167.64 cm) db ED Course: 15:09 Patient arrived in ED. al6 15:14 Carter Thakkar MD is Attending Physician. ec2 15:17 Triage completed. db 15:18 Arm band placed on Patient placed in an exam room. db 15:53 CXR XRAY In Process Unspecified. EDMS 16:15 SARS RAPID Sent. nh2 16:15 Influenza Screen (a \T\ B) Sent. nh2 16:57 Patient has correct armband on for positive identification. Bed in low position. Call db light in reach. Side rails up X 1. Provided Education on: DISCHARGE AND FOLLOWUP. Pulse ox on. NIBP on. Warm blanket given. 16:57 No provider procedures requiring assistance completed. Patient did not have IV access db during this emergency room visit. Administered Medications: 15:54 Drug: AZITHromycin PO 500 mg PO once Route: PO; db 17:01 Follow up: Response: No adverse reaction db 15:54 Drug: MetoCLOPramide PO 10 mg PO once Route: PO; db 17:01 Follow up: Response: No adverse reaction db 15:54 Drug: Dexamethasone IM 10 mg IM once Route: IM; Site: right deltoid; db 17:01 Follow up: Response: No adverse reaction db Medication: 16:57 VIS not applicable for this client. db Outcome: 16:42 Discharge ordered by . ec2 16:57 Discharged to home ambulatory, db 16:57 Condition: stable 16:57 Discharge instructions given to patient, Instructed on discharge instructions, follow up and referral plans. 17:01 Patient left the ED. db Signatures: Dispatcher [employer] Cherrie Colmenares RN RN Carter Sutton MD MD ec2 Aristides Zuniga Jr, [facility]
[2024-02-01 17:46] VITALS: TEMP 98.3
[2024-02-01 17:47] VITALS: BP 172/88; O2SAT 95
== END 2024-02-01 17:01 | disposition home or self-care (01) ==
LOC: ER 15:02
DX: J44.1 Chronic obstructive pulmonary disease with (acute) exacerbation (principal); R51.9 Headache, unspecified; Z11.52 Encounter for screening for COVID-19; I10 Essential (primary) hypertension
CPT/HCPCS: 36415; 87804 ×2; 71045; 96372; 99284; 87811; J1100

== ENCOUNTER 2024-02-29 18:40 | Emergency (ER) | payer OTHER ==
--- OUTSIDE RECORDS SUMMARY | 2024-02-29 18:43 | XMS REPORT | Continuity of Care Document ---
Author Name Unknown Address [address] [place] [address] [facility] Address [address] [place] [address] Care Team Providers Care Consulting Psychologist Name Role Phone PCP, PATIENT DOES NOT HAVE A Primary Care Physic morgan Unavailable BEVERLY HERNANDEZ Attending Clinician Unav BEVERLY Guzman Attending Clinician Unav Beverly Guzman MD Attending Clinician + [email or web address]_S Attending Clinician Unavaila ble Only, Adc Test Attending Clinician Unavailable Mj Chou MD Attending Clinician [phone] MJ CHOU Attending Clinician Unavailable NETTA ANGY Attending Clinician UnavailBEVERLY Reardon Admitting Clinician Unav ailable PHILIPPE_GCBZW_Sahra_S Admitting Clinician Unavaila ble Payers Payer Name Policy Type Policy Number Effective Date Expirati on Date Source [facility] DUAL COMP HMO D SNP [id number] 2023 00:00:00 [place] [id number] 2023 00:00:00 [facility] MEDICAID [id number] 2017 00:00:00 MEDICARE PART A \T\ B [id number] 1998 00:00:00 Allergies, Adverse Reactions, Alerts Allergy Name Allergy Type Status Severity Reaction(s) Onset Date Inactive Date Treating Clinician Comments Source PENICILL IN DRUG INGREDI Active Hallucinates 09-24 00:00: 00 [facility] Penicill in Propensi ty to adverse reaction s Active Hallucinatio ns 09-24 00:00: 00 [facility] LATEX DRUG INGREDI Active Hives 05-27 00:00: 00 [facility] MORPHINE DRUG INGREDI Active Hallucinates 05-27 00:00: 00 [facility] FLUOXETI NE HCL DRUG INGREDI Active Swelling 05-27 00:00: 00 [facility] SULFA (SULFONA MIDE ANTIBIOT ICS) Drug Class Active N/V 05-27 00:00: 00 [facility] Bee Sting / Venom Propensi ty to adverse reaction s Active Anaphylaxis 05-27 00:00: 00 [facility] Codeine Propensi ty to adverse reaction s Active Hallucinatio ns 05-27 00:00: 00 [facility] Latex Propensi ty to adverse reaction s Active Hives 05-27 00:00: 00 [facility] Morphine Propensi ty to adverse reaction s Active Hallucinatio ns 05-27 00:00: 00 [facility] Fluoxeti ne Hcl Propensi ty to adverse reaction s Active Swelling 05-27 00:00: 00 [facility] Sulfa (Sulfona mide Antibiot ics) Propensi ty to adverse reaction s Active Nausea and/or Vomiting 05-27 00:00: 00 [facility] BEE STING / VENOM DRUG INGREDI Active Anaphylaxis 05-27 00:00: 00 [facility] CODEINE DRUG INGREDI Active Hallucinates 05-27 00:00: 00 [facility] Social History Social Habit Start Date Stop Date Quantity Comments Source Sexual orientation [facility] Sex assigned at 1960 00:00:00 1960 00:00:00 [facility] Smoking Status Start Date Stop Date Source Tobacco smoking consumption unknown [facility] Medications Ordered Medication Name Filled Medication Name Start Date Stop Date Current Medication? Ordering Clinician Indication Dosage Frequency Signature (SIG) Comments Components Source ketorolac (TORADOL) injection 15 mg 09-25 02:15: 00 09-25 01:33 :00 No 15mg 15 mg, Slow IV Push, ONCE, 1 dose, On Sun09/25/23 at 2115, Routine [facility] cefTRIAXone (ROCEPHIN) 1,000 mg in NaCl 0.9% (NS) 100 mL MINI-BAG 09-24 23:45: 00 09-25 00:15 :00 No 1000mg 1,000 mg, IV Piggyback, ONCE, 1 dose, On Sun09/25/23 at 1845, Administer over 30 Minutes, 100 mL, Reason for Anti-Infec tive: Documented Infection, Documented Infection Site: Urine, Duration of Therapy: Once (ED) [facility] iopamidol (ISOVUE 370-500 mL) injection 86 mL 09-24 23:00: 00 09-24 23:00 :00 No [id number] 86mL 86 mL, Intravenou s, ONCE, 1 dose, On Sun09/25/23 at 1800, Routine [facility] ketorolac 10 mg tablet 09-24 00:00: 00 Yes [id number] 10mg Take 1 tablet by mouth every 6 (six) hours as needed for Pain (scale 4-6). [facility] tamsulosin 0.4 mg 24 hr capsule 09-24 00:00: 00 Yes [id number] .4mg Take 1 capsule by mouth at bedtime. [facility] ondansetron 4 mg disintegrat ing tablet 09-24 00:00: 00 Yes [id number] 4mg Take 1 tablet by mouth every 8 (eight) hours as needed for Nausea and Vomiting (N/V). [facility] cefdinir 300 mg capsule 09-24 00:00: 00 10-05 04:59 :00 No [id number] 300mg Take 1 capsule by mouth every 12 (twelve) hours for 10 days. [facility] sod chlor-bicar b-squeez bottle (NEILMED SINUS RINSE COMPLETE) [facility] 05-27 00:00: 00 Yes 1{bottl e} Use 1 Bottle in each nostril 2 (two) times daily. Use in hot shower 1 hour before bedtime [facility] fluticasone (FLONASE) 50 mcg/actuati on nasal spray 05-27 00:00: 00 Yes 2{spray } Use 2 Sprays in each nostril daily. [facility] loratadine 10 mg tablet 05-27 00:00: 00 Yes 10mg Take 1 tablet by mouth daily. [facility] benzonatate 100 mg capsule 05-27 00:00: 00 Yes 100mg Take 1 capsule by mouth 3 (three) times daily as needed for Cough. DO NOT CHEW! [facility] sod chlor-bicar b-squeez bottle (NEILMED SINUS RINSE COMPLETE) [facility] 05-27 00:00: 00 Yes 1{bottl e} Use 1 Bottle in each nostril 2 (two) times daily. Use in hot shower 1 hour before bedtime [facility] Vital Signs Vital Name Observation Time Observation Value Comments S vipul Heart rate 2023-09-26 02:39:56 81 /min [facility] Body temperature 2023-09-26 02:39:[address] [facility] Respiratory rate 2023-09-26 02:39:56 19 /min [facility] Oxygen saturation in Arterial blood by Pulse oximetry 2023-09-26 02:39:56 96 /min [facility] Systolic blood pressure 2023-09-26 02:00:00 141 mm[Hg] [facility] Diastolic blood pressure 2023-09-26 02:00:00 80 mm[Hg] [facility] Body height 2023-09-25 20:36:00 167.6 cm [facility] Body weight 2023-09-25 20:36:00 74.844 kg [facility] BMI 2023-09-25 20:36:00 26.63 kg/m2 [facility] Procedures Procedure Date / Time Performed Performing Clinicia n Source CT ABDOMEN PELVIS W CONTRAST 2023-09-25 22:01:[address] [facility] LIPASE 2023-09-25 20:58:[address] [facility] TROPONIN I 2023-09-25 20:58:[address] [facility] COMP. METABOLIC PANEL ([id number]) 2023-09-25 20:58:[address] [facility] CBC WITH DIFF 2023-09-25 20:58:[address] [facility] URINALYSIS 2023-09-25 20:58:[address] [facility] N-TERMINAL PRO-BNP 2023-09-25 20:58:[address] [facility] COVID-19 (ID NOW RAPID TESTING) 2021-08-02 18:22:[address] [facility] Encounters Start Date/Time End Date/Time Encounter Type Admission Type Attending [facility] Care Facility Care Department Encounter ID Source 2023-10-04 14:00:00 2023-10-04 14:00:00 Outpatient R [facility] [id number] [facility] 2023-09-25 15:38:00 2023-09-25 21:53:00 Emergency X BEVERLY HERNANDEZ ERIN TXANGELIKA ERT [id number] [facility] 2023-09-25 15:38:00 2023-09-25 21:53:00 Emergency Beverly Hernandez [facility] [id number] [facility] 2023-01-30 13:20:02 2023-01-30 13:20:02 Outpatient S[facility] [id number] 2022-12-05 00:00:00 2022-12-05 00:00:00 Outpatient GC_GCBZW_Ka diyala_S [facility] [id number] [facility] 2021-08-02 13:00:00 2021-08-02 13:15:00 Laboratory Only Only, Adc Test Mj Chou [facility] [id number] [facility] 2021-08-02 13:00:00 2021-08-02 13:00:00 Outpatient R [facility] [id number] [facility] 2021-08-02 13:00:00 2021-08-02 13:00:00 Outpatient R MJ CHOU [facility] [id number] [facility] 2020-10-23 11:30:00 2020-10-23 11:30:00 Outpatient R NETTA NAGY [facility] [id number] [facility] Results Test Description Test Time Test [...] orfree fluid. Skeleton: No acute osseous pathology. [id number] 21:53:14* Test Item Value Reference Range Interpretation Comme nts TROPONIN I (test code = 9973954970) 0.003 ng/mL <=0.034 VY (test code = [...] of biotin. Lab Interpretation (test code = 39483-5) Normal [facility] [id number] 21:50:34* Test Item Value Reference Range Interpretation Comme [facility] NT-proBNP (test code = 18294-3) 68 pg/mL <=125 Lab Interpretation (test cod e = 04250-4) Normal [facility]2024-08-20 21:41:32* Test Item Value Reference Range Interpretation Comme nts LIPASE (test code = 4102937366) 73 U/L 0-220 Lab Interpretation (test cod e = 06366-3) Normal [facility]bc with [id number] 21:38:52* Test Item Value Reference Range Interpretation [...] 34.0 g/dL 31.6-35.1 RDW-SD (test code = 27601-2) 42.4 fL 39.0-49.9 RDW-CV (test code = 788-0) 12.7 % 12.0-15.5 PLT (test code = 777-3) 337 166-358 MPV (test code = 07386-7) 10.0 fL 9.5-12.9 NRBC/100 WBC (test code = 5110266462) 0.0 0.0-10.0 NRBC x10^3 (test code = 6799050685) See_Comment [Automated me ssage] The system which generated this result transmitted reference range: 10*3/?L. The reference range was not used to interpret this result as normal/abnormal. GRAN MAT (NEUT) % (test code = 770-8) 52.3 % IMM GRAN % (test code = 5522366019) 0.10 % LYMPH % (test code = 736-9) 36.4 % MONO % (test code = 5905-5) 8.4 % EOS % (test code = 713-8) 2.4 % BASO % (test code = 706-2) 0.4 % GRAN MAT x10^3(ANC) (test code = 6775764094) 3.55 10*3/uL 1.88-7.09 IMM GRAN x10^3 (test code = 5352238887) 0.00-0.06 LYMPH x10^3 (test code = 731-0) 2.47 10*3/uL 1.32-3.29 MONO x10^3 (test code = 742-7) 0.57 10*3/uL 0.33-0.92 EOS x10^3 (test code = 711-2) 0.16 10*3/uL 0.03-0.39 BASO x10^3 (test code = 704-7) 0.03 10*3/uL 0.01-0.07 [facility]
[2024-02-29 19:47] LABS: Specific Gravity 1.009 (1.005-1.030); Sqamous Epithelial <5 /HPF (None Seen); Urine Bacteria <20 /HPF (<20); Urine Bilirubin NEGATIVE (Negative); Urine Blood 2+ (Negative); Urine Clarity Extremely Turbid (Clear); Urine Color Light-Yellow (Yellow); Urine Crystals Unidentified Few /HPF (None Seen); Urine Culture Reflex Order NOT NEEDED; Urine Glucose NEGATIVE (Negative); Urine Ketones NEGATIVE (Negative); Urine Microscopic Reflex YN ORDER UMIC; Urine Mucus Slight /HPF (None Seen); Urine Nitrite NEGATIVE (Negative); Urine Protein NEGATIVE (Negative); Urine Urobilinogen Normal (Normal); Urine WBC <5 /HPF (<5); Urine WBC Clump Occasional /HPF (None Seen); Urine Yeast (Budding) Occasional /HPF (None Seen)
[2024-02-29 19:48] LABS: Absolute Basophils 0.1 K/uL (0-0.5); Absolute Eosinophils 0.3 K/uL (0-0.5); Absolute Lymphocytes (CBC) 2.8 K/uL (0.7-4.9); Absolute Monocytes 0.7 K/uL (0.1-1.3); Absolute Neutrophil 7.4 K/uL (1.8-8.0); Basophils % 0.7 % (0-1.3); Eosinophils % 2.7 % (0-4.4); Hematocrit 42.7 % (36.0-45.0); Hemoglobin 14.5 g/dL (12.0-15.0); Lymphocytes % 24.7 % (15.3-44.8); MCH 30.3 pg (27.0-35.0); MCHC 33.9 g/dL (32.0-36.0); MCV 89.4 fL (80-100); MPV 7.8 fL (7.6-11.3); Monocytes % 6.6 % (3.3-12.3); Neutrophils % 65.3 % (41.7-73.7); Platelets 366 thou/uL (152-406); RBC Red Blood Cell Count 4.78 M/uL (3.86-4.86); Red Cell Distribution Width 13.9 % (12.1-15.2)
[2024-02-29 19:57] LABS: Albumin 3.6 g/dL (3.4-5.0); Albumin/Globulin Ratio 0.9 (1.1-1.8); Anion Gap 8.7 mEq/L (5.0-15.0); Bilirubin Total 0.3 mg/dL (0.2-1.0); Globulin 4.2 g/dL (2.3-3.5); Potassium 3.7 mEq/L (3.5-5.1); Protein, Total 7.8 g/dL (6.4-8.2)
--- NOTE | 2024-02-29 20:41 | RAD REPORT ---
EXAMINATION: Stone Protocol CLINICAL INDICATION: Abdominal pain. Right flank pain TECHNIQUE: CT abdomen and pelvis was performed, without IV contrast, as per department protocol. Oral contrast not given. Axial, sagittal and coronal reconstructions were obtained. One or more of the following dose reduction techniques were used: Automated exposure control, adjustment of the mA and k V according to the patient size, and iterative reconstruction. Unless otherwise specified, incidental findings do not require dedicated imaging follow-up. COMPARISON: 2023. FINDINGS: The lack of intravenous and oral contrast limits the sensitivity of this exam for evaluation of solid visceral organs, vascular structures, and bowel Multiple left renal calculi. No hydronephrosis. A right renal calculus is not seen. A ureteral calcul us is not visualized. No bladder calculus. Small hiatal hernia Liver, spleen, pancreas and adrenals grossly normal No evidence of diverticulitis. The uterus is retroverted. 5 cm low-density areas present centrally Normal appendix Small umbilical hernia IMPRESSION: Nonobstructing left renal calculi Large low-density area within the uterus. This could represent fluid within the endometrial canal or fibroid. Further evaluation with endovaginal sonogram should be helpful.
--- NOTE | 2024-02-29 21:41 | ER ---
Nurse's Notes [facility] Name: Stefanie Capellan Age: 63 yrs Sex: Female : 1960 Arrival Date: 02/29/2024 Time: 18:40 Bed DX1 Private MD: Diagnosis: Flank pain Presentation: 02/28 19:05 Chief complaint: Patient states: right flank pain that started last Sunday. Coronavirus cp4 screen: Client denies travel out of the [place] in the last 14 days. At this time, the client does not indicate any symptoms associated with coronavirus-19. Ebola Screen: Patient negative for fever greater than or equal to 101.5 degrees Fahrenheit, and additional compatible Ebola Virus Disease symptoms Patient denies exposure to infectious person. Patient denies travel to an Ebola-affected area in the 21 days before illness onset. No symptoms or risks identified at this time. Initial Sepsis Screen: Does the patient meet any 2 criteria? HR > 90 bpm. No. Patient's initial sepsis screen is negative. Does the patient have a suspected source of infection? No. Patient's initial sepsis screen is negative. Risk Assessment: Do you want to hurt yourself or someone else? Patient reports no desire to harm self or others. Onset of symptoms was February 24, 2024. 19:05 Method Of Arrival: Ambulatory cp4 19:05 Acuity: RAMIN 3 cp4 Triage Assessment: 19:07 General: Appears in no apparent distress. uncomfortable, Behavior is calm, cooperative, cp4 appropriate for age. Pain: Complains of pain in right upper quadrant Pain does not radiate. Pain currently is 7 out of 10 on a pain scale. Musculoskeletal: Circulation, motion, and sensation intact. Range of motion: intact in all extremities. Historical: - Allergies: 19:07 PENICILLINS; cp4 19:07 Prozac; cp4 19:07 Sulfa (Sulfonamide Antibiotics); cp4 19:07 Latex; cp4 19:07 Codeine; cp4 19:07 Morphine; cp4 - PMHx: 19:07 Anxiety; Asthma; Bipolar disorder; COPD; headache; Hypertensive disorder; Kidney stone; cp4 Schizophrenia; - PSHx: 19:07 Lithotripsy; cp4 - Immunization history:: Adult Immunizations up to date. - Infectious Disease History:: Denies. - Social history:: Smoking status: Patient denies any tobacco usage or history of. Screenin:00 [facility] ED Fall Risk Assessment (Adult) History of falling in the last 3 months, ha1 including since admission No falls in past 3 months (0 pts) Confusion or Disorientation No (0 pts) Intoxicated or Sedated No (0 pts) Impaired Gait No (0 pts) Mobility Assist Device Used No (0 pt) Altered Elimination No (0 pt) Score/Fall Risk Level 0 - 2 = Low Risk Oriented to surroundings, Maintained a safe environment, Educated pt \T\ family on fall prevention, incl call for assistance when getting out of bed, Hourly rounding (assess needs \T\ fall precautionary measures) done. Abuse screen: Denies threats or abuse. Denies injuries from another. Nutritional screening: No deficits noted. Tuberculosis screening: No symptoms or risk factors identified. Assessment: 22:00 Reassessment: Patient and/or family updated on plan of care and expected duration. Pain ha1 level reassessed. Patient is alert, oriented x 3, equal unlabored respirations, skin warm/dry/pink. Vital Signs: 19:05 BP 161 / 88; Pulse 93; Resp 18; Temp 98.1; Pulse Ox 96% ; Weight 74.84 kg; Height 5 ft. cp4 6 in. ; Pain 7/10; 22:00 BP 155 / 85; Pulse 90; Resp 17 S; Pulse Ox 98% on R/A; ha1 19:05 Body Mass Index 26.63 (74.84 kg, 167.64 cm) cp4 19:05 Pain Scale: Adult cp4 ED Course: 18:42 Patient arrived in ED. mr 18:44 Vania Sparks FNP-C is PHCP. kb 18:44 Khanh Odell MD is Attending Physician. kb 19:07 Triage completed. cp4 19:07 Arm band placed on left wrist. Patient placed in waiting room. cp4 19:20 Patient has correct armband on for positive identification. Placed in gown. Bed in low ha1 position. Call light in reach. Side rails up X 1. 19:20 Provided Education on: plan of care . ha1 19:35 No provider procedures requiring assistance completed. Initial lab(s) drawn, by me, zena sent to lab. Urine collected: clean catch specimen, clear. 20:17 CT Stone Protocol In Process Unspecified. EDMS 22:00 IV discontinued, intact, bleeding controlled, No redness/swelling at site. Pressure ha1 dressing applied. Administered Medications: No medications were administered Medication: 22:00 VIS not applicable for this client. ha1 Outcome: 21:40 Discharge ordered by . ivania 22:00 Condition: stable ha1 22:00 Discharged to home ambulatory, with family, ha1 22:00 Discharge instructions given to patient, Instructed on discharge instructions, follow up and referral plans. Demonstrated understanding of instructions, follow-up care, 22:39 Patient left the ED. ha1 Signatures: Dispatcher [employer] EDMS Vania Sparks, TOP STITCHER-C TOP STITCHER-Ckb Dyan Patterson, Reg Jason mr Ameena Costa, RN RN ha1 Peggy Garland cp4
--- NOTE | 2024-02-29 21:41 | EDPHYS ---
Physician Documentation [facility] Name: Stefanie Capellan Age: 63 yrs Sex: Female : 1960 Arrival Date: 02/29/2024 Time: 18:40 Bed DX1 Private MD: ED Physician Khanh Odell HPI: 02/28 22:23 This 63 yrs old Female presents to ER via Ambulatory with complaints of Flank Pain, kb Back Pain. 22:23 Pt is a 63 year old female who presents for right flank and upper abd pain that started kb 10 days ago. 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 Denies n/v/d, fever. States she has had some burning with urination intermitently. . Historical: - Allergies: 19:07 PENICILLINS; cp4 19:07 Prozac; cp4 19:07 Sulfa (Sulfonamide Antibiotics); cp4 19:07 Latex; cp4 19:07 Codeine; cp4 19:07 Morphine; cp4 - PMHx: 19:07 Anxiety; Asthma; Bipolar disorder; COPD; headache; Hypertensive disorder; Kidney stone; cp4 Schizophrenia; - PSHx: 19:07 Lithotripsy; cp4 - Immunization history:: Adult Immunizations up to date. - Infectious Disease History:: Denies. - Social history:: Smoking status: Patient denies any tobacco usage or history of. ROS: 21:36 Constitutional: As per HPI kb Exam: 21:36 Constitutional: This is a well developed, well nourished patient who is awake, alert, kb and in no acute distress. Head/Face: Normocephalic, atraumatic. ENT: Moist Mucous membranes Cardiovascular: Regular rate Respiratory: Respirations even and unlabored. No increased work of breathing. Talking in full sentences Abdomen/GI: Soft, non-tender. No distention Back: No spinal tenderness. No costovertebral tenderness. Full range of motion. Skin: Warm, dry with normal turgor. Normal color. MS/ Extremity: Pulses equal, no cyanosis. Neurovascular intact. Full, normal range of motion. Neuro: Awake and alert, GCS 15, oriented to person, place, time, and situation. Vital Signs: 19:05 BP 161 / 88; Pulse 93; Resp 18; Temp 98.1; Pulse Ox 96% ; Weight 74.84 kg; Height 5 ft. cp4 6 in. ; Pain 7/10; 22:00 BP 155 / 85; Pulse 90; Resp 17 S; Pulse Ox 98% on R/A; ha1 19:05 Body Mass Index 26.63 (74.84 kg, 167.64 cm) cp4 19:05 Pain Scale: Adult cp4 MDM: 18:44 Medical Screening Exam initiated kb 22:22 Data reviewed: vital signs, nurses notes. kb 22:23 Differential diagnosis: nephrolithiasis, UTI, muscle strain. Counseling: I had a kb detailed discussion with the patient and/or guardian regarding the historical points, exam findings, and any diagnostic results supporting the discharge/admit diagnosis, lab results, radiology results, the need for outpatient follow up, a family practitioner, to return to the emergency department if symptoms worsen or persist or if there are any questions or concerns that arise at home. 02/28 19:10 Order name: CBC with Diff; Complete Time: 20:00 kb 02/28 19:10 Order name: CMP; Complete Time: 20:00 kb 02/28 19:10 Order name: Lipase; Complete Time: 20:00 kb 02/28 19:10 Order name: Urinalysis w/ reflexes; Complete Time: 19:50 kb 02/28 19:10 Order name: CT Stone Protocol; Complete Time: 20:43 kb 02/28 19:10 Order name: IV Saline Lock; Complete Time: 19:35 kb 02/28 19:10 Order name: Labs collected and sent; Complete Time: 19:35 kb Administered Medications: No medications were administered Disposition Summary: 02/29/24 21:40 Discharge Ordered Notes: Location: Home kb Condition: Stable kb Diagnosis - Flank pain kb Followup: kb - With: Emergency Department - When: As needed - Reason: Worsening of condition Followup: kb - With: Private Physician - When: 2 - 3 days - Reason: Recheck today's complaints, Continuance of care, Re-evaluation by your physician Discharge Instructions: - Discharge Summary Sheet kb - Flank Pain, Adult, [id number] kb Forms: - Medication Reconciliation Form kb - Antibiotic Education kb - Prescription Opioid Use kb - Patient Portal Instructions kb - Leadership Thank You Letter kb Signatures: Dispatcher [employer] Vania Quiñonez, MAR-C WORK CHECKER-CkPeggy Feliciano cp4 Corrections: (The following items were deleted from the chart) 19: 19:11 CBC+H.LAB.BRZ ordered. EDMS EDMS 19: 19:11 COMPREHENSIVE METABOLIC PANEL+C.LAB.BRZ ordered. EDMS EDMS 19: 19:11 LIPASE+C.LAB.BRZ ordered. EDMS EDMS 19: 19:11 Urinalysis+U.LAB.BRZ ordered. EDMS EDMS : 19:11 Stone Protocol+CT.RAD.BRZ ordered. EDMS EDMS : 22:23 Pt is a 63 year old female who presents for right flank and upper abd pain that kb started about 2 weeks ago. . kb
[2024-03-01 02:57] VITALS: TEMP 98.1
[2024-03-01 03:00] VITALS: BP 155/85; O2SAT 98
== END 2024-02-29 22:39 | disposition home or self-care (01) ==
LOC: ER 18:40
DX: R10.9 Unspecified abdominal pain (principal); I10 Essential (primary) hypertension; J44.9 Chronic obstructive pulmonary disease, unspecified; F20.9 Schizophrenia, unspecified
CPT/HCPCS: 36415; 74176; 76377; 80053; 81001; 83690; 85025; 99283

== ENCOUNTER 2024-04-08 18:44 | Emergency (ER) | payer OTHER ==
--- OUTSIDE RECORDS SUMMARY | 2024-04-08 18:47 | XMS REPORT | Continuity of Care Document ---
Author Name Unknown Address [address] [place] [address] [facility] Address [address] [place] [address] Care Team Providers Care [employer] Registrar Name Role Phone PCP, PATIENT DOES NOT HAVE A Primary Care Physic morgan Unavailable Benitez Jaeger NP Attending Clinician [phone] BENITEZ JAEGER Attending Clinician Unavailab BEVERLY Gutierrez Attending Clinician Unav ailable BEVERLY HERNANDEZ Attending Clinician Unav ailable Beverly Hernandez MD Attending Clinician + [id number]_S Attending Clinician Unavaila ble Only, Adc Test Attending Clinician Unavailable Mj Chou MD Attending Clinician [phone] MJ CHOU Attending Clinician Unavailable NETTA NAGY Attending Clinician Unavailabl e BEVERLY HERNANDEZ Admitting Clinician Unav ailable [id number]_S Admitting Clinician Unavaila ble Payers Payer Name Policy Type Policy Number Effective Date Expirati on Date Source [place] [id number] 2023 00:00:00 [facility] MEDICAID [id number] 2017 00:00:00 MEDICARE PART A \T\ B [id number] 1998 00:00:00 Problems Condition Name Condition Details Condition Category Status Onset Date Resolution Date Last Treatment Date Treating Clinician Comments Source Periodonta l disease Periodonta l disease Disease Active 03-31 00:00: 00 [facility] Dental cavity Dental cavity Disease Active 03-31 00:00: 00 [facility] Allergies, Adverse Reactions, Alerts Allergy Name Allergy Type Status Severity Reaction(s) Onset Date Inactive Date Treating Clinician Comments Source PENICILL IN DRUG INGREDI Active Hallucinates 09-24 00:00: 00 [facility] Penicill in Propensi ty to adverse reaction s Active Hallucinatio ns 09-24 00:00: 00 [facility] LATEX DRUG INGREDI Active Hives 05-27 00:00: 00 [facility] MORPHINE DRUG INGREDI Active Hallucinates 05-27 00:00: 00 [facility] FLUOXETI NE HCL DRUG INGREDI Active Swelling 05-27 00:00: 00 [facility] SULFA (SULFONA MIDE ANTIBIOT ICS) Drug Class Active N/V 05-27 00:00: 00 [facility] Bee Sting / Venom Propensi ty to adverse reaction s Active Anaphylaxis 05-27 00:00: 00 [facility] Codeine Propensi ty to adverse reaction s Active Hallucinatio ns 05-27 00:00: 00 [facility] Latex Propensi ty to adverse reaction s Active Hives 05-27 00:00: 00 [facility] Morphine Propensi ty to adverse reaction s Active Hallucinatio ns 05-27 00:00: 00 [facility] Fluoxeti ne Hcl Propensi ty to adverse reaction s Active Swelling 05-27 00:00: 00 [facility] Sulfa (Sulfona mide Antibiot ics) Propensi ty to adverse reaction s Active Nausea and/or Vomiting 05-27 00:00: 00 [facility] BEE STING / VENOM DRUG INGREDI Active Anaphylaxis 05-27 00:00: 00 [facility] CODEINE DRUG INGREDI Active Hallucinates 05-27 00:00: 00 [facility] Social History Social Habit Start Date Stop Date Quantity Comments Source [facility] 1960 [facility]1960 00:00:00 [facility] Smoking Status Start Date Stop Date Source Tobacco smoking consumption unknown [facility] Medications Ordered Medication Name Filled Medication Name Start Date Stop Date Current Medication? Ordering Clinician Indication Dosage Frequency Signature (SIG) Comments Components Source HYDROcodone -acetaminop hen (NORCO 5) tablet 1 tablet 03-31 23:00: 00 03-31 23:27 :00 No 1{tbl} 1 tablet, Oral, ONCE, 1 dose, On Sun03/31/24 at 1700, PABLITO [facility] chlorhexidi ne 0.12 % mouthwash 03-31 00:00: 00 Yes [id number] 15mL Swish and spit out 15 mL in the morning and 15 mL in the evening. [facility] clindamycin 150 mg capsule 03-31 00:00: 00 04-08 05:59 :00 Yes [id number] 450mg Take 3 capsules by mouth in the morning and 3 capsules at noon and 3 capsules in the evening. Do all this for 7 days. [facility] ketorolac (TORADOL) injection 15 mg 09-25 02:15: 00 09-25 01:33 :00 No 15mg 15 mg, Slow IV Push, ONCE, 1 dose, On Sun09/25/23 at 2115, Routine [facility] cefTRIAXone (ROCEPHIN) 1,000 mg in NaCl 0.9% (NS) 100 mL MINI-BAG 09-24 23:45: 00 09-25 00:15 :00 No 1000mg 1,000 mg, IV Piggyback, ONCE, 1 dose, On Sun09/25/23 at 1845, Administer over 30 Minutes, 100 mL, Reason for Anti-Infec tive: Documented Infection, Documented Infection Site: Urine, Duration of Therapy: Once (ED) [facility] iopamidol (ISOVUE 370-500 mL) injection 86 mL 09-24 23:00: 00 09-24 23:00 :00 No [id number] 86mL 86 mL, Intravenou s, ONCE, 1 dose, On Sun09/25/23 at 1800, Routine [facility] ketorolac 10 mg tablet 09-24 00:00: 00 Yes [id number] 10mg Take 1 tablet by mouth every 6 (six) hours as needed for Pain (scale 4-6). [facility] tamsulosin 0.4 mg 24 hr capsule 09-24 00:00: 00 Yes [id number] .4mg Take 1 capsule by mouth at bedtime. [facility] ondansetron 4 mg disintegrat ing tablet 09-24 00:00: 00 Yes [id number] 4mg Take 1 tablet by mouth every 8 (eight) hours as needed for Nausea and Vomiting (N/V). [facility] cefdinir 300 mg capsule 09-24 00:00: 00 10-05 04:59 :00 No [id number] 300mg Take 1 capsule by mouth every 12 (twelve) hours for 10 days. [facility] sod chlor-bicar b-squeez bottle (NEILMED SINUS RINSE COMPLETE) pkdv 05-27 00:00: 00 Yes 1{bottl e} Use 1 Bottle in each nostril 2 (two) times daily. Use in hot shower 1 hour before bedtime [facility] fluticasone (FLONASE) 50 mcg/actuati on nasal spray 05-27 00:00: 00 Yes 2{spray } Use 2 Sprays in each nostril daily. [facility] loratadine 10 mg tablet 05-27 00:00: 00 Yes 10mg Take 1 tablet by mouth daily. [facility] benzonatate 100 mg capsule 05-27 00:00: 00 Yes 100mg Take 1 capsule by mouth 3 (three) times daily as needed for Cough. DO NOT CHEW! [facility] sod chlor-bicar b-squeez bottle (NEILMED SINUS RINSE COMPLETE) pkdv 05-27 00:00: 00 Yes 1{bottl e} Use 1 Bottle in each nostril 2 (two) times daily. Use in hot shower 1 hour before bedtime [facility] Vital Signs Vital Name Observation Time Observation Value Comments S ource BMI 2024-03-31 22:32:00 27.12 kg/m2 [facility] Oxygen saturation in Arterial blood by Pulse oximetry 2024-03-31 22:32:00 98 /min [facility] Systolic blood pressure 2024-03-31 22:32:00 156 mm[Hg] [facility] Diastolic blood pressure 2024-03-31 22:32:00 89 mm[Hg] [facility] Heart rate 2024-03-31 22:32:00 99 /min [facility] Body temperature 2024-03-31 22:32:00 37.11 Ne [facility] Respiratory rate 2024-03-31 22:32:00 18 /min [facility] Body height 2024-03-31 22:32:00 167.6 cm [facility] Body weight 2024-03-31 22:32:00 76.204 kg [facility] Heart rate 2023-09-26 02:39:56 81 /min [facility] Body temperature 2023-09-26 02:39:56 37.22 [facility] Respiratory rate 2023-09-26 02:39:56 19 /min [facility] Oxygen saturation in Arterial blood by Pulse oximetry 2023-09-26 02:39:56 96 /min [facility] Systolic blood pressure 2023-09-26 02:00:00 141 mm[Hg] [facility] Diastolic blood pressure 2023-09-26 02:00:00 80 mm[Hg] [facility] Body height 2023-09-25 20:36:00 167.6 cm [facility] Body weight 2023-09-25 20:36:00 74.844 kg [facility] BMI 2023-09-25 20:36:00 26.63 kg/m2 [facility] Procedures Procedure Date / Time Performed Performing Clinicia n Source CT ABDOMEN PELVIS W CONTRAST 2023-09-25 22:01:27 Beverly Hernandez [facility] LIPASE 2023-09-25 20:58:00 Beverly Hernandez [facility] TROPONIN I 2023-09-25 20:58:00 Beverly Hernandez [facility] COMP. METABOLIC PANEL (63977) 2023-09-25 20:58:00 Beverly Hernandez [facility] CBC WITH DIFF 2023-09-25 20:58:00 Beverly Hernandez [facility] URINALYSIS 2023-09-25 20:58:00 Beverly Hernandez [facility] N-TERMINAL PRO-BNP 2023-09-25 20:58:00 Beverly Morales [facility] COVID-19 (ID NOW RAPID TESTING) 2021-08-02 18:22:00 Mj Chou [facility] Encounters Start Date/Time End Date/Time Encounter Type Admission Type Attending [facility] Care Department Encounter ID Source 2024-03-31 16:34:00 2024-03-31 17:48:00 Emergency Benitez Jaeger [facility] [id number] [facility] 2024-03-31 16:34:00 2024-03-31 17:48:00 Emergency X BENITEZ JAEGER [facility] ERT [id number] [facility] 2023-10-04 14:00:00 2023-10-04 14:00:00 Outpatient R [facility] [id number] [facility] 2023-09-25 15:38:00 2023-09-25 21:53:00 Emergency X BEVERLY HERNANDEZ [facility]IN [facility] ERT [id number] [facility] 2023-09-25 15:38:00 2023-09-25 21:53:00 Emergency Beverly Hernandez [facility] [id number] [facility] 2023-01-30 13:20:02 2023-01-30 13:20:02 Outpatient S[facility] [id number] 2022-12-05 00:00:00 2022-12-05 00:00:00 Outpatient GC_GCBZW_Ka diyala_S [facility] [id number] [facility] 2021-08-02 13:00:00 2021-08-02 13:15:00 Laboratory Only Only, Adc Test Mj Chou [facility] [id number] [facility] 2021-08-02 13:00:00 2021-08-02 13:00:00 Outpatient R [facility] [id number] [facility] 2021-08-02 13:00:00 2021-08-02 13:00:00 Outpatient MJ HUMPHREY [facility] [id number] [facility] 2020-10-23 11:30:00 2020-10-23 11:30:00 Outpatient NETTA STRAUSS [facility] [id number] [facility] Results Test Description Test Time Test Comments Results Result Comments Source CT ABDOMEN PELVIS W CONTRAST 23:18:20 CT ABDOMEN PELVIS W CONTRAST Indication: Flank pain, kidney stone suspected ? Comparison: None. RL: Ordering Clinician: BEVERLY HERNANDEZ Technique: Axial CT images of the abdomen and pelvis were performed with ivcontrast. Sagittal and coronal reformats were created. Dose reductiontechniques were used (VINCE). Technical Quality: Adequate Discussion:Lines/Device s: None. Chest/Vessels: [...] orfree fluid. Skeleton: No acute osseous pathology. [id number] 21:53:14* Test Item Value Reference Range Interpretation Comme nts TROPONIN I (test code = 2166145893) 0.003 ng/mL <=0.034 VY (test code = [...] of biotin. Lab Interpretation (test code = 95823-8) Normal [facility] [id number] 21:50:34* Test Item Value Reference Range Interpretation Comme nts NT-proBNP (test code = 55592-5) 68 pg/mL <=125 Lab Interpretation (test cod e = 84800-7) Normal [facility]2024-08-20 21:41:32* Test Item Value Reference Range Interpretation Comme nts LIPASE (test code = 8604816137) 73 U/L 0-220 Lab Interpretation (test cod e = 55995-2) Normal [facility] Children[facility] with [id number] 21:38:52* Test Item Value Reference Range Interpretation [...] 34.0 g/dL 31.6-35.1 RDW-SD (test code = 52697-1) 42.4 fL 39.0-49.9 RDW-CV (test code = 788-0) 12.7 % 12.0-15.5 PLT (test code = 777-3) 337 166-358 MPV (test code = 99563-2) 10.0 fL 9.5-12.9 NRBC/100 WBC (test code = 2977567393) 0.0 0.0-10.0 NRBC x10^3 (test code = 9443610523) See_Comment [Automated me ssage] The system which generated this result transmitted reference range: 10*3/?L. The reference range was not used to interpret this result as normal/abnormal. GRAN MAT (NEUT) % (test code = 770-8) 52.3 % IMM GRAN % (test code = 7839514077) 0.10 % LYMPH % (test code = 736-9) 36.4 % MONO % (test code = 5905-5) 8.4 % EOS % (test code = 713-8) 2.4 % BASO % (test code = 706-2) 0.4 % GRAN MAT x10^3(ANC) (test code = 0578462067) 3.55 10*3/uL 1.88-7.09 IMM GRAN x10^3 (test code = 8966400210) 0.00-0.06 LYMPH x10^3 (test code = 731-0) 2.47 10*3/uL 1.32-3.29 MONO x10^3 (test code = 742-7) 0.57 10*3/uL 0.33-0.92 EOS x10^3 (test code = 711-2) 0.16 10*3/uL 0.03-0.39 BASO x10^3 (test code = 704-7) 0.03 10*3/uL 0.01-0.07 [facility] Notes Date/Time Note Provider Source 2024-03-31 17:30:48 Pt given printed and verbal discharge instructions regarding infected tooth, periodontal disease, dental cavity, encouraged hydration, 2 Prescriptions provided Pt verbalized understanding of instructions, pt awake alert oriented, resp reg unlabored, skin w/d, color appropriate for race, moves all ext well,pt encouraged to follow up with pcp Advised to seek medical attention for new/prolonged/worsening of symptoms, Symptoms improved. No adverse reaction to meds given in ER noted upon discharge Awake, alert oriented, resp reg unlabored, skin w/d, pt leaving amb with steady gait, in no apparent distress, A Navarrete RN [facility] 2024-03-31 16:32:11 Patient here for a toothache, c/o pain on the right lower side, started 2 days ago. A Yun RN [facility] 2023-09-25 21:44:24 Pt given printed and verbal [...] in no apparent distress, Joseph Peña RN [facility] 2023-09-25 18:52:40 Nurse Report Report given to Joseph RUSSELL. Chief complaint, assessment findings, infusion verify and orders reviewed. Mare Walters RN Mare Walters RN [facility] 2023-09-25 15:34:51 Patient reports since Eveline having right sided abdominal pain after eating and dizziness intermittently, worse over past two days. Also wants checked for kidney problems or UTI. [facility]
[2024-04-08 20:36] LABS: Absolute Basophils 0.1 K/uL (0-0.5); Absolute Eosinophils 0.6 K/uL (0-0.5); Absolute Lymphocytes (CBC) 3.4 K/uL (0.7-4.9); Absolute Monocytes 0.6 K/uL (0.1-1.3); Absolute Neutrophil 5.5 K/uL (1.8-8.0); Eosinophils % 5.8 % (0-4.4); Hematocrit 40.7 % (36.0-45.0); Hemoglobin 13.8 g/dL (12.0-15.0); Lymphocytes % 32.9 % (15.3-44.8); MCH 30.4 pg (27.0-35.0); MCHC 33.9 g/dL (32.0-36.0); MCV 89.7 fL (80-100); MPV 7.5 fL (7.6-11.3); Monocytes % 6.3 % (3.3-12.3); Nucleated Red Blood Cells % 0.1 % (0-0); Platelets 395 thou/uL (152-406); RBC Red Blood Cell Count 4.54 M/uL (3.86-4.86); Red Cell Distribution Width 13.4 % (12.1-15.2)
[2024-04-08 20:55] LABS: Anion Gap 7.6 mEq/L (5.0-15.0); Potassium 3.6 mEq/L (3.5-5.1); Troponin High Sensitivity 3.1 pg/mL (<58.9)
--- NOTE | 2024-04-08 22:03 | RAD REPORT ---
Procedure: Chest Single View HISTORY: Chest pain COMPARISON: 2023 FINDINGS: The lungs appear clear of acute infiltrate. No significant pleural effusion noted. The heart is mildly enlarged. IMPRESSION: No acute abnormality is displayed.
--- NOTE | 2024-04-08 22:05 | RAD REPORT ---
EXAMINATION: CTA CHEST PE CLINICAL INDICATION: Chest pain TECHNIQUE: 100 cc 370 Isovue administered intravenously. This examination was performed according to an angiographic protocol with 3D post-processing. This involves 3D reconstructions, MIPs, volume rendered images and/or shaded surface rendering. One or more of the following dose reduction techniqu es were used: Automated exposure control, adjustment of the mA and/or kV according to patient size, and/or iterative reconstruction. Unless otherwise specified, incidental findings do not require dedic ated imaging follow-up. [id number]. COMPARISON: 2020 FINDINGS: A pulmonary embolus is not seen. An aortic aneurysm not noted. No pleural effusion. No pericardial effusion. Calcified granuloma left lung. Small left posterior diaphragmatic hernia containing fat IMPRESSION: No evidence of a pulmonary embolism
--- NOTE | 2024-04-08 23:09 | ER ---
Nurse's Notes [facility] Name: Stefanie Capellan Age: 63 yrs Sex: Female : 1960 Arrival Date: 04/08/2024 Time: 18:44 Bed IW1 Private MD: Diagnosis: Chest pain, unspecified;Acute anterior chest wall pain, noncardiac chest pain Presentation: 04/08 19:20 Chief complaint: Patient states: she has been having chest tightness "for a few days", ap3 and has recently had dental work of which she is on antibiotics for. patient reports the chest hurts worse upon deep breathing, or when she moves certain ways. Coronavirus screen: At this time, the client does not indicate any symptoms associated with coronavirus-19. Ebola Screen: No symptoms or risks identified at this time. Initial Sepsis Screen: Does the patient meet any 2 criteria? No. Patient's initial sepsis screen is negative. Does the patient have a suspected source of infection? No. Patient's initial sepsis screen is negative. Risk Assessment: Do you want to hurt yourself or someone else? Patient reports no desire to harm self or others. Onset of symptoms was April 04, 2024. 19:20 Method Of Arrival: Ambulatory ap3 19:20 Acuity: RAMIN 2 ap3 Triage Assessment: 19:22 General: Appears in no apparent distress. Behavior is calm, cooperative, appropriate ap3 for age. Pain: Complains of pain in anterior aspect of left upper chest Pain currently is 8 out of 10 on a pain scale. Pain began 4 days ago. EENT: Poor dentition noted. Neuro: Level of Consciousness is awake, alert, obeys commands, Oriented to person, place, time, situation, Appropriate for age Speech is normal. Cardiovascular: Patient's skin is warm and dry. Respiratory: Reports pain with respiration Airway is patent Respiratory effort is even, unlabored, Respiratory pattern is regular, symmetrical. Historical: - Allergies: 19:22 Codeine; ap3 19:22 Latex; ap3 19:22 Morphine; ap3 19:22 PENICILLINS; ap3 19:22 Prozac; ap3 19:22 Sulfa (Sulfonamide Antibiotics); ap3 - PMHx: 19:22 Asthma; Anxiety; COPD; headache; Hypertensive disorder; Schizophrenia; Kidney stone; ap3 Bipolar disorder; - PSHx: 19:22 Lithotripsy; ap3 - Immunization history:: Client reports receiving the 2nd dose of the Covid vaccine. - Infectious Disease History:: Denies. - Social history:: Smoking status: Patient denies any tobacco usage or history of. - Family history:: not pertinent. - Hospitalizations: : No recent hospitalization is reported. Screenin:23 [facility] ED Fall Risk Assessment (Adult) History of falling in the last 3 months, ap3 including since admission No falls in past 3 months (0 pts) Confusion or Disorientation No (0 pts) Intoxicated or Sedated No (0 pts) Impaired Gait No (0 pts) Mobility Assist Device Used No (0 pt) Altered Elimination No (0 pt) Score/Fall Risk Level 0 - 2 = Low Risk Oriented to surroundings, Maintained a safe environment, Educated pt \\T\\ family on fall prevention, incl call for assistance when getting out of bed, Assessed \\T\\ reinforced patient's understanding of fall precautions, Hourly rounding (assess needs \\T\\ fall precautionary measures) done, Used ambulatory aids as needed (educated on \\T\\ assisted with). Abuse screen: Denies threats or abuse. Nutritional screening: No deficits noted. Tuberculosis screening: No symptoms or risk factors identified. Assessment: 23:05 Reassessment: Patient appears in no apparent distress at this time. Patient and/or bm8 family updated on plan of care and expected duration. Pain level reassessed. Patient is alert, oriented x 3, equal unlabored respirations, skin warm/dry/pink. Patient states feeling better. Patient states symptoms have improved. General: Appears in no apparent distress. comfortable, Behavior is calm, cooperative, appropriate for age. Pain: Complains of pain in anterior aspect of left upper chest Pain does not radiate. Pain currently is 5 out of 10 on a pain scale. Quality of pain is described as aching. Neuro: No deficits noted. Level of Consciousness is awake, alert, obeys commands, Oriented to person, place, time, situation, Appropriate for age. Cardiovascular: Heart tones S1 S2 present Capillary refill < 3 seconds in bilateral fingers Patient's skin is warm and dry. Respiratory: Airway is patent Respiratory effort is even, unlabored, Respiratory pattern is regular, symmetrical, Breath sounds are clear bilaterally. GI: No signs and/or symptoms were reported involving the gastrointestinal system. : No signs and/or symptoms were reported regarding the genitourinary system. EENT: No signs and/or symptoms were reported regarding the EENT system. Derm: No signs and/or symptoms reported regarding the dermatologic system. Musculoskeletal: No signs and/or symptoms reported regarding the musculoskeletal system. Vital Signs: 19:20 BP 187 / 103; Pulse 79; Resp 18; Temp 98.1(O); Pulse Ox 97% on R/A; Pain 8/10; ap3 19:20 Weight 77.11 kg; ap3 23:05 BP 179 / 106; Pulse 98; Resp 18; Temp 98.1; Pulse Ox 98% ; Pain 5/10; bm8 19:20 Pain Scale: Adult ap3 23:05 Pain Scale: Adult bm8 [place] Coma Score: 23:05 Eye Response: spontaneous(4). Motor Response: obeys commands(6). Verbal Response: bm8 oriented(5). Total: 15. ED Course: 18:47 Patient arrived in ED. mr 19:15 Willy Rodríguez MD is Attending Physician. rn 19:22 Triage completed. ap3 19:23 Arm band placed on right wrist. ap3 19:23 Patient maintains SpO2 saturation greater than 95% on room air. ap3 19:32 EKG done, by ED staff, reviewed by Willy Rodríguez MD. ap3 19:43 Radiology exam delayed due to lab results not completed at this time. IV insertion jc4 attempt and/or patient not having appropriate IV at this time. 19:50 XRAY Chest (1 view) In Process Unspecified. EDMS 20:19 Missed attempt(s): 22 gauge in right antecubital area. Bleeding controlled, band aid rv1 applied, catheter tip intact. 20:30 Initial lab(s) drawn, by sc, sent to lab. Inserted saline lock: 20 gauge in left bm8 forearm, using aseptic technique. Blood collected. Flushed with 10 mL NS. 21:15 Attending Physician role handed off by Willy Rodríguez MD sp4 21:15 Parag García MD is Attending Physician. sp4 21:41 CT Chest For PE Angio In Process Unspecified. EDMS 23:05 Patient has correct armband on for positive identification. Provided Education on: post bm8 er care. Client placed on continuous cardiac and pulse oximetry monitoring. NIBP monitoring applied. Pulse ox on. NIBP on. 23:05 No provider procedures requiring assistance completed. IV discontinued, intact, bm8 bleeding controlled, Pressure dressing applied, iv infiltrated during ct and was removed. 23:26 Ramy Lambert, RN is Primary Nurse. bm8 Administered Medications: No medications were administered Medication: 23:05 VIS not applicable for this client. bm8 Outcome: 23:05 Discharged to home ambulatory, bm8 23:05 Condition: stable 23:05 Discharge instructions given to patient, Instructed on discharge instructions, follow up and referral plans. Demonstrated understanding of instructions, follow-up care, medications, Prescriptions given X 2, 23:09 Discharge ordered by MD. zaidi 23:27 Patient left the ED. bm8 Signatures: Dispatcher [employer] EDNE Dyan Patterson, Reg Reg mr Willy Rodríguez MD MD rn Prokisch, Amanda, RN RN [email or web address] Alejandra Aldana rv1 Parag Garcaí MD MD sp4 Ramy Lambert, RN RN bm8 Karri Griffin 4
--- NOTE | 2024-04-08 23:09 | EDPHYS ---
Physician Documentation [facility] Name: Stefanie Capellan Age: 63 yrs Sex: Female : 1960 Arrival Date: 04/08/2024 Time: 18:44 Bed IW1 Private MD: ED Physician Parag García HPI: 04/08 19:23 This 63 yrs old Female presents to ER via Ambulatory with complaints of Chest Tightness.rn 19:23 The patient or guardian reports chest pain that is located primarily in the anterior rn chest wall, left. Onset: 3 day(s) ago. The pain does not radiate. Associated signs and symptoms: Pertinent positives: cough, Pertinent negatives: abdominal pain, shortness of breath, syncope, vomiting. The chest pain is described as sharp, stabbing. Duration: The patient or guardian reports multiple episodes, that are intermittent. Modifying factors: The symptoms are alleviated by nothing. the symptoms are aggravated by breathing, cough, deep breath, palpation of area. Severity of pain: At its worst the pain was mild in the emergency department the pain is unchanged. The patient has not experienced similar symptoms in the past. The patient has not recently seen a physician. Patient reports left anterior outer chest pain for 3 days. No fever or chills. Does have COPD. Also has anxiety. Reports mild cough and pain with palpation and deep inspiration and movement of arms. No hemoptysis. No abdominal pain.. 23:04 PMH- Allergies - Prozac; Sulfa (Sulfonamide Antibiotics); Latex; Codeine; Morphine; sp4 PMHx: Anxiety, Asthma; Bipolar disorder; COPD; headache; Hypertensive disorder; Kidney stone; Schizophrenia PSHx: 19:07 Lithotripsy;. Historical: - Allergies: 19:22 Codeine; ap3 19:22 Latex; ap3 19:22 Morphine; ap3 19:22 PENICILLINS; ap3 19:22 Prozac; ap3 19:22 Sulfa (Sulfonamide Antibiotics); ap3 - PMHx: 19:22 Asthma; Anxiety; COPD; headache; Hypertensive disorder; Schizophrenia; Kidney stone; ap3 Bipolar disorder; - PSHx: 19:22 Lithotripsy; ap3 - Immunization history:: Client reports receiving the 2nd dose of the Covid vaccine. - Infectious Disease History:: Denies. - Social history:: Smoking status: Patient denies any tobacco usage or history of. - Family history:: not pertinent. - Hospitalizations: : No recent hospitalization is reported. ROS: 19:23 Constitutional: Negative for fever, chills, and weight loss, Cardiovascular: Positive rn for left upper outer chest pain Respiratory: Positive for sharp pain with deep inspiration, positive for cough Abdomen/GI: Negative for abdominal pain, nausea, vomiting, diarrhea, and constipation, MS/Extremity: Negative for injury and deformity, Neuro: Negative for headache, weakness, numbness, tingling, and seizure, Exam: 19:23 Constitutional: This is a well developed, well nourished patient who is awake, alert, rn and in no acute distress. Cardiovascular: Regular rate and rhythm. No pulse deficits. Respiratory: No increased work of breathing, no retractions or nasal flaring. Abdomen/GI: Soft, non-tender MS/ Extremity: Pulses equal, no cyanosis. Neuro: Awake and alert, GCS 15 19:33 ECG was reviewed by the Attending Physician. rn Vital Signs: 19:20 BP 187 / 103; Pulse 79; Resp 18; Temp 98.1(O); Pulse Ox 97% on R/A; Pain 8/10; ap3 19:20 Weight 77.11 kg; ap3 23:05 BP 179 / 106; Pulse 98; Resp 18; Temp 98.1; Pulse Ox 98% ; Pain 5/10; bm8 19:20 Pain Scale: Adult ap3 23:05 Pain Scale: Adult bm8 [place] Coma Score: 23:05 Eye Response: spontaneous(4). Motor Response: obeys commands(6). Verbal Response: bm8 oriented(5). Total: 15. MDM: 19:15 Medical Screening Exam initiated rn 23:12 Differential diagnosis: acute pericarditis, anxiety, chest wall pain, costochondritis, sp4 esophagitis, gastritis. HEART Score: History: Slightly Suspicious (0), ECG: Normal (0), Age: > 45 and < 65 years (1), Risk Factors: 1 or 2 risk factors (1), Troponin: < or = 1 x Normal Limit (0), Total Score = 2. Data reviewed: vital signs, nurses notes, old medical records, lab test result(s), EKG, radiologic studies, CT scan, plain films. ED course: COMPARISON: 2020 FINDINGS: A pulmonary embolus is not seen. An aortic aneurysm not noted. No pleural effusion. No pericardial effusion. Calcified granuloma left lung. Small left posterior diaphragmatic hernia containing fat IMPRESSION: No evidence of a pulmonary embolism . 23:13 ED course: Procedure: Chest Single View HISTORY: Chest pain COMPARISON: 2023 FINDINGS: sp4 The lungs appear clear of acute infiltrate. No significant pleural effusion noted. The heart is mildly enlarged. IMPRESSION: No acute abnormality is displayed.. 04/08 19:23 Order name: Basic Metabolic Panel; Complete Time: 21:15 rn 04/08 19:23 Order name: CBC with Diff; Complete Time: 21:15 rn 04/08 19:23 Order name: NT PRO-BNP; Complete Time: 21:15 rn 04/08 19:23 Order name: Troponin HS; Complete Time: 21:15 rn 04/08 19:17 Order name: XRAY Chest (1 view); Complete Time: 23:03 rn 04/08 19:23 Order name: CT Chest For PE Angio; Complete Time: 23:03 rn 04/08 19:23 Order name: EKG; Complete Time: 19:23 rn 04/08 19:23 Order name: EKG - Nurse/Tech; Complete Time: 19:32 rn 04/08 19:23 Order name: IV Saline Lock; Complete Time: 22:43 rn 04/08 19:23 Order name: Labs collected and sent; Complete Time: 22:43 rn 04/08 19:23 Order name: O2 Per Protocol; Complete Time: 22:43 rn 04/08 19:23 Order name: O2 Sat Monitoring; Complete Time: 22:43 rn EC:33 Rate is 89 beats/min. Rhythm is regular. QRS [place] is Normal. CT interval is normal. QRS rn interval is normal. QT interval is normal. No Q waves. T waves are Normal. No ST changes noted. Clinical impression: Normal ECG. Interpreted by me. Reviewed by me. Administered Medications: No medications were administered Disposition Summary: 04/08/24 23:09 Discharge Ordered Notes: Location: Home sp4 Problem: new sp4 Symptoms: have improved sp4 Condition: Stable sp4 Diagnosis - Chest pain, unspecified sp4 - Acute anterior chest wall pain, noncardiac chest pain sp4 Followup: sp4 - With: Private Physician - When: 7 - 10 days - Reason: Recheck today's complaints Discharge Instructions: - Discharge Summary Sheet sp4 - Nonspecific Chest Pain, Adult, [id number] sp4 Forms: - Patient Portal Instructions sp4 Prescriptions: - Tramadol 50 mg Oral tablet - take 1 tablet ORAL route every 8 hours as needed; 20 tablet; Refills: 0, sp4 Product Selection Permitted - methocarbamol 750 mg Oral tablet - take 2 tablets ORAL route every 8 hours for 2 days PRN muscle soreness; 60 sp4 tablet; Refills: 0, Product Selection Permitted Signatures: Dispatcher [employer] EDWilly Willson MD MD rn Prokisch, Amanda, RN RN ap3 Parag García MD MD sp4 Corrections: (The following items were deleted from the chart) 23:27 19:23 Cardiac monitoring ordered. erika bm8
[2024-04-08 23:51] VITALS: TEMP 98.1
[2024-04-08 23:57] VITALS: BP 179/106; O2SAT 98
--- NOTE | 2024-04-09 11:03 | EKG ---
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
== END 2024-04-08 23:27 | disposition home or self-care (01) ==
LOC: ER 18:44
DX: R07.89 Other chest pain (principal); R05.9 Cough, unspecified; I10 Essential (primary) hypertension; F41.9 Anxiety disorder, unspecified
CPT/HCPCS: 93005; 85025; 80048; 36415; 84484; 83880; 71275; 71045; 99284; Q9967

== ENCOUNTER 2024-06-23 07:48 | Emergency (ER) | payer OTHER ==
--- OUTSIDE RECORDS SUMMARY | 2024-06-23 07:52 | XMS REPORT | Continuity of Care Document ---
Author Name Unknown Address [address] [facility] [address] [place] [address] [facility] Address [address] [facility] [address] [place] [address] Care Team Providers Care South Asian History Professor Name Role Phone PCP, PATIENT DOES NOT HAVE A Primary Care Physic morgan Unavailable Benitez Jaeger NP Attending Clinician BENITEZ JAEGER Attending Clinician Unavailab BEVERLY Gutierrez Attending Clinician Unav ailable BEVERLY HERNANDEZ Attending Clinician Unav ailBeverly [place] MD Attending Clinician + [email or web address]_S Attending Clinician Unavaila ble Only, Adc Test Attending Clinician Unavailable Mj Chou MD Attending Clinician [phone] MJ CHOU Attending Clinician Unavailable NETTA NAGY Attending Clinician Unavailabl e BEVERLY HERNANDEZ Admitting Clinician Unav ailable [email or web address]_S Admitting Clinician Unavaila ble Payers Payer Name Policy Type Policy Number Effective Date Expirati on Date Source [place] [id number] 2023 00:00:00 [facility] MEDICAID [id number] 2017 00:00:00 MEDICARE PART A \T\ B [id number] 1998 00:00:00 Problems Condition Name Condition Details Condition Category Status Onset Date Resolution Date Last Treatment Date Treating Clinician Comments Source Periodonta l disease Periodonta l disease Disease Active 03-31 00:00: 00 [facility] Dental cavity Dental cavity Disease Active 03-31 00:00: 00 [facility] Allergies, Adverse Reactions, Alerts Allergy Name Allergy Type Status Severity Reaction(s) Onset Date Inactive Date Treating Clinician Comments Source PENICILL IN DRUG INGREDI Active Hallucinates 09-24 00:00: 00 [facility] Penicill in Propensi ty to adverse reaction s Active Hallucinatio ns 09-24 00:00: 00 [facility] LATEX DRUG INGREDI Active Hives 05-27 [...] Date Quantity Comments [facility] 1960 [facility]:1960 00:00:00 [facility] Smoking Status Start Date Stop Date Source Tobacco smoking consumption unknown [facility] Medications Ordered Medication Name Filled Medication Name Start Date Stop Date Current Medication? Ordering Clinician Indication Dosage Frequency Signature (SIG) Comments Components Source HYDROcodone -acetaminop hen (NORCO 5) tablet 1 tablet 03-31 23:00: 00 03-31 23:27 :00 No 1{tbl} 1 tablet, Oral, ONCE, 1 dose, On Sun03/31/24 at 1700, PABLITO [facility] chlorhexidi ne 0.12 % mouthwash 03-31 00:00: 00 Yes [id number] 15mL Swish and spit out 15 mL in the morning and 15 mL in the evening. [facility] clindamycin 150 mg capsule 03-31 00:00: 00 04-08 05:59 :00 Yes [id number] 450mg Take 3 capsules by mouth in the morning and 3 capsules at noon and 3 capsules in the evening. Do all this for 7 days. [facility] ketorolac (TORADOL) injection 15 mg 09-25 02:15: 00 09-25 01:33 :00 No 15mg 15 mg, Slow IV Push, ONCE, 1 dose, On Sun09/25/23 at 2115, Routine [facility] cefTRIAXone (ROCEPHIN) 1,000 mg in NaCl 0.9% (NS) 100 mL MINI-BAG 09-24 23:45: 00 09-25 00:15 :00 No 1000mg 1,000 mg, IV Piggyback, ONCE, 1 dose, On Sun09/25/23 at 1845, Administer over 30 Minutes, 100 mL, Reason for Anti-Infec tive: Documented Infection, Documented Infection Site: Urine, Duration of Therapy: Once (ED) [facility] iopamidol (ISOVUE 370-500 mL) injection 86 mL 09-24 23:00: 00 09-24 23:00 :00 No [id number] 86mL 86 mL, Intravenou s, ONCE, 1 dose, On Sun09/25/23 at 1800, Routine [facility] ketorolac 10 mg tablet 09-24 00:00: 00 Yes [id number] 10mg Take 1 tablet by mouth every 6 (six) hours as needed for Pain (scale 4-6). [facility] tamsulosin 0.4 mg 24 hr capsule 09-24 00:00: 00 Yes [id number] .4mg Take 1 capsule by mouth at bedtime. [facility] ondansetron 4 mg disintegrat ing tablet 09-24 00:00: 00 Yes [id number] 4mg Take 1 tablet by mouth every 8 (eight) hours as needed for Nausea and Vomiting (N/V). [facility] cefdinir 300 mg capsule 09-24 00:00: 00 10-05 04:59 :00 No [id number] 300mg Take 1 capsule by mouth every 12 (twelve) hours for 10 days. [facility] sod chlor-bicar b-squeez bottle (NEILMED SINUS [...] Cough. DO NOT CHEW! [facility] sod chlor-bicar b-squeez bottle (NEILMED SINUS RINSE COMPLETE) pkdv 05-27 00:00: 00 Yes 1{bottl e} Use 1 Bottle in each nostril 2 (two) times daily. Use in hot shower 1 hour before bedtime [facility] Vital Signs Vital Name Observation Time Observation Value Comments S ource BMI 2024-03-31 22:32:00 27.12 kg/m2 [facility] Oxygen saturation in Arterial blood by Pulse oximetry 2024-03-31 22:32:00 98 /min [facility] Systolic blood pressure 2024-03-31 22:32:00 156 mm[Hg] [facility] Diastolic blood pressure 2024-03-31 22:32:00 89 mm[Hg] [facility] Heart rate 2024-03-31 22:32:00 99 /min [facility] Body temperature 2024-03-31 22:32:00 37.11 Ne [facility] Respiratory rate 2024-03-31 22:32:00 18 /min [facility] Body height 2024-03-31 22:32:00 167.6 cm [facility] Body weight 2024-03-31 22:32:00 76.204 kg [facility] Heart rate 2023-09-26 02:39:56 81 /min [facility] Body temperature 2023-09-26 02:39:56 37.22 Ne [facility] Respiratory rate 2023-09-26 02:39:56 19 /min [facility] Oxygen saturation in Arterial blood by Pulse oximetry 2023-09-26 02:39:56 96 /min [facility] Systolic blood pressure 2023-09-26 02:00:00 141 mm[Hg] [facility] Diastolic blood pressure 2023-09-26 02:00:00 80 mm[Hg] [facility] Body height 2023-09-25 20:36:00 167.6 cm [facility] Body weight 2023-09-25 20:36:00 74.844 kg [facility] BMI 2023-09-25 20:36:00 26.63 kg/m2 [facility] Procedures Procedure Date / Time Performed Performing Clinicia n Source CT ABDOMEN PELVIS W CONTRAST 2023-09-25 22:01:27 Beverly Hernandez [facility] LIPASE 2023-09-25 20:58:00 Beverly Hernandez [facility] TROPONIN I 2023-09-25 20:58:00 Beverly Hernandez [facility] COMP. METABOLIC PANEL (01096) 2023-09-25 20:58:00 Beverly Hernandez [facility] CBC WITH DIFF 2023-09-25 20:58:00 Beverly Hernandez [facility] URINALYSIS 2023-09-25 20:58:00 Beverly Hernandez [facility] N-TERMINAL PRO-BNP 2023-09-25 20:58:00 Beverly Morales [facility] COVID-19 (ID NOW RAPID TESTING) 2021-08-02 18:22:00 Mj Chou [facility] Encounters Start Date/Time End Date/Time Encounter Type Admission Type Attending [facility] Care Facility Care Department Encounter ID Source 2024-03-31 16:34:00 2024-03-31 17:48:00 Emergency Benitez Jaeger [facility] [id number] [facility] 2024-03-31 16:34:00 2024-03-31 17:48:00 Emergency X BENITEZ JAEGER [facility] ERT [id number] [facility] 2023-10-04 14:00:00 2023-10-04 14:00:00 Outpatient R [facility] [id number] [facility] 2023-09-25 15:38:00 2023-09-25 21:53:00 Emergency X BEVERLY HERNANDEZ [facility]IN [facility] ERT [id number] [facility] 2023-09-25 15:38:00 2023-09-25 21:53:00 Emergency Beverly Hernandez [facility] [id number] [facility] 2023-01-30 13:20:02 2023-01-30 13:20:02 Outpatient [facility] [id number] 2022-12-05 00:00:00 2022-12-05 00:00:00 Outpatient GC_[email or web address]_Ka diyala_S [facility] [id number] [facility] 2021-08-02 13:00:00 2021-08-02 13:15:00 Laboratory Only Only, Adc Test Mj Chou [facility] [id number] [facility] 2021-08-02 13:00:00 2021-08-02 13:00:00 Outpatient R [facility] [id number] [facility] 2021-08-02 13:00:00 2021-08-02 13:00:00 Outpatient MJ HUMPHREY [facility] [id number] [facility] 2020-10-23 11:30:00 2020-10-23 11:30:00 Outpatient NETTA STRAUSS [facility] [id number] [facility] Results Test Description Test Time Test [...] orfree fluid. Skeleton: No acute osseous pathology. [id number] 21:53:14* Test Item Value Reference Range Interpretation Comme nts TROPONIN I (test code = 9493447198) 0.003 ng/mL <=0.034 VY (test code = [...] of biotin. Lab Interpretation (test code = 03073-8) Normal [facility] [id number] 21:50:34* Test Item Value Reference Range Interpretation Comme nts NT-proBNP (test code = 61778-9) 68 pg/mL <=125 Lab Interpretation (test cod e = 68851-3) Normal [facility]24-08-20 21:41:32* Test Item Value Reference Range Interpretation Comme nts LIPASE (test code = 6589824791) 73 U/L 0-220 Lab Interpretation (test cod e = 35915-0) Normal [facility] with [id number] 21:38:52* Test Item Value Reference Range Interpretation [...] 34.0 g/dL 31.6-35.1 RDW-SD (test code = 38152-5) 42.4 fL 39.0-49.9 RDW-CV (test code = 788-0) 12.7 % 12.0-15.5 PLT (test code = 777-3) 337 166-358 MPV (test code = 92529-5) 10.0 fL 9.5-12.9 NRBC/100 WBC (test code = 8431172562) 0.0 0.0-10.0 NRBC x10^3 (test code = 2650076967) See_Comment [Automated me ssage] The system which generated this result transmitted reference range: 10*3/?L. The reference range was not used to interpret this result as normal/abnormal. GRAN MAT (NEUT) % (test code = 770-8) 52.3 % IMM GRAN % (test code = 3320594705) 0.10 % LYMPH % (test code = 736-9) 36.4 % MONO % (test code = 5905-5) 8.4 % EOS % (test code = 713-8) 2.4 % BASO % (test code = 706-2) 0.4 % GRAN MAT x10^3(ANC) (test code = 3011169209) 3.55 10*3/uL 1.88-7.09 IMM GRAN x10^3 (test code = 9857770413) 0.00-0.06 LYMPH x10^3 (test code = 731-0) 2.47 10*3/uL 1.32-3.29 MONO x10^3 (test code = 742-7) 0.57 10*3/uL 0.33-0.92 EOS x10^3 (test code = 711-2) 0.16 10*3/uL 0.03-0.39 BASO x10^3 (test code = 704-7) 0.03 10*3/uL 0.01-0.07 [facility] Notes Date/Time Note Provider Source 2024-03-31 17:30:48 [...] in no apparent distress, A Navarrete RN [facility] 2024-03-31 16:32:11 Patient here for a toothache, c/o pain on the right lower side, started 2 days ago. A Yun RN [facility] 2023-09-25 21:44:24 Pt given printed and verbal [...] in no apparent distress, Joseph Peña RN [facility] 2023-09-25 18:52:40 Nurse Report Report given to Joseph RUSSELL. Chief complaint, assessment findings, infusion verify and orders reviewed. Mare Walters RN Mare Walters RN [facility] 2023-09-25 15:34:51 Patient reports since Eveline having right sided abdominal pain after eating and dizziness intermittently, worse over past two days. Also wants checked for kidney problems or UTI. [facility]
[2024-06-23] MEDS ORDERED: NA CHLORIDE 0.9% 1,000 ML ONE (08:11)
[2024-06-23 08:47] LABS: Specific Gravity 1.014 (1.005-1.030); Sqamous Epithelial <5 /HPF (None Seen); Urine Bacteria None Seen /HPF (<20); Urine Bilirubin NEGATIVE (Negative); Urine Blood 3+ (Negative); Urine Clarity Extremely Turbid (Clear); Urine Color Light-Brown (Yellow); Urine Culture Reflex Order REFLEXED; Urine Glucose NEGATIVE (Negative); Urine Ketones NEGATIVE (Negative); Urine Microscopic Reflex YN ORDER UMIC; Urine Nitrite NEGATIVE (Negative); Urine Protein TRACE (Negative); Urine RBC >50 /HPF (None Seen); Urine Urobilinogen Normal (Normal); Urine WBC 20-50 /HPF (<5); Urine WBC Clump Rare /HPF (None Seen); Urine pH 6.5 (5.0-7.0)
[2024-06-23 08:48] LABS: Absolute Eosinophils 0.3 K/uL (0-0.5); Absolute Lymphocytes (CBC) 2.4 K/uL (0.7-4.9); Absolute Monocytes 0.7 K/uL (0.1-1.3); Absolute Neutrophil 5.2 K/uL (1.8-8.0); Basophils % 0.5 % (0-1.3); Hematocrit 40.2 % (36.0-45.0); Hemoglobin 14.1 g/dL (12.0-15.0); Lymphocytes % 27.8 % (15.3-44.8); MCH 31.1 pg (27.0-35.0); MCHC 35.2 g/dL (32.0-36.0); MCV 88.3 fL (80-100); Monocytes % 7.9 % (3.3-12.3); Neutrophils % 60.8 % (41.7-73.7); Platelets 329 thou/uL (152-406); RBC Red Blood Cell Count 4.55 M/uL (3.86-4.86); Red Cell Distribution Width 13.4 % (12.1-15.2)
[2024-06-23 08:53] LABS: Anion Gap 9.4 mEq/L (5.0-15.0); Potassium 3.4 mEq/L (3.5-5.1)
[2024-06-23 09:01] LABS: SARS-CoV-2 Antigen Rapid Res Negative (Negative)
--- NOTE | 2024-06-23 10:57 | ER ---
Nurse's Notes [facility] Name: Stefanie Capellan Age: 63 yrs Sex: Female : 1960 Arrival Date: 06/23/2024 Time: 07:48 Bed 19 Private MD: Diagnosis: Cough;Acute upper respiratory infection, unspecified;UTI/ Urinary tract infection, site not specified Presentation: 06/23 08:10 Chief complaint: Patient states: cough, nasal congestion and not feeling well x 4 days. ss Pt reports she has also been dealing with urinary symptoms, frequency and intermittent burning x 3-4 months. 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 Coronavirus screen: Client denies travel out of the [place] in the last 14 days. Ebola Screen: Patient denies exposure to infectious person. Patient denies travel to an Ebola-affected area in the 21 days before illness onset. Initial Sepsis Screen: Does the patient meet any 2 criteria? No. Patient's initial sepsis screen is negative. Does the patient have a suspected source of infection? No. Patient's initial sepsis screen is negative. Risk Assessment: Do you want to hurt yourself or someone else? Patient reports no desire to harm self or others. Onset of symptoms is unknown. 08:10 Method Of Arrival: Ambulatory 08:10 Acuity: RAMIN 3 ss Historical: - Allergies: 08:01 Codeine; ss 08:01 Latex; ss 08:01 Morphine; ss 08:01 PENICILLINS; ss 08:01 Prozac; ss 08:01 Sulfa (Sulfonamide Antibiotics); ss - PMHx: 08:01 Anxiety; Asthma; Bipolar disorder; COPD; headache; Hypertensive disorder; Kidney stone; ss Schizophrenia; - PSHx: 08:01 Lithotripsy; ss - Immunization history:: Adult Immunizations up to date. - Infectious Disease History:: Denies. - Social history:: Smoking status: Patient denies any tobacco usage or history of. Screenin:33 [facility] ED Fall Risk Assessment (Adult) History of falling in the last 3 months, ap3 including since admission No falls in past 3 months (0 pts) Confusion or Disorientation No (0 pts) Intoxicated or Sedated No (0 pts) Impaired Gait No (0 pts) Mobility Assist Device Used No (0 pt) Altered Elimination No (0 pt) Score/Fall Risk Level 0 - 2 = Low Risk Oriented to surroundings, Maintained a safe environment, Educated pt \T\ family on fall prevention, incl call for assistance when getting out of bed, Assessed \T\ reinforced patient's understanding of fall precautions, Hourly rounding (assess needs \T\ fall precautionary measures) done, Used ambulatory aids as needed (educated on \T\ assisted with). Abuse screen: Denies threats or abuse. Nutritional screening: No deficits noted. Tuberculosis screening: No symptoms or risk factors identified. Assessment: 08:00 Reassessment: ambulatory to restroom with steady gait to obtain urine specimen. ss 08:32 General: Appears in no apparent distress. Behavior is calm, cooperative, appropriate ap3 for age. Pain: Complains of pain in pelvis. Neuro: Level of Consciousness is awake, alert, obeys commands, Oriented to person, place, time, situation. Cardiovascular: Patient's skin is warm and dry. Respiratory: Reports cough that is Airway is patent Respiratory effort is even, unlabored, Respiratory pattern is regular, symmetrical. : Reports urinary frequency. 09:54 Reassessment: No changes from previously documented assessment. Patient and/or family ap3 updated on plan of care and expected duration. Pain level reassessed. Vital Signs: 08:10 BP 174 / 93; Pulse 101; Resp 17; Temp 97.6(O); Pulse Ox 96% on R/A; Weight 76.66 kg; ss Height 5 ft. 6 in. ; Pain 5/10; 09:54 BP 177 / 82; Pulse 84; Resp 17; Pulse Ox 98% ; ap3 10:30 BP 154 / 80; Pulse 83; Resp 14; Temp 98.1; Pulse Ox 96% ; me1 08:10 Body Mass Index 27.28 (76.66 kg, 167.64 cm) ss 08:10 Pain Scale: Adult ED Course: 07:52 Patient arrived in ED. im 07:53 Raul Zhu DO is Attending Physician. ms3 08:12 Triage completed. ss 08:14 Leigh Estrada, YVONNE is Primary Nurse. ap3 08:32 Initial lab(s) drawn, by co, sent to lab. Urine collected: clean catch specimen, COVID ap3 swab sent to lab. Inserted saline lock: 22 gauge in right antecubital area, using aseptic technique. Blood collected. Flushed with 10 mL NS. Patient maintains SpO2 saturation greater than 95% on room air. 08:33 BMP Sent. ap3 08:33 CBC with Diff Sent. ap3 08:33 UA Rfx Dony Cult if indicated Sent. ap3 08:33 SARS-COV-2 Antigen Rapid Sent. ap3 08:33 Pulse ox on. NIBP on. ap3 08:34 Arm band placed on left wrist. ap3 08:34 Patient has correct armband on for positive identification. Bed in low position. Call ap3 light in reach. Side rails up X 1. 08:34 Provided Education on: call light education. ap3 10:43 No provider procedures requiring assistance completed. me1 10:56 Marlon Chou DO is Referral Physician. ms3 11:09 IV discontinued, intact, bleeding controlled, No redness/swelling at site. Pressure me1 dressing applied. Administered Medications: 08:33 Drug: NS 0.9% IV 1000 ml IV at 1000 ml once; to be given as a bolus over 60 minutes ap3 Route: IV; Rate: 1000 ml; Site: right antecubital; 11:08 Follow up: Response: No adverse reaction; IV Status: Completed infusion; IV Intake: me1 1000ml Medication: 08:34 VIS not applicable for this client. ap3 Intake: 11:08 IV: 1000ml; Total: 1000ml. me1 Outcome: 10:56 Discharge ordered by . ms3 11:09 Discharged to home ambulatory, me1 11:09 Condition: stable 11:09 Discharge instructions given to patient, Instructed on discharge instructions, follow up and referral plans. medication usage, Demonstrated understanding of instructions, follow-up care, medications, Prescriptions given X 2, 11:10 Patient left the ED. me1 Signatures: Hermila Hurtado RN RN Leigh Estrada RN RN ap3 Raul Zhu DO DO ms3 Lexy Neri Michelle, RN RN me1
--- NOTE | 2024-06-23 10:57 | EDPHYS ---
Physician Documentation [facility] Name: Stefanie Capellan Age: 63 yrs Sex: Female : 1960 Arrival Date: 06/23/2024 Time: 07:48 Bed 19 Private MD: ED Physician Raul Zhu HPI: 06/23 08:17 This 63 yrs old Female presents to ER via Ambulatory with complaints of Flu Symptoms, ms3 Urinary Problem. 08:17 63-year-old female with past medical history of anxiety, asthma, bipolar disorder, ms3 COPD, headache, hypertension, kidney stone presents to the emergency department for dysuria, urinary frequency, chills that been ongoing for 3 to 4 months. Patient notes for the last 4 days she has also had URI symptoms to include nasal congestion, cough, sore throat. Patient denies any alleviating or inciting factors.. Historical: - Allergies: 08:01 Codeine; ss 08:01 Latex; ss 08:01 Morphine; ss 08:01 PENICILLINS; ss 08:01 Prozac; ss 08:01 Sulfa (Sulfonamide Antibiotics); ss - PMHx: 08:01 Anxiety; Asthma; Bipolar disorder; COPD; headache; Hypertensive disorder; Kidney stone; ss Schizophrenia; - PSHx: 08:01 Lithotripsy; ss - Immunization history:: Adult Immunizations up to date. - Infectious Disease History:: Denies. - Social history:: Smoking status: Patient denies any tobacco usage or history of. ROS: 08:17 Cardiovascular: Negative for chest pain, and palpitations. Abdomen/GI: Negative for ms3 abdominal pain, nausea, vomiting, diarrhea, and constipation, MS/Extremity: Negative for injury and deformity, 08:17 Constitutional: Positive for body aches, chills, 08:17 Respiratory: Positive for cough, Exam: 08:17 Constitutional: This is a well developed, well nourished patient who is awake, alert, ms3 and in no acute distress. Cardiovascular: Regular rate and rhythm with a normal S1 and S2. No gallops, murmurs, or rubs. Normal PMI, no JVD. No pulse deficits. Respiratory: Lungs have equal breath sounds bilaterally, clear to auscultation and percussion. No rales, rhonchi or wheezes noted. No increased work of breathing, no retractions or nasal flaring. Abdomen/GI: Soft, non-tender, with normal bowel sounds. No distension or tympany. No guarding or rebound. No evidence of tenderness throughout. Skin: Warm, dry with normal turgor. Normal color with no rashes, no lesions, and no evidence of cellulitis. MS/ Extremity: Pulses equal, no cyanosis. Neurovascular intact. Full, normal range of motion. 08:17 ENT: Posterior pharynx: Airway: normal, Tonsils: are normal in appearance, Uvula: normal, swelling, is not appreciated, erythema, that is mild, exudate, is not appreciated, peritonsillar mass, is not appreciated, Vital Signs: 08:10 BP 174 / 93; Pulse 101; Resp 17; Temp 97.6(O); Pulse Ox 96% on R/A; Weight 76.66 kg; ss Height 5 ft. 6 in. ; Pain 5/10; 09:54 BP 177 / 82; Pulse 84; Resp 17; Pulse Ox 98% ; ap3 10:30 BP 154 / 80; Pulse 83; Resp 14; Temp 98.1; Pulse Ox 96% ; me1 08:10 Body Mass Index 27.28 (76.66 kg, 167.64 cm) ss 08:10 Pain Scale: Adult ss MDM: 08:12 Medical Screening Exam initiated ms3 08:17 Differential diagnosis: uterine fibroids, urinary tract infection. Differential ms3 Diagnosis: Upper Respiratory Infection Allergic Rhinitis Viral Syndrome Other COVID. 17:49 Data reviewed: vital signs, nurses notes, lab test result(s), and as a result, I will ms3 discharge patient. I considered the following discharge prescriptions or medication management in the emergency department Medications were administered in the Emergency Department. See MAR. Counseling: I had a detailed discussion with the patient and/or guardian regarding the historical points, exam findings, and any diagnostic results supporting the discharge/admit diagnosis, lab results, the need for outpatient follow up, to return to the emergency department if symptoms worsen or persist or if there are any questions or concerns that arise at home. Special discussion: I discussed with the patient/guardian in detail that at this point there is no indication for admission to the hospital. It is understood, however, that if the symptoms persist or worsen the patient needs to return immediately for re-evaluation. ED course: Discussed labs with patient. Patient to follow-up with primary care physician 2 to 3 days. Patient understands agrees with plan. Her questions were answered. Return precautions discussed include worsening symptoms, or any other concerns. 06/23 08:12 Order name: SARS-COV-2 Antigen Rapid; Complete Time: 10:35 ms3 06/23 08:12 Order name: UA Rfx Dony Cult if indicated; Complete Time: 10:35 ms3 06/23 08:12 Order name: CBC with Diff; Complete Time: 10:35 ms3 06/23 08:12 Order name: BMP; Complete Time: 10:35 ms3 06/23 08:52 Order name: Urine Culture EDMS Administered Medications: 08:33 Drug: NS 0.9% IV 1000 ml IV at 1000 ml once; to be given as a bolus over 60 minutes ap3 Route: IV; Rate: 1000 ml; Site: right antecubital; 11:08 Follow up: Response: No adverse reaction; IV Status: Completed infusion; IV Intake: me1 1000ml Disposition Summary: 06/23/24 10:56 Discharge Ordered Notes: Location: Home ms3 Condition: Stable ms3 Diagnosis - Cough ms3 - Acute upper respiratory infection, unspecified ms3 - UTI/ Urinary tract infection, site not specified ms3 Followup: ms3 - With: Marlon Chou DO - When: 2 - 3 days - Reason: Recheck today's complaints Discharge Instructions: - Discharge Summary Sheet ms3 - Upper Respiratory Infection, Adult ms3 - Urinary Tract Infection, Adult ms3 Forms: - Medication Reconciliation Form ms3 - Antibiotic Education ms3 - Prescription Opioid Use ms3 - Patient Portal Instructions ms3 - Leadership Thank You Letter ms3 - Work release form me1 Prescriptions: - Tessalon Perles 100 mg Oral Capsule - take 1 capsule ORAL route every 8 hours As needed; 15 capsule; Refills: 0, ms3 Product Selection Permitted - Macrobid 100 mg Oral Capsule - take 1 capsule ORAL route every 12 hours for 7 days; 14 capsule; Refills: 0, ms3 Product Selection Permitted Signatures: Dispatcher [employer] Hermila Malhotra RN RN Leigh Estrada RN RN ap3 Raul Zhu DO DO ms3 Verna Christianson RN me1
[2024-06-23 11:28] VITALS: BP 154/80; TEMP 98.1; O2SAT 96
== END 2024-06-23 11:10 | disposition home or self-care (01) ==
LOC: ER 07:48
DX: J06.9 Acute upper respiratory infection, unspecified (principal); N39.0 Urinary tract infection, site not specified; Z87.442 Personal history of urinary calculi; Z11.52 Encounter for screening for COVID-19
CPT/HCPCS: 96361; 87088; 85025; 81001; 87086; 80048; 36415; 96360; 99284; 87426; J7030

== ENCOUNTER 2024-09-25 07:53 | Emergency (ER) | payer OTHER ==
--- OUTSIDE RECORDS SUMMARY | 2024-09-25 07:57 | XMS REPORT | Continuity of Care Document ---
Author Name Unknown Address [address] [facility] [address] [place] [address] [facility] Address [address] [facility] [address] [place] [address] Care Team Providers Care Relay Tester Helper Name Role Phone PCP, PATIENT DOES NOT HAVE A Primary Care Physic morgan Unavailable BENITEZ JAEGER Attending Clinician Unavailab Benitez Gillespie NP Attending Clinician [phone] BEVERLY HERNANDEZ Attending Clinician Unav ailBEVERLY Barton Attending Clinician Unav ailBeverly Barton MD Attending Clinician + Only, Adc Test Attending Clinician Unavailable Mj Chou MD Attending Clinician [phone] MJ CHOU Attending Clinician Unavailable NETTA NAGY Attending Clinician UnavailBEVERLY Reardon Admitting Clinician Unav ailable Payers Payer Name Policy Type Policy Number Effective Date Expirati on Date Source [facility] DUAL COMP HMO D SNP [id number] 2023 00:00:00 [place] [id number] 2023 00:00:00 [facility] MEDICAID [id number] 2017 00:00:00 MEDICARE PART A \T\ B [id number] 1998 00:00:00 Problems Condition Name Condition Details Condition Category Status Onset Date Resolution Date Last Treatment Date Treating Clinician Comments Source Periodonta l disease Periodonta l disease Disease Active 03-31 00:00: 00 [facility] Dental cavity Dental cavity Disease Active 03-31 00:00: 00 [facility] Allergies, Adverse Reactions, Alerts Allergy Name Allergy Type Status Severity Reaction(s) Onset Date Inactive Date Treating Clinician Comments Source PENICILL IN DRUG INGREDI Active Hallucinates 09-24 00:00: 00 [facility] Penicill in Propensi ty to adverse reaction s Active Hallucinatio ns 09-24 00:00: 00 [facility] LATEX DRUG INGREDI Active Hives 05-27 00:00: 00 [facility] MORPHINE DRUG INGREDI Active Hallucinates 05-27 00:00: 00 [facility] FLUOXETI NE HCL DRUG INGREDI Active Swelling 05-27 00:00: 00 [facility] SULFA (SULFONA MIDE ANTIBIOT ICS) Drug Class Active N/V 05-27 00:00: 00 [facility] Bee Sting / Venom Propensi ty to adverse reaction s Active Anaphylaxis 05-27 00:00: 00 [facility] Codeine Propensi ty to adverse reaction s Active Hallucinatio ns 05-27 00:00: 00 [facility] Latex Propensi ty to adverse reaction s Active Hives 05-27 00:00: 00 [facility] Morphine Propensi ty to adverse reaction s Active Hallucinatio ns 05-27 00:00: 00 [facility] Fluoxeti ne Hcl Propensi ty to adverse reaction s Active Swelling 05-27 00:00: 00 [facility] Sulfa (Sulfona mide Antibiot ics) Propensi ty to adverse reaction s Active Nausea and/or Vomiting 05-27 00:00: 00 [facility] BEE STING / VENOM DRUG INGREDI Active Anaphylaxis 05-27 00:00: 00 [facility] CODEINE DRUG INGREDI Active Hallucinates 05-27 00:00: 00 [facility] Social History Social Habit Start Date Stop Date Quantity Comments Source Sexual orientation U [facility] Sex assigned at 1960 00:00:00 1960 00:00:00 [facility] Smoking Status Start Date Stop Date Source Tobacco smoking consumption unknown [facility] Medications Ordered Medication Name Filled Medication Name Start Date Stop Date Current Medication? Ordering Clinician Indication Dosage Frequency Signature (SIG) Comments Components Source HYDROcodone -acetaminop hen (NORCO 5) tablet 1 tablet 03-31 23:00: 00 03-31 23:27 :00 No 1{tbl} 1 tablet, Oral, ONCE, 1 dose, On Sun03/31/24 at 1700, PABLITO [facility] chlorhexidi ne 0.12 % mouthwash 03-31 00:00: 00 Yes [id number] 15mL Swish and spit out 15 mL in the morning and 15 mL in the evening. [facility] clindamycin 150 mg capsule 03-31 00:00: 00 04-08 05:59 :00 No [id number] 450mg Take 3 capsules by mouth in the morning and 3 capsules at noon and 3 capsules in the evening. Do all this for 7 days. [facility] ketorolac (TORADOL) injection 15 mg 09-25 02:15: 00 09-25 01:33 :00 No 15mg 15 mg, Slow IV Push, ONCE, 1 dose, On Sun09/25/23 at 2115, Routine [facility] cefTRIAXone (ROCEPHIN) 1,000 mg in NaCl 0.9% (NS) 100 mL MINI-BAG 09-24 23:45: 00 09-25 00:15 :00 No 1000mg 1,000 mg, IV Piggyback, ONCE, 1 dose, On Sun09/25/23 at 1845, Administer over 30 Minutes, 100 mL, Reason for Anti-Infec tive: Documented Infection, Documented Infection Site: Urine, Duration of Therapy: Once (ED) [facility] iopamidol (ISOVUE 370-500 mL) injection 86 mL 09-24 23:00: 00 09-24 23:00 :00 No [id number] 86mL 86 mL, Intravenou s, ONCE, 1 dose, On Sun09/25/23 at 1800, Routine [facility] ketorolac 10 mg tablet 09-24 00:00: 00 Yes [id number] 10mg Take 1 tablet by mouth every 6 (six) hours as needed for Pain (scale 4-6). [facility] tamsulosin 0.4 mg 24 hr capsule 09-24 00:00: 00 Yes [id number] .4mg Take 1 capsule by mouth at bedtime. [facility] ondansetron 4 mg disintegrat ing tablet 09-24 00:00: 00 Yes [id number] 4mg Take 1 tablet by mouth every 8 (eight) hours as needed for Nausea and Vomiting (N/V). [facility] cefdinir 300 mg capsule 09-24 00:00: 00 10-05 04:59 :00 No [id number] 300mg Take 1 capsule by mouth every 12 (twelve) hours for 10 days. [facility] sod chlor-bicar b-squeez bottle (NEILMED SINUS RINSE COMPLETE) pkdv 05-27 00:00: 00 Yes 1{bottl e} Use 1 Bottle in each nostril 2 (two) times daily. Use in hot shower 1 hour before bedtime [facility] fluticasone (FLONASE) 50 mcg/actuati on nasal spray 05-27 00:00: 00 Yes 2{spray } Use 2 Sprays in each nostril daily. [facility] loratadine 10 mg tablet 05-27 00:00: 00 Yes 10mg Take 1 tablet by mouth daily. [facility] benzonatate 100 mg capsule 05-27 00:00: 00 Yes 100mg Take 1 capsule by mouth 3 (three) times daily as needed for Cough. DO NOT CHEW! [facility] sod chlor-bicar b-squeez bottle (NEILMED SINUS RINSE COMPLETE) pkdv 05-27 00:00: 00 Yes 1{bottl e} Use 1 Bottle in each nostril 2 (two) times daily. Use in hot shower 1 hour before bedtime [facility] Vital Signs Vital Name Observation Time Observation Value Comments S ource Oxygen saturation in Arterial blood by Pulse oximetry 2024-03-31 22:32:00 98 /min [facility] Systolic blood pressure 2024-03-31 22:32:00 156 mm[Hg] [facility] Diastolic blood pressure 2024-03-31 22:32:00 89 mm[Hg] [facility] Heart rate 2024-03-31 22:32:00 99 /min [facility] Body temperature 2024-03-31 22:32:00 37.11 [facility] Respiratory rate 2024-03-31 22:32:00 18 /min [facility] Body height 2024-03-31 22:32:00 167.6 cm [facility] Body weight 2024-03-31 22:32:00 76.204 kg [facility] BMI 2024-03-31 22:32:00 27.12 kg/m2 [facility] Heart rate 2023-09-26 02:39:56 81 /min [facility] Body temperature 2023-09-26 02:39:56 37.22 [facility] Respiratory rate 2023-09-26 02:39:56 19 /min [facility] Oxygen saturation in Arterial blood by Pulse oximetry 2023-09-26 02:39:56 96 /min [facility] Systolic blood pressure 2023-09-26 02:00:00 141 mm[Hg] [facility] Diastolic blood pressure 2023-09-26 02:00:00 80 mm[Hg] [facility] Body height 2023-09-25 20:36:00 167.6 cm [facility] Body weight 2023-09-25 20:36:00 74.844 kg [facility] BMI 2023-09-25 20:36:00 26.63 kg/m2 [facility] Procedures Procedure Date / Time Performed Performing Clinicia n Source CT ABDOMEN PELVIS W CONTRAST 2023-09-25 22:01:27 Beverly Hernandez [facility] LIPASE 2023-09-25 20:58:00 Beverly Hernandez [facility] TROPONIN I 2023-09-25 20:58:00 Beverly Hernandez [facility] COMP. METABOLIC PANEL (13687) 2023-09-25 20:58:00 Beverly Hernandez [facility] CBC WITH DIFF 2023-09-25 20:58:00 Beverly Hernandez [facility] URINALYSIS 2023-09-25 20:58:00 Beverly Hernandez [facility] N-TERMINAL PRO-BNP 2023-09-25 20:58:00 Beverly Morales [facility] COVID-19 (ID NOW RAPID TESTING) 2021-08-02 18:22:00 Mj Chou [facility] Encounters Start Date/Time End Date/Time Encounter Type Admission Type Attending [facility] Care Facility Care Department Encounter ID Source 2024-03-31 16:34:00 2024-03-31 17:48:00 Emergency X BENITEZ JAEGER [facility] ERT [id number] [facility] 2024-03-31 16:34:00 2024-03-31 17:48:00 Emergency Benitez Jaeger [facility] [id number] [facility] 2023-10-04 14:00:00 2023-10-04 14:00:00 Outpatient R [facility] [id number] [facility] 2023-09-25 15:38:00 2023-09-25 21:53:00 Emergency X RUPESHJESSICA BEVERLY BEVERLY HERNANDEZ [facility] ERT [id number] [facility] 2023-09-25 15:38:00 2023-09-25 21:53:00 Emergency Dasiakayla Beverlykeiry Gaytan [facility] [id number] [facility] 2023-01-30 13:20:02 2023-01-30 13:20:02 Outpatient SFA IDANIA [id number]za 2021-08-02 13:00:00 2021-08-02 13:15:00 Laboratory Only Only, Adc Test Mj Chou [facility] [id number] [facility] 2021-08-02 13:00:00 2021-08-02 13:00:00 Outpatient R [facility] [id number] [facility] 2021-08-02 13:00:00 2021-08-02 13:00:00 Outpatient R MJ CHOU [facility] [id number] [facility] 2020-10-23 11:30:00 2020-10-23 11:30:00 Outpatient R NETTA NAGY [facility] [id number] [facility] Results Test Description Test Time Test Comments Results Result Comments Source CT ABDOMEN PELVIS W CONTRAST 23:18:20 CT ABDOMEN PELVIS W CONTRAST Indication: Flank pain, kidney stone suspected ? Comparison: None. RL: [id number] Ordering Clinician: BEVERLY HERNANDEZ Technique: Axial CT [...] orfree fluid. Skeleton: No acute osseous pathology. [facility] [id number] 21:53:14* Test Item Value Reference Range Interpretation Comme nts TROPONIN I (test code = 0939799115) 0.003 ng/mL <=0.034 VY (test code = [...] of biotin. Lab Interpretation (test code = 45395-7) Normal [facility] [id number] 21:50:34* Test Item Value Reference Range Interpretation Comme nts NT-proBNP (test code = 84855-7) 68 pg/mL <=125 Lab Interpretation (test cod e = 25968-3) Normal [facility]2024-08-20 21:41:32* Test Item Value Reference Range Interpretation Comme nts LIPASE (test code = 8798127708) 73 U/L 0-220 Lab Interpretation (test cod e = 49802-1) Normal [facility] with [id number] 21:38:52* Test Item Value Reference Range Interpretation [...] 34.0 g/dL 31.6-35.1 RDW-SD (test code = 42407-3) 42.4 fL 39.0-49.9 RDW-CV (test code = 788-0) 12.7 % 12.0-15.5 PLT (test code = 777-3) 337 166-358 MPV (test code = 44989-2) 10.0 fL 9.5-12.9 NRBC/100 WBC (test code = 5643588316) 0.0 0.0-10.0 NRBC x10^3 (test code = 5226125770) See_Comment [Automated me ssage] The system which generated this result transmitted reference range: 10*3/?L. The reference range was not used to interpret this result as normal/abnormal. GRAN MAT (NEUT) % (test code = 770-8) 52.3 % IMM GRAN % (test code = 7644406367) 0.10 % LYMPH % (test code = 736-9) 36.4 % MONO % (test code = 5905-5) 8.4 % EOS % (test code = 713-8) 2.4 % BASO % (test code = 706-2) 0.4 % GRAN MAT x10^3(ANC) (test code = 7762653420) 3.55 10*3/uL 1.88-7.09 IMM GRAN x10^3 (test code = 1353963463) 0.00-0.06 LYMPH x10^3 (test code = 731-0) 2.47 10*3/uL 1.32-3.29 MONO x10^3 (test code = 742-7) 0.57 10*3/uL 0.33-0.92 EOS x10^3 (test code = 711-2) 0.16 10*3/uL 0.03-0.39 BASO x10^3 (test code = 704-7) 0.03 10*3/uL 0.01-0.07 [facility] Notes Date/Time Note Provider Source 2024-03-31 17:30:48 [...] in no apparent distress, A Navarrete RN [facility] 2024-03-31 16:32:11 Patient here for a toothache, c/o pain on the right lower side, started 2 days ago. A Yun RN [facility] 2023-09-25 21:44:24 Pt given printed and [...] in no apparent distress, Joseph Peña RN [facility] 2023-09-25 18:52:40 Nurse Report Report given to Joseph RUSSELL. Chief complaint, assessment findings, infusion verify and orders reviewed. Mare Walters RN Mare Walters RN [facility] 2023-09-25 15:34:51 Patient reports since Eveline having right sided abdominal pain after eating and dizziness intermittently, worse over past two days. Also wants checked for kidney problems or UTI. [facility]
[2024-09-25 08:37] LABS: Influenza A Ag Negative; Influenza B Ag Negative; SARS-CoV-2 Antigen Rapid Res Negative (Negative)
--- NOTE | 2024-09-25 08:41 | ER ---
Nurse's Notes [facility] Name: Stefanie Capellan Age: 63 yrs Sex: Female : 1960 Arrival Date: 09/25/2024 Time: 07:53 Bed 10 Private MD: Diagnosis: Acute upper respiratory infection, unspecified-improved Presentation: 09/25 08:00 Chief complaint: Patient states: "I had covid a week ago and I had a negative test at home, but work is making me get one by a health care provider.". Coronavirus screen: Client denies travel out of the [place] in the last 14 days. Ebola Screen: Patient denies exposure to infectious person. Patient denies travel to an Ebola-affected area in the 21 days before illness onset. Initial Sepsis Screen: Does the patient meet any 2 criteria? No. Patient's initial sepsis screen is negative. Does the patient have a suspected source of infection? No. Patient's initial sepsis screen is negative. Risk Assessment: Do you want to hurt yourself or someone else? Patient reports no desire to harm self or others. Onset of symptoms is unknown. 08:00 Method Of Arrival: Ambulatory ss 08:00 Acuity: RAMIN 4 ss Historical: - Allergies: 08:02 Codeine; ss 08:02 Morphine; ss 08:02 PENICILLINS; ss 08:02 Prozac; ss 08:02 Sulfa (Sulfonamide Antibiotics); ss - PMHx: 08:02 Anxiety; Asthma; Bipolar disorder; COPD; headache; Hypertensive disorder; Kidney stone; ss Schizophrenia; - PSHx: 08:02 Lithotripsy; ss - Infectious Disease History:: Denies. - Social history:: Smoking status: Patient denies any tobacco usage or history of. Screenin:55 Abuse screen: Denies threats or abuse. Denies injuries from another. Nutritional ss screening: No deficits noted. Tuberculosis screening: Never had TB. Assessment: 08:55 Reassessment: Patient appears in no apparent distress at this time. Patient and/or ss family updated on plan of care and expected duration. Pain level reassessed. Patient is alert, oriented x 3, equal unlabored respirations, skin warm/dry/pink. Vital Signs: 08:00 BP 163 / 92; Pulse 89; Resp 16; Temp 98.4(TE); Pulse Ox 98% on R/A; Pain 0/10; ss 08:00 Pain Scale: Adult ss ED Course: 07:57 Patient arrived in ED. im 07:58 Stephan Harvey MD is Attending Physician. [facility] 08:02 Triage completed. 08:02 Arm band placed on right wrist. 08:54 Hermila Hurtado, RN is Primary Nurse. 08:55 Patient has correct armband on for positive identification. 08:55 No provider procedures requiring assistance completed. Patient did not have IV access ss during this emergency room visit. Administered Medications: No medications were administered Medication: 08:55 VIS not applicable for this client. ss Outcome: 08:40 Discharge ordered by . [facility] 08:55 Discharged to home ambulatory, 08:55 Condition: good 08:55 Discharge instructions given to patient, Instructed on discharge instructions, follow up and referral plans. Demonstrated understanding of instructions, follow-up care, 08:55 Patient left the ED. ss Signatures: Stephan Harvey MD MD cha Blanchard, Shelby, RN RN Lexy Neri
--- NOTE | 2024-09-25 08:41 | EDPHYS ---
Physician Documentation [facility] Name: Stefanie Capellan Age: 63 yrs Sex: Female : 1960 Arrival Date: 09/25/2024 Time: 07:53 Bed 10 Private MD: ZAFAR Physician Stephan Harvey HPI: 09/25 08:07 This 63 yrs old Female presents to ER via Ambulatory with complaints of COVID dania test, no symptoms. 08:07 The patient or guardian reports cough, described as mild. Onset: The symptoms/episode dania began/occurred 1 week(s) ago. Modifying factors: The symptoms are alleviated by nothing. the symptoms are aggravated by nothing. Associated signs and symptoms: The patient has no apparent associated signs or symptoms. Associated signs and symptoms: Pertinent negatives:. Severity of symptoms: At their worst the symptoms were mild in the emergency department the symptoms have improved mildly. The patient has experienced similar episodes in the past, several times. Historical: - Allergies: 08:02 Codeine; ss 08:02 Morphine; ss 08:02 PENICILLINS; ss 08:02 Prozac; ss 08:02 Sulfa (Sulfonamide Antibiotics); ss - PMHx: 08:02 Anxiety; Asthma; Bipolar disorder; COPD; headache; Hypertensive disorder; Kidney stone; ss Schizophrenia; - PSHx: 08:02 Lithotripsy; ss - Infectious Disease History:: Denies. - Social history:: Smoking status: Patient denies any tobacco usage or history of. ROS: 08:08 Constitutional: Negative for fever, chills, and weight loss, Eyes: Negative for injury, dania pain, redness, and discharge, ENT: Negative for injury, pain, and discharge, Neck: Negative for injury, pain, and swelling, Cardiovascular: Negative for chest pain, palpitations, and edema, Respiratory: Negative for shortness of breath, cough, wheezing, and pleuritic chest pain, Abdomen/GI: Negative for abdominal pain, nausea, vomiting, diarrhea, and constipation, Back: Negative for injury and pain, : Negative for injury, bleeding, discharge, and swelling, MS/Extremity: Negative for injury and deformity, Skin: Negative for injury, rash, and discoloration, Neuro: Negative for headache, weakness, numbness, tingling, and seizure, Psych: Negative for depression, anxiety, suicide ideation, homicidal ideation, and hallucinations, Allergy/Immunology: Negative for hives, rash, and allergies, Endocrine: Negative for neck swelling, polydipsia, polyuria, polyphagia, and marked weight changes, Hematologic/Lymphatic: Negative for swollen nodes, abnormal bleeding, and unusual bruising, 08:08 MS/extremity: Negative for acute changes, Exam: 08:08 Constitutional: This is a well developed, well nourished patient who is awake, alert, dania and in no acute distress. Head/Face: Normocephalic, atraumatic. Eyes: Pupils equal round and reactive to light, extra-ocular motions intact. Lids and lashes normal. Conjunctiva and sclera are non-icteric and not injected. Cornea within normal limits. Periorbital areas with no swelling, redness, or edema. ENT: Nares patent. No nasal discharge, no septal abnormalities noted. Tympanic membranes are normal and external auditory canals are clear. Oropharynx with no redness, swelling, or masses, exudates, or evidence of obstruction, uvula midline. Mucous membranes moist. Neck: Trachea midline, no thyromegaly or masses palpated, and no cervical lymphadenopathy. Supple, full range of motion without nuchal rigidity, or vertebral point tenderness. No Meningismus. Chest/axilla: Normal chest wall appearance and motion. Nontender with no deformity. No lesions are appreciated. Cardiovascular: Regular rate and rhythm with a normal S1 and S2. No gallops, murmurs, or rubs. Normal PMI, no JVD. No pulse deficits. Respiratory: Lungs have equal breath sounds bilaterally, clear to auscultation and percussion. No rales, rhonchi or wheezes noted. No increased work of breathing, no retractions or nasal flaring. Abdomen/GI: Soft, non-tender, with normal bowel sounds. No distension or tympany. No guarding or rebound. No evidence of tenderness throughout. Back: No spinal tenderness. No costovertebral tenderness. Full range of motion. Skin: Warm, dry with normal turgor. Normal color with no rashes, no lesions, and no evidence of cellulitis. MS/ Extremity: Pulses equal, no cyanosis. Neurovascular intact. Full, normal range of motion., bilateral aka Neuro: Awake and alert, GCS 15, oriented to person, place, time, and situation. Cranial nerves II-XII grossly intact. Motor strength 5/5 in all extremities. Sensory grossly intact. Cerebellar exam normal. Normal gait. Psych: Awake, alert, with orientation to person, place and time. Behavior, mood, and affect are within normal limits. 08:08 Musculoskeletal/extremity: ROM: no acute changes, Circulation is intact in all extremities. Sensation intact. Compartment Syndrome exam of affected extremity: is normal. Joints: All joints appear normal with full range of motion. Weight bearing: able to fully bear weight, DVT Exam: No signs of deep vein thrombosis. no pain, no swelling, no tenderness, negative Homans' sign noted on exam, no appreciated bluish discoloration, no erythema, no increased warmth, Vital Signs: 08:00 BP 163 / 92; Pulse 89; Resp 16; Temp 98.4(TE); Pulse Ox 98% on R/A; Pain 0/10; ss 08:00 Pain Scale: Adult ss MDM: 07:58 Medical Screening Exam initiated [facility] 08:09 Differential diagnosis: obstructed airway, tracheal injury, bronchitis, flu, URI. dania Antibiotic administration: Not indicated. Data reviewed: vital signs, nurses notes, lab test result(s), Flu: negative. Consideration of Admission/Observation Escalation of care including admission/observation considered. I considered the following discharge prescriptions or medication management in the emergency department Medications were administered in the Emergency Department. See MAR. Test considered but Not performed: Labs: no labs. X-ray: no cxr. 09/25 07:58 Order name: COVID-19 Ag + Flu A+B Ag; Complete Time: 08:39 dania Administered Medications: No medications were administered Disposition Summary: 09/25/24 08:40 Discharge Ordered Notes: Location: Home dania Problem: new dania Symptoms: have improved dania Condition: Stable dania Diagnosis - Acute upper respiratory infection, unspecified - improved dania Followup: dania - With: Private Physician - When: 2 - 3 days - Reason: Recheck today's complaints, Continuance of care, Re-evaluation by your physician Discharge Instructions: - Discharge Summary Sheet dania - Cool Mist Vaporizer dania - Upper Respiratory Infection, Adult, Hcsd-os-Hkgs dania - Cough, Adult dania Forms: - Medication Reconciliation Form dania - Antibiotic Education dania - Prescription Opioid Use dania - Patient Portal Instructions dania - Leadership Thank You Letter dania - Work release form ss Signatures: Dispatcher [employer] Stephan Jay MD MD cha Blanchard, Shelby, RN RN ss
[2024-09-25 09:19] VITALS: BP 163/92; TEMP 98.4; O2SAT 98
== END 2024-09-25 08:55 | disposition home or self-care (01) ==
LOC: ER 07:53
DX: J06.9 Acute upper respiratory infection, unspecified (principal); I10 Essential (primary) hypertension; Z11.52 Encounter for screening for COVID-19; Z88.0 Allergy status to penicillin; Z88.2 Allergy status to sulfonamides; Z88.5 Allergy status to narcotic agent; Z88.8 Allergy status to other drugs, medicaments and biological substances
CPT/HCPCS: 36415; 87428; 99282